=== PATIENT | male | born 1945 | race Caucasian/White ===

== ENCOUNTER → 2020-04-20 14:26 | Outpatient (BNVA) | payer MEDICARE, OTHER, SELFPAY | PROVIDERS: PCP Internal Medicine Medical Oncology; Visit Provider Surgery Vascular Surgery | DX: Z86.79 Personal history of other diseases of the circulatory system (principal); Z98.890 Other specified postprocedural states | CPT/HCPCS: 99213 ==

== ENCOUNTER 2020-05-29 12:34 | Outpatient (REF) | payer MEDICARE, OTHER, SELFPAY ==
--- NOTE | 2020-05-29 12:35 | XR_ITS ---
EXAMINATION: XR SHOULDER, LEFT CLINICAL INFORMATION: Bursitis of left shoulder. COMPARISON: None TECHNIQUE: AP external rotation, Grashey, scapular Y, and axillary views of the left shoulder. FINDINGS: There is loss of glenohumeral joint space with inferior arthritic spurring. There is mild acromial spurring along the undersurface and the lateral aspect. This could be impinging the rotator cuff. No acute fracture or lytic process. There is mild reduction of the left AC joint space. XR/XR shoulder LT min 2V IMPRESSION: Mild degenerative changes left glenohumeral and AC joint. Inferior and lateral acromial spurring likely impinging on the rotator cuff. Correlate with MRI, if clinically indicated.
== END 2020-05-29 12:35 | disposition home or self-care (01) ==
LOC: HO.HOSX 12:34
PROVIDERS: Visit Provider Orthopaedic Surgery
DX: M75.52 Bursitis of left shoulder (principal); M19.019 Primary osteoarthritis, unspecified shoulder
CPT/HCPCS: 20610; 73030; 99202; J1100

== ENCOUNTER → 2020-06-23 15:14 | Outpatient (BNVA) | payer MEDICARE, SELFPAY | PROVIDERS: PCP Internal Medicine Medical Oncology; Visit Provider Physician Assistant Medical | DX: Z76.89 Persons encountering health services in other specified circumstances (principal) | CPT/HCPCS: G0296 ==

== ENCOUNTER 2020-07-10 07:35 | Outpatient (REF) | payer MEDICARE, OTHER, SELFPAY ==
--- NOTE | 2020-07-10 07:37 | CT_ITS ---
EXAMINATION: CT CHEST SCREENING CLINICAL INFORMATION: Nicotine dependence. COMPARISON: CT chest 08/27/2016. TECHNIQUE: Multidetector volumetric CT imaging of the chest is performed without contrast using low dose technique. Additional 2D coronal and sagittal reformatted images and axial 3D maximum intensity projection (MIP) images are generated on the CT workstation. This CT examination was performed using dose optimization techniques as appropriate, variously including the following: *Automated exposure control *Adjustment of mA and/or kV according to patient size (this includes techniques or standardized protocols for targeted exams where dose is matched to indication/reason for exam; i.e. extremities or head) *Use of iterative reconstruction technique DLP: 63 mGy-cm. FINDINGS: LUNGS: The lungs are hyperinflated with small right apical, left lower lobe and a larger lingular cysts. Previously seen pulmonary nodule in the right lower lobe and right upper lobe nodules are not well visualized. There is 6 mm nodule right middle lobe anteriorly axial image 294/6, stable. MEDIASTINUM: The thyroid lobes are symmetrical and normal. The central trachea and the bronchi are widely patent. The heart size and the great vessels are normal caliber. There are small shotty lymph nodes in the mediastinum. There are coronary artery calcifications present. No pericardial effusion seen. PLEURA: There is no pleural effusion. No pleural mass or thickening. AXILLA: No lymphadenopathy. UPPER ABDOMEN: Visualized liver, spleen, pancreas and bilateral adrenal glands are unremarkable. OSSEOUS STRUCTURES: No lytic or sclerotic process seen. CT/CT lung screening IMPRESSION: There is 6 mm nodule right middle lobe adjacent to minor fissure. The other nodules seen previously are not visualized at this time. No change in multiple bilateral pulmonary cysts on previous study. No change in mild emphysema. ASSESSMENT: Lung-RADS category 3, probably benign RECOMMENDATION: Low dose [address] chest.
== END 2020-07-10 07:36 | disposition home or self-care (01) ==
LOC: HO.CT 07:35
PROVIDERS: Visit Provider Physician Assistant Medical
DX: F17.210 Nicotine dependence, cigarettes, uncomplicated (principal)
CPT/HCPCS: 71271

== ENCOUNTER → 2020-08-08 10:39 | Outpatient (BNVA) | payer MEDICARE, OTHER, SELFPAY | PROVIDERS: PCP Internal Medicine Medical Oncology; Visit Provider Surgery Vascular Surgery | DX: I73.9 Peripheral vascular disease, unspecified (principal); I71.4 Abdominal aortic aneurysm, without rupture | CPT/HCPCS: 99212 ==

== ENCOUNTER 2020-08-16 12:25 | Outpatient (REF) | payer MEDICARE, OTHER, SELFPAY ==
--- NOTE | ~2020-08-16 | US_ITS ---
EXAMINATION: COLOR-FLOW DUPLEX IMAGING OF THE BILATERAL LOWER EXTREMITY ARTERIAL SYSTEM. VELOCITY MEASUREMENTS THROUGHOUT THE FEMORAL ARTERIES WITH ANKLE-BRACHIAL PERIPHERAL ARTERIAL TESTING. CLINICAL INFORMATION: This is a 75-year-old male with atherosclerotic disease and claudication. Peripheral vascular disease. Smoking. Interventional Radiologist: Israel Vizcaino M.D., F.S.I.R., F.A.C.R. RIGHT FEMORAL RUNOFF VELOCITIES: The right common femoral artery measures 146 cm/s and triphasic. The right profunda femoral artery is 73 cm/s and is biphasic. Right proximal superficial femoral artery measures 126 cm/s and biphasic. Mid superficial femoral artery is 1 7 cm/s and biphasic. Distal right superficial femoral artery measures 92 cm/s and is biphasic. Right popliteal velocity measures 44 cm/s and is biphasic. The posterior tibial artery velocity measures 39 cm/s and was biphasic. The right ankle-brachial index is 0.76. LEFT FEMORAL RUNOFF VELOCITIES: The left common femoral artery measures 90 cm/s and triphasic. The left profunda femoral artery is 91 cm/s and is biphasic. Left proximal superficial femoral artery measures 58 cm/s and triphasic. Mid superficial femoral artery is 83 cm/s and biphasic. Distal left superficial femoral artery measures 16 cm/s and is monophasic. Left popliteal velocity measures 26 cm/s and is monophasic. The posterior tibial artery velocity measures 13 cm/s and was monophasic. The left ankle-brachial index is 0.62. US/US arterial duplex LE BI IMPRESSION: 1. There is moderate hemodynamically significant disease within the left lower extremity runoff. There appears to be hemodynamically significant stenosis involving the distal left superficial femoral artery. 2. There is mild hemodynamically significant atherosclerotic disease in the left lower extremity runoff. There appears to be hemodynamically significant disease in the left popliteal region.
--- NOTE | ~2020-08-16 | US_ITS ---
EXAMINATION: COLOR-FLOW DUPLEX IMAGING OF THE BILATERAL LOWER EXTREMITY ARTERIAL SYSTEM. VELOCITY MEASUREMENTS THROUGHOUT THE FEMORAL ARTERIES WITH ANKLE-BRACHIAL PERIPHERAL ARTERIAL TESTING. CLINICAL INFORMATION: This is a 75-year-old male with atherosclerotic disease and claudication. Peripheral vascular disease. Smoking. Interventional Radiologist: Israel Vizcaino M.D., F.S.I.R., F.A.C.R. RIGHT FEMORAL RUNOFF VELOCITIES: The right common femoral artery measures 146 cm/s and triphasic. The right profunda femoral artery is 73 cm/s and is biphasic. Right proximal superficial femoral artery measures 126 cm/s and biphasic. Mid superficial femoral artery is 1 7 cm/s and biphasic. Distal right superficial femoral artery measures 92 cm/s and is biphasic. Right popliteal velocity measures 44 cm/s and is biphasic. The posterior tibial artery velocity measures 39 cm/s and was biphasic. The right ankle-brachial index is 0.76. LEFT FEMORAL RUNOFF VELOCITIES: The left common femoral artery measures 90 cm/s and triphasic. The left profunda femoral artery is 91 cm/s and is biphasic. Left proximal superficial femoral artery measures 58 cm/s and triphasic. Mid superficial femoral artery is 83 cm/s and biphasic. Distal left superficial femoral artery measures 16 cm/s and is monophasic. Left popliteal velocity measures 26 cm/s and is monophasic. The posterior tibial artery velocity measures 13 cm/s and was monophasic. The left ankle-brachial index is 0.62. US/US VIJAY complete IMPRESSION: 1. There is moderate hemodynamically significant disease within the left lower extremity runoff. There appears to be hemodynamically significant stenosis involving the distal left superficial femoral artery. 2. There is mild hemodynamically significant atherosclerotic disease in the left lower extremity runoff. There appears to be hemodynamically significant disease in the left popliteal region.
== END 2020-08-16 12:26 | disposition home or self-care (01) ==
LOC: HO.US 12:25
PROVIDERS: Visit Provider Surgery Vascular Surgery
DX: I70.213 Atherosclerosis of native arteries of extremities with intermittent claudication, bilateral legs (principal)
CPT/HCPCS: 93923; 93925

== ENCOUNTER → 2020-08-24 12:54 | Outpatient (BNVA) | payer MEDICARE, OTHER, SELFPAY | PROVIDERS: PCP Internal Medicine Medical Oncology; Visit Provider Surgery Vascular Surgery | DX: I73.9 Peripheral vascular disease, unspecified (principal) | CPT/HCPCS: 99212 ==

== ENCOUNTER 2020-09-06 06:04 | Day surgery (SDC) | payer MEDICARE, OTHER, SELFPAY ==
[2020-09-06 06:26] VITALS: BMI 28.1
[2020-09-06 06:47] LABS: MANUAL DIFF FLAG NO
[2020-09-06 06:49] LABS: Basophils Percent Auto 0.5 % (0-2); Eosinophils Absolute Auto 0.2 X10*3/uL (0.0-0.4); Eosinophils Percent Auto 2.9 % (0-4); Hemoglobin 15.6 g/dl (14.0-18.0); Imm Gran Abs Auto 0.03 X10*3/uL (0.00-0.03); Imm Gran Pct Auto 0.4 % (0.0-0.4); Lymphocytes Absolute Auto 1.8 X10*3/uL (1.2-4.9); Lymphocytes Percent Auto 25.1 % (20-40); Mean Corpuscular HGB Conc 33.9 g/dl (31.0-36.0); Mean Corpuscular Hemoglobin 29.8 pg (27.0-33.0); Mean Corpuscular Volume 87.8 fL (80-98); Mean Platelet Volume 9.1 fL (9.4-12.4); Monocytes Absolute Auto 0.6 X10*3/uL (0.1-1.2); Monocytes Percent Auto 8.1 % (2-11); Neutrophils Absolute Auto 4.6 X10*3/uL (2.0-8.3); Platelet Count 263 X10*3/uL (160-400); Red Blood Count 5.24 X10*6/uL (4.60-5.80); Red Cell Distribution Width 12.3 % (11.0-16.0); White Blood Count 7.3 X10*3/uL (4.8-10.8)
[2020-09-06 06:56] LABS: Prothrombin Time 11.3 SEC (10.8-13.0)
[2020-09-06 06:58] LABS: Partial Thromboplastin Time 31.2 SEC (24.1-38.0)
[2020-09-06 07:23] LABS: Anion Gap 11 (12-20); Blood Urea Nitrogen 12 mg/dL (9-16); Calcium 8.9 mg/dL (8.4-10.2); Carbon Dioxide 24 mmol/L (22-29); Chloride 107 mmol/L (96-108); Creatinine Clr Calc Pharmacy 85.1; Estimated Glomerular Filt Rate > 60; Glucose Random 103 mg/dL (60-115); Potassium 4.3 mmol/L (3.3-5.1); Sodium 138 mmol/L (135-145)
[2020-09-06 09:30] VITALS: BP 159/94; PULSE 78; RESP 17; TEMP 36.2; O2SAT 94
--- NOTE | 2020-09-06 09:33 | P.OP_ITS ---
Operative Note Operative Note Date of Service: 09/06/20 Narrative: Angiogram report from [facility] Preoperative diagnosis: Peripheral arterial disease of left lower extremity Postoperative diagnosis: Same Procedure: 1. Ultrasound-guided left common femoral access 2. Aortogram with bilateral lower extremity runoff 3. Angioplasty and stent of left SFA Surgeon:Jonathan Schroeder M.D. Spoilage Worker:None Anesthesia: Local with moderate conscious sedation for a total of 64 minutes, performed by tn Specimens:none Drains:none Estimated blood loss:minimal Indications: Patient is a 75-year-old gentleman with a history of peripheral vascular disease. Of note he had a prior aortic endograft placed by tn. This was a Endologix a FX device. He subsequently has developed left lower extremity claudication. On noninvasive arterial study demonstrated left SFA occlusion. He now presents for endovascular intervention. Risks benefits complications were discussed in detail with the patient he understood and consented. Procedure in detail: Patient was brought to the angiography suite prior to which a time-out was called for patient identification and site verification. Bilateral groins were prepped and draped in the standard surgical fashion. Under ultrasound guidance right common femoral was punctured with micro puncture needle and wire. Subsequently a precision 4 [place] sheath was then placed. [employer] wire was advanced to the level of the aorta. 4 [place] Flush catheter was brought up and parked at the level of the renal arteries. Aortogram was then undertaken. Catheter was brought down to the level of the iliac bifurcation. Iliacs were subsequently imaged. Catheter was then brought in up and over to the left side SFA. Runoff study was then undertaken. At this 0.5 1000 units of systemic heparin was administered. Up and over 6 [place] catheter was then placed. We were able to use a 035 glidewire to bandage in traverse the SFA lesion. This was then plasty and with a 6 x 150 balloon. This required 2 subsequent insufflations. Once this was accomplished we then placed a 6 x 200 Medtronic stent in the distal SFA. Post deployment we plasty this into position with a 6 x 150 balloon. We then turned our attention to the more proximal area which did have some mild stenotic disease. This was plasty D into position with a 6 x 200 drug coated balloon. This was brought into position in under 3 minutes and deployed for a total of 3 minutes in duration. Once this was done completion angiogram down the left side demonstrated excellent result. Catheter wire sheath was brought to the ipsilateral side which was the right side. Through the right-sided sheath right lower extremity runoff was then undertaken. StarClose closure device was then deployed. Interpretation of films: 1. Ultrasound demonstrates appropriate femoral puncture. Image of which was saved. 2. Aortogram demonstrates appropriate caliber aorta. Minimal disease. Appropriate take-off of the renals. Aortic stent graft in position. 3. Iliac images demonstrate tortuous iliacs. Right-sided coil did occlude the right hypogastric. 4. Left lower extremity demonstrated good flow through the common femoral and profundus. SFA had some mild disease proximally mid to distal SFA was a total occlusion with reconstitution at the above knee popliteal. There was 2 vessel runoff which was the anterior tibial and peroneal. Postprocedure demonstrated excellent flow through the SFA with good 2 vessel runoff down to the foot. 5. Right lower extremity study demonstrated good flow through the common femoral profundus and SFA. Conclusion: 1. Successful angioplasty and stent of left SFA. Due to the use drug coated balloon a minimum of 6 months of aspirin and Plavix will be required. This note is constructed using voice recognition software. While every effort has been made to ensure accuracy, siebel administrator errors may have been included. Thank you for allowing me to participate in the care of your patient. Yours sincerely, Jonathan Schroeder MD, FACS, R.P.V.I.
[2020-09-06] MEDS: iohexoL 300 MG/ML 100 ML INFUS..BTL IV (09:42)
[2020-09-06] MEDS: iohexoL 300 MG/ML 50 ML INFUS..BTL IV (09:43)
[2020-09-06] MEDS: Lidocaine HCl 1 % MPF 5 ML VIAL 10 ML SUBCUT (09:44)
[2020-09-06 09:45] VITALS: BP 132/77; PULSE 76; RESP 17; O2SAT 94
[2020-09-06 10:00] VITALS: BP 141/75; PULSE 84; RESP 18; O2SAT 94
[2020-09-06 10:15] VITALS: BP 145/78; PULSE 75; RESP 17; O2SAT 94
[2020-09-06 10:30] VITALS: BP 125/73; PULSE 85; RESP 18; TEMP 36.4; O2SAT 94
[2020-09-06 11:00] VITALS: BP 121/86; PULSE 80; RESP 17; O2SAT 95
== END 2020-09-06 13:00 | disposition home or self-care (01) ==
PROVIDERS: PCP Internal Medicine Medical Oncology; Visit Provider Surgery Vascular Surgery
DX: I73.9 Peripheral vascular disease, unspecified (principal); I77.1 Stricture of artery; I77.89 Other specified disorders of arteries and arterioles; M17.12 Unilateral primary osteoarthritis, left knee; F17.210 Nicotine dependence, cigarettes, uncomplicated; Z95.828 Presence of other vascular implants and grafts
CPT/HCPCS: 36415; 37226; 75710; 76937; 76942; 80048; 85025; 85610; 85730; 99152; 99153; C1725; C1760; C1769; C1876; C1887; J2250; J3010; Q9967

== ENCOUNTER → 2020-09-19 09:12 | Outpatient (BNVA) | payer MEDICARE, OTHER, SELFPAY | PROVIDERS: PCP Internal Medicine Medical Oncology; Visit Provider Surgery Vascular Surgery | DX: I73.9 Peripheral vascular disease, unspecified (principal); I71.4 Abdominal aortic aneurysm, without rupture | CPT/HCPCS: 99212 ==

== ENCOUNTER → 2020-11-20 15:17 | Outpatient (BNVA) | payer SELFPAY | PROVIDERS: PCP Internal Medicine Medical Oncology; Visit Provider Internal Medicine | DX: Z02.79 Encounter for issue of other medical certificate (principal) ==

== ENCOUNTER 2020-12-18 08:00 | Outpatient (REF) | payer MEDICARE, OTHER, SELFPAY ==
--- NOTE | ~2020-12-18 | US_ITS ---
EXAMINATION: COLOR-FLOW DUPLEX IMAGING OF THE BILATERAL LOWER EXTREMITY ARTERIAL SYSTEM. VELOCITY MEASUREMENTS THROUGHOUT THE FEMORAL ARTERIES WITH ANKLE-BRACHIAL PERIPHERAL ARTERIAL TESTING. CLINICAL INFORMATION: This is a 75-year-old male with a history of smoking, hyperlipidemia, vascular surgery, angioplasty with stent. Comparison: Comparison is made to a previous study dated 08/16/2020. Interventional Radiologist: Israel Vizcaino M.D., F.S.I.R., F.A.C.R. RIGHT FEMORAL RUNOFF VELOCITIES: The right common femoral artery measures 115 cm/s and biphasic. The right profunda femoral artery is 50 cm/s and is biphasic. Right proximal superficial femoral artery measures 85 cm/s and biphasic. Mid superficial femoral artery is 89 cm/s and biphasic. Distal right superficial femoral artery measures 59 cm/s and is biphasic. Right popliteal velocity measures 44 cm/s and is biphasic. The posterior tibial artery velocity measures 49 cm/s and was biphasic. The right ankle-brachial index is 0.89. Previously, this measured 0.76. LEFT FEMORAL RUNOFF VELOCITIES: The left common femoral artery measures 119 cm/s and biphasic. The left profunda femoral artery is 74 cm/s and is biphasic. Left proximal superficial femoral artery measures 115 cm/s and biphasic. Mid superficial femoral artery is 78 cm/s and biphasic. Distal left superficial femoral artery measures 81 cm/s and is biphasic. Previously, the waveforms were monophasic in the velocities were low. Left popliteal velocity measures 63 cm/s and is biphasic. Previously, the waveforms were monophasic in the waveforms were low. The posterior tibial artery velocity measures 49 cm/s and was biphasic. Stent measurements: [place] artery proximal to the stent: 58 cm/s and biphasic. Proximal stent: 86 cm/s and biphasic. Mid stent: 78 cm/s and biphasic. Distal stent: 62 cm/s and biphasic. [place] artery distal to the stent 81 cm/s and biphasic. The left ankle-brachial index is 0.99. Previously, this measured 0.62. US/US arterial duplex LE BI IMPRESSION: 1. There is mild hemodynamically significant disease within the right lower extremity runoff. No focal area of hemodynamically significant stenosis is seen. 2. There has been significant improvement in the left lower extremity arterial Doppler study. It is now without hemodynamically significant stenosis in the left lower extremity. The stent appears patent.
--- NOTE | ~2020-12-18 | US_ITS ---
EXAMINATION: COLOR-FLOW DUPLEX IMAGING OF THE BILATERAL LOWER EXTREMITY ARTERIAL SYSTEM. VELOCITY MEASUREMENTS THROUGHOUT THE FEMORAL ARTERIES WITH ANKLE-BRACHIAL PERIPHERAL ARTERIAL TESTING. CLINICAL INFORMATION: This is a 75-year-old male with a history of smoking, hyperlipidemia, vascular surgery, angioplasty with stent. Comparison: Comparison is made to a previous study dated 08/16/2020. Interventional Radiologist: Israel Vizcaino M.D., F.S.I.R., F.A.C.R. RIGHT FEMORAL RUNOFF VELOCITIES: The right common femoral artery measures 115 cm/s and biphasic. The right profunda femoral artery is 50 cm/s and is biphasic. Right proximal superficial femoral artery measures 85 cm/s and biphasic. Mid superficial femoral artery is 89 cm/s and biphasic. Distal right superficial femoral artery measures 59 cm/s and is biphasic. Right popliteal velocity measures 44 cm/s and is biphasic. The posterior tibial artery velocity measures 49 cm/s and was biphasic. The right ankle-brachial index is 0.89. Previously, this measured 0.76. LEFT FEMORAL RUNOFF VELOCITIES: The left common femoral artery measures 119 cm/s and biphasic. The left profunda femoral artery is 74 cm/s and is biphasic. Left proximal superficial femoral artery measures 115 cm/s and biphasic. Mid superficial femoral artery is 78 cm/s and biphasic. Distal left superficial femoral artery measures 81 cm/s and is biphasic. Previously, the waveforms were monophasic in the velocities were low. Left popliteal velocity measures 63 cm/s and is biphasic. Previously, the waveforms were monophasic in the waveforms were low. The posterior tibial artery velocity measures 49 cm/s and was biphasic. Stent measurements: [place] artery proximal to the stent: 58 cm/s and biphasic. Proximal stent: 86 cm/s and biphasic. Mid stent: 78 cm/s and biphasic. Distal stent: 62 cm/s and biphasic. [place] artery distal to the stent 81 cm/s and biphasic. The left ankle-brachial index is 0.99. Previously, this measured 0.62. US/US VIJAY complete IMPRESSION: 1. There is mild hemodynamically significant disease within the right lower extremity runoff. No focal area of hemodynamically significant stenosis is seen. 2. There has been significant improvement in the left lower extremity arterial Doppler study. It is now without hemodynamically significant stenosis in the left lower extremity. The stent appears patent.
== END 2020-12-18 08:01 | disposition home or self-care (01) ==
LOC: HO.US 08:00
PROVIDERS: Visit Provider Surgery Vascular Surgery
DX: I70.213 Atherosclerosis of native arteries of extremities with intermittent claudication, bilateral legs (principal)
CPT/HCPCS: 93923; 93925

== ENCOUNTER → 2021-01-16 14:46 | Outpatient (BNVA) | payer MEDICARE, OTHER, SELFPAY | PROVIDERS: PCP Internal Medicine Medical Oncology; Visit Provider Surgery Vascular Surgery | DX: I73.9 Peripheral vascular disease, unspecified (principal); I71.4 Abdominal aortic aneurysm, without rupture | CPT/HCPCS: 99212 ==

== ENCOUNTER 2021-04-11 13:44 | Outpatient (REF) | payer MEDICARE, OTHER, SELFPAY ==
[2021-04-11 16:57] LABS: Blood Urea Nitrogen 11 mg/dL (9-16); Estimated Glomerular Filt Rate > 60
== END 2021-04-11 13:45 | disposition home or self-care (01) ==
LOC: HO.HMGCLDS 13:44
PROVIDERS: PCP Internal Medicine Medical Oncology; Visit Provider Surgery Vascular Surgery
DX: I71.4 Abdominal aortic aneurysm, without rupture (principal)
CPT/HCPCS: 36415; 82565; 84520

== ENCOUNTER 2021-04-18 07:32 | Outpatient (REF) | payer MEDICARE, OTHER, SELFPAY ==
--- NOTE | ~2021-04-18 | CT_ITS ---
EXAMINATION: CT ANGIOGRAM ABDOMEN AND PELVIS CLINICAL INFORMATION: Abdominal aortic aneurysm without rupture. COMPARISON: CTA abdomen and pelvis 03/14/2020. TECHNIQUE: Multiple axial images were obtained through the abdomen and pelvis following the administration of 70 mL of Omnipaque 350 intravenous contrast. Images were evaluated on independent dedicated 3-D workstation and 3-D images were reconstructed with concurrent radiologist supervision and subsequently interpreted. This CT examination was performed using dose optimization techniques as appropriate, variously including the following: *Automated exposure control *Adjustment of mA and/or kV according to patient size (this includes techniques or standardized protocols for targeted exams where dose is matched to indication/reason for exam; i.e. extremities or head) *Use of iterative reconstruction technique DLP: 374 mGy-cm FINDINGS: VASCULAR: Mildly dilated distal descending thoracic aorta similar to prior. No evidence of aortic dissection or other acute aortic syndrome. Redemonstration of infrarenal abdominal aortic aneurysm status post repair with an endograft with bilateral iliac components and embolization coils within a right internal iliac artery aneurysm. There is no evidence of endoleak. The excluded sac of the aneurysm measures up to 4.2 cm in diameter at the level of the L4 superior endplate, previously 4.2 x 4.3 cm. Excluded sac of right common iliac artery aneurysm is stable from prior and measures 3.3 cm in diameter. Stable appearance of right internal iliac artery aneurysm post embolization. There is a [id number] stenosis at the origin of the celiac trunk with normal opacification of the branches of the celiac beyond. There is moderate stenosis of the superior mesenteric artery 5 mm distal to its origin with normal distal opacification of the superior mesenteric artery. While diminutive, the inferior mesenteric artery is opacified via collaterals, though the origin of the inferior mesenteric artery is occluded. There are 2 left renal arteries which are normal in caliber and without hemodynamically significant stenosis. There is a single right renal artery which is patent from its origin and without hemodynamically significant stenosis. At the renal hilum, there is a 7 mm aneurysm of the upper pole branch of the vessel, similar to priors. There is mild ectasia of the left common iliac artery, a moderate focal stenosis at the origin of the internal iliac and mild aneurysmal dilation of the proximal left internal iliac to 9 mm. Stable appearance of embolization coils within the right internal iliac. The external iliac arteries are well opacified and without significant stenosis. The proximal femoral vessels are widely patent. There is an unremarkable appearance of the venous structures for an arterial phase of contrast. NONVASCULAR: Emphysematous changes of the lung bases are again noted with a cystic airspace at the left base. There is no pleural effusion. The imaged heart is unremarkable. The liver is normal in size and overall attenuation. No focal hepatic lesions. No intrahepatic or extrahepatic duct dilation. Gallbladder is unremarkable. Heterogeneous attenuation of the spleen secondary to arterial contrast phase. The spleen is otherwise unremarkable. Pancreas is unremarkable. No pancreatic duct dilation. The adrenal glands are unremarkable. There are bilateral simple renal cyst requiring no additional imaging follow up which are essentially unchanged from the prior study. The largest is on the right at the lower pole and measures 2.5 cm. There are no renal calculi, hydronephrosis, hydroureter or ureteral calculi. The bladder is partially distended and normal in contour. Prostate is mildly enlarged and measures up to 5.5 cm transverse. Seminal vesicles are unremarkable. The distal esophagus and stomach are unremarkable. The small and large bowel are normal in caliber. There is minimal colonic diverticulosis without inflammation to suggest diverticulitis. No significant hernia of the abdominal wall is seen. There is no free intraperitoneal fluid. There is no abdominopelvic or retroperitoneal lymphadenopathy. Mild endplate degenerative change of the imaged thoracolumbar spine is similar to the prior study. There is no acute or aggressive bony abnormality. 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 No evidence of endoleak. Stable appearance of the aneurysmal segments of the bilateral internal iliac arteries with embolization coils on the right.
[2021-04-18] MEDS: iohexoL 350 MG/ML 100 ML INFUS..BTL 80 ML IV (08:43)
== END 2021-04-18 07:33 | disposition home or self-care (01) ==
LOC: HO.CT 07:32
PROVIDERS: PCP Internal Medicine Medical Oncology; Visit Provider Surgery Vascular Surgery
DX: I71.4 Abdominal aortic aneurysm, without rupture (principal)
CPT/HCPCS: 74174; Q9967

== ENCOUNTER → 2021-04-24 15:41 | Outpatient (BNVA) | payer MEDICARE, OTHER, SELFPAY | PROVIDERS: PCP Internal Medicine Medical Oncology; Visit Provider Surgery Vascular Surgery | DX: I71.4 Abdominal aortic aneurysm, without rupture (principal); I73.9 Peripheral vascular disease, unspecified | CPT/HCPCS: 99212 ==

== ENCOUNTER 2021-05-17 08:33 | Outpatient (REF) | payer MEDICARE, OTHER, SELFPAY ==
[2021-05-17 11:15] LABS: Appearance Urine CLEAR; Color Urine YELLOW; Glucose Urine UA NEG (NEG); Leukocyte Esterase Urine NEG (NEG); Nitrite Urine NEG (NEG); Specific Gravity - Urine <= 1.005 (1.005-1.025); Urine Blood TRACE (NEG); Urine Ketones NEG (NEG); Urine Protein NEG (NEG-TRACE)
[2021-05-17 11:16] LABS: MANUAL DIFF FLAG NO
[2021-05-17 11:21] LABS: Basophils Percent Auto 0.4 % (0-2); Eosinophils Absolute Auto 0.1 X10*3/uL (0.0-0.4); Eosinophils Percent Auto 1.4 % (0-4); Hemoglobin 16.2 g/dl (14.0-18.0); Imm Gran Abs Auto 0.05 X10*3/uL (0.00-0.03); Imm Gran Pct Auto 0.5 % (0.0-0.4); Lymphocytes Absolute Auto 1.9 X10*3/uL (1.2-4.9); Lymphocytes Percent Auto 19.1 % (20-40); Mean Corpuscular HGB Conc 33.1 g/dl (31.0-36.0); Mean Corpuscular Hemoglobin 29.2 pg (27.0-33.0); Mean Corpuscular Volume 88.3 fL (80.0-98.0); Mean Platelet Volume 9.6 fL (9.4-12.4); Monocytes Absolute Auto 0.8 X10*3/uL (0.1-1.2); Neutrophils Absolute Auto 6.8 x10*3/uL (2.0-8.3); Neutrophils Percent Auto 70.6 % (45-73); Platelet Count 312 X10*3/uL (160-400); Red Blood Count 5.55 X10*6/uL (4.60-5.80); Red Cell Distribution Width 12.6 % (11.0-16.0); White Blood Count 9.7 X10*3/uL (4.8-10.8)
[2021-05-17 11:30] LABS: WBC Urine 0 /HPF (0-4)
[2021-05-17 11:36] LABS: Alanine Aminotransferase 16 U/L (0-40); Albumin Level 4.4 g/dL (3.5-5.0); Alkaline Phosphatase 95 U/L (39-117); Anion Gap 11 (12-20); Aspartate Amino Transferase 13 U/L (5-37); Bilirubin Total 0.6 mg/dL (0.0-1.0); Blood Urea Nitrogen 9 mg/dL (9-16); Calcium 9.6 mg/dL (8.4-10.2); Carbon Dioxide 27 mmol/L (22-29); Chloride 105 mmol/L (96-108); Cholesterol 190 mg/dL; Estimated Glomerular Filt Rate > 60; Glucose Fasting 105 mg/dL (60-99); HDL Cholesterol 40 mg/dL; LDL Cholesterol Calculated 117 mg/dl; Potassium 4.6 mmol/L (3.3-5.1); Sodium 138 mmol/L (135-145); Total Protein 6.9 g/dL (6.5-8.0); Triglycerides 168 mg/dL
[2021-05-17 12:00] LABS: Prostate Specific Antigen 1.33 ng/mL (<0.05-4.0)
[2021-05-17 12:38] LABS: Erythrocyte Sedimentation Rate 7 MM/HR (0-15)
== END 2021-05-17 08:34 | disposition home or self-care (01) ==
LOC: HO.HMGCLDS 08:33
PROVIDERS: PCP Internal Medicine Medical Oncology; Visit Provider Internal Medicine Medical Oncology
DX: Z12.5 Encounter for screening for malignant neoplasm of prostate (principal); E78.2 Mixed hyperlipidemia; E66.3 Overweight
CPT/HCPCS: 36415; 80053; 80061; 81001; 84153; 85025; 85652

== ENCOUNTER → 2021-06-26 13:46 | Outpatient (BNVA) | payer MEDICARE, OTHER, SELFPAY | PROVIDERS: PCP Internal Medicine Medical Oncology; Visit Provider Surgery Vascular Surgery | DX: I73.9 Peripheral vascular disease, unspecified (principal); F17.210 Nicotine dependence, cigarettes, uncomplicated | CPT/HCPCS: 99212 ==

== ENCOUNTER 2021-07-26 08:20 | Outpatient (REF) | payer MEDICARE, OTHER, SELFPAY ==
--- NOTE | ~2021-07-26 | US_ITS ---
EXAMINATION: COLOR-FLOW DUPLEX IMAGING OF THE BILATERAL LOWER EXTREMITY ARTERIAL SYSTEM. VELOCITY MEASUREMENTS THROUGHOUT THE FEMORAL ARTERIES WITH ANKLE-BRACHIAL PERIPHERAL ARTERIAL TESTING. Interventional Radiologist: Israel Vizcaino M.D., F.S.I.R., F.A.C.R. CLINICAL INFORMATION: This is a 76-year-old male who status post left superficial femoral artery stenting. Peripheral arterial disease. Comparison: Comparison is made to a previous study dated 12/18/2020. RIGHT FEMORAL RUNOFF VELOCITIES: The right common femoral artery measures 176 cm/s and triphasic. Previously, 115 cm/s and biphasic. The right profunda femoral artery is 86 cm/s and biphasic. Previously, 50 cm/s and is biphasic. Right proximal superficial femoral artery measures 88 cm/s and triphasic. Previously, 85 cm/s and biphasic. Mid superficial femoral artery is 114 cm/s and triphasic. Previously, 89 cm/s and biphasic. Distal right superficial femoral artery measures 87 cm/s and triphasic. Previously, 59 cm/s and is biphasic. Right popliteal velocity measures 66 cm/s and triphasic. Previously, 44 cm/s and is biphasic. The posterior tibial artery velocity measures 37 cm/s and biphasic. Previously, 49 cm/s and was biphasic. The right ankle-brachial index is 0.99. Previously, this measured 0.89. LEFT FEMORAL RUNOFF VELOCITIES: The left common femoral artery measures 139 cm/s and triphasic. Previously, 119 cm/s and biphasic. The left profunda femoral artery is 81 cm/s and biphasic. Previously, 74 cm/s and is biphasic. Left proximal superficial femoral artery is stented Mid superficial femoral artery is stented Distal left superficial femoral artery is stented Left popliteal velocity measures 72 cm/s and triphasic. Previously, 63 cm/s and is biphasic. The posterior tibial artery velocity measures 47 cm/s and biphasic. Previously, 49 cm/s and was biphasic. Stent measurements: [place] artery proximal to the stent: 180 cm/s and triphasic. Previously, 58 cm/s and biphasic. Proximal stent: 101 cm/s and triphasic. Previously, 86 cm/s and biphasic. Mid stent: 80 cm/s and triphasic. Previously, 78 cm/s and biphasic. Distal stent: 146 cm/s and triphasic. Previously, 62 cm/s and biphasic. [place] artery distal to the stent 151 cm/s and triphasic. Previously, 81 cm/s and biphasic. The left ankle-brachial index is 0.95. Previously, this measured 0.99. US/US VIJAY complete IMPRESSION: 1. There is mild hemodynamically significant disease within the right lower extremity runoff. No focal area of hemodynamically significant stenosis is seen. However, overall is appears to be improved. 2. There is no hemodynamically significant stenosis in the left lower extremity. The stent appears patent. No changes demonstrated.
--- NOTE | ~2021-07-26 | US_ITS ---
EXAMINATION: COLOR-FLOW DUPLEX IMAGING OF THE BILATERAL LOWER EXTREMITY ARTERIAL SYSTEM. VELOCITY MEASUREMENTS THROUGHOUT THE FEMORAL ARTERIES WITH ANKLE-BRACHIAL PERIPHERAL ARTERIAL TESTING. Interventional Radiologist: Israel Vizcaino M.D., F.S.I.R., F.A.C.R. CLINICAL INFORMATION: This is a 76-year-old male who status post left superficial femoral artery stenting. Peripheral arterial disease. Comparison: Comparison is made to a previous study dated 12/18/2020. RIGHT FEMORAL RUNOFF VELOCITIES: The right common femoral artery measures 176 cm/s and triphasic. Previously, 115 cm/s and biphasic. The right profunda femoral artery is 86 cm/s and biphasic. Previously, 50 cm/s and is biphasic. Right proximal superficial femoral artery measures 88 cm/s and triphasic. Previously, 85 cm/s and biphasic. Mid superficial femoral artery is 114 cm/s and triphasic. Previously, 89 cm/s and biphasic. Distal right superficial femoral artery measures 87 cm/s and triphasic. Previously, 59 cm/s and is biphasic. Right popliteal velocity measures 66 cm/s and triphasic. Previously, 44 cm/s and is biphasic. The posterior tibial artery velocity measures 37 cm/s and biphasic. Previously, 49 cm/s and was biphasic. The right ankle-brachial index is 0.99. Previously, this measured 0.89. LEFT FEMORAL RUNOFF VELOCITIES: The left common femoral artery measures 139 cm/s and triphasic. Previously, 119 cm/s and biphasic. The left profunda femoral artery is 81 cm/s and biphasic. Previously, 74 cm/s and is biphasic. Left proximal superficial femoral artery is stented Mid superficial femoral artery is stented Distal left superficial femoral artery is stented Left popliteal velocity measures 72 cm/s and triphasic. Previously, 63 cm/s and is biphasic. The posterior tibial artery velocity measures 47 cm/s and biphasic. Previously, 49 cm/s and was biphasic. Stent measurements: [place] artery proximal to the stent: 180 cm/s and triphasic. Previously, 58 cm/s and biphasic. Proximal stent: 101 cm/s and triphasic. Previously, 86 cm/s and biphasic. Mid stent: 80 cm/s and triphasic. Previously, 78 cm/s and biphasic. Distal stent: 146 cm/s and triphasic. Previously, 62 cm/s and biphasic. [place] artery distal to the stent 151 cm/s and triphasic. Previously, 81 cm/s and biphasic. The left ankle-brachial index is 0.95. Previously, this measured 0.99. US/US arterial duplex LE BI IMPRESSION: 1. There is mild hemodynamically significant disease within the right lower extremity runoff. No focal area of hemodynamically significant stenosis is seen. However, overall is appears to be improved. 2. There is no hemodynamically significant stenosis in the left lower extremity. The stent appears patent. No changes demonstrated.
== END 2021-07-26 08:21 | disposition home or self-care (01) ==
LOC: HO.US 08:20
PROVIDERS: Visit Provider Surgery Vascular Surgery
DX: I73.9 Peripheral vascular disease, unspecified (principal)
CPT/HCPCS: 93923; 93925

== ENCOUNTER → 2021-07-31 15:13 | Outpatient (BNVA) | payer MEDICARE, OTHER, SELFPAY | PROVIDERS: PCP Internal Medicine Medical Oncology; Visit Provider Surgery Vascular Surgery | DX: I73.9 Peripheral vascular disease, unspecified (principal); I71.4 Abdominal aortic aneurysm, without rupture | CPT/HCPCS: 99212 ==

== ENCOUNTER → 2021-08-14 08:49 | Outpatient (BNVA) | payer MEDICARE, OTHER, SELFPAY | PROVIDERS: PCP Internal Medicine Medical Oncology; Visit Provider Nurse Practitioner Family | DX: Z01.818 Encounter for other preprocedural examination (principal) | CPT/HCPCS: 99202 ==

== ENCOUNTER 2021-09-17 08:13 | Outpatient (REF) | payer MEDICARE, OTHER, SELFPAY ==
--- NOTE | ~2021-09-17 | XR_ITS ---
EXAMINATION: XR SHOULDER, LEFT CLINICAL INFORMATION: Pain COMPARISON: Previous x-ray May 2020 TECHNIQUE: 3 views of the left shoulder. FINDINGS: Bone alignment is normal. No fracture or dislocation is seen. There is arthritis at the glenohumeral and acromioclavicular joints. There may be undersurface acromial osteophyte. Soft tissues are otherwise unremarkable. XR/XR shoulder LT min 2V IMPRESSION: Left shoulder arthritis.
== END 2021-09-17 08:14 | disposition home or self-care (01) ==
LOC: HO.HOSX 08:13
PROVIDERS: Visit Provider Orthopaedic Surgery
DX: M75.42 Impingement syndrome of left shoulder (principal)
CPT/HCPCS: 20610; 73030; 99212; J1100

== ENCOUNTER 2021-09-26 09:45 | Day surgery (SDC) | payer MEDICARE, OTHER, SELFPAY ==
[2021-09-10 08:48] VITALS: BMI 25.0
--- NOTE | 2021-09-25 08:48 | P.CONAN_ITS ---
Documented by User: Teena Magallanes NP 09/25/21 08:51 HPI - Anesthesia Eval Consult details Narrative: 76yo M for Colonoscopy Plavix for PVD PMFSH Active Problems Active Problems: All Active Problems (Updated 09/17/21 @ 11:51 by Bossman Carballo MD) Impingement syndrome, shoulder, left (Acute) AAA (abdominal aortic aneurysm) without rupture (Acute) Osteoarthritis of glenohumeral joint (Acute) Bursitis of left shoulder (Acute) PAD (peripheral artery disease) (Acute) Nicotine dependence, cigarettes, uncomplicated (Acute) Past Medical History Medical History Bursitis of left shoulder CVA (cerebral vascular accident) Erectile dysfunction Hepatitis A Hyperplastic colon polyp Nicotine dependence, cigarettes, uncomplicated Primary osteoarthritis of left knee Family History Family History Father No problems noted. Mother Cancer Arthritis Brother No problems noted. Brother No problems noted. Brother No problems noted. Brother No problems noted. Brother No problems noted. Brother Pancreatic cancer Sister No problems noted. Sister No problems noted. Sister No problems noted. Sister Pancreatic cancer, Onset Age: 69 Sister FH: ovarian cancer Sister Breast cancer Son No problems noted. Son No problems noted. Surgical History Surgical History Encounter for full mouth dental rehabilitation H/O left inguinal hernia repair H/O right inguinal hernia repair History of aortic aneurysm repair History of left-sided carotid endarterectomy Hx of colonoscopy Hx of rotator cuff surgery Left knee injury S/P angioplasty with stent (09/06/20) Status post total shoulder arthroplasty Social History Social History Alcohol intake: current Alcohol intake frequency: does not drink Patient Tobacco Use Status: Current everyday Tobacco user Tobacco use type: Cigarette Cigarette Packs Per Day: 1 Cigarettes Per Day: 15 Years Smoked: 60 Use of substances other than those prescribed or required for medical reasons: No Are you DNR?: No Advance Directives: No Advance Directives Information Provided: Yes Current occupational status: employed Current occupation: [employer] - [employer] Meds Allergies Allergy/AdvReac Type Severity Reaction Status Date / Time No Known Allergies Allergy Verified 08/14/21 08:59 [No Known Allergies*] Home Medications Medication Instructions Recorded Confirmed Last Taken Type alprostadil 40 mcg intracavernosal 1.25 mcg INTRA-CAVERNOSAL 3XW 04/20/20 05/29/20 Unknown History kit (Edex) aspirin 81 mg tablet,delayed 81 mg PO DAILY 04/20/20 09/19/21 Unknown History release (Adult Low Dose Aspirin) atorvastatin 10 mg tablet 10 mg PO BEDTIME 04/20/20 09/19/21 Unknown History trazodone 150 mg tablet 150 mg PO BEDTIME 09/19/21 09/19/21 Unknown History Exam Exam Date and Time: September 25, 2021 0848 Height,Weight and Vital Signs: Height 5 ft 8 in Weight 74.843 kg Pertinent Lab Results Pertinent Lab Results: Laboratory Tests 05/17/21 05/17/21 08:39 08:39 WBC 9.7 Hgb 16.2 Hct 49.0 Plt Count 312 Sodium 138 Potassium 4.6 Chloride 105 Carbon Dioxide 27 BUN 9 Creatinine 0.81 Assessment and Plan Assessment Anesthesia Assessment: Chart Reviewed Documented by User: Leonela Owen MD 09/26/21 10:29 [facility] Past Medical History Medical History Bursitis of left shoulder CVA (cerebral vascular accident) Erectile dysfunction Hepatitis A Hyperplastic colon polyp Nicotine dependence, cigarettes, uncomplicated Primary osteoarthritis of left knee Family History Family History Father No problems noted. Mother Cancer Arthritis Brother No problems noted. Brother No problems noted. Brother No problems noted. Brother No problems noted. Brother No problems noted. Brother Pancreatic cancer Sister No problems noted. Sister No problems noted. Sister No problems noted. Sister Pancreatic cancer, Onset Age: 69 Sister FH: ovarian cancer Sister Breast cancer Son No problems noted. Son No problems noted. Family history of problems with anesthesia: No Surgical History Surgical History Encounter for full mouth dental rehabilitation H/O left inguinal hernia repair H/O right inguinal hernia repair History of aortic aneurysm repair History of left-sided carotid endarterectomy Hx of colonoscopy Hx of rotator cuff surgery Left knee injury S/P angioplasty with stent (09/06/20) Status post total shoulder arthroplasty History of Problems with Anesthesia: No Social History Social History Alcohol intake: current Alcohol intake frequency: does not drink Patient Tobacco Use Status: Current everyday Tobacco user Tobacco use type: Cigarette Cigarette Packs Per Day: 1 Cigarettes Per Day: 15 Years Smoked: 60 Use of substances other than those prescribed or required for medical reasons: No Are you DNR?: No Advance Directives: No Advance Directives Information Provided: Yes Current occupational status: employed Current occupation: [employer] - [employer] Meds Allergies Allergy/AdvReac Type Severity Reaction Status Date / Time No Known Allergies Allergy Verified 08/14/21 08:59 [No Known Allergies*] Home Medications Medication Instructions Recorded Confirmed Last Taken Type alprostadil 40 mcg intracavernosal 1.25 mcg INTRA-CAVERNOSAL 3XW 04/20/2005/08 Unknown History kit (Edex) aspirin 81 mg tablet,delayed 81 mg PO DAILY 04/20/20 09/19/21 Unknown History release (Adult Low Dose Aspirin) atorvastatin 10 mg tablet 10 mg PO BEDTIME 04/20/20 09/19/21 Unknown History trazodone 150 mg tablet 150 mg PO BEDTIME 09/19/21 09/19/21 Unknown History Exam Airway Mallampati Class: II TM Dist: >3cm Neck ROM: Full Denture: Upper and Lower Heart: rrr Lungs: cta Assessment and Plan Assessment Anesthesia Assessment: Anesthesia Plan Discussed and Chart Reviewed Final Anesthetic Review Family History of Problems with Anesthesia: No History of Problems with Anesthesia: No NPO: Yes ASA Class: III Final Preanesthetic Review: No Changes in Pt Med Stat, Meds/Allgs Chart Reviewed and Consent Obtained/Reviewed Patient Risk: Intermediate Procedure Risk: Intermediate Anesthetic Plan Anesthetic Plan: MAC: Disposition: Standard PACU
[2021-09-26 09:56] VITALS: BMI 24.3
[2021-09-26 10:01] VITALS: BP 143/87; PULSE 69; RESP 16; TEMP 36.2; O2SAT 97
[2021-09-26] MEDS: Lactated Ringers 1,000 ML 100 ML IVCONT (10:24)
--- NOTE | 2021-09-26 11:08 | MHC.SHP ---
Pre-Procedural Eval Section A Date of Service: 09/26/21 Section B Chief Complaint: Screening Relevant Family History (Specify if Yes): No Relevant Social History: Tobacco Use Present Medications: see Short Stay Collaborative assessment Medical History: Significant History (Bursitis of left shoulder CVA (cerebral vascular accident) Erectile dysfunction Hepatitis A Hyperplastic colon polyp Nicotine dependence, cigarettes, uncomplicated Primary osteoarthritis of left knee) History of Previous Operations: Relevant previous surgery/procedure and date(s) (H/O left inguinal hernia repair H/O right inguinal hernia repair History of aortic aneurysm repair History of left-sided carotid endarterectomy Hx of colonoscopy Hx of rotator cuff surgery Left knee injury S/P angioplasty with stent (09/06/20) Status post total shoulder arthroplasty) Allergies: Allergies Allergy/AdvReac Type Severity Reaction Status Date / Time No Known Allergies Allergy Verified 08/14/21 08:59 [No Known Allergies*] Review of Systems Sugical H&P ROS: Negative: Constitution, Cardiovascular, Respiratory, Neurological, Psychiatric, Hem-Onc, Allergic/Immunologic, Gastrointestinal, Genitourinary, Musculoskeletal, Integumentary, Endocrine and Eyes/Ears/Nose/Throat Exam Surgical H&P Exam: Normal: HEENT, Normal: Heart, Normal: Lungs, Normal: Extremities, Normal: Abdomen, Normal: Skin and Normal: Neurological Plan Diagnosis/Plan: Unchanged I have reviewed the history and physical and performed a pertinent physical examination on my patient. No changes have occurred unless specified.
--- NOTE | 2021-09-26 11:45 | P.BOP_ITS ---
Brief Operative Note Date of Service: 09/26/21 Pre-op diagnosis: colon screening Post-op diagnosis: same Procedure: see op note Surgeon: Binh Jacome MD Anesthesia: MAC Was an Butting Saw Operator used for this Procedure?: No Estimated blood loss (mL): 0 Condition: stable Disposition: PACU
--- NOTE | 2021-09-26 11:45 | W.PM.OPN ---
Operative Note Operative Note Date of Service: 09/26/21 Narrative: Operative Information Procedure Description: Colonoscopy COLONOSCOPY Instrument: Olympus variable stiffness pediatric scope 190L Colonoscopy Monitoring: Vital signs and clinical assessment, continuous EKG monitoring, Pulse oximetry, Carbon Dioxide monitoring and blood pressure monitoring were done throughout the procedure. Colon withdrawal time was 23 minutes. Procedure: The patient was placed in the left lateral decubitis position and pre-procedure medications were administered. After a digital rectal examination of the ano-rectum, the video colonoscope was inserted into the rectum and advanced through the colon to the cecum/TI. The colonoscope was slowly withdrawn in a retrograde panoramic fashion and the colon mucosa was carefully examined including a retroflexed view of the rectum. Findings and interventions are described below. Procedure Difficulty: easy Findings: Terminal Ileum-normal Cecum:normal Ascending Colon: normal Transverse Colon -normal Descending Colon:normal Sigmoid Colon: moderate diverticulosis noted, x2 sessile polyps removed with cold snare measured 9-10 mm. one site x 2 clips applied for hemostasis. Rectum: Retroflexion with small internal hemorrhoids, grade I with skin tag. x3 sessile polyps removed, two with cold snare and one with forceps, measured 8-10 mm in size Anorectum - normal Colon preparation: [place] Bowel Preparation Scale Right colon; 2 Transverse colon: 3 Left colon; 3 (0 = Unprepared colon segment with mucosa not seen due to solid stool that cannot be cleared. 1 = Portion of mucosa of the colon segment seen, but other areas of the colon segment not well seen due to staining, residual stool and/or opaque liquid. 2 = Minor amount of residual staining, small fragments of stool and/or opaque liquid, but mucosa of colon segment seen well. 3 = Entire mucosa of colon segment seen well with no residual staining, small fragments of stool or opaque liquid) Impression and Post Procedure Diagnosis: polyps internal hemorrhoids diverticular disease Plan: High fiber diet leaflet Avoid straining at stool, epsom salts and sitz bath, anusol supps or cream Repeat Colonoscopy in 5 years due to polyps or earlier if clinically indicated can restart plavix tomorrow Above findings were reviewed with the patient and relevant handouts were provided if indicated.
[2021-09-26 11:54] VITALS: BP 108/59; PULSE 61; RESP 15; TEMP 36.6; O2SAT 96
[2021-09-26 12:09] VITALS: BP 133/88; PULSE 57; RESP 18; TEMP 36.6; O2SAT 97
== END 2021-09-26 13:00 | disposition home or self-care (01) ==
PROVIDERS: PCP Internal Medicine Medical Oncology; Visit Provider Internal Medicine Gastroenterology
PROC: 0DJD8ZZ Inspection of Lower Intestinal Tract, Via Natural or Artificial Opening Endoscopic (ICD-10-PCS; CPT 45378; principal; 2021-09-26 13:50)
DX: Z12.11 Encounter for screening for malignant neoplasm of colon (principal); D12.5 Benign neoplasm of sigmoid colon; K62.1 Rectal polyp; K57.30 Diverticulosis of large intestine without perforation or abscess without bleeding; K64.0 First degree hemorrhoids; K64.4 Residual hemorrhoidal skin tags; B15.9 Hepatitis A without hepatic coma; Z86.73 Personal history of transient ischemic attack (TIA), and cerebral infarction without residual deficits; F17.210 Nicotine dependence, cigarettes, uncomplicated; Z98.890 Other specified postprocedural states
CPT/HCPCS: 45385; 45380; 88305

== ENCOUNTER → 2021-10-09 11:29 | Outpatient (BNVA) | payer MEDICARE, OTHER, SELFPAY | PROVIDERS: PCP Internal Medicine Medical Oncology; Referring Provider Internal Medicine Medical Oncology; Visit Provider Nurse Practitioner Family | DX: K57.30 Diverticulosis of large intestine without perforation or abscess without bleeding (principal); K64.0 First degree hemorrhoids; Z86.010 Personal history of colon polyps; Z98.890 Other specified postprocedural states | CPT/HCPCS: 99212 ==

== ENCOUNTER → 2022-01-03 15:57 | Outpatient (BNVA) | payer MEDICARE, OTHER, SELFPAY | PROVIDERS: PCP Internal Medicine Medical Oncology; Visit Provider Orthopaedic Surgery | DX: M75.42 Impingement syndrome of left shoulder (principal) | CPT/HCPCS: 20610; 99212; J1100 ==

== ENCOUNTER 2022-01-15 10:23 | Outpatient (REF) | payer MEDICARE, OTHER, SELFPAY ==
[2022-01-15 11:16] LABS: MANUAL DIFF FLAG NO
[2022-01-15 11:36] LABS: Basophils Percent Auto 0.4 % (0-2); Eosinophils Absolute Auto 0.1 X10*3/uL (0.0-0.4); Eosinophils Percent Auto 1.2 % (0-4); Hematocrit 45.5 % (42.0-52.0); Imm Gran Abs Auto 0.05 X10*3/uL (0.00-0.03); Imm Gran Pct Auto 0.6 % (0.0-0.4); Lymphocytes Absolute Auto 2.1 X10*3/uL (1.2-4.9); Lymphocytes Percent Auto 25.1 % (20-40); Mean Corpuscular Hemoglobin 29.2 pg (27.0-33.0); Mean Corpuscular Volume 88.7 fL (80.0-98.0); Mean Platelet Volume 9.4 fL (9.4-12.4); Monocytes Absolute Auto 0.7 X10*3/uL (0.1-1.2); Monocytes Percent Auto 8.5 % (2-11); Neutrophils Absolute Auto 5.4 x10*3/uL (2.0-8.3); Neutrophils Percent Auto 64.2 % (45-73); Platelet Count 282 X10*3/uL (160-400); Red Blood Count 5.13 X10*6/uL (4.60-5.80); Red Cell Distribution Width 12.7 % (11.0-16.0); White Blood Count 8.4 X10*3/uL (4.8-10.8)
[2022-01-15 11:54] LABS: Alanine Aminotransferase 15 U/L (0-40); Albumin Level 4.2 g/dL (3.5-5.0); Alkaline Phosphatase 69 U/L (39-117); Anion Gap 11 (12-20); Aspartate Amino Transferase 13 U/L (5-37); Bilirubin Total 0.6 mg/dL (0.0-1.0); Blood Urea Nitrogen 15 mg/dL (9-16); Calcium 9.2 mg/dL (8.4-10.2); Carbon Dioxide 23 mmol/L (22-29); Chloride 109 mmol/L (96-108); Cholesterol 176 mg/dL; Estimated Glomerular Filt Rate > 60; Glucose Fasting 92 mg/dL (60-99); HDL Cholesterol 48 mg/dL; LDL Cholesterol Calculated 106 mg/dl; Potassium 4.3 mmol/L (3.3-5.1); Sodium 139 mmol/L (135-145); Total Protein 6.4 g/dL (6.5-8.0); Triglycerides 112 mg/dL
== END 2022-01-15 10:24 | disposition home or self-care (01) ==
LOC: HO.HMGCLDS 10:23
PROVIDERS: Visit Provider Internal Medicine Medical Oncology
DX: E78.2 Mixed hyperlipidemia (principal); E66.3 Overweight
CPT/HCPCS: 36415; 80053; 80061; 85025

== ENCOUNTER 2022-02-07 14:21 | Outpatient (REF) | payer MEDICARE, OTHER, SELFPAY ==
--- NOTE | ~2022-02-07 | US_ITS ---
EXAMINATION: COLOR-FLOW DUPLEX IMAGING OF THE BILATERAL LOWER EXTREMITY ARTERIAL SYSTEM. VELOCITY MEASUREMENTS THROUGHOUT THE FEMORAL ARTERIES WITH ANKLE-BRACHIAL PERIPHERAL ARTERIAL TESTING. Interventional Radiologist: Israel Vizcaino M.D., F.S.I.R., F.A.C.R. CLINICAL INFORMATION: This is a 77-year-old male with bilateral peripheral vascular disease. History of left femoral stent. RIGHT FEMORAL RUNOFF VELOCITIES: The right common femoral artery measures 109 cm/s and triphasic. The right profunda femoral artery is 83 cm/s and is triphasic. Right proximal superficial femoral artery measures 110 cm/s and triphasic. Mid superficial femoral artery is 104 cm/s and triphasic. Distal right superficial femoral artery measures 139 cm/s and is biphasic. Right popliteal velocity measures 38 cm/s and is biphasic. The posterior tibial artery velocity measures 41 cm/s and was biphasic. The right ankle-brachial index is 1.05. LEFT FEMORAL RUNOFF VELOCITIES: The left common femoral artery measures 127 cm/s and triphasic. The left profunda femoral artery is 78 cm/s and is biphasic. Left proximal superficial femoral artery measures 108 cm/s and triphasic. Mid superficial femoral artery contains a stent Distal left superficial femoral artery measures contains a stent Left popliteal velocity measures 63 cm/s and is triphasic. The posterior tibial artery velocity measures 83 cm/s and was monophasic. LEFT FEMORAL STENT VELOCITIES: [place] artery proximal to the stent: 64 cm/s and triphasic. Proximal stent: 81 cm/s and triphasic. Mid stent: 87 cm/s and triphasic. Distal stent: 141 cm/s and triphasic. Negative artery distal to stent: 130 cm/s and triphasic. The left ankle-brachial index is 1.03. Atherosclerotic plaque is seen throughout the arteries bilaterally. US/US VIJAY complete IMPRESSION: 1. RIGHT SIDE: There is no hemodynamically significant stenosis. 2. LEFT SIDE: The patient is status post left femoral stent which appears patent. There is no hemodynamically significant stenosis.
--- NOTE | ~2022-02-07 | US_ITS ---
EXAMINATION: US EXTRACRANIAL CAROTID DUPLEX, BILATERAL CLINICAL INFORMATION: This is a 77-year-old male with history of CVA. History of left carotid endarterectomy. Carotid artery disease. COMPARISON: Comparison is made to a previous study dated 11/12/2019 which demonstrated 0-49% right internal carotid artery stenosis and 80-99% left internal carotid artery stenosis. TECHNIQUE: Real-time ultrasound and Doppler techniques (integrating B-mode 2-D vascular images, Doppler spectral analysis and color-flow Doppler imaging) were utilized to interrogate the extracranial carotid arteries, the vertebral arteries and proximal subclavian arteries bilaterally. The degree of stenosis is determined by criteria similar to NASCET. FINDINGS: Right Side: 1. There is minimal atherosclerotic plaque seen in the bifurcation/proximal ICA region. 2. The common carotid artery PSV proximally is 108 cm/s and distally 109 cm/s. 3. The proximal internal carotid artery velocities are 117 cm/s systolic and 26 cm/s diastolic. 4. The proximal external carotid artery PSV is 135 cm/s. 5. The vertebral artery shows antegrade flow. 6. The subclavian artery waveforms are normal. Left Side: 1. There is minimal atherosclerotic plaque seen in the bifurcation/proximal ICA region. 2. The common carotid artery PSV proximally is 116 cm/s and distally 107 cm/s. 3. The proximal internal carotid artery velocities are 120 cm/s systolic and 49 cm/s diastolic. 4. The proximal external carotid artery PSV is 128 cm/s. 5. The vertebral artery shows antegrade flow. 6. The subclavian artery waveforms are minimal. US/US carotid duplex BI IMPRESSION: 1. RIGHT: Minimal, non-hemodynamically significant stenosis of the proximal right internal carotid artery corresponding to a 0-49% stenosis by velocity criteria.There is no change in the category severity of disease when compared to the previous study dated 11/12/2019.. 2. LEFT: Minimal, non-hemodynamically significant stenosis of the proximal left internal carotid artery corresponding to a 0-49% stenosis by velocity criteria. There has been improvement in the category severity of disease when compared to the previous study dated 11/12/2019.
--- NOTE | ~2022-02-07 | US_ITS ---
EXAMINATION: COLOR-FLOW DUPLEX IMAGING OF THE BILATERAL LOWER EXTREMITY ARTERIAL SYSTEM. VELOCITY MEASUREMENTS THROUGHOUT THE FEMORAL ARTERIES WITH ANKLE-BRACHIAL PERIPHERAL ARTERIAL TESTING. Interventional Radiologist: Israel Vizcaino M.D., F.S.I.R., F.A.C.R. CLINICAL INFORMATION: This is a 77-year-old male with bilateral peripheral vascular disease. History of left femoral stent. RIGHT FEMORAL RUNOFF VELOCITIES: The right common femoral artery measures 109 cm/s and triphasic. The right profunda femoral artery is 83 cm/s and is triphasic. Right proximal superficial femoral artery measures 110 cm/s and triphasic. Mid superficial femoral artery is 104 cm/s and triphasic. Distal right superficial femoral artery measures 139 cm/s and is biphasic. Right popliteal velocity measures 38 cm/s and is biphasic. The posterior tibial artery velocity measures 41 cm/s and was biphasic. The right ankle-brachial index is 1.05. LEFT FEMORAL RUNOFF VELOCITIES: The left common femoral artery measures 127 cm/s and triphasic. The left profunda femoral artery is 78 cm/s and is biphasic. Left proximal superficial femoral artery measures 108 cm/s and triphasic. Mid superficial femoral artery contains a stent Distal left superficial femoral artery measures contains a stent Left popliteal velocity measures 63 cm/s and is triphasic. The posterior tibial artery velocity measures 83 cm/s and was monophasic. LEFT FEMORAL STENT VELOCITIES: [place] artery proximal to the stent: 64 cm/s and triphasic. Proximal stent: 81 cm/s and triphasic. Mid stent: 87 cm/s and triphasic. Distal stent: 141 cm/s and triphasic. Negative artery distal to stent: 130 cm/s and triphasic. The left ankle-brachial index is 1.03. Atherosclerotic plaque is seen throughout the arteries bilaterally. US/US arterial duplex LE BI IMPRESSION: 1. RIGHT SIDE: There is no hemodynamically significant stenosis. 2. LEFT SIDE: The patient is status post left femoral stent which appears patent. There is no hemodynamically significant stenosis.
== END 2022-02-07 14:22 | disposition home or self-care (01) ==
LOC: HO.US 14:21
PROVIDERS: Visit Provider Surgery Vascular Surgery
DX: I73.9 Peripheral vascular disease, unspecified (principal); I65.23 Occlusion and stenosis of bilateral carotid arteries
CPT/HCPCS: 93880; 93923; 93925

== ENCOUNTER → 2022-03-05 14:46 | Outpatient (BNVA) | payer MEDICARE, OTHER, SELFPAY | PROVIDERS: PCP Internal Medicine Medical Oncology; Visit Provider Surgery Vascular Surgery | DX: I73.9 Peripheral vascular disease, unspecified (principal); I71.4 Abdominal aortic aneurysm, without rupture | CPT/HCPCS: 99212 ==

== ENCOUNTER 2022-03-19 09:48 | Outpatient (REF) | payer MEDICARE, OTHER, SELFPAY ==
[2022-03-19 11:57] LABS: Blood Urea Nitrogen 17 mg/dL (9-16); Estimated Glomerular Filt Rate > 60
== END 2022-03-19 09:49 | disposition home or self-care (01) ==
LOC: HO.HMGCLDS 09:48
PROVIDERS: PCP Internal Medicine Medical Oncology; Visit Provider Surgery Vascular Surgery
DX: I71.4 Abdominal aortic aneurysm, without rupture (principal)
CPT/HCPCS: 36415; 82565; 84520

== ENCOUNTER 2022-03-29 08:06 | Outpatient (REF) | payer MEDICARE, OTHER, SELFPAY ==
--- NOTE | ~2022-03-29 | CT_ITS ---
STUDY PERFORMED: CTA ABDOMEN AND PELVIS WITHOUT AND WITH CONTRAST HISTORY: Abdominal aortic aneurysm without rupture DESCRIPTION: Routine abdomen and pelvis CTA protocol with contrast was performed. 80 mL of Omnipaque 350 was administered. 3D POSTPROCESSING: Multiple 3-D angiographic images were processed from the initial data set by the nuclear medicine chief technologist at the modality workstation under concurrent physician supervision. DOSE LOWERING TECHNIQUES: This CT examination was performed using dose optimization techniques as appropriate, variously including the following: - Automated exposure control - Adjustment of mA and/or kV according to patient size (this includes techniques or standardized protocols for targeted exams where dose is matched to indication/reason for exam; i.e. extremities or head) - Use of iterative reconstruction technique DLP: 117 mGycm. COMPARISON: CTA from 04/18/2021 FINDINGS: VASCULAR: ABDOMINAL AORTA: There is a fusiform infrarenal abdominal aortic aneurysm extending into the right common iliac artery. Abdominal aortic to bilateral common iliac artery bifurcated stent graft is again seen. Stent graft is in stable position and widely patent. Aneurysm sac measures 4.6 x 3.7 cm, previously measuring 4.5 x 4.2 cm at the same location based on my measurements. 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 This previously measured 3.5 cm in the same location based on measurements. Right common iliac limb of the stent graft is patent. There is cortical embolization of the proximal right internal iliac artery. The right external iliac artery is normal caliber and patent. LEFT LOWER EXTREMITY: Left common iliac artery stent graft limb and common femoral artery is patent. The left external iliac and internal iliac artery is normal caliber and patent.. CELIOMESENTERIC ARTERIES: Patent. RENAL ARTERIES: Patent. NONVASCULAR: Lung Bases: Emphysematous changes seen in the bilateral lung bases Liver, Gallbladder and Biliary Tree: The liver is normal in size, shape, and attenuation. No focal hepatic lesion or biliary ductal dilatation is present. The gallbladder is unremarkable with no evidence of radiopaque gallstones, gallbladder wall thickening, or obvious pericholecystic inflammatory changes. Pancreas: Unremarkable. Spleen: Unremarkable. Adrenal Glands: Unremarkable. Kidneys and Ureters: The kidneys are normal in size, shape, and attenuation. No hydronephrosis, hydroureter, or calculi seen. No perinephric stranding. Stable bilateral renal cysts Bladder: Unremarkable. Gastrointestinal Tract: The small and large bowel are unremarkable. The appendix is unremarkable. Abdominal Wall: No significant hernia is appreciated. Lymph Nodes: Normal. Pelvic Viscera: Unremarkable. Osseous Structures: Degenerative spine CT/CT angio abdomen pelvis IMPRESSION: Fusiform aneurysm of the infrarenal abdominal aorta extending into the right common iliac artery which is overall stable in size as described above. Abdominal aortic aneurysm sac measures maximum diameter of 4.6 cm, previously measuring 4.5 cm. The right common iliac artery measures a maximum diameter of 3.4 cm, previously measured 3.5 cm. No evidence of endoleak on arterial phase imaging
[2022-03-29] MEDS: iohexoL 350 MG/ML 100 ML INFUS..BTL IV (09:21)
== END 2022-03-29 08:07 | disposition home or self-care (01) ==
LOC: HO.CT 08:06
PROVIDERS: Visit Provider Surgery Vascular Surgery
DX: I71.4 Abdominal aortic aneurysm, without rupture (principal)
CPT/HCPCS: 74174; Q9967

== ENCOUNTER → 2022-04-02 13:41 | Outpatient (BNVA) | payer MEDICARE, OTHER, SELFPAY | PROVIDERS: PCP Internal Medicine Medical Oncology; Visit Provider Surgery Vascular Surgery | DX: I71.4 Abdominal aortic aneurysm, without rupture (principal); I73.9 Peripheral vascular disease, unspecified | CPT/HCPCS: 99212 ==

== ENCOUNTER 2022-04-12 09:37 | Outpatient (REF) | payer MEDICARE, OTHER, SELFPAY ==
[2022-04-12 11:15] LABS: MANUAL DIFF FLAG NO
[2022-04-12 11:36] LABS: Basophils Absolute Auto 0.1 X10*3/uL (0.0-0.2); Basophils Percent Auto 0.6 % (0-2); Eosinophils Absolute Auto 0.1 X10*3/uL (0.0-0.4); Eosinophils Percent Auto 1.4 % (0-4); Hematocrit 43.2 % (42.0-52.0); Hemoglobin 14.6 g/dl (14.0-18.0); Imm Gran Abs Auto 0.02 X10*3/uL (0.00-0.03); Imm Gran Pct Auto 0.2 % (0.0-0.4); Lymphocytes Absolute Auto 2.2 X10*3/uL (1.2-4.9); Lymphocytes Percent Auto 25.4 % (20-40); Mean Corpuscular HGB Conc 33.8 g/dl (31.0-36.0); Mean Corpuscular Hemoglobin 29.2 pg (27.0-33.0); Mean Corpuscular Volume 86.4 fL (80.0-98.0); Mean Platelet Volume 9.4 fL (9.4-12.4); Monocytes Absolute Auto 0.7 X10*3/uL (0.1-1.2); Monocytes Percent Auto 7.9 % (2-11); Neutrophils Absolute Auto 5.4 x10*3/uL (2.0-8.3); Neutrophils Percent Auto 64.5 % (45-73); Platelet Count 313 X10*3/uL (160-400); Red Cell Distribution Width 12.3 % (11.0-16.0); White Blood Count 8.5 X10*3/uL (4.8-10.8)
[2022-04-12 12:06] LABS: Erythrocyte Sedimentation Rate 12 MM/HR (0-15)
[2022-04-12 12:15] LABS: Alanine Aminotransferase 13 U/L (0-40); Albumin Level 4.2 g/dL (3.5-5.0); Alkaline Phosphatase 87 U/L (39-117); Anion Gap 14 (12-20); Aspartate Amino Transferase 13 U/L (5-37); Bilirubin Total 0.4 mg/dL (0.0-1.0); Blood Urea Nitrogen 14 mg/dL (9-16); Calcium 9.1 mg/dL (8.4-10.2); Carbon Dioxide 22 mmol/L (22-29); Chloride 107 mmol/L (96-108); Estimated Glomerular Filt Rate > 60; Glucose Random 94 mg/dL (60-115); Potassium 4.2 mmol/L (3.3-5.1); Sodium 139 mmol/L (135-145); Total Protein 6.5 g/dL (6.5-8.0)
== END 2022-04-12 09:38 | disposition home or self-care (01) ==
LOC: HO.HMGCLDS 09:37
PROVIDERS: PCP Internal Medicine Medical Oncology; Visit Provider Internal Medicine Medical Oncology
DX: R63.4 Abnormal weight loss (principal); E78.2 Mixed hyperlipidemia; E07.9 Disorder of thyroid, unspecified
CPT/HCPCS: 36415; 80053; 82378; 84134; 85025; 85652

== ENCOUNTER 2022-05-09 08:57 | Outpatient (REF) | payer MEDICARE, OTHER, SELFPAY ==
--- NOTE | ~2022-05-09 | XR_ITS ---
EXAMINATION: XR SHOULDER, RIGHT CLINICAL INFORMATION: Pain. COMPARISON: Portions of the MRI right shoulder dated 01/12/2009. TECHNIQUE: AP external rotation, Grashey, scapular Y, and axillary views of the right shoulder. FINDINGS: Bony alignment and mineralization are normal. The glenohumeral joint is intact. The acromioclavicular and coracoclavicular intervals are normal. There is a small distal acromial undersurface osteophyte. There is cortical irregularity of the greater tuberosity of the proximal right humerus. There is faint calcific tendinitis of the right rotator cuff insertion. No fracture or dislocation is seen. There is no foreign body. No right pneumothorax is seen. XR/XR shoulder RT min 2V IMPRESSION: Findings are consistent with rotator cuff impingement and very mild calcific tendinitis of the right rotator cuff insertion.
== END 2022-05-09 08:58 | disposition home or self-care (01) ==
LOC: HO.HOSX 08:57
PROVIDERS: Visit Provider Orthopaedic Surgery
DX: M75.41 Impingement syndrome of right shoulder (principal); M75.42 Impingement syndrome of left shoulder
CPT/HCPCS: 20610; 73030; 99212; J1100

== ENCOUNTER 2022-05-10 10:01 | Day surgery (SDC) | payer MEDICARE, OTHER, SELFPAY ==
--- NOTE | 2022-05-09 11:04 | P.CONAN_ITS ---
Documented by User: Teena Magallanes NP 05/09/22 11:07 HPI - Anesthesia Eval Consult details Narrative: 77yo M for Upper Endoscopy s/p [place] 09/2021 with TIVA Plavix for PVD PMFSH Active Problems Active Problems: All Active Problems (Updated 10/12/21 @ 13:19 by Diana Simmons, [facility]) Diverticulosis (Acute) Tubular adenoma (Acute) Impingement syndrome, shoulder, left (Acute) AAA (abdominal aortic aneurysm) without rupture (Acute) Osteoarthritis of glenohumeral joint (Acute) Bursitis of left shoulder (Acute) PAD (peripheral artery disease) (Acute) Nicotine dependence, cigarettes, uncomplicated (Acute) Past Medical History Medical History Bursitis of left shoulder CVA (cerebral vascular accident) Diverticulosis Erectile dysfunction Hepatitis A Hyperplastic colon polyp Nicotine dependence, cigarettes, uncomplicated Primary osteoarthritis of left knee Tubular adenoma Family History Family History Father No problems noted. Mother Cancer Arthritis Brother No problems noted. Brother No problems noted. Brother No problems noted. Brother No problems noted. Brother No problems noted. Brother Pancreatic cancer Sister No problems noted. Sister No problems noted. Sister No problems noted. Sister Pancreatic cancer, Onset Age: 69 Sister FH: ovarian cancer Sister Breast cancer Son No problems noted. Son No problems noted. Family history of problems with anesthesia: No Surgical History Surgical History Encounter for full mouth dental rehabilitation H/O left inguinal hernia repair H/O right inguinal hernia repair History of aortic aneurysm repair History of left-sided carotid endarterectomy Hx of colonoscopy Hx of rotator cuff surgery Left knee injury S/P angioplasty with stent (09/06/20) Status post total shoulder arthroplasty History of Problems with Anesthesia: No Social History Social History Alcohol intake: current Alcohol intake frequency: does not drink Patient Tobacco Use Status: Current everyday Tobacco user Tobacco use type: Cigarette Cigarette Packs Per Day: 1 Cigarettes Per Day: 10 Years Smoked: 60 Are you DNR?: No Advance Directives: No Advance Directives Information Provided: Yes Recently lost weight without trying: No Nutrition Risks: No Nutritional Risk Current occupational status: employed Current occupation: [employer] - [employer] Meds Allergies Allergy/AdvReac Type Severity Reaction Status Date / Time No Known Allergies Allergy Verified 04/02/22 13:52 [No Known Allergies*] Home Medications Medication Instructions Recorded Confirmed Last Taken Type alprostadil 40 mcg intracavernosal 1.25 mcg intra-cavernosal 3XW 04/20/20 05/10/22 05/03/22 History kit (Edex) aspirin 81 mg tablet,delayed 81 mg PO DAILY 04/20/20 05/10/22 05/03/22 History release (Adult Low Dose Aspirin) trazodone 150 mg tablet 150 mg PO BEDTIME 09/19/21 05/10/22 05/03/22 History atorvastatin 80 mg tablet 80 mg PO DAILY 10/09/21 05/10/22 05/03/22 History Exam Exam Date and Time: May 09, 2022 1104 Pertinent Lab Results Pertinent Lab Results: Laboratory Tests 04/12/22 04/12/22 09:47 09:47 WBC 8.5 Hgb 14.6 Hct 43.2 Plt Count 313 Sodium 139 Potassium 4.2 Chloride 107 Carbon Dioxide 22 BUN 14 Creatinine 0.79 Assessment and Plan Assessment Anesthesia Assessment: Chart Reviewed Final Anesthetic Review Family History of Problems with Anesthesia: No History of Problems with Anesthesia: No Documented by User: Terrance Yates MD 05/10/22 12:17 [facility] Past Medical History Medical History Bursitis of left shoulder CVA (cerebral vascular accident) Diverticulosis Erectile dysfunction Hepatitis A Hyperplastic colon polyp Nicotine dependence, cigarettes, uncomplicated Primary osteoarthritis of left knee Tubular adenoma Family History Family History Father No problems noted. Mother Cancer Arthritis Brother No problems noted. Brother No problems noted. Brother No problems noted. Brother No problems noted. Brother No problems noted. Brother Pancreatic cancer Sister No problems noted. Sister No problems noted. Sister No problems noted. Sister Pancreatic cancer, Onset Age: 69 Sister FH: ovarian cancer Sister Breast cancer Son No problems noted. Son No problems noted. Surgical History Surgical History Encounter for full mouth dental rehabilitation H/O left inguinal hernia repair H/O right inguinal hernia repair History of aortic aneurysm repair History of left-sided carotid endarterectomy Hx of colonoscopy Hx of rotator cuff surgery Left knee injury S/P angioplasty with stent (09/06/20) Status post total shoulder arthroplasty Social History Social History Alcohol intake: current Alcohol intake frequency: does not drink Patient Tobacco Use Status: Current everyday Tobacco user Tobacco use type: Cigarette Cigarette Packs Per Day: 1 Cigarettes Per Day: 10 Years Smoked: 60 Are you DNR?: No Advance Directives: No Advance Directives Information Provided: Yes Recently lost weight without trying: No Nutrition Risks: No Nutritional Risk Current occupational status: employed Current occupation: [employer] - [employer] Meds Allergies Allergy/AdvReac Type Severity Reaction Status Date / Time No Known Allergies Allergy Verified 04/02/22 13:52 [No Known Allergies*] Home Medications Medication Instructions Recorded Confirmed Last Taken Type alprostadil 40 mcg intracavernosal 1.25 mcg intra-cavernosal 3XW 04/20/20 05/10/22 05/03/22 History kit (Edex) aspirin 81 mg tablet,delayed 81 mg PO DAILY 04/20/20 05/10/22 05/03/22 History release (Adult Low Dose Aspirin) trazodone 150 mg tablet 150 mg PO BEDTIME 09/19/21 05/10/22 05/03/22 History atorvastatin 80 mg tablet 80 mg PO DAILY 10/09/21 05/10/22 05/03/22 History Exam Airway Mallampati Class: II TM Dist: >3cm Neck ROM: Full Loose/Missing/Broken Teeth: Yes (no teeth, metal implant bar on bottom not loose) Heart: [id number] Lungs: cta b/l Assessment and Plan Assessment Anesthesia Assessment: Anesthesia Plan Discussed Final Anesthetic Review NPO: Yes ASA Class: III Final Preanesthetic Review: No Changes in Pt Med Stat, Meds/Allgs Chart Reviewed, Consent Obtained/Reviewed and Anes Risks/Benef Reviewed Patient Risk: Intermediate Procedure Risk: Intermediate Assessment/Block/Sedation in SS: Assess/Block/Sedation-SS Anesthetic Plan Anesthetic Plan: MAC: and Agree w/ Assess. and Plan Disposition: Standard PACU
[2022-05-10 09:26] VITALS: BMI 25.2
[2022-05-10 10:33] VITALS: BP 129/66; PULSE 72; RESP 18; TEMP 36.6; O2SAT 97
[2022-05-10] MEDS: Lactated Ringers 1,000 ML 100 ML IVCONT (11:00)
--- NOTE | 2022-05-10 11:48 | MHC.SHP ---
Pre-Procedural Eval Section A Date of Service: 05/10/22 The patient is an INPATIENT: No Changes since office visit: No Cold of Flu in the past 2 weeks, No New Medical Problems, No Changes in Medication and No Patient answered all questions The History & Physical has been completed within 30 days and I have reviewed it.: Yes Section B Chief Complaint: Epigastric pain, Abnormal weight loss Allergies: Allergies Allergy/AdvReac Type Severity Reaction Status Date / Time No Known Allergies Allergy Verified 04/02/22 13:52 [No Known Allergies*] Plan I have reviewed the history and physical and performed a pertinent physical examination on my patient. No changes have occurred unless specified.
--- NOTE | 2022-05-10 12:11 | PM.OP ---
Brief Operative Note Date of Service: 05/10/22 Pre-op diagnosis: wt loss epigastric pain Post-op diagnosis: same Procedure: egd Surgeon: Yunior Kirkpatrick Anesthesia: MAC Was an Atm Servicer used for this Procedure?: No Estimated blood loss (mL): 2 Pathology: other Condition: stable Disposition: PACU
[2022-05-10 12:14] VITALS: BP 129/73; PULSE 73; RESP 16; TEMP 36.7; O2SAT 96
[2022-05-10 12:29] VITALS: BP 156/87; PULSE 66; RESP 16; TEMP 36.7; O2SAT 95
--- NOTE | 2022-05-10 12:35 | OP_ITS ---
SURGEON: Yunior Kirkpatrick MD INDICATIONS: Weight loss and epigastric pain. PREOPERATIVE DIAGNOSIS: POSTOPERATIVE DIAGNOSIS: PROCEDURE PERFORMED: Upper endoscopy with biopsy. ESTIMATED BLOOD LOSS: COMPLICATIONS: ANESTHESIA: Monitored anesthesia care. ASSISTANTS: SPECIMENS: DESCRIPTION OF PROCEDURE: The procedure was performed on 05/10/2022. A history and physical were performed. The risks and benefits of the procedure were explained to the patient. Informed consent was obtained. The patient was placed in the left lateral decubitus position. The Olympus video gastroscope was introduced into the esophagus, stomach, and duodenum. Examination was performed. The scope was removed. He tolerated the procedure well and was transferred to recovery area in stable condition. FINDINGS: Esophagus: The esophagus showed an irregular EG junction. This was biopsied. There was no mass lesion. Stomach: The stomach showed gastritis with patchy erythema scattered throughout the body. Antral biopsies were obtained to evaluate for H pylori. Duodenum: The bulb and second portion were normal. Random biopsies were obtained from the second portion to evaluate for malabsorption. IMPRESSION: Gastritis. RECOMMENDATION: Follow up the biopsy results. MD BRYCE Fairchild/YANIQUE / [id number]
== END 2022-05-10 13:10 | disposition home or self-care (01) ==
PROVIDERS: PCP Internal Medicine Medical Oncology; Visit Provider Internal Medicine Gastroenterology
PROC: 0DJ08ZZ Inspection of Upper Intestinal Tract, Via Natural or Artificial Opening Endoscopic (ICD-10-PCS; CPT 43235; principal; 2022-05-10 11:20)
DX: R10.13 Epigastric pain (principal); K29.50 Unspecified chronic gastritis without bleeding; R68.81 Early satiety; R63.4 Abnormal weight loss; Z68.25 Body mass index [BMI] 25.0-25.9, adult; M17.12 Unilateral primary osteoarthritis, left knee; Z79.899 Other long term (current) drug therapy; Z86.73 Personal history of transient ischemic attack (TIA), and cerebral infarction without residual deficits; F17.210 Nicotine dependence, cigarettes, uncomplicated
CPT/HCPCS: 43239; 88305; 88342

== ENCOUNTER → 2022-06-06 14:43 | Outpatient (BNVA) | payer MEDICARE, OTHER, SELFPAY | PROVIDERS: PCP Internal Medicine Medical Oncology; Visit Provider Orthopaedic Surgery | DX: M25.811 Other specified joint disorders, right shoulder (principal); M25.812 Other specified joint disorders, left shoulder | CPT/HCPCS: 99212 ==

== ENCOUNTER 2022-06-13 13:36 | Outpatient (REF) | payer MEDICARE, OTHER, SELFPAY ==
--- NOTE | ~2022-06-13 | MR_ITS ---
EXAMINATION: MRI SHOULDER WITHOUT CONTRAST, LEFT CLINICAL INFORMATION: Shoulder pain. COMPARISON: None. TECHNIQUE: MRI of the shoulder without contrast is performed in a 1.5 Jen high-field scanner. FINDINGS: CORACOACROMIAL ARCH: Moderate acromioclavicular arthritis. There is fluid in the subacromial subdeltoid space. Undersurface of the acromion is curved, with lateral acromial spurring. ROTATOR CUFF: Essentially full-thickness tear of the entire supraspinatus and infraspinatus tendons. There could be some thin residual strands in the infraspinatus tendon. There is tendon retraction to the medial aspect of the humeral head. Teres minor is intact. Moderate subscapularis tendinosis with probable intrasubstance tear distally. ROTATOR CUFF MUSCLES: Severe supraspinatus, infraspinatus and teres minor muscle atrophy. BICEPS TENDON: Biceps tendinosis, partial medial subluxation with fraying/partial tearing. LABRUM/CAPSULE: Posterior labrum irregular tearing. Superior labral degeneration with fraying/tear. GLENOHUMERAL JOINT/MARROW: Posterior subluxation of the humeral head with respect to glenoid. Severe glenohumeral joint arthritis, with broad area of nonuniform cartilage loss, subchondral acetabular cyst/edema, marginal osteophytes. Small effusion. Low signal foci and effusion from synovitis/debris/loose bodies. MR/MR shoulder LT wo con IMPRESSION: 1. Essentially full-thickness tear of the entire supraspinatus and infraspinatus tendons. There could be some thin residual strands in the infraspinatus tendon. 2. Moderate subscapularis tendinosis with probable intrasubstance tear distally. 3. Biceps tendinosis, fraying/partial tearing, partial medial subluxation. 4. Posterior labral tearing. Superior labral degeneration with fraying/tear. 5. Severe glenohumeral joint arthritis. Small effusion with synovitis/debris/loose bodies. 6. Moderate acromioclavicular arthritis.
== END 2022-06-13 13:37 | disposition home or self-care (01) ==
LOC: HO.MRI 13:36
PROVIDERS: Visit Provider Orthopaedic Surgery
DX: M75.42 Impingement syndrome of left shoulder (principal); M24.812 Other specific joint derangements of left shoulder, not elsewhere classified
CPT/HCPCS: 73221

== ENCOUNTER 2022-06-18 09:56 | Outpatient (REF) | payer MEDICARE, OTHER, SELFPAY ==
[2022-06-18 11:52] LABS: MANUAL DIFF FLAG NO
[2022-06-18 12:18] LABS: Basophils Absolute Auto 0.1 X10*3/uL (0.0-0.2); Basophils Percent Auto 0.6 % (0-2); Eosinophils Absolute Auto 0.1 X10*3/uL (0.0-0.4); Eosinophils Percent Auto 1.5 % (0-4); Hematocrit 51.2 % (42.0-52.0); Hemoglobin 16.8 g/dl (14.0-18.0); Imm Gran Abs Auto 0.02 X10*3/uL (0.00-0.03); Imm Gran Pct Auto 0.2 % (0.0-0.4); Lymphocytes Absolute Auto 2.1 X10*3/uL (1.2-4.9); Lymphocytes Percent Auto 25.4 % (20-40); Mean Corpuscular HGB Conc 32.8 g/dl (31.0-36.0); Mean Corpuscular Hemoglobin 29.3 pg (27.0-33.0); Mean Corpuscular Volume 89.2 fL (80.0-98.0); Mean Platelet Volume 9.7 fL (9.4-12.4); Monocytes Absolute Auto 0.6 X10*3/uL (0.1-1.2); Monocytes Percent Auto 6.8 % (2-11); Neutrophils Absolute Auto 5.5 x10*3/uL (2.0-8.3); Neutrophils Percent Auto 65.5 % (45-73); Platelet Count 333 X10*3/uL (160-400); Red Blood Count 5.74 X10*6/uL (4.60-5.80); Red Cell Distribution Width 12.3 % (11.0-16.0); White Blood Count 8.4 X10*3/uL (4.8-10.8)
[2022-06-18 13:04] LABS: Alanine Aminotransferase 15 U/L (0-40); Albumin Level 4.5 g/dL (3.5-5.0); Alkaline Phosphatase 88 U/L (39-117); Anion Gap 13 (12-20); Aspartate Amino Transferase 13 U/L (5-37); Bilirubin Total 0.6 mg/dL (0.0-1.0); Blood Urea Nitrogen 13 mg/dL (9-16); Calcium 9.9 mg/dL (8.4-10.2); Carbon Dioxide 28 mmol/L (22-29); Chloride 105 mmol/L (96-108); Cholesterol 210 mg/dL; Estimated Glomerular Filt Rate > 60; Glucose Fasting 91 mg/dL (60-99); Potassium 4.8 mmol/L (3.3-5.1); Prostate Specific Antigen Scr 2.17 ng/mL (<0.05-4.0); Sodium 141 mmol/L (135-145); Total Protein 7.1 g/dL (6.5-8.0); Triglycerides 170 mg/dL
[2022-06-18 13:26] LABS: HDL Cholesterol 46 mg/dL; LDL Cholesterol Calculated 130 mg/dl
[2022-06-20 09:14] LABS: Lyme Abs Screen <0.90 index
== END 2022-06-18 09:57 | disposition home or self-care (01) ==
LOC: HO.HMGCLDS 09:56
PROVIDERS: PCP Internal Medicine Medical Oncology; Visit Provider Internal Medicine Medical Oncology
DX: A69.20 Lyme disease, unspecified (principal); E78.2 Mixed hyperlipidemia; N28.1 Cyst of kidney, acquired; Z12.5 Encounter for screening for malignant neoplasm of prostate
CPT/HCPCS: 36415; 80053; 80061; 84153; 85025; 86617; 86618

== ENCOUNTER → 2022-06-20 08:21 | Outpatient (BNVA) | payer MEDICARE, OTHER, SELFPAY | PROVIDERS: PCP Internal Medicine Medical Oncology; Visit Provider Orthopaedic Surgery | DX: M75.101 Unspecified rotator cuff tear or rupture of right shoulder, not specified as traumatic (principal); M12.811 Other specific arthropathies, not elsewhere classified, right shoulder; M75.102 Unspecified rotator cuff tear or rupture of left shoulder, not specified as traumatic; M12.812 Other specific arthropathies, not elsewhere classified, left shoulder | CPT/HCPCS: 99212 ==

== ENCOUNTER 2022-07-19 09:57 | Emergency (ER) | payer MEDICARE, OTHER, SELFPAY ==
--- NOTE | ~2022-07-19 | CT_ITS ---
EXAMINATION: CT HEAD WITHOUT CONTRAST CLINICAL INFORMATION: Dizziness. COMPARISON: Head CT scan dated 02/19/2020. TECHNIQUE: Contiguous axial imaging was performed from the skull base to vertex without intravenous administration of contrast. Coronal and sagittal reformatted images were obtained. This CT examination was performed using dose optimization techniques as appropriate, variously including the following: *Automated exposure control *Adjustment of mA and/or kV according to patient size (this includes techniques or standardized protocols for targeted exams where dose is matched to indication/reason for exam; i.e. extremities or head) *Use of iterative reconstruction technique DLP: 615 mGy-cm FINDINGS: There is mild widening of the cortical sulci and associated ventriculomegaly. The lateral ventricles are symmetrical. The third and fourth ventricles are in their normal midline position. The basilar and prepontine cisterns are unremarkable. There is no acute intra or extracerebral abnormality. There is no mass effect or midline shift. Sections through the bony calvarium are unremarkable. The orbits are intact. The paranasal sinuses are clear. The mastoid air cells show a few opacified air cells inferiorly at the level the left mastoid process. The right mastoid air cells are clear. CT/CT head/brain wo IV con IMPRESSION: No acute intracranial pathology.
--- NOTE | ~2022-07-19 | XR_ITS ---
EXAMINATION: XR CHEST CLINICAL INFORMATION: Chest pain. COMPARISON: 02/19/2020 chest radiograph. TECHNIQUE: Frontal view of the chest was obtained. FINDINGS: No significant abnormality is noted involving the heart, lungs, mediastinum, bony thorax or soft tissues. XR/XR chest 1V IMPRESSION: No acute cardiopulmonary process.
--- NOTE | 2022-07-19 09:59 | ECG_ITS ---
Test Reason : CP Blood Pressure : / mmHG Vent. Rate : 072 BPM Atrial Rate : 072 BPM P-R Int : 164 ms QRS Dur : 092 ms QT Int : 368 ms P-R-T Axes : 039 042 028 degrees QTc Int : 402 ms Normal sinus rhythm with sinus arrhythmia Normal ECG When compared with ECG of 19-FEB-2020 11:17, No significant change was found Referred By: Generic ED Physician Electronically Signed By:Peter Fisher
[2022-07-19 10:03] VITALS: BP 172/90; PULSE 80; RESP 16; TEMP 36.6; O2SAT 97; BMI 25.0
--- NOTE | 2022-07-19 10:21 | ED_ITS ---
HPI - General Adult General Chief complaint: Dizziness Stated complaint: Chest Pain Dizzy Time Seen by Provider: 07/19/22 10:08 Source: patient and family (Spouse) Mode of arrival: ambulatory Limitations: no limitations History of Present Illness HPI narrative: 77-year-old male came in for evaluation of chest pain and feeling dizzy for the past week. Episodes of intermittent dizziness and lightheadedness with room spinning for the past week patient almost passed out 4 days ago but no LOC, intermittent headache, patient also get episode of left-sided chest pain that last for short time, no SOB. Describes the pain as a dull aching pain. Related Data Home Medications Medication Instructions Recorded Confirmed alprostadil 40 mcg intracavernosal 1.25 mcg intra-cavernosal 3XW 04/20/20 05/10/22 kit (Edex) aspirin 81 mg tablet,delayed 81 mg PO DAILY 04/20/20 05/10/22 release (Adult Low Dose Aspirin) trazodone 150 mg tablet 150 mg PO BEDTIME 09/19/21 05/10/22 atorvastatin 80 mg tablet 80 mg PO DAILY 10/09/21 05/10/22 Previous Rx's Medication Instructions Recorded clopidogrel 75 mg tablet (Plavix) 75 mg PO DAILY #30 tabs 09/06/20 Allergies Allergy/AdvReac Type Severity Reaction Status Date / Time No Known Allergies Allergy Verified 06/06/22 14:48 [No Known Allergies*] Review of Systems Review of Systems: All other systems are reviewed and are negative Constitutional: Reports as per HPI and Reports no additional constitutional complaints Eyes: Reports as per HPI and Reports no additional eye complaints Reports system reviewed and no additional complaints, except as documented Cardiovascular: Reports as per HPI and Reports no additional cardiovascular complaints Respiratory: Reports as per HPI and Reports no additional respiratory complaints Gastrointestinal: Reports as per HPI and Reports no additional gastrointestinal complaints Genitourinary: Reports no additional female genitourinary complaints Musculoskeletal: Reports no additional musculoskeletal complaints Skin/Breast: Reports system reviewed and no additional complaints, except as do cu Psychiatric: Reports no additional psychiatric complaints Endocrine: Reports no additional endocrine complaints Hematologic/Lymphatic: Reports no additional hematologic/lymphatic complaints Allergic/Immunologic: Reports no additional allergic/immunologic complaints Reports system reviewed and no additional complaints, except as documented and Reports Abnormal speech present PMFSH Past Medical History Medical History Bursitis of left shoulder CVA (cerebral vascular accident) Diverticulosis Erectile dysfunction Hepatitis A Hyperplastic colon polyp Nicotine dependence, cigarettes, uncomplicated Primary osteoarthritis of left knee Tubular adenoma Surgical History Encounter for full mouth dental rehabilitation H/O left inguinal hernia repair H/O right inguinal hernia repair History of aortic aneurysm repair History of left-sided carotid endarterectomy Hx of colonoscopy Hx of rotator cuff surgery Left knee injury S/P angioplasty with stent (09/06/20) Status post total shoulder arthroplasty Family History Family History Father No problems noted. Mother Cancer Arthritis Brother No problems noted. Brother No problems noted. Brother No problems noted. Brother No problems noted. Brother No problems noted. Brother Pancreatic cancer Sister No problems noted. Sister No problems noted. Sister No problems noted. Sister Pancreatic cancer, Onset Age: 69 Sister FH: ovarian cancer Sister Breast cancer Son No problems noted. Son No problems noted. Social History Social History Alcohol intake: current Alcohol intake frequency: does not drink Patient Tobacco Use Status: Current everyday Tobacco user Tobacco use type: Cigarette Cigarette Packs Per Day: 1 Cigarettes Per Day: 10 Years Smoked: 60 Advance Directives: Yes Advance Directives Information Provided: Yes Advance Directives on File: No Current occupational status: employed Current occupation: [employer] - Right Handed Physical Exam ED Vital Signs: Vital Signs - 24 hr 07/19/22 10:03 Temperature 98 F Pulse Rate 80 Respiratory Rate 16 Blood Pressure 172/90 H Pulse Oximetry 97 Oxygen Delivery Method Room Air BMI result Body Mass Index 25.0 Vital signs have been reviewed as appeared to be correct. Blood pressure normal. Heart rate normal. Respiration rate normal. Temperature normal. Oxygen saturation normal. Appearance: Alert. Oriented X3. No acute distress. Head: Normal external exam. Normocephalic. Atraumatic. No Ellison signs noted. No raccoon eyes noted Eyes: PERRLA. EOMI. Conjunctiva and sclera normal. Eyelids normal. ENT: TM's Normal. Pharynx normal. Uvula midline. Moist mucous membranes. No trismus noted. No drooling noted. No muffled voice noted. Neck: Normal inspection. Neck supple. FROM. No adenopathy. Thyroid Normal. No meningeal signs. No neck mass noted. CVS: Normal heart rate and rhythm. Heart sound normal. No murmurs noted. Pulses normal throughout. Respiratory: No respiratory distress. Painless inspiration. Breath sounds normal. No wheezes/rales/rhonchi noted. Chest nontender. No accessory muscle usage noted or decreased air movement noted. Abdomen: Soft and nontender. Bowel sounds normal in all 4 quadrants. No distention noted. No organomegaly noted. No visible injury noted. Back: No CVA tenderness. Full range of motion noted. Skin: Skin warm and dry. Normal skin color. Normal skin turgor. No rashes/lesions/lacerations noted. Extremities: No lower extremity edema. Extremities exhibit normal range of motion. Extremities nontender. Neuro: Oriented X 3. Cranial nerve exam: II-XII are grossly intact No motor deficit. No sensory deficit. Reflexes normal. Course Course Course Narrative: 77-year-old male came in for evaluation of episodes of chest pain and feeling dizziness question of peripheral vertigo the episode is intermittent more with changing position, patient has unremarkable EKG and blood workup, patient has also a normal neurological exam with a normal head CT. Medical Decision Making Differential Diagnosis Differential Diagnoses: The differential diagnosis associated with the presentation includes (Peripheral vertigo, central vertigo, ACS, pneumonia, pleural effusion, pneumothorax.) Lab Data MDM Lab Attestation statement: I reviewed the patient's lab results. 07/19/22 10:19 07/19/22 10:20 Labs: Lab Results 07/19/22 07/19/22 07/19/22 Range/Units 10:19 10:20 10:20 WBC 7.8 (4.8-10.8) X10*3/uL RBC 5.41 (4.60-5.80) X10*6/uL Hgb 16.1 (14.0-18.0) g/dl Hct 46.8 (42.0-52.0) % MCV 86.5 (80.0-98.0) fL MCH 29.8 (27.0-33.0) pg MCHC 34.4 (31.0-36.0) g/dl RDW 12.3 (11.0-16.0) % Plt Count 286 (160-400) X10*3/uL MPV 9.0 L (9.4-12.4) fL Immature Gran % (Auto) 0.4 (0.0-0.4) % Neut % (Auto) 59.5 (45-73) % Lymph % (Auto) 26.5 (20-40) % [place] % (Auto) 9.6 (2-11) % Eos % (Auto) 3.6 (0-4) % Baso % (Auto) 0.4 (0-2) % Lymph # (Auto) 2.1 (1.2-4.9) X10*3/uL [place] # (Auto) 0.8 (0.1-1.2) X10*3/uL Eos # (Auto) 0.3 (0.0-0.4) X10*3/uL Baso # (Auto) 0.0 (0.0-0.2) X10*3/uL Abs Immat Gran (auto) 0.03 (0.00-0.03) X10*3/uL Absolute Neuts (auto) 4.7 (2.0-8.3) x10*3/uL Absolute Nucleated RBC 0.000 (0.0-0.012) X10*3/uL Nucleated RBC % (auto) 0.0 (0.0-0.2) /100WBC Sodium 139 (135-145) mmol/L Potassium 4.1 (3.3-5.1) mmol/L Chloride 107 (96-108) mmol/L Carbon Dioxide 26 (22-29) mmol/L Anion Gap 10 L (12-20) BUN 17 H (9-16) mg/dL Creatinine 0.87 (0.5-1.4) mg/dL Estim Creat Clear Calc 70.9 Estimated GFR > 60 Random Glucose 117 H (60-115) mg/dL Calcium 9.4 (8.4-10.2) mg/dL Total Bilirubin 0.5 (0.0-1.0) mg/dL Direct Bilirubin 0.2 (0.0-0.5) mg/dL AST 14 (5-37) U/L ALT 22 (0-40) U/L Alkaline Phosphatase 88 (39-117) U/L Troponin I High Sens 5.7 (<3.5-35.0) ng/L Total Protein 6.8 (6.5-8.0) g/dL Albumin 4.2 (3.5-5.0) g/dL Lipase 13 (8-78) U/L Influenza Type A (PCR) (Negative) Influenza Type B (PCR) (Negative) RSV RNA Qual (PCR) (Negative) SARS-CoV-2 RNA (RT-PCR) (Negative) 07/19/22 Range/Units 10:20 WBC (4.8-10.8) X10*3/uL RBC (4.60-5.80) X10*6/uL Hgb (14.0-18.0) g/dl Hct (42.0-52.0) % MCV (80.0-98.0) fL MCH (27.0-33.0) pg MCHC (31.0-36.0) g/dl RDW (11.0-16.0) % Plt Count (160-400) X10*3/uL MPV (9.4-12.4) fL Immature Gran % (Auto) (0.0-0.4) % Neut % (Auto) (45-73) % Lymph % (Auto) (20-40) % [place] % (Auto) (2-11) % Eos % (Auto) (0-4) % Baso % (Auto) (0-2) % Lymph # (Auto) (1.2-4.9) X10*3/uL [place] # (Auto) (0.1-1.2) X10*3/uL Eos # (Auto) (0.0-0.4) X10*3/uL Baso # (Auto) (0.0-0.2) X10*3/uL Abs Immat Gran (auto) (0.00-0.03) X10*3/uL Absolute Neuts (auto) (2.0-8.3) x10*3/uL Absolute Nucleated RBC (0.0-0.012) X10*3/uL Nucleated RBC % (auto) (0.0-0.2) /100WBC Sodium (135-145) mmol/L Potassium (3.3-5.1) mmol/L Chloride (96-108) mmol/L Carbon Dioxide (22-29) mmol/L Anion Gap (12-20) BUN (9-16) mg/dL Creatinine (0.5-1.4) mg/dL Estim Creat Clear Calc Estimated GFR Random Glucose (60-115) mg/dL Calcium (8.4-10.2) mg/dL Total Bilirubin (0.0-1.0) mg/dL Direct Bilirubin (0.0-0.5) mg/dL AST (5-37) U/L ALT (0-40) U/L Alkaline Phosphatase (39-117) U/L Troponin I High Sens (<3.5-35.0) ng/L Total Protein (6.5-8.0) g/dL Albumin (3.5-5.0) g/dL Lipase (8-78) U/L Influenza Type A (PCR) NEGATIVE (Negative) Influenza Type B (PCR) NEGATIVE (Negative) RSV RNA Qual (PCR) NEGATIVE (Negative) SARS-CoV-2 RNA (RT-PCR) NEGATIVE (Negative) Independent Interpretation I performed an independent interpretation of an: EKG (Normal sinus rhythm with sinus arrhythmia at 72 beats per minute, normal intervals, no ST-T changes.), Plain X-Ray (Chest: No acute intrathoracic pathology.) and CT Scan (Head: No acute intracranial pathology.) Radiology Impression Discussion of test interpretation with radiology: I have reviewed the radiologist's reading. Discharge Plan Discharge Clinical Impression: Dizziness, nonspecific Patient Disposition: Home, Self-Care Instructions: Dizziness (ED) Prescriptions: No Action clopidogrel [Plavix] 75 mg tablet 75 mg PO DAILY Qty: 30 3RF trazodone 150 mg tablet 150 mg PO BEDTIME aspirin [Adult Low Dose Aspirin] 81 mg tablet,delayed release (DR/EC) 81 mg PO DAILY Edex 40 mcg kit 1.25 mcg intra-cavernosal 3XW atorvastatin 80 mg tablet 80 mg PO DAILY Referrals: Wilfrid Lin MD [Primary Care Provider] -
[2022-07-19 10:25] LABS: MANUAL DIFF FLAG NO
[2022-07-19 10:33] LABS: Basophils Percent Auto 0.4 % (0-2); Eosinophils Absolute Auto 0.3 X10*3/uL (0.0-0.4); Eosinophils Percent Auto 3.6 % (0-4); Hematocrit 46.8 % (42.0-52.0); Hemoglobin 16.1 g/dl (14.0-18.0); Imm Gran Abs Auto 0.03 X10*3/uL (0.00-0.03); Imm Gran Pct Auto 0.4 % (0.0-0.4); Lymphocytes Absolute Auto 2.1 X10*3/uL (1.2-4.9); Lymphocytes Percent Auto 26.5 % (20-40); Mean Corpuscular HGB Conc 34.4 g/dl (31.0-36.0); Mean Corpuscular Hemoglobin 29.8 pg (27.0-33.0); Mean Corpuscular Volume 86.5 fL (80.0-98.0); Monocytes Absolute Auto 0.8 X10*3/uL (0.1-1.2); Monocytes Percent Auto 9.6 % (2-11); Neutrophils Absolute Auto 4.7 x10*3/uL (2.0-8.3); Neutrophils Percent Auto 59.5 % (45-73); Platelet Count 286 X10*3/uL (160-400); Red Blood Count 5.41 X10*6/uL (4.60-5.80); Red Cell Distribution Width 12.3 % (11.0-16.0); White Blood Count 7.8 X10*3/uL (4.8-10.8)
[2022-07-19 10:47] LABS: Alanine Aminotransferase 22 U/L (0-40); Albumin Level 4.2 g/dL (3.5-5.0); Alkaline Phosphatase 88 U/L (39-117); Anion Gap 10 (12-20); Aspartate Amino Transferase 14 U/L (5-37); Bilirubin Direct 0.2 mg/dL (0.0-0.5); Bilirubin Total 0.5 mg/dL (0.0-1.0); Blood Urea Nitrogen 17 mg/dL (9-16); Calcium 9.4 mg/dL (8.4-10.2); Carbon Dioxide 26 mmol/L (22-29); Chloride 107 mmol/L (96-108); Creatinine Clr Calc Pharmacy 70.9; Estimated Glomerular Filt Rate > 60; Glucose Random 117 mg/dL (60-115); Lipase 13 U/L (8-78); Potassium 4.1 mmol/L (3.3-5.1); Sodium 139 mmol/L (135-145); Total Protein 6.8 g/dL (6.5-8.0)
[2022-07-19 11:03] LABS: Troponin-I High Sensitivity 5.7 ng/L (<3.5-35.0)
[2022-07-19 11:10] LABS: Influenza A PCR NEGATIVE (Negative); Influenza B PCR NEGATIVE (Negative); Resp Syncy Virus RNA Qual PCR NEGATIVE (Negative); SARS COV2 PCR INHOUSE NEGATIVE (Negative)
[2022-07-19 11:43] VITALS: BP 145/76; PULSE 66
[2022-07-19 11:46] VITALS: BP 136/80; PULSE 71
[2022-07-19 11:47] VITALS: BP 111/75; PULSE 82
[2022-07-19 12:06] LABS: Appearance Urine Clear; Color Urine Yellow; Glucose Urine UA Negative (Negative); Leukocyte Esterase Urine Negative (Negative); Nitrite Urine Negative (Negative); UMIC TRIGGER UACC YES; Urine Blood Trace (Negative); Urine Ketones Negative (Negative); Urine Protein Negative (Neg-Trace)
[2022-07-19 12:11] LABS: Bacteria Urine None Seen (None Seen); Hyaline Casts Urine 0-2 /LPF (0-2); Squamous Epithelial Cell Urine 0-2 /HPF (0-2); WBC Urine 0-5 /HPF (0-5)
[2022-07-19 13:21] LABS: B Type Natriuretic Peptide 21 pg/mL (<100)
== END 2022-07-19 12:03 | disposition home or self-care (01) ==
PROVIDERS: Emergency Provider Emergency Medicine; PCP Internal Medicine Medical Oncology
DX: R07.89 Other chest pain (principal); R42 Dizziness and giddiness; F17.210 Nicotine dependence, cigarettes, uncomplicated; Z20.822 Contact with and (suspected) exposure to COVID-19; Z20.828 Contact with and (suspected) exposure to other viral communicable diseases; Z79.899 Other long term (current) drug therapy; Z71.6 Tobacco abuse counseling
CPT/HCPCS: 0241U; 70450; 71045; 80048; 80076; 81001; 81003; 83690; 83880; 84484; 85025; 93005; 99284

== ENCOUNTER 2022-08-14 13:43 | Outpatient (REF) | payer MEDICARE, OTHER, SELFPAY ==
--- NOTE | ~2022-08-14 | US_ITS ---
EXAMINATION: US THYROID CLINICAL INFORMATION: Nontoxic single thyroid nodule. COMPARISON: CTA neck 11/19/2019. TECHNIQUE: Linear transducer grayscale and color Doppler examination with attention to the region of the thyroid. FINDINGS: SIZE: Measurements of the thyroid lobes and nodules are given in sagittal, anteroposterior and transverse dimensions respectively. Right Thyroid Lobe: 5.1 x 1.7 x 1.9 cm, volume 8.3 mL. Parenchyma: The gland echotexture is heterogeneous. Thyroid vascularity is normal. Left Thyroid Lobe: 5.7 x 1.5 x 1.6 cm, volume 7.2 mL. Parenchyma: The gland echotexture is homogeneous. Thyroid vascularity is normal. Isthmus: 0.5 cm in maximum AP dimension. Estimated total number of nodules greater than or equal to 1 cm: 2. Fur Cleaner nodules are described as follows: 1. Location: Right lower pole. Size: 1.3 x 1.5 x 1.1 cm, volume 1.1 mL. Nodule characteristics: Composition: Solid/almost completely solid (2). Echogenicity: Isoechoic (1). Shape: Not taller than wide (0). Margins: Ill-defined (0). Echogenic Foci: None (0). ACR TI-RADS total points: 3 ACR TI-RADS category: 3 2. Location: Right lower pole. Size: 1.5 x 0.7 x 1.2 cm, volume 0.7 mL. Nodule characteristics: Composition: Solid/almost completely solid (2). Echogenicity: Isoechoic (1). Shape: Not taller than wide (0). Margins: Ill-defined (0). Echogenic Foci: None (0). ACR TI-RADS total points: 3 ACR TI-RADS category: 3 NODES: No lymphadenopathy is seen in the tissue surrounding the thyroid gland. US/US thyroid IMPRESSION: Two right thyroid nodules by ACR TI-RADS recommendation it is nonsuspicious. Recommend continued follow-up. ACR TI-RADS RECOMMENDATION REFERENCE: Ultrasound-guided fine-needle aspiration, followup ultrasound, no further follow up. * TR1 (0 point) and TR2 (2 points): No FNA or follow up. * TR3 (3 points): FNA if more than or equal to 2.5 cm in maximum dimension, followup ultrasound in 1, 3 and 5 years if 1.5 to 2.4 cm in maximum dimension. * TR4 (4-6 points): FNA if more than or equal to 1.5 cm in maximum dimension, followup ultrasound in 1, 2, 3 and 5 years if 1 to 1.4 cm in maximum dimension. * TR5 (more than or equal to 7 points): FNA if more than or equal to 1 cm in maximum dimension, followup ultrasound every year for 5 years if 0.5 to 0.9 cm in maximum dimension. * TR3, TR4 or TR5 nodules that are below the size threshold for followup receive no follow up.
== END 2022-08-14 13:44 | disposition home or self-care (01) ==
LOC: HO.US 13:43
PROVIDERS: Visit Provider Internal Medicine Medical Oncology
DX: E04.1 Nontoxic single thyroid nodule (principal)
CPT/HCPCS: 76536

== ENCOUNTER → 2022-09-23 08:14 | Outpatient (BNVA) | payer MEDICARE, OTHER, SELFPAY | PROVIDERS: PCP Internal Medicine Medical Oncology; Visit Provider Orthopaedic Surgery | DX: M75.102 Unspecified rotator cuff tear or rupture of left shoulder, not specified as traumatic (principal); M12.812 Other specific arthropathies, not elsewhere classified, left shoulder; M75.101 Unspecified rotator cuff tear or rupture of right shoulder, not specified as traumatic; M12.811 Other specific arthropathies, not elsewhere classified, right shoulder | CPT/HCPCS: 20610; 99212; J1100 ==

== ENCOUNTER → 2022-10-01 14:20 | Outpatient (BNVA) | payer SELFPAY | PROVIDERS: PCP Internal Medicine Medical Oncology; Visit Provider Internal Medicine | DX: Z02.79 Encounter for issue of other medical certificate (principal) ==

== ENCOUNTER 2023-02-26 14:39 | Outpatient (REF) | payer MEDICARE, OTHER, SELFPAY ==
--- NOTE | ~2023-02-26 | US_ITS ---
EXAMINATION: ANKLE-BRACHIAL INDICES SINGLE LEVEL PULSE VOLUME RECORDING ARTERIAL DUPLEX BILATERAL LEGS CLINICAL INFORMATION: Peripheral vascular disease COMPARISON: 02/07/2022 TECHNIQUE: Ankle-brachial indices and PVR at the ankle were obtained. Duplex Doppler of the bilateral lower extremity arterial systems was performed. FINDINGS: RIGHT: Ankle-brachial index: 1.13 PVR: Normal Common femoral: PSV 85 cm/s. Biphasic waveform. Deep femoral: PSV 64 cm/s. Biphasic waveform. Proximal superficial femoral: PSV 100 cm/s. Biphasic waveform. Mid superficial femoral: PSV 101 cm/s. Biphasic waveform. Distal superficial femoral: PSV 119 cm/s. Biphasic waveform. Popliteal: PSV 60 cm/s. Biphasic waveform. 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 Posterior tibial: PSV 30 cm/s. Biphasic waveform. Peroneal: PSV 46 cm/s. Biphasic waveform. LEFT: Ankle-brachial index: 1.13 PVR: Normal Common femoral: PSV 92 cm/s. Biphasic waveform. Deep femoral: PSV 37 cm/s. Biphasic waveform. There is a stent in the SFA: Inflow: PSV 67 cm/s. Triphasic waveform. Proximal stent: PSV 82 cm/s. Biphasic waveform. Mid stent: PSV 88 cm/s. Biphasic waveform. Distal stent: PSV 144 cm/s. Biphasic waveform. Outflow: PSV 142 cm/s. Biphasic waveform. Popliteal: PSV 68 cm/s. Biphasic waveform. Posterior tibial: PSV 53 cm/s. Biphasic waveform. Peroneal: PSV 41 cm/s. Biphasic waveform. US/US arterial duplex LE BI IMPRESSION: Right: No evidence of hemodynamically significant peripheral arterial disease. 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 Left: Stented superficial femoral artery which appears patent. No evidence of hemodynamically significant peripheral arterial disease.
--- NOTE | ~2023-02-26 | US_ITS ---
EXAMINATION: ANKLE-BRACHIAL INDICES SINGLE LEVEL PULSE VOLUME RECORDING ARTERIAL DUPLEX BILATERAL LEGS CLINICAL INFORMATION: Peripheral vascular disease COMPARISON: 02/07/2022 TECHNIQUE: Ankle-brachial indices and PVR at the ankle were obtained. Duplex Doppler of the bilateral lower extremity arterial systems was performed. FINDINGS: RIGHT: Ankle-brachial index: 1.13 PVR: Normal Common femoral: PSV 85 cm/s. Biphasic waveform. Deep femoral: PSV 64 cm/s. Biphasic waveform. Proximal superficial femoral: PSV 100 cm/s. Biphasic waveform. Mid superficial femoral: PSV 101 cm/s. Biphasic waveform. Distal superficial femoral: PSV 119 cm/s. Biphasic waveform. Popliteal: PSV 60 cm/s. Biphasic waveform. 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 Posterior tibial: PSV 30 cm/s. Biphasic waveform. Peroneal: PSV 46 cm/s. Biphasic waveform. LEFT: Ankle-brachial index: 1.13 PVR: Normal Common femoral: PSV 92 cm/s. Biphasic waveform. Deep femoral: PSV 37 cm/s. Biphasic waveform. There is a stent in the SFA: Inflow: PSV 67 cm/s. Triphasic waveform. Proximal stent: PSV 82 cm/s. Biphasic waveform. Mid stent: PSV 88 cm/s. Biphasic waveform. Distal stent: PSV 144 cm/s. Biphasic waveform. Outflow: PSV 142 cm/s. Biphasic waveform. Popliteal: PSV 68 cm/s. Biphasic waveform. Posterior tibial: PSV 53 cm/s. Biphasic waveform. Peroneal: PSV 41 cm/s. Biphasic waveform. US/US VIJAY complete IMPRESSION: Right: No evidence of hemodynamically significant peripheral arterial disease. 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 Left: Stented superficial femoral artery which appears patent. No evidence of hemodynamically significant peripheral arterial disease.
== END 2023-02-26 14:40 | disposition home or self-care (01) ==
LOC: HO.US 14:39
PROVIDERS: PCP Internal Medicine Medical Oncology; Visit Provider Surgery Vascular Surgery
DX: I70.213 Atherosclerosis of native arteries of extremities with intermittent claudication, bilateral legs (principal)
CPT/HCPCS: 93923; 93925

== ENCOUNTER 2023-03-14 10:53 | Outpatient (REF) | payer MEDICARE, OTHER, SELFPAY ==
[2023-03-14 13:54] LABS: Blood Urea Nitrogen 15 mg/dL (9-16)
== END 2023-03-14 10:54 | disposition home or self-care (01) ==
LOC: HO.HMGCLDS 10:53
PROVIDERS: PCP Internal Medicine Medical Oncology; Visit Provider Surgery Vascular Surgery
DX: I71.40 Abdominal aortic aneurysm, without rupture, unspecified (principal)
CPT/HCPCS: 36415; 84520

== ENCOUNTER 2023-03-20 15:00 | Outpatient (REF) | payer MEDICARE, OTHER, SELFPAY ==
--- NOTE | ~2023-03-20 | CT_ITS ---
EXAMINATION: CT ANGIOGRAM ABDOMEN AND PELVIS CLINICAL INFORMATION: Abdominal aortic aneurysm, status post endograft. COMPARISON: 03/29/2022 TECHNIQUE: Multiple axial images were obtained through the abdomen and pelvis following the administration of 70 mL of Omnipaque 350 intravenous contrast. Images were reviewed on a dedicated 3-D workstation. This CT examination was performed using dose optimization techniques as appropriate, variously including the following: *Automated exposure control *Adjustment of mA and/or kV according to patient size (this includes techniques or standardized protocols for targeted exams where dose is matched to indication/reason for exam; i.e. extremities or head) *Use of iterative reconstruction technique DLP: 382 mGy-cm 3D POSTPROCESSING: Multiple 3-D angiographic images were processed from the initial data set by the [facility] under concurrent physician supervision. FINDINGS: VASCULAR: ABDOMINAL AORTA: There is a fusiform infrarenal abdominal aortic aneurysm extending into the right common iliac artery. Abdominal aortic to bilateral common iliac artery bifurcated stent graft is again seen. Stent graft is in stable position and widely patent. Aneurysm sac measures 4.5 x 4.0 cm, previously measuring 4.5 x 4.2 cm at the same location based on my measurements. No evidence of endoleak on arterial phase imaging RIGHT LOWER EXTREMITY: Fusiform a right common iliac artery aneurysm measures maximum diameter of 3.5 cm. This previously measured 3.5 cm in the same location based on measurements. Right common iliac limb of the stent graft is patent. There is embolization of the proximal right internal iliac artery. The right external iliac artery is normal caliber and patent. LEFT LOWER EXTREMITY: Left common iliac artery stent graft limb and common femoral artery is patent. The left external iliac and internal iliac artery is normal caliber and patent.. CELIOMESENTERIC ARTERIES: Patent. RENAL ARTERIES: Patent. NONVASCULAR: Lung Bases: Emphysematous changes seen in the bilateral lung bases Liver, Gallbladder and Biliary Tree: The liver is normal in size, shape, and attenuation. No focal hepatic lesion or biliary ductal dilatation is present. The gallbladder is unremarkable with no evidence of radiopaque gallstones, gallbladder wall thickening, or obvious pericholecystic inflammatory changes. Pancreas: Unremarkable. Spleen: Unremarkable. Adrenal Glands: Unremarkable. Kidneys and Ureters: The kidneys are normal in size, shape, and attenuation. No hydronephrosis, hydroureter, or calculi seen. No perinephric stranding. Stable bilateral renal cysts. No follow-up indicated. Bladder: Unremarkable. Gastrointestinal Tract: The small and large bowel are unremarkable. The appendix is unremarkable. Abdominal Wall: No significant hernia is appreciated. Lymph Nodes: Normal. Pelvic Viscera: Unremarkable. Osseous Structures: Degenerative spine CT/CT angio abdomen pelvis IMPRESSION: 1. Infrarenal abdominal aortic aneurysm status post endograft. Aneurysm sac is stable in size. No evidence of endoleak on arterial phase imaging. 2. Stable right common iliac artery aneurysm.
[2023-03-20] MEDS: iohexoL 350 MG/ML 100 ML INFUS..BTL IV (16:00)
[2023-03-24 14:50] LABS: Creatinine POC 0.7 mg/dL (0.5-1.4); GFR POC > 60
== END 2023-03-20 15:01 | disposition home or self-care (01) ==
LOC: HO.CT 15:00
PROVIDERS: PCP Internal Medicine Medical Oncology; Visit Provider Surgery Vascular Surgery
DX: I71.40 Abdominal aortic aneurysm, without rupture, unspecified (principal)
CPT/HCPCS: 74174; 82565; Q9967

== ENCOUNTER 2023-04-08 15:14 | Outpatient (AMB) | payer MEDICARE, OTHER, SELFPAY ==
[2023-04-08 15:17] VITALS: BMI 25.1
--- NOTE | 2023-04-08 15:17 | MHC.OFFVIS ---
Intake Vital Signs 04/08/23 15:17 Height 5 ft 8 in Weight 165 lb BMI 25.1 Intake Visit Reasons: 1 year follow up CTA 03/20/ & Art US Intake Note: 1 year follwo up s/p ARterial US 02/26/23 and CTA Abd/pelvis 03/20/23. Pt has Hx of Right Iliac Coiling 01/05/2020 and EVAR 01/10/2020. Pt has no complaints Accompanied by: Self / Same As Patient Allergies No Known Allergies [No Known Allergies*] Allergy (Verified 04/08/23 15:23) HPI 1 year follow up CTA & Art US HPI Details Very pleasant 78-year-old gentleman presents for follow-up regarding his aortic aneurysm which was repaired in an endovascular fashion nearly 3 years prior. He reports he is doing fairly well. In addition he has had prior lower extremity interventions as well. He has had no interval issues. He actually is still quite active. 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 He still is working quite hard. He now presents for routine follow-up. He has no difficulties ambulating [facility] Medical History Diverticulosis Tubular adenoma Nicotine dependence, cigarettes, uncomplicated CVA (cerebral vascular accident) Primary osteoarthritis of left knee Hepatitis A Erectile dysfunction Bursitis of left shoulder Hyperplastic colon polyp Surgical History S/P angioplasty with stent (09/06/20) History of left-sided carotid endarterectomy History of aortic aneurysm repair Left knee injury Status post total shoulder arthroplasty H/O left inguinal hernia repair Hx of rotator cuff surgery Encounter for full mouth dental rehabilitation Hx of colonoscopy H/O right inguinal hernia repair Family History Father No problems noted. Mother Cancer Arthritis Brother No problems noted. Brother No problems noted. Brother No problems noted. Brother No problems noted. Brother No problems noted. Brother Pancreatic cancer Sister No problems noted. Sister No problems noted. Sister No problems noted. Sister Pancreatic cancer, Onset Age: 69 Sister FH: ovarian cancer Sister Breast cancer Son No problems noted. Son No problems noted. Social History (Updated 04/08/23 @ 15:24 by ANYA Almonte) Alcohol intake: current Alcohol intake frequency: does not drink Patient Tobacco Use Status: Current everyday Tobacco user Tobacco use type: Cigarette Cigarettes Per Day: 10 Years Smoked: 60 Current occupational status: employed Current occupation: Black [employer] - Right Handed Review of Systems Const All systems reviewed & are unremarkable except as noted in HPI and below Reports no additional complaints ENT Reports Normal hearing present Card Denies chest pain, Denies chest pain at rest, Denies chest pain with activity and Denies pedal edema Resp Denies cough GI Denies abdominal pain Musc Denies abnormal gait, Denies muscle cramps and Denies radiating pain into limb Skin/Breast Denies skin ulcer and Denies wounds Neuro Reports Normal hearing present and Denies abnormal gait Psych Reports no additional complaints Physical Exam Vital Signs: BMI result Body Mass Index 25.1 Const General: cooperative, healthy appearing and comfortable Orientation/consciousness: oriented to person, oriented to place and oriented to time HEENT Head: Yes normal to inspection Neck Neck: Yes normal visual inspection Carotids: no bruits Chest Chest palpation & inspection: normal inspection of the chest Resp Effort & Inspection: normal respiratory effort and able to speak in complete sentences Auscultation: clear to auscultation bilaterally, no crackles, no rales, no rhonchi and no wheezes Cardio Rate: regular rate Rhythm: regular rhythm Heart sounds: S1 normal heart sound present and S2 normal heart sound present Bruits: no carotid bruits Peripheral pulses: Peripheral pulses 2+ throughout GI Inspection: Yes normal to inspection Skin Wounds: no wounds Hair: normal Neuro General: oriented to person, oriented to place and oriented to time Cranial nerves: Yes CN's II-XII intact bilaterally and Yes Normal hearing present Cognition (Neuro): normal cognition Motor exam (neuro): 5/5 motor strength present throughout Extrem Other: venous exam: No significant superficial varicosities or spider telangiectasias, minimal edema General: No clubbing, No cyanosis and No edema Psych Appearance: grossly normal Mental Status: mental status grossly normal Speech and movement: Normal speech and movement present Results Reviewed Results Reviewed: CT angiogram dated 03/20/2023 stable endograft with no endoleak. Arterial testing dated 02/26/2023 demonstrates VIJAY on the right of 1.13 and on the left of 1.13. Written report and images of both were reviewed. Assessment & Plan Assessment & Plan (1) AAA (abdominal aortic aneurysm) without rupture: Comment: 01/05/2020 - right internal iliac coiling 01/10/2020 - endovascular aortic aneurysm repair with Endologix AFX Code(s): I71.4 - Abdominal aortic aneurysm, without rupture Qualifiers: Abdominal aorta location: infrarenal aorta Qualified Code(s): I71.43 - Infrarenal abdominal aortic aneurysm, without rupture Plan: Endograft appear stable will plan for annual surveillance. Risk factor modification discussed as well. We are also following him for peripheral vascular disease. (2) PAD (peripheral artery disease): Comment: 09/06/2020- angioplasty and stent of left SFA Code(s): I73.9 - Peripheral vascular disease, unspecified Plan: In short patient has stable claudication. I did review the pathophysiology of peripheral vascular disease with the patient. In addition we did discuss routine conservative measures including a healthy diet and the importance of exercise and ambulation. We did discuss risk factor modification. The patient will continue to to follow-up with surveillance follow-up in approximately 1 year. Thank you for allowing us to participate in this patient's care. If there are any questions or concerns please do not hesitate to contact us. Orders: Orders Creatinine 364 Days I71.43 - Infrarenal abdominal aortic aneurysm, without rupture US arterial duplex LE BI 364 Days I73.9 - Peripheral vascular disease, unspecified Blood Urea Nitrogen 364 Days I71.43 - Infrarenal abdominal aortic aneurysm, without rupture CT angio abdomen pelvis 364 Days I71.43 - Infrarenal abdominal aortic aneurysm, without rupture Coding Level of Care Code Est Pt Level 4 (46962) Diagnoses Infrarenal abdominal aortic aneurysm (AAA) without rupture I71.43 Abdominal aorta location: infrarenal aorta PAD (peripheral artery disease) I73.9
== END 2023-04-08 15:39 | disposition home or self-care (01) ==
PROVIDERS: PCP Internal Medicine Medical Oncology; Visit Provider Surgery Vascular Surgery
DX: I71.43 Infrarenal abdominal aortic aneurysm, without rupture (principal); I73.9 Peripheral vascular disease, unspecified; Z95.820 Peripheral vascular angioplasty status with implants and grafts
CPT/HCPCS: 99214

== ENCOUNTER → 2023-04-08 15:14 | Outpatient (BNVA) | payer MEDICARE, OTHER, SELFPAY | PROVIDERS: PCP Internal Medicine Medical Oncology; Visit Provider Surgery Vascular Surgery | DX: I71.43 Infrarenal abdominal aortic aneurysm, without rupture (principal); I73.9 Peripheral vascular disease, unspecified; Z95.820 Peripheral vascular angioplasty status with implants and grafts | CPT/HCPCS: 99212 ==

== ENCOUNTER 2023-04-15 16:55 | Outpatient (REF) | payer MEDICARE, OTHER, SELFPAY | END 2023-04-15 16:56 | disposition home or self-care (01) | LOC: HO.LNP 16:55 | PROVIDERS: Visit Provider Internal Medicine Medical Oncology | DX: K61.0 Anal abscess (principal) | CPT/HCPCS: 87070; 87147; 87205 ==

== ENCOUNTER 2023-07-11 13:22 | Outpatient (REF) | payer MEDICARE, OTHER, SELFPAY ==
--- NOTE | ~2023-07-11 | CT_ITS ---
EXAMINATION: CT CHEST WITHOUT CONTRAST CLINICAL INFORMATION: Pulmonary nodule in anterior right middle lobe COMPARISON: CT scan of chest on 07/10/2020 TECHNIQUE: Multidetector volumetric CT imaging of the chest was done. Axial MIP volume rendering provided. Sagittal and coronal reformatted images were obtained. This CT examination was performed using dose optimization techniques as appropriate, variously including the following: *Automated exposure control *Adjustment of mA and/or kV according to patient size (this includes techniques or standardized protocols for targeted exams where dose is matched to indication/reason for exam; i.e. extremities or head) *Use of iterative reconstruction technique DLP: 152 mGy-cm FINDINGS: LUNGS: Paraseptal emphysematous bullae are seen along the medial pleural border of right upper lobe apical segment. The largest bulla is seen at posterior border of left lingular lobe inferior segment. -Nodule #1 (Series 5, image 359): 6.5 mm solid nodule, right middle lobe medial segment, previously 6.5 mm. PLEURA: No pleural effusion or pneumothorax is seen. PERICARDIUM: No pericardial effusion is seen. MEDIASTINUM AND RONDA: No abnormally enlarged mediastinal or hilar lymph nodes are seen. TRACHEOBRONCHIAL TREE: Trachea and bilateral mainstem bronchi are patent. THORACIC AORTA: The thoracic aorta is normal in size with scattered atherosclerotic calcifications. CORONARY ARTERY CALCIFICATIONS: Moderate PULMONARY ARTERIES: The main pulmonary arteries show normal enhancement. CHEST WALL AND LOWER NECK: The subcutaneous and muscular chest wall are intact with no focal lesion. No abnormal mass lesion could be seen in the visualized lower neck. BONES: Multilevel sharp anterior and lateral syndesmophytes are present. No fracture or dislocation. No focal bone lesion diagnostic of metastatic disease could be seen in the thorax. VISUALIZED UPPER ABDOMEN: Bilateral adrenal glands are not enlarged. CT/CT chest wo IV con IMPRESSION: 1. Unchanged 6.5 mm solid nodule, right middle lobe medial segment, stable since first visualized on CT scan of chest on 09/01/2015. 2. Unchanged Paraseptal emphysematous bullae in right upper lobe and left lingular lobe inferior segment. According to the UPDATED 2017 Fleischner Society recommendations, the advised follow-up imaging for a single 6-8 mm solid nodule is follow-up CT at 6 to 12 months. In high-risk patients, subsequent CT follow-up at 18 to 24 months is recommended. In low-risk patients, subsequent CT follow-up at 18 to 24 months is optional. Fleischner guidelines were followed.
== END 2023-07-11 13:23 | disposition home or self-care (01) ==
LOC: HO.CT 13:22
PROVIDERS: PCP Internal Medicine Medical Oncology; Visit Provider Internal Medicine Medical Oncology
DX: R91.1 Solitary pulmonary nodule (principal)
CPT/HCPCS: 71250

== ENCOUNTER 2023-08-26 16:16 | Emergency (ER) | payer MEDICARE, OTHER, SELFPAY ==
--- NOTE | ~2023-08-26 | XR_ITS ---
EXAMINATION: XR HAND/WRIST, LEFT CLINICAL INFORMATION: Trauma. COMPARISON: None TECHNIQUE: Four views of the left hand and wrist. FINDINGS: Soft tissue lacerations and swelling overlying the second and third digits. There is a 3 mm radiopaque foreign body overlying the dorsal soft tissues of the hand at the level of the second proximal metatarsal. Cortical step-off along the medial surface of the middle phalanx of the second digit. Additional very subtle cortical irregularity along the medial surface of the middle phalanx of the third digit. No subluxation. Severe joint space narrowing and subcortical sclerosis of the first CMC joint. Otherwise, mild to moderate multifocal degenerative osteoarthritis elsewhere. XR/XR hand wrist LT IMPRESSION: 1. Cortical step-off along the medial surface of the middle phalanx of the second digit and very subtle cortical irregularity along the medial surface of the middle phalanx of the third digit. Findings are suspicious for underlying fractures. 2. Radiopaque foreign body overlying the dorsal soft tissues of the hand at the level of the second proximal metatarsal. 3. Soft tissue lacerations and swelling surrounding the distal second and third digits.
--- NOTE | 2023-08-26 16:25 | ED.GENADULT ---
HPI - General Adult General Chief complaint: Wound/Laceration Stated complaint: L hand lac Time Seen by Provider: 08/26/23 19:13 Source: patient Mode of arrival: ambulatory Limitations: no limitations History of Present Illness HPI narrative: Patient comes to the emergency room complaining of lacerations to the middle and ring finger of the right hand on the dorsum. Patient states that he was working with wood, patient sustained a laceration to the left hand while working with a table saw. Patient states that the pain is fairly well controlled, patient takes blood thinners. Patient states that he can move all of his fingers. Related Data Home Medications Medication Instructions Recorded Confirmed alprostadil 40 mcg intracavernosal 1.25 mcg intra-cavernosal 3XW 04/20/20 05/10/22 kit (Edex) aspirin 81 mg tablet,delayed 81 mg PO DAILY 04/20/20 05/10/22 release (Adult Low Dose Aspirin) trazodone 150 mg tablet 150 mg PO BEDTIME 09/19/21 05/10/22 atorvastatin 80 mg tablet 80 mg PO DAILY 10/09/21 05/10/22 Previous Rx's Medication Instructions Recorded clopidogrel 75 mg tablet 75 mg PO DAILY #90 tabs 07/15/23 acetaminophen 500 mg tablet 500 mg PO QID PRN fever or pain 08/26/23 #20 tabs cephalexin 500 mg capsule 500 mg PO BID #20 caps 08/26/23 Allergies Allergy/AdvReac Type Severity Reaction Status Date / Time No Known Allergies Allergy Verified 04/08/23 15:23 [No Known Allergies*] Review of Systems Review of Systems: Constitutional : No Weight loss, No Fever, No Chills, No Night Sweats, No Fatigue, No Malaise ENT/Mouth : No Hearing loss, No Ear Pain, No Nasal Congestion, No Sinus Pain, No Hoarseness, No sore throat, No Rhinorrhea, No Swallowing Difficulty Eyes: No Eye Pain, No Swelling, No Redness, No Foreign Body, No Discharge, No Vision Changes Cardiovascular : No Chest Pain, No SOB, No Dyspnea on Exertion, No Orthopnea, No Edema, No Palpitations Respiratory : No Cough, No Sputum, No Wheezing, No Smoke Exposure, No Dyspnea Gastrointestinal : No Nausea, No Vomiting, No Diarrhea, No Constipation, No abdominal Pain, No Hematochezia, No Melena Genitourinary : no irregular bleeding, No Dysuria, No Urinary Frequency, No Hematuria, No Urinary Incontinence, No Urgency, No Flank Pain, No Urinary Flow Changes, No Hesitancy Musculoskeletal : No joint pain, No Myalgias, No Joint Swelling Skin : Complaining of lacerations to the middle and ring finger of the right hand Neuro : No Weakness, No Numbness, No Paresthesias, No Loss of Consciousness, No Dizziness, No Headache Psych : No Anxiety/Panic, No Depression, No SI/HI/AH/VH, No Social Issues, Heme/Lymph: No Bruising, No Bleeding,No Lymphadenopathy Endocrine : No Polyuria, No Polydipsia, No Temperature Intolerance [facility] Past Medical History Medical History Diverticulosis Tubular adenoma Nicotine dependence, cigarettes, uncomplicated CVA (cerebral vascular accident) Primary osteoarthritis of left knee Hepatitis A Erectile dysfunction Bursitis of left shoulder Hyperplastic colon polyp Surgical History S/P angioplasty with stent (09/06/20) History of left-sided carotid endarterectomy History of aortic aneurysm repair Left knee injury Status post total shoulder arthroplasty H/O left inguinal hernia repair Hx of rotator cuff surgery Encounter for full mouth dental rehabilitation Hx of colonoscopy H/O right inguinal hernia repair Family History Family History Father No problems noted. Mother Cancer Arthritis Brother No problems noted. Brother No problems noted. Brother No problems noted. Brother No problems noted. Brother No problems noted. Brother Pancreatic cancer Sister No problems noted. Sister No problems noted. Sister No problems noted. Sister Pancreatic cancer, Onset Age: 69 Sister FH: ovarian cancer Sister Breast cancer Son No problems noted. Son No problems noted. 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 Oriented X3. No acute distress. Eyes: Pupils equal, round and reactive to light. ENT: Pharynx normal. Neck: Normal inspection. Neck supple. No lymph nodes noted. No crepitus CVS: Normal heart rate and rhythm. Pulses normal. Normal S1 and S2 Respiratory: No respiratory distress. Breath sounds normal. No Wheezing. No rales Abdomen: Soft and nontender. No rigidity. No distention. Skin: Skin warm and dry. Normal skin color. Normal skin turgor. Extremities: No lower extremity edema. No Lacerations. No Rash. Patient has 2 large lacerations on the dorsum of the 3rd and 4th digits. Patient is able to flex and extend all fingers and oppose the thumb. Neuro: Oriented X 3. No motor deficit. No sensory deficit. Moving all extremities. No slurred speech. CN 2 through 12 grossly intact Psych: calm, cooperative, normal affect Course Course Course Narrative: RME: 78-year-old male presents to ED for lacerations on index 3rd finger and 5th finger due to cutting and sulfa accident by saw. Patient has complete range of motion of fingers. Patient has active bleeding due to being on blood thinners. Tdap x-ray ordered. Medications Administered Discontinued Medications Generic Name Dose Route Start Last Admin Trade Name Freq PRN Reason Stop Dose Admin Lidocaine HCl 30 ml 08/26/23 19:45 08/26/23 19:46 Lidocaine Hcl 1 % Mpf 30 Ml Vial SUBCUT 08/26/23 19:46 30 ml ONCE ONE Administration Procedures Laceration Laceration 1: Site: hand Side (If applicable): left Size (cm): 9 Description: linear, flap and irregular Depth: simple, single layer Local Anesthetic: lidocaine 1% Amount of anesthesia used (mL): 10 Pre-repair: wound explored (Under a bloodless field) Skin layer closed with: nylon Size (cm): 3-0 Number of sutures: 10 Technique: simple, interrupted Laceration 2: Site: hand (Fourth digit right hand) Side (If applicable): right Size (cm): 4 Description: flap, irregular and other (U shaped) Depth: simple, single layer Local Anesthetic: lidocaine 1% Amount of anesthesia used (mL): 7 Pre-repair: wound explored Skin layer closed with: nylon Size (cm): 3-0 Number of sutures: 6 Technique: simple, interrupted Medical Decision Making Medical Decision Making MDM Narrative: -patient was given a Tdap booster -patient declined pain medication at this time -patient will need stitches to both fingers, 3rd an 4th digits the right hand -patient is able to flex and extend fingers, tendon rupture is not suspected Discharge Plan Discharge Clinical Impression: Laceration of finger, Finger fracture Patient Disposition: Home, Self-Care Instructions: Laceration (ED), Finger Fracture (ED) Additional Instructions: Your stitches need to be removed in 7-10 days. Please follow-up with orthopedics and with your primary care physician tomorrow. If you have any worsening or new symptoms, please return to the emergency room or call 911 Prescriptions: New cephalexin 500 mg capsule 500 mg PO BID Qty: 20 0RF acetaminophen 500 mg tablet 500 mg PO QID PRN (Reason: fever or pain) Qty: 20 0RF No Action clopidogrel 75 mg tablet 75 mg PO DAILY Qty: 90 2RF trazodone 150 mg tablet 150 mg PO BEDTIME aspirin [Adult Low Dose Aspirin] 81 mg tablet,delayed release (DR/EC) 81 mg PO DAILY Edex 40 mcg kit 1.25 mcg intra-cavernosal 3XW atorvastatin 80 mg tablet 80 mg PO DAILY Referrals: Dorothea Tobin PA-C [Physician [facility]] - 08/28/23 Interventions: ED Discharge Assessment Last Done: 08/26/23 20:51 Discharge Date/Time: 08/26/23 20:55
[2023-08-26 16:28] VITALS: BP 144/69; PULSE 78; RESP 18; TEMP 37.3; O2SAT 94; BMI 27.4
[2023-08-26 19:44] VITALS: BP 147/68; PULSE 87; RESP 18; TEMP 36.4; O2SAT 98
[2023-08-26] MEDS: Lidocaine HCl 1 % MPF 30 ML VIAL SUBCUT (19:46)
--- NOTE | 2023-08-26 19:46 | MHC.EDTECH ---
This tech took over care of patient at 1900,hourly rounds and vitals completed,patient is currently being sutured at this time by Doctor Brush and call singh in reach
== END 2023-08-26 20:55 | disposition home or self-care (01) ==
PROVIDERS: Emergency Provider Emergency Medicine; PCP Internal Medicine Medical Oncology
DX: S61.213A Laceration without foreign body of left middle finger without damage to nail, initial encounter (principal); S61.214A Laceration without foreign body of right ring finger without damage to nail, initial encounter; M79.642 Pain in left hand; M79.641 Pain in right hand; W26.9XXA Contact with unspecified sharp object(s), initial encounter; Y93.9 Activity, unspecified; Y92.9 Unspecified place or not applicable; Y99.8 Other external cause status
CPT/HCPCS: 12045; 73110; 73130; 99283; 99284

== ENCOUNTER 2023-09-03 08:55 | Outpatient (REF) | payer MEDICARE, OTHER, SELFPAY ==
--- NOTE | ~2023-09-03 | XR_ITS ---
EXAMINATION: XR HAND, LEFT CLINICAL INFORMATION: Left hand pain COMPARISON: 08/26/2023 TECHNIQUE: PA, lateral, and oblique views of the left hand. FINDINGS: There is osteophyte formation at the degenerated distal radioulnar joint. Chronic degenerative loss of joint space and osteophyte formation of the first carpometacarpal joint. Osteoarthritis of multiple interphalangeal joints and metacarpophalangeal joints. At MCP joints, joint space narrowing is worst at the index finger. Again noted is a small 0.3 cm metallic foreign body within soft tissues of the dorsal hand (dorsal to proximal second metacarpal). Mild soft tissue swelling of the second and third digits. Again noted is a small posttraumatic cortical defect in the ulnar aspect of the distal metaphysis of the middle phalanx of the index finger. There appears to be an oblique lucency from soft tissue laceration of the third digit and questionable minimal posttraumatic cortical defect of the ulnar aspect of the head of the middle phalanx of this digit. There are no new observations compared to 08/26/2023. No erosions or periostitis to suggest superimposed infectious/inflammatory process. XR/XR hand LT min 3V IMPRESSION: No new abnormalities in the hand or wrist compared to 08/26/2023.
== END 2023-09-03 08:56 | disposition home or self-care (01) ==
LOC: HO.HOSX 08:55
PROVIDERS: PCP Internal Medicine Medical Oncology; Visit Provider Physician Assistant
DX: M79.642 Pain in left hand (principal)
CPT/HCPCS: 73130; 99212

== ENCOUNTER 2023-09-03 08:55 | Outpatient (AMB) | payer MEDICARE, OTHER, SELFPAY ==
--- NOTE | 2023-09-03 08:58 | A.OFFVIS_ITS ---
Intake Vital Signs 09/03/23 09:02 Height 5 ft 8 in Weight 180 lb BMI 27.4 Intake Visit Reasons: fc-laceration of LT 3rd and 4th digit, DOI 08/26/23 Intake Note: Mat borrego 78 year old right hand dominant male presents today for an evaluation of left hand laceration to 2nd and 3rd digit, DOI 08/26/23. Patient reports table saw. He presented to [facility] ED same day where xrays and sutures were applied. Currently he has soreness however states he is doing okay. Denies numbness or tingling. He continues taking antibiotic as directed. Allergies No Known Allergies [No Known Allergies*] Allergy (Verified 09/03/23 09:02) HPI fc-laceration of LT 3rd and 4th digit, DOI 08/26/23 HPI Details 78-year-old male who presents to the off ice today for evaluation of left 3rd and 4th metacarpal injury s/p table saw accident, 08/26/23. He was seen at ED the same day where x-rays were performed and sutures were applied. He currently states his pain is improved however he continues to have soreness in his hand. He denies any numbness or tingling. He is taking his antibiotics as instructed. [facility] Medical History Diverticulosis Tubular adenoma Nicotine dependence, cigarettes, uncomplicated CVA (cerebral vascular accident) Primary osteoarthritis of left knee Hepatitis A Erectile dysfunction Bursitis of left shoulder Hyperplastic colon polyp Surgical History S/P angioplasty with stent (09/06/20) History of left-sided carotid endarterectomy History of aortic aneurysm repair Left knee injury Status post total shoulder arthroplasty H/O left inguinal hernia repair Hx of rotator cuff surgery Encounter for full mouth dental rehabilitation Hx of colonoscopy H/O right inguinal hernia repair Family History Father No problems noted. Mother Cancer Arthritis Brother No problems noted. Brother No problems noted. Brother No problems noted. Brother No problems noted. Brother No problems noted. Brother Pancreatic cancer Sister No problems noted. Sister No problems noted. Sister No problems noted. Sister Pancreatic cancer, Onset Age: 69 Sister FH: ovarian cancer Sister Breast cancer Son No problems noted. Son No problems noted. 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 He has laceration over the dorsum of 3rd and 4th digit. No open wound. No erythema or drainage. Sutures intact. He has full ROM. NVI. Office Procedures Fracture Care Fracture Billing Code: Fracture Billing Code Results Reviewed Results Reviewed: Xrays were obtained in the office today and personally reviewed by me of the left hand show non displaced fracture through the 3rd and 4th middle phalanx Assessment & Plan Assessment & Plan (1) Finger fracture: Code(s): S62.609A - Fracture of unspecified phalanx of unspecified finger, initial encounter for closed fracture Qualifiers: Encounter type: initial encounter Finger: unspecified finger Fracture type: closed Phalanx: middle Fracture alignment: nondisplaced Qualified Code(s): S62.659A - Nondisplaced fracture of middle phalanx of unspecified finger, initial encounter for closed fracture (2) Laceration of finger: Code(s): S61.219A - Laceration without foreign body of unspecified finger without damage to nail, initial encounter Qualifiers: Encounter type: initial encounter Finger: unspecified finger Damage to nail status: without damage Foreign body presence: without foreign body Laterality: left Qualified Code(s): S61.219A - Laceration without foreign body of unspecified finger without damage to nail, initial encounter Plan Sutures removed today. The wound was cleaned and redressed with dry dressing. He can increase activity as tolerated using caution not get the area dirty. He can perform warm soapy water rinses and dry it in air. He will see us back in 10 days for a wound check, sooner if needed. Orders: Orders XR hand LT min 3V Today M79.642 - Pain in left hand Patient Instructions: Scribed for Ran Villalba PA-C, by Gregor Koenig manager medical device, on 09/03/2023 at 9:00 AM JESSICA. Maximus, Ran Villalba PA-C, have personally reviewed and agree with the information entered by the scribe. Coding Level of Care Code New Pt Level 3 (18233) Diagnoses Closed nondisplaced fracture of middle phalanx of finger, unspecified finger, initial encounter S62.659A Encounter type: initial encounter Finger: unspecified finger Fracture type: closed Phalanx: middle Fracture alignment: nondisplaced Laceration of finger of left hand without foreign body without damage to nail, unspecified finger, initial encounter S61.219A Encounter type: initial encounter Finger: unspecified finger Damage to nail status: without damage Foreign body presence: without foreign body Laterality: left CPT Codes Fracture Care - Fracture Billing Code: Fracture Billing Code ([id number])
[2023-09-03 09:02] VITALS: BMI 27.4
== END 2023-09-03 10:26 | disposition home or self-care (01) ==
PROVIDERS: PCP Internal Medicine Medical Oncology; Visit Provider Physician Assistant
DX: S62.653A Nondisplaced fracture of middle phalanx of left middle finger, initial encounter for closed fracture (principal); S62.655A Nondisplaced fracture of middle phalanx of left ring finger, initial encounter for closed fracture; S61.213A Laceration without foreign body of left middle finger without damage to nail, initial encounter; S61.215A Laceration without foreign body of left ring finger without damage to nail, initial encounter
CPT/HCPCS: 99213

== ENCOUNTER 2023-09-15 14:06 | Outpatient (AMB) | payer MEDICARE, OTHER, SELFPAY ==
--- NOTE | 2023-09-15 14:12 | A.OFFVIS_ITS ---
Intake Vital Signs 09/15/23 14:13 Height 5 ft 8 in Weight 180 lb BMI 27.4 Intake Visit Reasons: ov-laceration of LT 3rd and 4th digit, DOI 08/26/23 Intake Note: Mat borrego 78 year old male presents today for a wound check s/p laceration to left 3rd and 4th digit, DOI 08/26/23. Patient reports he is doing well, states no concerns. Allergies No Known Allergies [No Known Allergies*] Allergy (Verified 09/15/23 14:15) HPI ov-laceration of LT 3rd and 4th digit, DOI 08/26/23 HPI Details 78-year-old male who returns to the [facility] today for a follow-up wound check of left 3rd and 4th digit laceration. 08/26/23. He states he has improvement in his pain since the last visit and is doing well overall. He has no other concerns today. [facility] Medical History Diverticulosis Tubular adenoma Nicotine dependence, cigarettes, uncomplicated CVA (cerebral vascular accident) Primary osteoarthritis of left knee Hepatitis A Erectile dysfunction Bursitis of left shoulder Hyperplastic colon polyp Surgical History S/P angioplasty with stent (09/06/20) History of left-sided carotid endarterectomy History of aortic aneurysm repair Left knee injury Status post total shoulder arthroplasty H/O left inguinal hernia repair Hx of rotator cuff surgery Encounter for full mouth dental rehabilitation Hx of colonoscopy H/O right inguinal hernia repair Family History Father No problems noted. Mother Cancer Arthritis Brother No problems noted. Brother No problems noted. Brother No problems noted. Brother No problems noted. Brother No problems noted. Brother Pancreatic cancer Sister No problems noted. Sister No problems noted. Sister No problems noted. Sister Pancreatic cancer, Onset Age: 69 Sister FH: ovarian cancer Sister Breast cancer Son No problems noted. Son No problems noted. 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 He has laceration over the dorsum of 3rd and 4th digit. No open wound. No erythema or drainage. Sutures intact. He has full ROM. NVI. Assessment & Plan Assessment & Plan (1) Finger fracture: Code(s): S62.609A - Fracture of unspecified phalanx of unspecified finger, initial encounter for closed fracture Qualifiers: Encounter type: subsequent encounter Finger: unspecified finger Fracture alignment: nondisplaced Fracture type: closed Phalanx: middle Fr acture healing: with routine healing Qualified Code(s): S62.659D - Nondisplaced fracture of middle phalanx of unspecified finger, subsequent encounter for fracture with routine healing (2) Laceration of finger: Code(s): S61.219A - Laceration without foreign body of unspecified finger without damage to nail, initial encounter Qualifiers: Damage to nail status: without damage Encounter type: initial encounter Finger: unspecified finger Foreign body presence: without foreign body Laterality: left Qualified Code(s): S61.219A - Laceration without foreign body of unspecified finger without damage to nail, initial encounter Plan I encouraged him keep the area clean and dry. He can apply antibiotics ointment to the 4th digit as there appears to be an open small area. He will increase activity as tolerated however if there is any worsening symptoms like increased pain, redness, drainage or swelling, he will contact the office otherwise he will see me back in a week for wound check, sooner if needed. Patient Instructions: Scribed for Ran Villalba PA-C, by Gregor Koenig medical program specialist, on 09/15/2023 at 2:15 PM EST. IRan PA-C, have personally reviewed and agree with the information entered by the scribe. Coding Level of Care Code Global (48167) Diagnoses Closed nondisplaced fracture of middle phalanx of finger with routine healing, unspecified finger, subsequent encounter S62.659D Encounter type: subsequent encounter Finger: unspecified finger Fracture alignment: nondisplaced Fracture type: closed Phalanx: middle Fracture healing: with routine healing Laceration of finger of left hand without foreign body without damage to nail, unspecified finger, initial encounter S61.219A Damage to nail status: without damage Encounter type: initial encounter Finger: unspecified finger Foreign body presence: without foreign body Laterality: left
[2023-09-15 14:13] VITALS: BMI 27.4
== END 2023-09-15 15:10 | disposition home or self-care (01) ==
PROVIDERS: PCP Internal Medicine Medical Oncology; Visit Provider Physician Assistant
DX: S62.653D Nondisplaced fracture of middle phalanx of left middle finger, subsequent encounter for fracture with routine healing (principal); S61.214A Laceration without foreign body of right ring finger without damage to nail, initial encounter
CPT/HCPCS: 99213

== ENCOUNTER → 2023-09-15 14:06 | Outpatient (BNVA) | payer MEDICARE, OTHER, SELFPAY | PROVIDERS: PCP Internal Medicine Medical Oncology; Visit Provider Physician Assistant | DX: S62.65 Nondisplaced fracture of middle phalanx of finger (principal); S61.219D Laceration without foreign body of unspecified finger without damage to nail, subsequent encounter | CPT/HCPCS: 99212 ==

== ENCOUNTER 2023-12-31 14:09 | Outpatient (REF) | payer MEDICARE, OTHER, SELFPAY ==
[2023-12-31 16:01] LABS: MANUAL DIFF FLAG NO
[2023-12-31 16:05] LABS: Basophils Absolute Auto 0.1 X10*3/uL (0.0-0.2); Basophils Percent Auto 0.7 % (0-2); Eosinophils Absolute Auto 0.3 X10*3/uL (0.0-0.4); Eosinophils Percent Auto 3.4 % (0-4); Hematocrit 43.8 % (42.0-52.0); Imm Gran Abs Auto 0.03 X10*3/uL (0.00-0.03); Imm Gran Pct Auto 0.4 % (0.0-0.4); Lymphocytes Absolute Auto 2.3 X10*3/uL (1.2-4.9); Lymphocytes Percent Auto 31.4 % (20-40); Mean Corpuscular HGB Conc 34.2 g/dl (31.0-36.0); Mean Corpuscular Hemoglobin 29.6 pg (27.0-33.0); Mean Corpuscular Volume 86.6 fL (80.0-98.0); Mean Platelet Volume 9.6 fL (9.4-12.4); Monocytes Absolute Auto 0.7 X10*3/uL (0.1-1.2); Monocytes Percent Auto 9.9 % (2-11); Neutrophils Percent Auto 54.2 % (45-73); Platelet Count 290 X10*3/uL (160-400); Red Blood Count 5.06 X10*6/uL (4.60-5.80); White Blood Count 7.3 X10*3/uL (4.8-10.8)
[2023-12-31 16:32] LABS: Alanine Aminotransferase 18 U/L (0-40); Albumin Level 3.9 g/dL (3.5-5.0); Alkaline Phosphatase 86 U/L (39-117); Anion Gap 11 (12-20); Aspartate Amino Transferase 17 U/L (5-37); Bilirubin Total 0.4 mg/dL (0.0-1.0); Blood Urea Nitrogen 15 mg/dL (9-16); Calcium 9.1 mg/dL (8.4-10.2); Carbon Dioxide 28 mmol/L (22-29); Chloride 109 mmol/L (96-108); Cholesterol 161 mg/dL (<200); Estimated Glomerular Filt Rate > 60; Glucose Fasting 102 mg/dL (60-99); HDL Cholesterol 37 mg/dL (>40); LDL Cholesterol Calculated 95 mg/dL (<100); Sodium 144 mmol/L (135-145); Total Protein 6.5 g/dL (6.5-8.0); Triglycerides 146 mg/dL (<150)
== END 2023-12-31 14:10 | disposition home or self-care (01) ==
LOC: HO.HMGCLDS 14:09
PROVIDERS: PCP Internal Medicine Medical Oncology; Visit Provider Internal Medicine Medical Oncology
DX: E78.2 Mixed hyperlipidemia (principal); E66.3 Overweight
CPT/HCPCS: 36415; 80053; 80061; 85025

== ENCOUNTER 2024-03-25 15:01 | Outpatient (REF) | payer MEDICARE, OTHER, SELFPAY ==
--- NOTE | ~2024-03-25 | CT_ITS ---
STUDY PERFORMED: CTA ABDOMEN AND PELVIS WITHOUT AND WITH CONTRAST HISTORY: Abdominal aortic aneurysm DESCRIPTION: Routine abdomen and pelvis CTA protocol with contrast was performed. 80 mL of Omnipaque 350 was administered. 3D POSTPROCESSING: Multiple 3-D angiographic images were processed from the initial data set by the pharmacy technologist at the modality workstation under concurrent physician supervision. DOSE LOWERING TECHNIQUES: This CT examination was performed using dose optimization techniques as appropriate, variously including the following: - Automated exposure control - Adjustment of mA and/or kV according to patient size (this includes techniques or standardized protocols for targeted exams where dose is matched to indication/reason for exam; i.e. extremities or head) - Use of iterative reconstruction technique DLP: 369 mGycm. COMPARISON: CTA from 03/20/2023 FINDINGS: VASCULAR: ABDOMINAL AORTA: Fusiform infrarenal abdominal aortic aneurysm extending into the right common iliac artery is again seen. The patient is status post abdominal aortic into bilateral common iliac artery stent graft in stable position. Stent graft is patent. Infrarenal aorta measures 4.4 x 4.1 cm, previously measuring 4.5 x 4.0 cm. No evidence of endoleak on arterial phase imaging. 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 The stent graft limb is patent with moderate amount of mural thrombus within the graft. There is embolization of the proximal right internal iliac artery. The right external iliac artery is normal in caliber and patent. LEFT LOWER EXTREMITY: Left common iliac artery stent graft limb is patent. The external iliac and internal iliac artery are normal in caliber and patent. CELIOMESENTERIC ARTERIES: Patent. RENAL ARTERIES: Patent. NONVASCULAR: Lung Bases: Centrilobular and paraseptal emphysema. Liver, Gallbladder and Biliary Tree: The liver is normal in size, shape, and attenuation. No focal hepatic lesion or biliary ductal dilatation is present. The gallbladder is unremarkable with no evidence of radiopaque gallstones, gallbladder wall thickening, or obvious pericholecystic inflammatory changes. Pancreas: Unremarkable. Spleen: Unremarkable. Adrenal Glands: Unremarkable. Kidneys and Ureters: The kidneys are normal in size, shape, and attenuation. No hydronephrosis, hydroureter, or calculi seen. No perinephric stranding. Stable bilateral renal cysts Bladder: Unremarkable. Gastrointestinal Tract: The small bowel are unremarkable. The appendix is unremarkable. Diverticula seen within the sigmoid colon without evidence of acute diverticulitis Abdominal Wall: No significant hernia is appreciated. Lymph Nodes: Normal. Pelvic Viscera: Unremarkable. Osseous Structures: Unremarkable. CT/CT angio abdomen pelvis IMPRESSION: 1. Stable appearance of the abdominal aortic aneurysm status post aortobiiliac stent graft. Stent graft is patent. No evidence of endoleak. 2. 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 Electronically signed by: William Mack MD 04/02/2024 01:56 PM EDT
[2024-03-25] MEDS: iohexoL 350 MG/ML 100 ML INFUS..BTL 80 ML IV (15:38)
[2024-03-26 09:48] LABS: Creatinine POC 0.8 mg/dL (0.5-1.4); GFR POC > 60
== END 2024-03-25 15:02 | disposition home or self-care (01) ==
LOC: HO.CT 15:01
PROVIDERS: PCP Internal Medicine Medical Oncology; Visit Provider Surgery Vascular Surgery
DX: I71.43 Infrarenal abdominal aortic aneurysm, without rupture (principal)
CPT/HCPCS: 74174; 82565; Q9967

== ENCOUNTER 2024-04-07 06:11 | Outpatient (REF) | payer MEDICARE, OTHER, SELFPAY ==
[2024-04-07 10:05] LABS: MANUAL DIFF FLAG NO
[2024-04-07 10:10] LABS: Basophils Absolute Auto 0.1 X10*3/uL (0.0-0.2); Basophils Percent Auto 0.5 % (0-2); Eosinophils Percent Auto 10.6 % (0-4); Hematocrit 47.7 % (42.0-52.0); Hemoglobin 16.1 g/dl (14.0-18.0); Imm Gran Abs Auto 0.03 X10*3/uL (0.00-0.03); Imm Gran Pct Auto 0.3 % (0.0-0.4); Lymphocytes Absolute Auto 2.1 X10*3/uL (1.2-4.9); Lymphocytes Percent Auto 22.2 % (20-40); Mean Corpuscular HGB Conc 33.8 g/dl (31.0-36.0); Mean Corpuscular Hemoglobin 29.9 pg (27.0-33.0); Mean Corpuscular Volume 88.5 fL (80.0-98.0); Mean Platelet Volume 9.7 fL (9.4-12.4); Monocytes Absolute Auto 0.7 X10*3/uL (0.1-1.2); Monocytes Percent Auto 6.9 % (2-11); Neutrophils Absolute Auto 5.8 x10*3/uL (2.0-8.3); Neutrophils Percent Auto 59.5 % (45-73); Platelet Count 294 X10*3/uL (160-400); Red Blood Count 5.39 X10*6/uL (4.60-5.80); Red Cell Distribution Width 12.8 % (11.0-16.0); White Blood Count 9.7 X10*3/uL (4.8-10.8)
[2024-04-07 10:24] LABS: Alanine Aminotransferase 16 U/L (0-40); Albumin Level 4.1 g/dL (3.5-5.0); Alkaline Phosphatase 78 U/L (39-117); Anion Gap 11 (12-20); Aspartate Amino Transferase 17 U/L (5-37); Bilirubin Total 0.5 mg/dL (0.0-1.0); Blood Urea Nitrogen 14 mg/dL (9-16); Calcium 9.4 mg/dL (8.4-10.2); Carbon Dioxide 25 mmol/L (22-29); Chloride 108 mmol/L (96-108); Cholesterol 183 mg/dL (<200); Estimated Glomerular Filt Rate > 60; Glucose Fasting 108 mg/dL (60-99); HDL Cholesterol 43 mg/dL (>40); LDL Cholesterol Calculated 116 mg/dL (<100); Potassium 4.2 mmol/L (3.3-5.1); Sodium 140 mmol/L (135-145); Total Protein 6.8 g/dL (6.5-8.0); Triglycerides 122 mg/dL (<150)
== END 2024-04-07 06:12 | disposition home or self-care (01) ==
LOC: HO.HMGCLDS 06:11
PROVIDERS: PCP Internal Medicine Medical Oncology; Visit Provider Internal Medicine Medical Oncology
DX: E78.2 Mixed hyperlipidemia (principal); E66.3 Overweight; N52.9 Male erectile dysfunction, unspecified
CPT/HCPCS: 36415; 80053; 80061; 85025

== ENCOUNTER 2024-04-08 14:46 | Outpatient (REF) | payer MEDICARE, OTHER, SELFPAY ==
--- NOTE | ~2024-04-08 | US_ITS ---
EXAMINATION: NONINVASIVE ASSESSMENT OF THE ARTERIES OF BOTH LOWER EXTREMITIES INCLUDING BILATERAL LOWER EXTREMITY DUPLEX. CLINICAL INFORMATION: Peripheral vascular disease COMPARISON: Arterial exam on 02/26/2023 TECHNIQUE: duplex Doppler techniques with wave form analysis and measurement of velocities in the common femoral, profunda femoral, superficial femoral, popliteal, tibial and peroneal arteries. The study was performed only at rest. FINDINGS: RIGHT LEG Common femoral artery: 102 cm/s, Multiphasic Profunda femoris artery: 71 cm/s, Multiphasic Superficial femoral artery (proximal): 90 cm/s, Multiphasic Superficial femoral artery (mid): 93 cm/s, Multiphasic Superficial femoral artery (distal): 134 cm/s, Multiphasic Proximal Popliteal artery: 71 cm/s, Multiphasic Mid posterior tibial artery: 25 cm/s, Multiphasic Peroneal artery: 46cm/s, multiphasic LEFT LEG: Common femoral artery: 143 cm/s, Multiphasic Profunda femoris artery: 114 cm/s, Multiphasic Superficial femoral artery (proximal): 87 cm/s, Multiphasic- stent Superficial femoral artery (mid): 66 cm/s, Multiphasic- stent Superficial femoral artery (distal): 107 cm/s, Multiphasic- stent Proximal Popliteal artery: 80 cm/s, Multiphasic Mid posterior tibial artery: 27 cm/s, monophasic Peroneal artery: 61 cm/s, monophasic US/US arterial duplex BI w/ VIJAY IMPRESSION: 1. Patent left superficial femoral artery stent. 2. Monophasic waveforms in the left posterior tibial and peroneal arteries. 3. No hemodynamically significant stenosis in the right lower extremity. Electronically signed by: Ingrid Guevara MD 04/11/2024 11:15 AM EDT
== END 2024-04-08 14:47 | disposition home or self-care (01) ==
LOC: HO.US 14:46
PROVIDERS: PCP Internal Medicine Medical Oncology; Visit Provider Surgery Vascular Surgery
DX: I73.9 Peripheral vascular disease, unspecified (principal)
CPT/HCPCS: 93922; 93925

== ENCOUNTER 2024-04-22 15:27 | Outpatient (AMB) | payer MEDICARE, OTHER, SELFPAY ==
[2024-04-22 15:31] VITALS: BMI 25.1
--- NOTE | 2024-04-22 15:31 | MHC.OFFVIS ---
Vital Signs 04/22/24 15:31 Height 5 ft 8 in Weight 165 lb BMI 25.1 Intake Visit Reasons: follow up s/p CTA ABD/PELVIS Intake Note: 1 yr follow up CTA ABD/pelvis 03/25/24 & Arterial US 04/08/24 w/ Hx of Right iliac coiling 01/05/2020 & EVAR 01/10/2020. Pt states that the left carotid artery was very hard about 2 weeks ago, states s/p Left CEA Accompanied by: Self / Same As Patient Allergies No Known Allergies [No Known Allergies*] Allergy (Verified 04/22/24 15:39) HPI HPI follow up s/p CTA ABD/PELVIS: Details: Very pleasant 79-year-old gentleman follows up for his aortic endograft. We have actually seen him for multiple peripheral vascular issues including lower extremity PA D and carotid disease. He reports no interval issues. 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 He now presents for routine follow-up. Denies any difficulty ambulating. Of note he is being maintained on aspirin and high-dose statin. He continues to smoke about a pack a day. [facility] Medical History Diverticulosis Tubular adenoma Nicotine dependence, cigarettes, uncomplicated CVA (cerebral vascular accident) Primary osteoarthritis of left knee Hepatitis A Erectile dysfunction Bursitis of left shoulder Hyperplastic colon polyp Surgical History S/P angioplasty with stent (09/06/20) History of left-sided carotid endarterectomy History of aortic aneurysm repair Left knee injury Status post total shoulder arthroplasty H/O left inguinal hernia repair Hx of rotator cuff surgery Encounter for full mouth dental rehabilitation Hx of colonoscopy H/O right inguinal hernia repair Family History Father No problems noted. Mother Cancer Arthritis Brother No problems noted. Brother No problems noted. Brother No problems noted. Brother No problems noted. Brother No problems noted. Brother Pancreatic cancer Sister No problems noted. Sister No problems noted. Sister No problems noted. Sister Pancreatic cancer, Onset Age: 69 Sister FH: ovarian cancer Sister Breast cancer Son No problems noted. Son No problems noted. 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 Review of Systems Const All systems reviewed & are unremarkable except as noted in HPI and below Reports no additional complaints ENT Reports Normal hearing present Card Denies chest pain, Denies chest pain at rest, Denies chest pain with activity and Denies pedal edema Resp Denies cough GI Denies abdominal pain Musc Denies abnormal gait, Denies muscle cramps and Denies radiating pain into limb Skin/Breast Denies skin ulcer and Denies wounds Neuro Reports Normal hearing present and Denies abnormal gait Psych Reports no additional complaints Physical Exam Vital Signs: BMI result Body Mass Index 25.1 Const General: cooperative, healthy appearing and comfortable Orientation/consciousness: oriented to person, oriented to place and oriented to time HEENT Head: Yes normal to inspection Neck Neck: Yes normal visual inspection Carotids: no bruits Chest Chest palpation & inspection: normal inspection of the chest Resp Effort & Inspection: normal respiratory effort and able to speak in complete sentences Auscultation: clear to auscultation bilaterally, no crackles, no rales, no rhonchi and no wheezes Cardio Other: Bilateral DP signals Rate: regular rate Rhythm: regular rhythm Heart sounds: S1 normal heart sound present and S2 normal heart sound present Bruits: no carotid bruits Peripheral pulses: Peripheral pulses 2+ throughout GI Inspection: Yes normal to inspection Skin Wounds: no wounds Hair: normal Neuro General: oriented to person, oriented to place and oriented to time Cranial nerves: Yes CN's II-XII intact bilaterally and Yes Normal hearing present Cognition (Neuro): normal cognition Motor exam (neuro): 5/5 motor strength present throughout Extrem Other: venous exam: No significant superficial varicosities or spider telangiectasias, minimal edema General: No clubbing, No cyanosis and No edema Psych Appearance: grossly normal Mental Status: mental status grossly normal Speech and movement: Normal speech and movement present Assessment & Plan Assessment & Plan (1) AAA (abdominal aortic aneurysm) without rupture: Comment: 01/05/2020 - right internal iliac coiling 01/10/2020 - endovascular aortic aneurysm repair with Endologix AFX Code(s): I71.4 - Abdominal aortic aneurysm, without rupture Category: Medical Qualifiers: Abdominal aorta location: infrarenal aorta Qualified Code(s): I71.43 - Infrarenal abdominal aortic aneurysm, without rupture Plan: In short patient has stable aortic endograft as seen on CT dated 03/25/2024. We have discussed the pathophysiology of aortic aneurysms and the risk of ruptures. We have discussed rupture risk based on size. In addition we have discussed conservative measures and risk factor modification for prevention of increase in size of the aneurysm. the patient is scheduled for surveillance follow-up in approximately 1 year. Thank you for allowing us to participate in the care of this patient (2) PAD (peripheral artery disease): Comment: 09/06/2020- angioplasty and stent of left SFA Code(s): I73.9 - Peripheral vascular disease, unspecified Category: Medical Plan: Appears to be doing well in terms of his peripheral vascular disease. No difficulty ambulating. 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 We will order routine surveillance follow-up regarding his lower extremities. (3) Carotid stenosis, bilateral: Comment: 12/13/2019 - left carotid endarterectomy Code(s): I65.23 - Occlusion and stenosis of bilateral carotid arteries Category: Medical Plan: He remains asymptomatic in terms of his carotids. It has been nearly 2 years since his last carotid surveillance. We will repeat his carotid ultrasound. Orders: Orders US carotid duplex BI 1 Week I65.23 - Occlusion and stenosis of bilateral carotid arteries Blood Urea Nitrogen 1 Year I71.43 - Infrarenal abdominal aortic aneurysm, without rupture Creatinine 1 Year I71.43 - Infrarenal abdominal aortic aneurysm, without rupture CT angio abdomen pelvis 1 Year I71.43 - Infrarenal abdominal aortic aneurysm, without rupture US arterial duplex LE BI 1 Week I73.9 - Peripheral vascular disease, unspecified Coding Level of Care Code Est Pt Level 4 (87915) Complex EM visit Add On G2211 Diagnoses Infrarenal abdominal aortic aneurysm (AAA) without rupture I71.43 Abdominal aorta location: infrarenal aorta PAD (peripheral artery disease) I73.9 Carotid stenosis, bilateral I65.23
== END 2024-04-22 15:52 | disposition home or self-care (01) ==
PROVIDERS: PCP Internal Medicine Medical Oncology; Visit Provider Surgery Vascular Surgery
DX: I71.43 Infrarenal abdominal aortic aneurysm, without rupture (principal); I73.9 Peripheral vascular disease, unspecified; I65.23 Occlusion and stenosis of bilateral carotid arteries
CPT/HCPCS: 99214; G2211

== ENCOUNTER → 2024-04-22 15:27 | Outpatient (BNVA) | payer MEDICARE, OTHER, SELFPAY | PROVIDERS: PCP Internal Medicine Medical Oncology; Visit Provider Surgery Vascular Surgery | DX: I71.43 Infrarenal abdominal aortic aneurysm, without rupture (principal); I73.9 Peripheral vascular disease, unspecified; I65.23 Occlusion and stenosis of bilateral carotid arteries | CPT/HCPCS: 99212 ==

== ENCOUNTER 2024-08-03 06:05 | Outpatient (REF) | payer MEDICARE, OTHER, SELFPAY ==
--- OUTSIDE RECORDS SUMMARY | 2024-08-03 06:08 | XMS_ITS ---
Author Organization Wilfrid Lin III, MD Address [address] [place] [address] Care Team Providers Care Sole Buffer Name Role Phone Wilfrid Lin Primary Care Provider [phone] Allergies Allergen (clinical drug ingredient) Drug/Non Drug Allergy documented on EMR Reaction Allergy Type Onset Date Status No Known Drug Allergy Unknown Drug Allergy Active REASON FOR VISIT Painful lump upper posterior right neck for 24 hours, Emphysema, Hyperlipidemia, Hearing loss, Impression, Left inguinal hernia Medications Medication SIG (Take, Route, Frequency, Duration) Notes Start Date End Date Status Hydrocortisone 1 % 1 application [place] Clerk ally Twice a day 01/24/2023 Active Mupirocin 2 % 1 application [place] Clerk ally Twice a day 06/20/2023 Active Tamsulosin HCl 0.4 MG 1 capsule Orally O nce a day Active Clobetasol Propionate 0.05 % 1 applicati on Externally Twice a day 02/06/2024 Active Triamcinolone Acetonide 0.1 % 1 application Externally Twice a day 01/24/2023 Active APO-Varenicline 1 MG as directed Orally Once a day 08/01/2021 Active buPROPion HCl ER (Smoking Det) 150 MG 1 tablet in the morning Orally Once a day 06/14/2022 Active Varenicline Tartrate 1 MG as directed Or ally Twice a day 01/24/2023 Active Clopidogrel Bisulfate 75 MG TAKE 1 TABLE T BY MOUTH EVERY DAY Active traZODone HCl 150 MG 1 tablet at bedtime Orally Once a day 06/28/2021 Active Aspirin Low Dose 81 MG CHEW AND SWALLOW 1 TABLET BY MOUTH DAILY. Active Meclizine HCl 25 MG 1 tablet as needed Orally every 8 hrs 07/22/2022 Active Atorvastatin Calcium 80 MG TAKE 1 TABLET BY MOUTH EVERY NIGHT AT BEDTIME. Active Social History Tobacco Use: Social History Observation Description Date Details (start date - stop date) Former Smoker NA - NA Sex Assigned At : Social History Observation Description Sex Assigned At Male Tobacco Use/Smoking Question Answer Notes Patient is a former smoker How long has it been since you last smoked? < 1 month Additional Findings: Tobacco Non-User Ex-cigaret te smoker Problems Problem Type SNOMED Code ICD Code Onset Dates Problem Status W/U Status Risk Notes Problem [id number] Acute adenitis (L04.9) Active confirmed His examination shows one enlarged lymph node in the posterior triangle of the neck in the upper area which is about 1-1/2 cm painful and mobile. It does not appear to be malignant. It is likely reactive. He was educated about enlargement of lymph nodes. A follow-up visit to ensure stability was arranged. Vital Signs Temperature 98.1 degrees Fahrenheit 07/15/19 25 Blood pressure systolic 127 mm Hg 07/15/19 25 Blood pressure diastolic 72 mm Hg 025 Heart Rate 75 /min 07/15/2024 Height 67 in 07/15/2024 Weight 173 lbs 07/15/2024 BMI 27.09 kg/m2 07/15/2024 Encounters Encounter Location Date Provider Diagnosis Wilfrid Lin III, MD [address] [place] [address] [place] [address] 07/15/2024 Wilfrid Lin Mixed hyperlipidemia E78.2 ; Acute adenitis L04.9 ; Paraseptal emphysema J43.8 ; Overweight (BMI 25.0-29.9) E66.3 ; Sensorineural hearing loss (SNHL) of both ears H90.3 ; Aortic aneurysm I71.9 and Left carotid artery stenosis I65.22 Assessments Encounter Date Diagnosis (ICD Code) Assessment Notes Treat ment Notes Treatment Clinical Notes 07/15/2024 Mixed hyperlipidemia (ICD-10 - E78.2) The cholesterol values are currently stable. Current therapy was continued 07/15/2024 Acute adenitis (ICD-10 - L04.9) His examination shows one enlarged lymph node in the posterior triangle of the neck in the upper area which is about 1-1/2 cm painful and mobile. It does not appear to be malignant. It is likely reactive. He was educated about enlargement of lymph nodes. A follow-up visit to ensure stability was arranged. 07/15/2024 Paraseptal emphysema (ICD-10 - J43.8) He is no longer smoking. He is comfortable with mild activity. He does not require oxygen. 07/15/2024 Overweight (BMI 25.0-29.9) (ICD-10 - E66.3) His body mass index is 26.1. He has gained 2 pounds. We discussed diet and nutrition. We made a strategy to lose weight at a rate of one half of a pound per week through a diet restricted in fat calories and sodium. 07/15/2024 Sensorineural hearin g loss (SNHL) of both ears (ICD-10 - H90.3) He does not think he needs hearing aids at this point. Examination of his ears showed no impaction of cerumen. 07/15/2024 Aortic aneurysm (ICD-10 - I71.9) He is under the care of vascular surgery at [facility]. He is going to have an ultrasound of his carotid arteries. Abdomen and legs in the near future to follow his vascular disease. He has had no abdominal pain. 07/15/2024 Left carotid artery stenosis (ICD-10 - I65.22) He has an appointment for a bilateral carotid ultrasound with [facility] vascular in the near future. Plan Of Treatment Medication Medication Name Sig Start Date Stop Date Notes Hydrocortisone 1 % 1 application [place] Clerk ally Twice a day 01/24/2023 Mupirocin 2 % 1 application [place] Clerk ally Twice a day 06/20/2023 Tamsulosin HCl 0.4 MG 1 capsule Orally Once a day Clobetasol Propionate 0.05 % 1 applicati on Externally Twice a day 02/06/2024 Triamcinolone Acetonide 0.1 % 1 applicat ion Externally Twice a day 01/24/2023 APO-Varenicline 1 MG as directed Orally Once a day 08/01/2021 buPROPion HCl ER (Smoking De t) 150 MG 1 tablet in the morning Orally Once a day 06/14/2022 Varenicline Tartrate 1 MG as directed Or ally Twice a day 01/24/2023 Clopidogrel Bisulfate 75 MG TAKE 1 TABLE T BY MOUTH EVERY DAY traZODone HCl 150 MG 1 tablet at bedtime Orally Once a day 06/28/2021 Aspirin Low Dose 81 MG CHEW AND SWALLOW 1 TABLET BY MOUTH DAILY. Meclizine HCl 25 MG 1 tablet as needed O rally every 8 hrs 07/22/2022 Atorvastatin Calcium 80 MG TAKE 1 TABLET BY MOUTH EVERY NIGHT AT BEDTIME. Next Appt Details Follow Up: 3 Weeks, Reason: ov Provider Name:Wilfrid Lin, 08/11/2024 03:30:00 PM, [address] [place] [address] JESÚS DELATORRE, APRIL T[place], [address], Provider Name:Wilfrid Lin, 04/15/2025 03:45:00 PM, [address] [place] [address] JESÚS DELATORRE, [place]IL [place], [address], Progress Notes * Mat OSPINA SrDOB: (79 yo M)Acc No.[id number]:07/15/2024 Progress Notes Patient:?Mat OSPINA Sr Provider:?Wilfrid Lin MD :1945???Age:79 Y???Sex:Male Lloyd e:07/15/2024 [facility] [place] [id number] Subjective: * Chief Complaints: * ???Painful lump upper newborn hearing screener ior right neck for 24 hoursEmphysemaHyperlipidemiaHearing lossImpressionLeft inguinal hernia * HPI: ???COVID-19 Screening:? 15 cig a day. ?Questions?Have you had any new onset fever, chills, cough, congestion, sore throat, shortness of breath, muscle aches??No ???:? The patient, a 79-year-old male, presented with a few health concerns. He mentioned having implants that were put in about 20 years ago. He reported no issues with his breathing and was tolerating the cold weather well. The patient had gained about 6 lbs over the holidays, but his weight was not a health concern. He reported no issues with his left knee or any hernias. However, he admitted to smoking about 15 cigarettes a day. He also reported having a patch of inflammation on his skin that was itchy and painful when pressure was applied. The doctor identified this as an inflamed lymph node. * ROS:?General/Constitutional:?pain?Small lump upper posterior right neck for 24 hours.?Chills?denies.?Fatigue?admits.?Fever?denies.?ENT:?Decreased hearing?in both ears.?Respiratory:?Cough?denies.?Cardiovascular:?Chest pain with exertion?denies.?Dyspnea on exertion?denies.?Shortness of breath?with exertion.?Gastrointestinal:?Constipation?occasional.?Decreased appetite?denies.?Diarrhea?denies.?Heartburn?denies.?Nausea?denies.?Rectal bleeding?denies.?Vomiting?denies.?Hematology:?bruising?denies.?petechiae?denies.?Swollen glands?none have been noted.?Genitourinary:?Frequent urination?once a night.?Musculoskeletal:?Muscle aches?denies.?Painful joints?denies.?Sciatica?denies.?Weakness?denies.?Skin:?Itching?denies.?Rash?Midline lower back.?Skin lesion(s)?denies.?Neurologic:?Difficulty speaking?denies.?Dizziness?denies.?Headache?denies.?Low back pain?denies.?Psychiatric:?Depressed mood?which is mild.? * Medical History:? * Surgical History:?bilateral rotator cuff surgery, Dr. Juanito Madsen 2017arthroscopic surgey left knee 2003complete dental extractions repair left inguinal hernia 2013colonoscopy, [facility], Dr. Kirkpatrick, 2 hyperplastic polyps 06/2005Right inguinal herniorrhaphy 07/2019left carotid endarterectomy 12/2019Colonoscopy, [facility], Dr. Weems, 2 sigmoid tubular adenomatous 2Repair of abdominal aortic aneurysm 01/2020No history * Hospitalization/Major Diagno stic Procedure:?shoulder surgery 2017arthroscopic left knee surgery left carotid endarterectomy 12/2019No history * Family History:?Father: dece ased 61 yrs, suicide, mental illness.?Mother: 59 yrs, murder, cancer, arthritis.?6 brother(s) , 6 sister(s) - healthy. 2 son(s) - healthy. .? He is not aware of any inherited cancer susceptibility. Cancer. * Social History:?Tobacco Use:?Tobacco Use/Smoking?Patient is a?former smoker ?How long has it been since you last smoked??< 1 month ?Additional Findings: Tobacco Non-User?Ex-cigarette smoker ???He was born in [place]. 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 His of many years 6 years ago of lung cancer. He has 2 sons, Tao Rivero, who lives in [place]. He has 4 grandchildren and 3 great-grandchildren. He was 27 when his parents . He says he has never learned to read or write. * Medications:?TakingAtorvasta tin Calcium 80 MG Tablet TAKE 1 TABLET BY MOUTH EVERY NIGHT AT BEDTIME. Aspirin Low Dose 81 MG Tablet Chewable CHEW AND SWALLOW 1 TABLET BY MOUTH DAILY. Meclizine HCl 25 MG Tablet 1 tablet as needed Orally every 8 hrs Clopidogrel Bisulfate 75 MG Tablet TAKE 1 TABLET BY MOUTH EVERY DAY traZODone HCl 150 MG Tablet 1 tablet at bedtime Orally Once a day APO-Varenicline 1 MG Tablet as directed Orally Once a day buPROPion HCl ER (Smoking Det) 150 MG Tablet Extended Release 12 Hour 1 tablet in the morning Orally Once a day Varenicline Tartrate 1 MG Tablet as directed Orally Twice a day Hydrocortisone 1 % Cream 1 application Externally Twice a day Mupirocin 2 % Ointment 1 application Externally Twice a day Clobetasol Propionate 0.05 % Cream 1 application Externally Twice a day Triamcinolone Acetonide 0.1 % Cream 1 application Externally Twice a day Tamsulosin HCl 0.4 MG Capsule 1 capsule Orally Once a day Medication List reviewed and reconciled with the patientTaking Atorvastatin Calcium 80 MG Tablet TAKE 1 TABLET BY MOUTH EVERY NIGHT AT BEDTIME. Taking Aspirin Low Dose 81 MG Tablet Chewable CHEW AND SWALLOW 1 TABLET BY MOUTH DAILY. Taking Meclizine HCl 25 MG Tablet 1 tablet as needed Orally every 8 hrs Taking Clopidogrel Bisulfate 75 MG Tablet TAKE 1 TABLET BY MOUTH EVERY DAY Taking traZODone HCl 150 MG Tablet 1 tablet at bedtime Orally Once a day Taking APO-Varenicline 1 MG Tablet as directed Orally Once a day Taking buPROPion HCl ER (Smoking Det) 150 MG Tablet Extended Release 12 Hour 1 tablet in the morning Orally Once a day Taking Varenicline Tartrate 1 MG Tablet as directed Orally Twice a day Taking Hydrocortisone 1 % Cream 1 application Externally Twice a day Taking Mupirocin 2 % Ointment 1 application Externally Twice a day Taking Clobetasol Propionate 0.05 % Cream 1 application Externally Twice a day Taking Triamcinolone Acetonide 0.1 % Cream 1 application Externally Twice a day Taking Tamsulosin HCl 0.4 MG Capsule 1 capsule Orally Once a day Medication List reviewed and reconciled with the patient * Allergies:?No Known Drug All ergyno[Allergies Verified] Objective: * Vitals:?Ht: 67, Wt:173, BMI: 27.09, BP:127/72, HR:75, Temp:98.1, Wt-k.47. * Examination: ???General Examination: ?GENERAL APPEARANCE:?pleasant, well nourished, well developed, in no acute distress, calm and relaxed, overweight, man.?HEAD:?atraumatic, normocephalic.?EYES:?eomi, perrla, anicteric, conjugate.?EARS:?normal.?NOSE:?septum intact.?ORAL CAVITY:?normal, unremarkable, No lesions noted.?NECK/THYROID:?no jugular venous distention, no carotid bruit, thyroid normal, Solitary1.5 cm tender mobile lymph node posterior triangle upper neck.?LYMPH NODES:?no enlarged lymph nodes,spleen normal.?SKIN:?no suspicious lesions, anicteric.?HEART:?no clicks, gallops, murmurs, or rubs, regular rhythm, S1, S2 normal, no s3, or vascular bruits.?LUNGS:?, diminished breath sounds throughout.?BREASTS:??no masses palpable bilaterally.?ABDOMEN:?bowel sounds normal, no ascites, no organomegaly, no mass, overweight.?RECTAL EXAM:?not examined.?MUSCULOSKELETAL:?extremities unremarkable, no clubbing, cyanosis or edema.?PERIPHERAL PULSES:?normal.?NEUROLOGIC:?alert and oriented, cranial nerves 2-12 grossly intact, deep tendon reflexes 2+ symmetrical, motor strength normal upper and lower extremities, sensory exam intact.?PSYCH:?alert, oriented.? Assessment: * Assessment: 1.?Acute adenitis - L04.9 (P rimary)???Notes :His examination shows one enlarged lymph node in the posterior triangle of the neck in the upper area which is about 1- 1/2 cm painful and mobile.? It does not appear to be malignant.? It is likely reactive.? He was educated about enlargement of lymph nodes.? A follow-up visit to ensure stability was arranged.???2.?Mixed hyperlipidemia - E78.2???Notes :The cholesterol values are currently stable. Current therapy was continued???3.?Paraseptal emphysema - J43.8???Notes :He is no longer smoking. He is comfortable with mild activity. He does not require oxygen.???4.?Overweight (BMI 25.0-29.9) - E66.3???Notes :His body mass index is 26.1. He has gained 2 pounds. We discussed diet and nutrition. We made a strategy to lose weight at a rate of one half of a pound per week through a diet restricted in fat calories and sodium.???5.?Sensorineural hearing loss (SNHL) of both ears - H90.3???Notes :He does not think he needs hearing aids at this point. Examination of his ears showed no impaction of cerumen.???6.?Aortic aneurysm - I71.9???Notes :He is under the care of vascular surgery at [facility]. He is going to have an ultrasound of his carotid arteries. Abdomen and legs in the near future to follow his vascular disease. He has had no abdominal pain.???7.?Left carotid artery stenosis - I65.22???Notes :He has an appointment for a bilateral carotid ultrasound with [facility] vascular in the near future.??? Plan: * Treatment: 2.?Others? Continue Tamsulosin HCl Capsule, 0.4 MG, 1 capsule, Orally, Once a day;?Continue Atorvastatin Calcium Tablet, 80 MG, TAKE 1 TABLET BY MOUTH EVERY NIGHT AT BEDTIME.;?Continue Aspirin Low Dose Tablet Chewable, 81 MG, CHEW AND SWALLOW 1 TABLET BY MOUTH DAILY.;?Continue Meclizine HCl Tablet, 25 MG, 1 tablet as needed, Orally, every 8 hrs;?Continue Clopidogrel Bisulfate Tablet, 75 MG, TAKE 1 TABLET BY MOUTH EVERY DAY;?Continue traZODone HCl Tablet, 150 MG, 1 tablet at bedtime, Orally, Once a day;?Continue APO-Varenicline Tablet, 1 MG, as directed, Orally, Once a day; Continue buPROPion HCl ER (Smoking Det) Tablet Extended Release 12 Hour, 150 MG, 1 tablet in the morning, Orally, Once a day;?Continue Varenicline Tartrate Tablet, 1 MG, as directed, Orally, Twice a day;?Continue Hydrocortisone Cream, 1 %, 1 application, Externally, Twice a day;?Continue Mupirocin Ointment, 2 %, 1 application, Externally, Twice a day;?Continue Clobetasol Propionate Cream, 0.05 %, 1 application, Externally, Twice a day.?? * Procedure Codes:? * Preventive Medicine:? ??Counseling:?Care goal follow-up plan:?Counseling for abnormal BMI given?Yes ?Above Normal BMI Follow-up?Dietary management education, guidance, and counseling, Dietary needs education, Exercise promotion: strength training, Exercise promotion: stretching, Feeding regime, Giving encouragement to exercise, Lifestyle education regarding diet, Nutrition / feeding management, Nutrition therapy, Prescribed activity/exercise education, Prescribed diet education, Prescribed dietary intake, Special diet education, Weight monitoring , Intervention, Order not done: Medical or Other reason not done ?Smoking/Tobacco Use?Patient counseled on the dangers of tobacco use and urged to quit.?07/15/2024 ?Patient Lifestyle Goals?Patient wants to quit ?Treatment Goals?Set a quit date, Cut down by 1 cigarette a week ?Barriers?Social smoker, Stress ?Self-Management Plan?Make a plan to cut down number of cigarettes over time and set a date to work towards quitting ??COPD Care Plan:?Patient Lifestyle Goals?Relieve symptoms and improve quality of life, Reduce number of ED and hospitalizations, Be able to be more active with friends and family.?Treatment Goals?Quit Smoking.?Barriers?no barriers.?Self-Managment Goals?Make a plan for quitting smoking.? * Follow Up:?3 Weeks (Reason: ov) * Images: * Sign off status: Completed true * Provider:?Wilfrid Lin MD Date:?03/2025 Generated for Carol hurst/Yaa/Thomasitting on:?08/03/2024 06:08 AM EST History and Physical Notes * HPI (History of Present Illness) Category Sub-Category Detail Notes COVID-19 Screening Questions Have you had any new onset fever, chills, cough, congestion, sore throat, shortness of breath, muscle aches?: No Examination Category Sub-Category Detail Notes General Examination GENERAL APPEARANCE: pleasant , well nourished, well developed, in no acute distress, calm and relaxed, overweight, man HEAD: atraumatic, normocep halic EYES: eomi, perrla, anicte chris, conjugate EARS: normal NOSE: septum intact NECK/THYROID: no jugular venous di stention, no carotid bruit, thyroid normal, Solitary1.5 cm tender mobile lymph node posterior triangle upper neck HEART: no clicks, gallops, murmurs, or rubs, regular rhythm, S1, S2 normal, no s3, or vascular bruits LUNGS: , diminished breath sounds throughout ABDOMEN: bowel sounds normal, no ascites, no organomegaly, no mass, overweight NEUROLOGIC: alert and oriented, cranial nerves 2-12 grossly intact, deep tendon reflexes 2+ symmetrical, motor strength normal upper and lower extremities, sensory exam intact SKIN: no suspicious lesion s, anicteric PERIPHERAL PULSES: normal BREASTS: no masses palpable b ilaterally MUSCULOSKELETAL: extremities unremark able, no clubbing, cyanosis or edema LYMPH NODES: no enlarged lymph no david,spleen normal RECTAL EXAM: not examined PSYCH: alert, oriented ORAL CAVITY: normal, unremarkable , No lesions noted
--- OUTSIDE RECORDS SUMMARY | 2024-08-03 06:08 | XMS_ITS ---
Author Organization Wilfrid Lin III, MD Address [address] [place] [address] Care Team Providers Care Seafood Service Team Member Name Role Phone Wilfrid Lin Primary Care Provider REASON FOR VISIT ? ok to hold Rx Social History Sex Assigned At : Social History Observation Description Sex Assigned At Male Encounters Encounter Location Date Provider Diagnosis Wilfrid Lin III, MD [address] [place] [address] [place] [address] 04/30/2024 Wilfrid Lin Plan Of Treatment Next Appt Details Provider Name:Wilfrid Lin, 08/11/2024 03:30:00 PM, [address] [place] [address] [place], [address], Provider Name:Wilfrid Lin, 04/15/2025 03:45:00 PM, [address] [place] [address] [place], [address], Progress Notes * Mat OSPINA SrDOB: (79 yo M)Acc No.[id number]:04/30/2024 Patient:?Mat OSPINA Sr :1945???Age:79 Y???Sex:Male Address:[address] [place], [address] * true * Date:? Generated for Printi ng/Faxing/eTransmitting on:?08/03/2024 06:08 AM EST
--- OUTSIDE RECORDS SUMMARY | 2024-08-03 06:08 | XMS_ITS ---
Author Name [facility] Organization Unknown Results Test Name/Text Value Interpretation Date Range Source ICD-10 CODES Normal [id number] [facility] AP GROSS DESCRIPTION Received in formalin. Dimensions 5 x 4 x 4 mm, bisected, and submitted in 1 cassette. Also received is a vial of tissue transport medium ([employer]) containing a biopsy specimen measuring 4 x 3 x 4 mm.. Tissue was washed in phosphate buffered saline and then embedded in OCT for immunofluorescent studies. Tissue was frozen, cut at 5 microns, and stained with fluorescein-labeled antibody to human IgG, IgM, IgA, C3 and fibrinogen. Normal [id number] [facility] AP CLINICAL INFORMATION Small pink/erythematous ill-defined patch with some superficial white scale. No vesicles/bulla, erosions, or thick white scale. DDx: dermatitis unspecified vs spongiotic dermatitis vs hypersensitivity reaction vs BP Normal [facility]
--- OUTSIDE RECORDS SUMMARY | 2024-08-03 06:09 | XMS_ITS ---
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 Name Role Phone Wilfrid Lin Primary Care Provider [phone] Allergies Allergen (clinical drug ingredient) Drug/Non Drug Allergy documented on EMR Reaction Allergy Type Onset Date Status No Known Drug Allergy Unknown Drug Allergy Active Results Component Value Reference Range Notes URINE DIP STICK Reviewed date:04/13/2024 03:44:09 PM Interpretation: Performing Lab: Notes/Report: SG 1.020 1.005 - 1.025 pH 5.0 5.0 - 9.0 MURALI Negative Negative - NIT Negative Negative - PRO 15 Negative - Trace GLU Negative Negative - KET 5 Negative - UBG 0.2 0.1 - 1.8 CYNDI Negative 0.2 - 1.3 BLD ++ Negative - REASON FOR VISIT Annual Exam Medications Medication SIG (Take, Route, Frequency, Duration) Notes Start Date End Date Status buPROPion HCl ER (Smoking Det) 150 MG 1 tablet in the morning Orally Once a day 06/14/2022 Active APO-Varenicline 1 MG as directed Orally Once a day 08/01/2021 Active traZODone HCl 150 MG 1 tablet at bedtime Orally Once a day 06/28/2021 Active Clopidogrel Bisulfate 75 MG TAKE 1 TABLE T BY MOUTH EVERY DAY Active Meclizine HCl 25 MG 1 tablet as needed Orally every 8 hrs 07/22/2022 Active Atorvastatin Calcium 80 MG TAKE 1 TABLET BY MOUTH EVERY NIGHT AT BEDTIME. Active Aspirin Low Dose 81 MG CHEW AND SWALLOW 1 TABLET BY MOUTH DAILY. Active Clobetasol Propionate 0.05 % 1 applicati on Externally Twice a day 02/06/2024 Active Triamcinolone Acetonide 0.1 % 1 application Externally Twice a day 01/24/2023 Active Tamsulosin HCl 0.4 MG 1 capsule Orally O nce a day Active Tamsulosin HCl 0.4 MG 1 capsule Orally O nce a day 01/05/2024 Active Mupirocin 2 % 1 application Sales Support Technician ally Twice a day 06/20/2023 Active Hydrocortisone 1 % 1 application Sales Support Technician ally Twice a day 01/24/2023 Active Varenicline Tartrate 1 MG as directed Or ally Twice a day 01/24/2023 Active Social History Tobacco Use: Social History Observation Description Date Details (start date - stop date) Former Smoker NA - NA Sex Assigned At : Social History Observation Description Sex Assigned At Male Tobacco Use/Smoking Question Answer Notes Patient is a former smoker How long has it been since you last smoked? < 1 month Additional Findings: Tobacco Non-User Ex-cigaret te smoker Vital Signs Temperature 97.3 degrees Fahrenheit 04/13/20 24 Blood pressure systolic 122 mm Hg 04/13/20 24 Blood pressure diastolic 79 mm Hg 024 Heart Rate 79 /min 04/13/2024 Height 67 in 04/13/2024 Weight 167 lbs 04/13/2024 BMI 26.15 kg/m2 04/13/2024 Encounters Encounter Location Date Provider Diagnosis Wilfrid Lin III, MD [address] [place] [address] [place] [address] 04/13/2024 Wilfrid Lin Mixed hyperlipidemia E78.2 ; Paraseptal emphysema J43.8 ; Pulmonary nodule R91.1 ; Overweight (BMI 25.0-29.9) E66.3 ; Sensorineural hearing loss (SNHL) of both ears H90.3 ; Left inguinal hernia K40.90 ; Primary osteoarthritis of left knee M17.12 ; Reactive depression F32.9 ; Tobacco dependence F17.200 ; Aortic aneurysm I71.9 ; Mass of right kidney N28.89 ; Erectile dysfunction, unspecified erectile dysfunction type N52.9 ; Chronic GERD K21.9 ; Thyroid mass E07.9 and Former smoker Z87.891 Assessments Encounter Date Diagnosis (ICD Code) Assessment Notes Treat ment Notes Treatment Clinical Notes 04/13/2024 Mixed hyperlipidemia (ICD-10 - E78.2) The cholesterol values are currently stable. Current therapy was continued 04/13/2024 Paraseptal emphysema (ICD-10 - J43.8) He is no longer smoking. He is comfortable with mild activity. He does not require oxygen. 04/13/2024 Pulmonary nodule (ICD-10 - R91.1) The 6.5 cm pulmonary nodule in right middle lobe is stable. Is being observed carefully. 04/13/2024 Overweight (BMI 25.0-29.9) (ICD-10 - E66.3) His body mass index is 26.1. He has gained 2 pounds. We discussed diet and nutrition. We made a strategy to lose weight at a rate of one half of a pound per week through a diet restricted in fat calories and sodium. 04/13/2024 Sensorineural hearing loss (SNHL) of both ears (ICD-10 - H90.3) He does not think he needs hearing aids at this point. Examination of his ears showed no impaction of cerumen. 04/13/2024 Left inguinal hernia (ICD-10 - K40.90) Bilateral herniorrhaphies have been done with no recurrence. He is free of any symptoms at this time. 04/13/2024 Primary osteoarthritis of left knee (ICD-10 - M17.12) He has had arthroscopic surgery on his left knee which improved the function significantly. He still has mild pain. 04/13/2024 Reactive depression (ICD-10 - F32.9) He was continued on the Wellbutrin. His depression is mild. He is able to conduct all of the activities of daily life. He has no thoughts of self-harm. 04/13/2024 Tobacco dependence (ICD-10 - F17.200) He continues to smoke a package of cigarettes per day. He was counseled about the health risks in doing so. He has early emphysema. We discussed various strategies for smoking cessation. This nicotine patches were not beneficial. 04/13/2024 Aortic aneurysm (ICD-10 - I71.9) He is under the care of vascular surgery at [facility]. He is going to have an ultrasound of his carotid arteries. Abdomen and legs in the near future to follow his vascular disease. He has had no abdominal pain. 04/13/2024 Mass of right kidney (ICD-10 - N28.89) This is being followed with periodic imaging. He is asymptomatic. 04/13/2024 Erectile dysfunction, unspecified erectile dysfunction type (ICD-10 - N52.9) This problem has been treated with medications. 04/13/2024 Chronic GERD (ICD-10 - K21.9) He will continue on omeprazole liquid antacid. 04/13/2024 Thyroid mass (ICD-10 - E07.9) He has a thyroid nodule and is being followed at this time. It is not palpable. 04/13/2024 Former smoker (ICD-10 - Z87.891) He recently stopped smoking and has a prescription for Chantix. Plan Of Treatment Medication Medication Name Sig Start Date Stop Date Notes buPROPion HCl ER (Smoking De t) 150 MG 1 tablet in the morning Orally Once a day 06/14/2022 APO-Varenicline 1 MG as directed Orally Once a day 08/01/2021 traZODone HCl 150 MG 1 tablet at bedtime Orally Once a day 06/28/2021 Clopidogrel Bisulfate 75 MG TAKE 1 TABLE T BY MOUTH EVERY DAY Meclizine HCl 25 MG 1 tablet as needed O rally every 8 hrs 07/22/2022 Atorvastatin Calcium 80 MG TAKE 1 TABLET BY MOUTH EVERY NIGHT AT BEDTIME. Aspirin Low Dose 81 MG CHEW AND SWALLOW 1 TABLET BY MOUTH DAILY. Clobetasol Propionate 0.05 % 1 applicati on Externally Twice a day 02/06/2024 Triamcinolone Acetonide 0.1 % 1 applicat ion Externally Twice a day 01/24/2023 Tamsulosin HCl 0.4 MG 1 capsule Orally Once a day Tamsulosin HCl 0.4 MG 1 capsule Orally Once a day 01/05/20 24 Mupirocin 2 % 1 application Sales Support Technician ally Twice a day 06/20/2023 Hydrocortisone 1 % 1 application Sales Support Technician ally Twice a day 01/24/2023 Varenicline Tartrate 1 MG as directed Or ally Twice a day 01/24/2023 Pending Test Test Name Order Date PROFILE, FASTING (COMPREHENSIVE METABOLI C) 04/13/2024 CBC w DIFF 04/13/2024 Lipid Panel 04/13/2024 Next Appt Details Follow Up: 4 Months, Reason: ov Provider Name:Wilfrid Lin, 08/11/2024 03:30:00 PM, [address], [place], [address], Provider Name:Wilfrid Lni, 04/15/2025 03:45:00 PM, [address] [place], [place], [id number], Progress Notes * Mat OSPINA SrDOB: (79 yo M)Acc No.[id number]:04/13/2024 Progress Notes Patient:?Mat OSPINA Sr Provider:?Wilfrid Lin MD :1945???Age:79 Y???Sex:Male Lloyd e:04/13/2024 Address:[address] [place], [place] [id number] Subjective: * Chief Complaints: * ???Annual Exam * HPI: ???Depression Screening:?PHQ-9?Little interest or pleasure in doing things?Not at all ?Feeling down, depressed, or hopeless?Several days ?Trouble falling or staying asleep, or sleeping too much?Not at all ?Feeling tired or having little energy?Not at all ?Poor appetite or overeating?Not at all ?Feeling bad about yourself or that you are a failure, or have let yourself or your family down?Not at all ?Trouble concentrating on things, such as reading the newspaper or watching television?Not at all ?Moving or speaking so slowly that other people could have noticed; or the opposite, being so fidgety or restless that you have been moving around a lot more than usual?Not at all ?Thoughts that you would be better off or of hurting yourself in some way?Not at all ?Total Score?1 ?Interpretation?Minimal Depression ???COVID-19 Screening:?Questions?Have you experienced fever, chills, cough, sore throat, shortness of breath, difficulty breathing, muscle aches, loss of taste or smell??No ?Have you been exposed to the virus within the last 10 days??No ?Have you travelled internationally in the last 10 days??No ?Have you been exposed to COVID-19 in the past??Yes ???Fall Risk Screening:?Fall History?Have you had any falls with injury in the past year??No ?Have you had two or more falls in the past year??No ?Fall Risk Assessment:?No falls in the past year ???:?The patient, a 79-year-old male, presented with a history of smoking and mild emphysema. He reported a recent incident where a vein in his neck became hard and enlarged for a brief period, which he believed was triggered by turning his head. The patient also mentioned a decrease in his smoking habit and a cessation of coughing in the past two days. He reported a sudden loss of hearing in his right ear two weeks ago, which was resolved after a large ball of wax was removed from his ear. The patient also mentioned a history of high-tone hearing loss for the past 15-18 years. He reported no issues with his left knee or heartburn. He also mentioned a history of cancer in his family and expressed concern about his own risk. Blood Sugar Level is 108. As this was his annual physical examination, he was offered a digital rectal examination and prostate examination.? He refused and declined this portion of the examination.? He did not give a reason. On March 25, [address] angiogram of the abdomen and pelvis.? This showed no change in the infrarenal aortic aneurysm graft down to the right common iliac artery.? It measured 4.4 x 4.1 cm and was stable.? 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 The iliac arteries can't was pain with some mural thrombus on the right.? The arterial system on the left leg was unremarkable. On July 11, 2023 a low-dose screening CT scan of the chest which was compared with one done 2020 showed a 1.4 cm right renal cyst and a solid nodule in the right renal cortex that was suspicious. It also showed emphysema and a 6.5 mm nodule in the right middle lobe which measures 6.5 mm in 2020 and was stable. On September 03, 2022 he had imaging of the thyroid gland.? There are 2 right lobe thyroid nodules which were suspicious.? Both groins right lower lobe measuring 1.5 x 0.7 x 1.2 cm and 1.3 x 1.5 x 1.1 cm.? There was no lymphadenopathy in the neck. * ROS:?General/Constitutional:?pain?only normal aches and painsShoulders, hips and left knee.?Chills?denies.?Fatigue?admits.?Fever?denies.?ENT:?Decreased hearing?denies.?Respiratory:?Cough?denies.?Cardiovascular:?Chest pain with exertion?denies.?Dyspnea on exertion?with moderate activity.?Shortness of breath?that is moderate.?Gastrointestinal:?Constipation?occasional.?Decreased appetite?denies.?Diarrhea?denies.?Denies?Heartburn,?denies.?Nausea?denies.?Recta l bleeding?denies.?Vomiting?denies.?Hematology:?bruising?denies.?petechiae?denies.?Swollen glands?none have been noted.?Genitourinary:?Frequent urination?twice a night.?Musculoskeletal:?Muscle aches?denies.?Painful joints?Shoulders, hips and knees.?Sciatica?denies.?Weakness?denies.?Skin:?Itching?denies.?Rash?denies.?Skin lesion(s)?denies.?Neurologic:?Difficulty speaking?denies.?Dizziness?denies.?Headache?denies.?Low back pain?denies.?Psychiatric:?Depressed mood?which is mild.? * Medical History:? * Surgical History:?bilateral rotator cuff surgery, Dr. Juanito Madsen 2017arthroscopic surgey left knee 2003complete dental extractions repair left inguinal hernia 2013colonoscopy, [facility], Dr. Kirkpatrick, 2 hyperplastic polyps 06/2005Right inguinal herniorrhaphy 07/2019left carotid endarterectomy 12/2019Colonoscopy, [facility], Dr. Weems, 2 sigmoid tubular adenomatous 2Repair of abdominal aortic aneurysm 01/2020 * Hospitalization/Major Diagno stic Procedure:?shoulder surgery 2017arthroscopic [...] Tobacco Non-User?Ex-cigarette smoker ???He was born in [place]. 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 His of many years 6 years ago of lung cancer. He has 2 sons, Tao Rivero, who lives in [place]. He has 4 grandchildren and 3 great-grandchildren. [...] TAKE 1 TABLET BY MOUTH EVERY DAY Hydrocortisone 1 % Cream 1 application Externally Twice a day Tamsulosin HCl 0.4 MG Capsule 1 capsule Orally Once a day Clobetasol Propionate 0.05 % Cream 1 application Externally Twice a day Triamcinolone Acetonide 0.1 % Cream 1 application Externally Twice a day Taking Atorvastatin Calcium 80 MG Tablet TAKE 1 TABLET BY MOUTH EVERY NIGHT AT BEDTIME. Taking Aspirin Low Dose 81 MG Tablet Chewable CHEW AND SWALLOW 1 TABLET BY MOUTH DAILY. Taking Meclizine HCl 25 MG Tablet 1 tablet as needed Orally every 8 hrs Taking Clopidogrel Bisulfate 75 MG Tablet TAKE 1 TABLET BY MOUTH EVERY DAY Taking Hydrocortisone 1 % Cream 1 application Externally Twice a day Taking Tamsulosin HCl 0.4 MG Capsule 1 capsule Orally Once a day Taking Clobetasol Propionate 0.05 % Cream 1 application Externally Twice a day Taking Triamcinolone Acetonide 0.1 % Cream 1 application Externally Twice a day DiscontinuedtraZODone HCl 150 MG Tablet 1 tablet at bedtime Orally Once a day APO-Varenicline 1 MG Tablet as directed Orally Once a day buPROPion HCl ER (Smoking Det) 150 MG Tablet Extended Release 12 Hour 1 tablet in the morning Orally Once a day Varenicline Tartrate 1 MG Tablet as directed Orally Twice a day Mupirocin 2 % Ointment 1 application Externally Twice a day Medication List reviewed and reconciled with the patientDiscontinued traZODone HCl 150 MG Tablet 1 tablet at bedtime Orally Once a day Discontinued APO-Varenicline 1 MG Tablet as directed Orally Once a day Discontinued buPROPion HCl ER (Smoking Det) 150 MG Tablet Extended Release 12 Hour 1 tablet in the morning Orally Once a day Discontinued Varenicline Tartrate 1 MG Tablet as directed Orally Twice a day Discontinued Mupirocin 2 % Ointment 1 application Externally Twice a day Medication List reviewed and reconciled with the patient * Allergies:?No Known Drug All ergyno[Allergies Verified] Objective: * Vitals:?Ht: 67, Wt:167, BMI: 26.15, BP:122/79, HR:79, Temp:97.3, Wt-k.75. * ???Past Orders: Imaging:CT angio abdomen pel vis * Performed Date 03/25/2024 03/20/2023 03:22 PM 04:14 PM Order Date 03/25/2024 03/20/2023 ???Imaging:US arterial duplex BI w/ VIJAY (Order Date - 04/08/2024) (Performed Date - 04/08/2024) * Lab:Creatinine GFR POC * Collection Date 03/25/2024 03/20/2023 Collection Time 03:18 PM 03:33 PM Order Date 03/25/2024 03/20/2023 Creatinine POC 0.8 (Ref Range: 0.5-1.4 mg/dL) 0.7 (Ref Range: 0.5-1.4 mg/dL) GFR POC > 60 > 60 * Lab:Lipid Panel * Collection Date 04/07/2024 12/31/2023 06/18/2022 Collection Time 06:32 AM 02:13 PM 10:03 AM Order Date 04/07/2024 12/31/2023 06/18/2022 Triglycerides 122 (Ref Range: <150 mg/dL) 146 (Ref Range: <150 mg/dL) 170 (Ref Range: mg/dL) Cholesterol 183 (Ref Range: <200 mg/dL) 161 (Ref Range: <200 mg/dL) 210 (Ref Range: mg/dL) LDL Cholesterol Calculated 116?H (Ref Range: <100 mg/dL) 95 (Ref Range: <100 mg/dL) 130 (Ref Range: mg/dl) HDL Cholesterol 43 (Ref Range: >40 mg/dL) 37?L (Ref Range: >40 mg/dL) 46 (Ref Range: mg/dL) * Lab:Comprehensive [place]. Pane l Fast * Collection Date 04/07/2024 12/31/2023 06/18/2022 Collection Time 06:32 AM 02:13 PM 10:03 AM Order Date 04/07/2024 12/31/2023 06/18/2022 Sodium 140 (Ref Range: 135-145 mmol/L) 144 (Ref Range: 135-145 mmol/L) 141 (Ref Range: 135-145 mmol/L) Bilirubin Total 0.5 (Ref Range: 0.0-1.0 mg/dL) 0.4 (Ref Range: 0.0-1.0 mg/dL) 0.6 (Ref Range: 0.0-1.0 mg/dL) Aspartate Amino Transferase 17 (Ref Range: 5-37 U/L) 17 (Ref Range: 5-37 U/L) 13 (Ref Range: 5-37 U/L) Alanine Aminotransferase 16 (Ref Range: 0-40 U/L) 18 (Ref Range: 0-40 U/L) 15 (Ref Range: 0-40 U/L) Total Protein 6.8 (Ref Range: 6.5-8.0 g/dL) 6.5 (Ref Range: 6.5-8.0 g/dL) 7.1 (Ref Range: 6.5-8.0 g/dL) Albumin Level 4.1 (Ref Range: 3.5-5.0 g/dL) 3.9 (Ref Range: 3.5-5.0 g/dL) 4.5 (Ref Range: 3.5-5.0 g/dL) Alkaline Phosphatase 78 (Ref Range: 39-117 U/L) 86 (Ref Range: 39-117 U/L) 88 (Ref Range: 39-117 U/L) Potassium 4.2 (Ref Range: 3.3-5.1 mmol/L) 4.0 (Ref Range: 3.3-5.1 mmol/L) 4.8 (Ref Range: 3.3-5.1 mmol/L) Chloride 108 (Ref Range: 96-108 mmol/L) 109?H (Ref Range: 96-108 mmol/L) 105 (Ref Range: 96-108 mmol/L) Carbon Dioxide 25 (Ref Range: 22-29 mmol/L) 28 (Ref Range: 22-29 mmol/L) 28 (Ref Range: 22-29 mmol/L) Anion Gap 11?L (Ref Range: 12-20) 11?L (Ref Range: 12-20) 13 (Ref Range: 12-20) Blood Urea Nitrogen 14 (Ref Range: 9-16 mg/dL) 15 (Ref Range: 9-16 mg/dL) 13 (Ref Range: 9-16 mg/dL) Creatinine 0.86 (Ref Range: 0.5-1.4 mg/dL) 1.10 (Ref Range: 0.5-1.4 mg/dL) 0.79 (Ref Range: 0.5-1.4 mg/dL) Estimated Glomerular Filt Rate > 60 > 60 > 60 Glucose Fasting 108?H (Ref Range: 60-99 mg/dL) 102?H (Ref Range: 60-99 mg/dL) 91 (Ref Range: 60-99 mg/dL) Calcium 9.4 (Ref Range: 8.4-10.2 mg/dL) 9.1 (Ref Range: 8.4-10.2 mg/dL) 9.9 (Ref Range: 8.4-10.2 mg/dL) * Lab:Complete Blood Count Aut o Diff * Collection Date 04/07/2024 12/31/2023 07/19/2022 Collection Time 06:32 AM 02:13 PM 10:19 AM Order Date 04/07/2024 12/31/2023 07/19/2022 White Blood Count 9.7 (Ref Range: 4.8-10.8 X10*3/uL) 7.3 (Ref Range: 4.8-10.8 X10*3/uL) 7.8 (Ref Range: 4.8-10.8 X10*3/uL) Red Blood Count 5.39 (Ref Range: 4.60-5.80 X10*6/uL) 5.06 (Ref Range: 4.60-5.80 X10*6/uL) 5.41 (Ref Range: 4.60-5.80 X10*6/uL) Hemoglobin 16.1 (Ref Range: 14.0-18.0 g/dl) 15.0 (Ref Range: 14.0-18.0 g/dl) 16.1 (Ref Range: 14.0-18.0 g/dl) Hematocrit 47.7 (Ref Range: 42.0-52.0 %) 43.8 (Ref Range: 42.0-52.0 %) 46.8 (Ref Range: 42.0-52.0 %) Mean Corpuscular Volume 88.5 (Ref Range: 80.0-98.0 fL) 86.6 (Ref Range: 80.0-98.0 fL) 86.5 (Ref Range: 80.0-98.0 fL) Mean Corpuscular Hemoglobin 29.9 (Ref Range: 27.0-33.0 pg) 29.6 (Ref Range: 27.0-33.0 pg) 29.8 (Ref Range: 27.0-33.0 pg) Mean Corpuscular HGB Conc 33.8 (Ref Range: 31.0-36.0 g/dl) 34.2 (Ref Range: 31.0-36.0 g/dl) 34.4 (Ref Range: 31.0-36.0 g/dl) Red Cell Distribution Width 12.8 (Ref Range: 11.0-16.0 %) 13.0 (Ref Range: 11.0-16.0 %) 12.3 (Ref Range: 11.0-16.0 %) Platelet Count 294 (Ref Range: 160-400 X10*3/uL) 290 (Ref Range: 160-400 X10*3/uL) 286 (Ref Range: 160-400 X10*3/uL) Mean Platelet Volume 9.7 (Ref Range: 9.4-12.4 fL) 9.6 (Ref Range: 9.4-12.4 fL) 9.0?L (Ref Range: 9.4-12.4 fL) Neutrophils Percent Auto 59.5 (Ref Range: 45-73 %) 54.2 (Ref Range: 45-73 %) 59.5 (Ref Range: 45-73 %) Imm Gran Pct Auto 0.3 (Ref Range: 0.0-0.4 %) 0.4 (Ref Range: 0.0-0.4 %) 0.4 (Ref Range: 0.0-0.4 %) Lymphocytes Percent Auto 22.2 (Ref Range: 20-40 %) 31.4 (Ref Range: 20-40 %) 26.5 (Ref Range: 20-40 %) Monocytes Percent Auto 6.9 (Ref Range: 2-11 %) 9.9 (Ref Range: 2-11 %) 9.6 (Ref Range: 2-11 %) Eosinophils Percent Auto 10.6?H (Ref Range: 0-4 %) 3.4 (Ref Range: 0-4 %) 3.6 (Ref Range: 0-4 %) Basophils Percent Auto 0.5 (Ref Range: 0-2 %) 0.7 (Ref Range: 0-2 %) 0.4 (Ref Range: 0-2 %) NRBC Pct Auto 0.0 (Ref Range: 0.0-0.2 /100WBC) 0.0 (Ref Range: 0.0-0.2 /100WBC) 0.0 (Ref Range: 0.0-0.2 /100WBC) Neutrophils Absolute Auto 5.8 (Ref Range: 2.0-8.3 x10*3/uL) 4.0 (Ref Range: 2.0-8.3 x10*3/uL) 4.7 (Ref Range: 2.0-8.3 x10*3/uL) Imm Gran Abs Auto 0.03 (Ref Range: 0.00-0.03 X10*3/uL) 0.03 (Ref Range: 0.00-0.03 X10*3/uL) 0.03 (Ref Range: 0.00-0.03 X10*3/uL) Lymphocytes Absolute Auto 2.1 (Ref Range: 1.2-4.9 X10*3/uL) 2.3 (Ref Range: 1.2-4.9 X10*3/uL) 2.1 (Ref Range: 1.2-4.9 X10*3/uL) Monocytes Absolute Auto 0.7 (Ref Range: 0.1-1.2 X10*3/uL) 0.7 (Ref Range: 0.1-1.2 X10*3/uL) 0.8 (Ref Range: 0.1-1.2 X10*3/uL) Eosinophils Absolute Auto 1.0?H (Ref Range: 0.0-0.4 X10*3/uL) 0.3 (Ref Range: 0.0-0.4 X10*3/uL) 0.3 (Ref Range: 0.0-0.4 X10*3/uL) Basophils Absolute Auto 0.1 (Ref Range: 0.0-0.2 X10*3/uL) 0.1 (Ref Range: 0.0-0.2 X10*3/uL) 0.0 (Ref Range: 0.0-0.2 X10*3/uL) NRBC Abs Auto 0.000 (Ref Range: 0.0-0.012 X10*3/uL) 0.000 (Ref Range: 0.0-0.012 X10*3/uL) 0.000 (Ref Range: 0.0-0.012 X10*3/uL) * Lab:URINE DIP STICK * Collection Date 04/13/2024 01/24/2023 01/22/2022 Collection Time 03:03 PM Order Date 04/13/2024 01/24/2023 01/22/2022 SG 1.020 (Ref Range: 1.005 - 1.025) 1.020 (Ref Range: 1.005 - 1.025) 1.030 pH 5.0 (Ref Range: 5.0 - 9.0) 6.0 (Ref Range: 5.0 - 9.0) 5.0 MURALI Negative (Ref Range: Negative -) Negative (Ref Range: Negative -) Negative NIT Negative (Ref Range: Negative -) Negative (Ref Range: Negative -) Negative PRO 15 (Ref Range: Negative - Trace) 15 (Ref Range: Negative - Trace) 15 GLU Negative (Ref Range: Negative -) Negative (Ref Range: Negative -) Negative KET 5 (Ref Range: Negative -) Negative (Ref Range: Negative -) Negative UBG 0.2 (Ref Range: 0.1 - 1.8) 0.2 (Ref Range: 0.1 - 1.8) 0.2 CYNDI Negative (Ref Range: 0.2 - 1.3) Negative (Ref Range: 0.2 - 1.3) Negative BLD ++ (Ref Range: Negative -) 50 (Ref Range: Negative -) Possitive Menstrating NR N/A NR * Examination: ???General Examination: ?GENERAL APPEARANCE:?pleasant, well nourished, well developed, in no acute distress, calm and relaxed, overweight, man.?HEAD:?atraumatic, normocephalic.?EYES:?eomi, perrla, anicteric, conjugate.?EARS:?normal.?NOSE:?septum intact.?ORAL CAVITY:?normal, unremarkable.?NECK/THYROID:?no jugular venous distention, no carotid bruit, thyroid normal.?LYMPH NODES:?no enlarged lymph nodes,spleen normal.?SKIN:?no suspicious lesions, anicteric.?HEART:?no clicks, gallops, murmurs, or rubs, regular rhythm, S1, S2 normal, no s3, or vascular bruits.?LUNGS:?, diminished breath sounds throughout, no wheezes, rales, rhonchi.?BREASTS:??no masses palpable bilaterally.?ABDOMEN:?bowel sounds normal, no ascites, no organomegaly, no mass.?RECTAL EXAM:?Declined.?MUSCULOSKELETAL:?Mild arthritic changes, shoulders, hips and knees, numerous old scars.?PERIPHERAL PULSES:?normal.?NEUROLOGIC:?alert and oriented, cranial nerves 2-12 grossly intact, deep tendon reflexes 2+ symmetrical, motor strength normal upper and lower extremities, sensory exam intact.?PSYCH:?alert, oriented, thought process logical, goal directed, speech clear, good eye contact, cooperative with exam, cognitive function intact.? Assessment: * Assessment: 1.?Paraseptal emphysema - J4 3.8 (Primary)???Notes :He is no longer smoking.? He is comfortable with mild activity.? He does not require oxygen.???2.?Mixed hyperlipidemia - E78.2???Notes :The cholesterol values are currently stable. Current therapy was continued???3.?Pulmonary nodule - R91.1???Notes :The 6.5 cm pulmonary nodule in right middle lobe is stable.? Is being observed carefully.???4.?Overweight (BMI 25.0-29.9) - E66.3???Notes :His body mass index is 26.1.? He has gained 2 pounds.? We discussed diet and nutrition.? We made a strategy to lose weight at a rate of one half of a pound per week through a diet restricted in fat calories and sodium.???5.?Sensorineural hearing loss (SNHL) of both ears - H90.3???Notes :He does not think he needs hearing aids at this point. Examination of his ears showed no impaction of cerumen.???6.?Left inguinal hernia - K40.90???Notes :Bilateral herniorrhaphies have been done with no recurrence. He is free of any symptoms at this time.???7.?Primary osteoarthritis of left knee - M17.12???Notes :He has had arthroscopic surgery on his left knee which improved the function significantly. He still has mild pain.???8.?Reactive depression - F32.9???Notes :He was continued on the Wellbutrin. His depression is mild. He is able to conduct all of the activities of daily life. He has no thoughts of self-harm.???9.?Tobacco dependence - F17.200???Notes :He continues to smoke a package of cigarettes per day. He was counseled about the health risks in doing so. He has early emphysema. We discussed various strategies for smoking cessation. This nicotine patches were not beneficial.???10.?Aortic aneurysm - I71.9???Notes :He is under the care of vascular surgery at [facility]. He is going to have an ultrasound of his carotid arteries. Abdomen and legs in the near future to follow his vascular disease. He has had no abdominal pain.???11.?Mass of right kidney - N28.89???Notes :This is being followed with periodic imaging. He is asymptomatic.???12.?Erectile dysfunction, unspecified erectile dysfunction type - N52.9???Notes :This problem has been treated with medications.???13.?Chronic GERD - K21.9???Notes :He will continue on omeprazole liquid antacid.???14.?Thyroid mass - E07.9???Notes :He has a thyroid nodule and is being followed at this time. It is not palpable.???15.?Former smoker - Z87.891???Notes :He recently stopped smoking and has a prescription for Chantix.??? Plan: * Treatment: 2.?Mixed hyperlipidemia? Continue Triamcinolone Acetonide Cream, 0.1 %, 1 application, Externally, Twice a day;?Continue Tamsulosin HCl Capsule, 0.4 MG, 1 capsule, Orally, Once a day.?LAB: PROFILE, FASTING (COMPREHENSIVE METABOLIC) ?LAB: CBC w DIFF ?LAB: Lipid Panel 3.?Pulmonary nodule?LAB: PROFILE, FASTING (COMPREHENSIVE METABOLIC) ?LAB: CBC w DIFF ?LAB: Lipid Panel 4.?Overweight (BMI 25.0-29.9 )?LAB: PROFILE, FASTING (COMPREHENSIVE METABOLIC) ?LAB: CBC w DIFF ?LAB: Lipid Panel 5.?Others? Continue Atorvastatin Calcium Tablet, 80 MG, TAKE 1 [...] 1 MG, as directed, Orally, Once a day;?Continue buPROPion HCl ER (Smoking Det) Tablet Extended Release 12 Hour, 150 MG, 1 tablet in the morning, Orally, Once a day;?Continue Varenicline Tartrate Tablet, 1 MG, as directed, Orally, Twice a day;?Continue Hydrocortisone Cream, 1 %, 1 application, Externally, Twice a day;?Continue Mupirocin Ointment, 2 %, 1 application, Externally, Twice a day;?Continue Tamsulosin HCl Capsule, 0.4 MG, 1 capsule, Orally, Once a day;?Continue Clobetasol Propionate Cream, 0.05 %, 1 application, Externally, Twice a day.?? * Labs:? * ?Lab: URINE DIP STICK (C ollection Date & Time - 04/13/2024) ? Value Reference Range ?SG 1.020 1.005 - 1.025 * ?pH 5.0 5.0 - 9.0 * ?MURALI Negative Negative - * ?NIT Negative Negative - * ?PRO 15 Negative - Trac e * ?GLU Negative Negative - * ?KET 5 Negative - * ?UBG 0.2 0.1 - 1.8 * ?CYNDI Negative 0.2 - 1.3 * ?BLD ++ Negative - * Procedure Codes:?67030 URINE -NO MICRO * Preventive Medicine:? ??Counseling:?Care goal follow-up plan:?Counseling for abnormal BMI given?Yes ?Above Normal BMI Follow-up?Dietary management education, guidance, and counseling, Dietary needs education ?Smoking/Tobacco Use?Patient counseled on the dangers of tobacco use and urged to quit.?04/13/2024 * Follow Up:?4 Months (Reason: ov) * Images: * Sign off status: Completed true * Provider:?Wilfrid Lin MD Date:?02/2024 Generated for Lucretiai ng/Yaa/eTransmitting on:?08/03/2024 06:08 AM EST History and Physical Notes * HPI (History of Present Illness) Category Sub-Category Detail Notes Depression Screening PHQ-9 Little inte rest or pleasure in doing things: Not at all Feeling down, depressed, or hopeless: Se veral days Trouble falling or staying asleep, or sl eeping too much: Not at all Feeling tired or having little energy: N ot at all Poor appetite or overeating: Not at all Feeling bad about yourself o r that you are a failure, or have let yourself or your family down: Not at all Trouble concentrating on thi ngs, such as reading the newspaper or watching television: Not at all Moving or speaking so slowly that other people could have noticed; or the opposite, being so fidgety or restless that you have been moving around a lot more than usual: Not at all Thoughts that you would be b ilana off or of hurting yourself in some way: Not at all Total Score: 1 Interpretation: Minimal Depression Fall Risk Screening Fall History Have you had any falls with injury in the past year?: No Have you had two or more falls in the ?: No Fall Risk Assessment:: No falls in the year COVID-19 Screening Questions Have you had any new onset fever, chills, cough, congestion, sore throat, shortness of breath, muscle aches?: No Have you been exposed to the virus with n the last 10 days?: No Have you travelled internationally in last 10 days?: No Have you been exposed to COVID-19 in the past?: Yes Examination Category Sub-Category Detail Notes General Examination GENERAL APPEARANCE: pleasant , well nourished, well developed, in no acute distress, calm and relaxed, overweight, man HEAD: atraumatic, normocep halic EYES: eomi, perrla, anicte chris, conjugate EARS: normal NOSE: septum intact NECK/THYROID: no jugular venous di stention, no carotid bruit, thyroid normal HEART: no clicks, gallops, murmurs, or rubs, regular rhythm, S1, S2 normal, no s3, or vascular bruits LUNGS: , diminished breath sounds throughout, no wheezes, rales, rhonchi ABDOMEN: bowel sounds normal, no ascites, no organomegaly, no mass NEUROLOGIC: alert and oriented, cranial nerves 2-12 grossly intact, deep tendon reflexes 2+ symmetrical, motor strength normal upper and lower extremities, sensory exam intact SKIN: no suspicious lesion s, anicteric PERIPHERAL PULSES: normal BREASTS: no masses palpable b ilaterally MUSCULOSKELETAL: Mild arthritic rebollar es, shoulders, hips and knees, numerous old scars LYMPH NODES: no enlarged lymph no david,spleen normal RECTAL EXAM: Declined PSYCH: alert, oriented, tho ught process logical, goal directed, speech clear, good eye contact, cooperative with exam, cognitive function intact ORAL CAVITY: normal, unremarkable
[2024-08-03 10:15] LABS: MANUAL DIFF FLAG NO
[2024-08-03 10:19] LABS: Basophils Percent Auto 0.4 % (0-2); Eosinophils Absolute Auto 0.7 X10*3/uL (0.0-0.4); Eosinophils Percent Auto 6.7 % (0-4); Hematocrit 47.1 % (42.0-52.0); Hemoglobin 15.9 g/dl (14.0-18.0); Imm Gran Abs Auto 0.03 X10*3/uL (0.00-0.03); Imm Gran Pct Auto 0.3 % (0.0-0.4); Lymphocytes Absolute Auto 2.5 X10*3/uL (1.2-4.9); Mean Corpuscular HGB Conc 33.8 g/dl (31.0-36.0); Mean Corpuscular Hemoglobin 29.6 pg (27.0-33.0); Mean Corpuscular Volume 87.5 fL (80.0-98.0); Mean Platelet Volume 9.4 fL (9.4-12.4); Monocytes Absolute Auto 0.7 X10*3/uL (0.1-1.2); Monocytes Percent Auto 7.2 % (2-11); Neutrophils Absolute Auto 6.2 x10*3/uL (2.0-8.3); Neutrophils Percent Auto 60.4 % (45-73); Platelet Count 308 X10*3/uL (160-400); Red Blood Count 5.38 X10*6/uL (4.60-5.80); Red Cell Distribution Width 12.5 % (11.0-16.0); White Blood Count 10.2 X10*3/uL (4.8-10.8)
[2024-08-03 10:53] LABS: Alanine Aminotransferase 22 U/L (0-40); Albumin Level 3.9 g/dL (3.5-5.0); Alkaline Phosphatase 100 U/L (39-117); Anion Gap 9 (12-20); Aspartate Amino Transferase 24 U/L (5-37); Bilirubin Total 0.4 mg/dL (0.0-1.0); Blood Urea Nitrogen 17 mg/dL (9-16); Calcium 8.6 mg/dL (8.4-10.2); Carbon Dioxide 24 mmol/L (22-29); Chloride 109 mmol/L (96-108); Cholesterol 167 mg/dL (<200); Estimated Glomerular Filt Rate > 60; Glucose Fasting 106 mg/dL (60-99); HDL Cholesterol 39 mg/dL (>40); LDL Cholesterol Calculated 95 mg/dL (<100); Potassium 4.1 mmol/L (3.3-5.1); Sodium 138 mmol/L (135-145); Total Protein 6.8 g/dL (6.5-8.0); Triglycerides 165 mg/dL (<150)
== END 2024-08-03 06:06 | disposition home or self-care (01) ==
LOC: HO.HMGCLDS 06:05
PROVIDERS: PCP Internal Medicine Medical Oncology; Visit Provider Internal Medicine Medical Oncology
DX: E78.2 Mixed hyperlipidemia (principal); R91.1 Solitary pulmonary nodule; J43.8 Other emphysema; E66.3 Overweight
CPT/HCPCS: 36415; 80053; 80061; 85025

== ENCOUNTER 2024-08-04 06:05 | Outpatient (REF) | payer MEDICARE, OTHER, SELFPAY ==
--- NOTE | ~2024-08-04 | XR_ITS ---
EXAMINATION: XR CHEST 2 VIEWS HISTORY: Z79.899 COMPARISON: Comparison is made with the prior examination dated 07/19/2022. FINDINGS: PA and lateral views of the chest are submitted. There is faint patchy opacity in the right middle lobe suggestive of early pneumonia. The left lung is clear. There is no pleural effusion, pneumothorax, or pulmonary vascular congestion. The heart is normal in size. There is degenerative disc disease of the spine. XR/XR chest 2V IMPRESSION: Faint patchy opacity in the right middle lobe suggestive of early pneumonia. Follow-up is recommended to document resolution. Electronically signed by: Wilfrid Yañez MD 08/05/2024 07:08 AM JESSICA
--- OUTSIDE RECORDS SUMMARY | 2024-08-04 06:08 | XMS_ITS ---
Author Organization Wilfrid Lin III, MD Address [address] [place] [address] Care Team Providers Care Exerciser Name Role Phone Wilfrid Lin Primary Care Provider Allergies Allergen (clinical drug ingredient) Drug/Non Drug [...] 01/05/2024 Active Mupirocin 2 % 1 application Wheelchair Driver ally Twice a day 06/20/2023 Active Hydrocortisone 1 % 1 application Wheelchair Driver ally Twice a day 01/24/2023 Active Varenicline [...] Date Provider Diagnosis Wilfrid Lin III, MD [address] [place] [address] [place] [address] 04/13/2024 Wilfrid Lin Mixed hyperlipidemia E78.2 ; [...] 01/05/20 24 Mupirocin 2 % 1 application Wheelchair Driver ally Twice a day 06/20/2023 Hydrocortisone 1 % 1 application Wheelchair Driver ally Twice a day 01/24/2023 Varenicline Tartrate 1 MG as directed Or ally Twice a day 01/24/2023 Pending Test Test Name Order Date PROFILE, FASTING (COMPREHENSIVE METABOLI C) 04/13/2024 CBC w DIFF 04/13/2024 Lipid Panel 04/13/2024 Next Appt Details Follow Up: 4 Months, Reason: ov Provider Name:Wilfrid Lin, 08/11/2024 03:30:00 PM, [address], [place], [address], Provider Name:Wilfrid Lin, 04/15/2025 03:45:00 PM, [address], [place], [address], Progress Notes * Mat OSPINA SrDOB: (79 yo M)Acc No.[id number]:04/13/2024 Progress Notes Patient:?Mat OSPINA Sr Provider:?Wilfrid Lin MD :1945???Age:79 Y???Sex:Male Lloyd e:04/13/2024 Address:[address] [place], [place] [id number] Subjective: * Chief Complaints: * ???Annual Exam [...] dental extractions repair left inguinal hernia 2013colonoscopy, [facility], Dr. Kirkpatrick, 2 hyperplastic polyps 06/2005Right inguinal herniorrhaphy 07/2019left carotid endarterectomy 12/2019Colonoscopy, [facility], Dr. Weems, 2 sigmoid tubular adenomatous 2Repair [...] Tobacco Non-User?Ex-cigarette smoker ???He was born in [place]. 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 His of many years 6 years ago of lung cancer. He has 2 sons, Tao Rivero, who lives in [place]. He has 4 grandchildren and 3 great-grandchildren. [...] mg/dL) 46 (Ref Range: mg/dL) * Lab:[facility] * Collection Date 04/07/2024 [...] * ?BLD ++ Negative - * Procedure Codes:?35199 URINE -NO MICRO * Preventive Medicine:? ??Counseling:?Care goal follow-up plan:?Counseling for abnormal BMI given?Yes ?Above Normal BMI Follow-up?Dietary management education, guidance, and counseling, Dietary needs education ?Smoking/Tobacco Use?Patient counseled on the dangers of tobacco use and urged to quit.?04/13/2024 * Follow Up:?4 Months (Reason: ov) * Images: * Sign off status: Completed true * Provider:?Wilfrid Lin MD Date:?02/2024 Generated for Lucretiai ng/Yaa/eTransmitting on:?08/04/2024 06:08 AM EST History and Physical Notes [...]
--- OUTSIDE RECORDS SUMMARY | 2024-08-04 06:08 | XMS_ITS ---
Author Organization Wlifrid Lin III, MD Address [address] [place] [address] Care Team Providers Care Robotic Welding Operator Name Role Phone Wilfrid Lin Primary Care Provider REASON FOR VISIT ? ok to hold Rx Social History Sex Assigned At : Social History Observation Description Sex Assigned At Male Encounters Encounter Location Date Provider Diagnosis Wilfrid Lin III, MD [address] [place] [address] [place] [address] 04/30/2024 Wilfrid Lin Plan Of Treatment Next Appt Details Provider Name:Wilfrid Lin, 08/11/2024 03:30:00 PM, [address] [place] [address] [place], [address], Provider Name:Wilfrid Lin, 04/15/2025 03:45:00 PM, [address] [place] [address] [place], [address], Progress Notes * Mat OSPINA SrDOB: (79 yo M)Acc No.[id number]:04/30/2024 Patient:?Mat OSPINA Sr :1945???Age:79 Y???Sex:Male Address:[address] [place], [address] * true * Date:? Generated for Printi ng/Faxing/eTransmitting on:?08/04/2024 06:07 AM EST
--- OUTSIDE RECORDS SUMMARY | 2024-08-04 06:08 | XMS_ITS ---
Author Organization Wilfrid Lin III, MD Address [address] [place] [address] Care Team Providers Care Channel Rougher Name Role Phone Wilfrid Lin Primary Care [...] Date Status Hydrocortisone 1 % 1 application Conference Translator ally Twice a day 01/24/2023 Active Mupirocin 2 % 1 application Conference Translator ally Twice a day 06/20/2023 Active Tamsulosin [...] Problem Status W/U Status Risk Notes Problem [id number] Acute adenitis (L04.9) Active confirmed His examination [...] Date Provider Diagnosis Wilfrid Lin III, MD [address] [place] [address] [place] [address] 07/15/2024 Wilfrid Lin Mixed hyperlipidemia E78.2 ; [...] under the care of vascular surgery at [facility]. He is going to have an ultrasound of his carotid arteries. Abdomen and legs in the near future to follow his vascular disease. He has had no abdominal pain. 07/15/2024 Left carotid artery stenosis (ICD-10 - I65.22) He has an appointment for a bilateral carotid ultrasound with [facility] vascular in the near future. Plan Of Treatment Medication Medication Name Sig Start Date Stop Date Notes Hydrocortisone 1 % 1 application Conference Translator ally Twice a day 01/24/2023 Mupirocin 2 % 1 application Conference Translator ally Twice a day 06/20/2023 Tamsulosin HCl [...] ov Provider Name:Wilfrid Lin, 08/11/2024 03:30:00 PM, [address] [place] [address] [address], [place], [address], Provider Name:Wilfrid Lin, 04/15/2025 03:45:00 PM, [address] [place] [address] [address], [place], [address], Progress Notes * Mat OSPINA SrDOB: (79 yo M)Acc No.[id number]:07/15/2024 Progress Notes Patient:?Mat OSPINA Sr Provider:?Wilfrid Lin MD :1945???Age:79 Y???Sex:Male Lloyd e:07/15/2024 [facility] [phone] Subjective: * Chief Complaints: * ???Painful lump upper 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 Kirkpatrick, 2 hyperplastic polyps 06/2005Right inguinal herniorrhaphy 07/2019left carotid endarterectomy 12/2019Colonoscopy, [facility], Dr. Weems, 2 sigmoid tubular adenomatous 2Repair [...] Tobacco Non-User?Ex-cigarette smoker ???He was born in [place]. 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 He has 2 sons, Tao Rivero, who lives in [place]. He has 4 grandchildren and 3 great-grandchildren. [...] under the care of vascular surgery at [facility]. He is going to have an ultrasound of his carotid arteries. Abdomen and legs in the near future to follow his vascular disease. He has had no abdominal pain.???7.?Left carotid artery stenosis - I65.22???Notes :He has an appointment for a bilateral carotid ultrasound with [facility] vascular in the near future.??? Plan: * [...] Lin MD Date:?03/2025 Generated for Carol hurst/Yaa/Thomasitting on:?08/04/2024 06:07 AM EST History and Physical Notes * [...]
[2024-08-04 11:22] LABS: Free T4 (Free Thyroxine) 1.06 ng/dL (0.71-1.85); Thyroid Stimulating Hormone 0.61 uIU/mL (0.32-4.0)
[2024-08-04 11:25] LABS: HBS Num1 2.71 mIU/mL (0-7.99); HBc Num1 0.08 S/CO (0.00-0.79); HBsAGNum1 0.56 S/CO (0.00-0.99); HIV AB/AG Nonreactive (Nonreactive); HIV Num 1 0.05 S/CO (0.00-0.99); Hepatitis B Core Antibody Nonreactive (Nonreactive); Hepatitis B Surface Antigen Negative (Negative); ~HepC Num1 4.37 S/CO (0.00-0.79); ~Hepatitis B Surface Antibody NONREACTIVE (Nonreactive); ~Hepatitis C Antibody Reactive (Nonreactive)
[2024-08-05 19:38] LABS: Immunoglobulin E 587 kU/L (<OR=114)
== END 2024-08-04 06:06 | disposition home or self-care (01) ==
LOC: HO.HMGCLDS 06:05
PROVIDERS: PCP Internal Medicine Medical Oncology; Visit Provider Physician Assistant
DX: Z79.899 Other long term (current) drug therapy (principal); L29.89 Other pruritus
CPT/HCPCS: 36415; 71046; 82785; 84439; 84443; 86704; 86706; 86803; 87340; 87389

== ENCOUNTER → 2024-08-04 08:38 | Outpatient (BNV) | payer MEDICARE, OTHER, SELFPAY | PROVIDERS: PCP Internal Medicine Medical Oncology; Visit Provider Radiology Diagnostic Radiology | DX: R07.9 Chest pain, unspecified (principal) | CPT/HCPCS: 71046 ==

== ENCOUNTER → 2024-08-17 13:31 | Outpatient (BNVA) | payer SELFPAY | PROVIDERS: PCP Internal Medicine Medical Oncology; Visit Provider Physician Assistant Medical | DX: Z02.79 Encounter for issue of other medical certificate (principal) ==

== ENCOUNTER → 2024-08-17 15:10 | Outpatient (REF) | payer MEDICARE, SELFPAY ==
--- NOTE | 2024-08-17 15:18 | ECG_ITS ---
Test Reason : I48.91 Blood Pressure : */* mmHG Vent. Rate : 87 BPM Atrial Rate : 87 BPM P-R Int : 152 ms QRS Dur : 92 ms QT Int : 360 ms P-R-T Axes : 60 40 31 degrees QTcB Int : 433 ms Sinus rhythm with Premature atrial complexes Otherwise normal ECG When compared with ECG of 19-Jul-2022 10:02, Premature atrial complexes are now Present Referred By: Wilfrid Lin Electronically Signed By: GLENNY BAKER MD
== END ==
LOC: HO.CARD 15:10
PROVIDERS: PCP Internal Medicine Medical Oncology; Visit Provider Internal Medicine Medical Oncology
DX: I48.91 Unspecified atrial fibrillation (principal)
CPT/HCPCS: 93005

== ENCOUNTER → 2024-08-17 15:18 | Outpatient (BNV) | payer MEDICARE, SELFPAY | PROVIDERS: PCP Internal Medicine Medical Oncology; Visit Provider Internal Medicine Cardiovascular Disease | DX: I48.91 Unspecified atrial fibrillation (principal) | CPT/HCPCS: 93010 ==

== ENCOUNTER → 2024-09-03 10:18 | Outpatient (REF) | payer MEDICARE, SELFPAY ==
--- OUTSIDE RECORDS SUMMARY | 2024-09-03 11:32 | XMS_ITS ---
Author Organization Wilfrid Lin III, MD Address [address] [place] [address] Care Team Providers Care Finishing Room Operator Name Role Phone Wilfrid Lin Primary Care Provider REASON FOR VISIT Needs call back from Social History Sex Assigned At : Social History Observation Description Sex Assigned At Male Encounters Encounter Location Date Provider Diagnosis Wilfrid Lin III, MD [address] [place] [address] [place] [address] 08/18/2024 Wilfrid Lin Plan Of Treatment Next Appt Details Provider Name:Wilfrid Lin, 11/08/2024 04:00:00 PM, [address] [place] [address] [place], [address], Provider Name:Wilfrid Lin, 04/15/2025 03:45:00 PM, [address] [place] [address] [place], [address], Progress Notes * Mat OSPINA SrDOB: (79 yo M)Acc No.[id number]:08/18/2024 Patient:?Mat OSPINA Sr :1945???Age:79 Y???Sex:Male Address:[address] [place], [address] * true * Date:? Generated for Printi ng/Faxing/eTransmitting on:?09/03/2024 11:32 AM EST
--- OUTSIDE RECORDS SUMMARY | 2024-09-03 11:33 | XMS_ITS ---
Author Organization Wilfrid Lin III, MD Address [address] [place] [address] Care Team Providers Care Prize Coordinator Name Role Phone Wilfrid Lin Primary Care Provider Allergies Allergen (clinical drug ingredient) Drug/Non Drug Allergy documented on EMR Reaction Allergy Type Onset Date Status No Known Drug Allergy Unknown Drug Allergy Active REASON FOR VISIT Irregular heartbeat, Emphysema, Hearing loss, Overweight, Depression, Arthritis left knee Medications Medication SIG (Take, Route, Frequency, Duration) Notes Start Date End Date Status Clopidogrel Bisulfate 75 MG TAKE 1 TABLE T BY MOUTH EVERY DAY Active Meclizine HCl 25 MG 1 tablet as needed Orally every 8 hrs 07/22/2022 Active APO-Varenicline 1 MG as directed Orally Once a day 08/01/2021 Active traZODone HCl 150 MG 1 tablet at bedtime Orally Once a day 06/28/2021 Active buPROPion HCl ER (Smoking Det) 150 MG 1 tablet in the morning Orally Once a day 06/14/2022 Active Tamsulosin HCl 0.4 MG 1 capsule Orally O nce a day Active Clobetasol Propionate 0.05 % 1 applicati on Externally Twice a day 02/06/2024 Active Aspirin Low Dose 81 MG CHEW AND SWALLOW 1 TABLET BY MOUTH DAILY. Active Atorvastatin Calcium 80 MG TAKE 1 TABLET BY MOUTH EVERY NIGHT AT BEDTIME. 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 He will limit his coffee drinking to 3 cups daily. A follow-up visit was arranged. Blood work for thyroid function tests was ordered. Vital Signs Blood pressure systolic 136 mm Hg 08/17/19 25 Blood pressure diastolic 78 mm Hg 025 Heart Rate 84 /min 08/17/2024 Height 67 in 08/17/2024 Weight 174 lbs 08/17/2024 BMI 27.25 kg/m2 08/17/2024 Encounters Encounter Location Date Provider Diagnosis Wilfrid Lin III, MD [address] [place] [address] [place] [address] 08/17/2024 Wilfrid Lin Premature atrial contractions I49.1 ; Mixed hyperlipidemia E78.2 ; Paraseptal emphysema J43.8 ; Overweight (BMI 25.0-29.9) E66.3 ; Sensorineural hearing loss (SNHL) of both ears H90.3 ; Reactive depression F32.9 ; Primary osteoarthritis of left knee M17.12 and Former smoker Z87.891 Assessments Encounter Date Diagnosis (ICD Code) Assessment Notes Treat ment Notes Treatment Clinical Notes 08/17/2024 Premature atrial contractions (ICD-10 - I49.1) 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 He will limit his coffee drinking to 3 cups daily. A follow-up visit was arranged. Blood work for thyroid function tests was ordered. 08/17/2024 Mixed hyperlipidemia (ICD-10 - E78.2) The cholesterol values are currently stable. Current therapy was continued 08/17/2024 Paraseptal emphysema (ICD-10 - J43.8) He is no longer smoking. He is comfortable with mild activity. He does not require oxygen. 08/17/2024 Overweight (BMI 25.0-29.9) (ICD-10 - E66.3) His body mass index is 27 and his weight is stable. We discussed his diet and nutrition today. I recommended weight loss at a rate of one half of a pound per week. 08/17/2024 Sensorineural hearing loss (SNHL) of both ears (ICD-10 - H90.3) He does not think he needs hearing aids at this point. Examination of his ears showed no impaction of cerumen. 08/17/2024 Reactive depression (ICD-10 - F32.9) He was continued on the Wellbutrin. His depression is mild. He is able to conduct all of the activities of daily life. He has no thoughts of self-harm. 08/17/2024 Primary osteoarthritis of left knee (ICD-10 - M17.12) He has had arthroscopic surgery on his left knee which improved the function significantly. He still has mild pain. 08/17/2024 Former smoker (ICD-10 - Z87.891) He recently stopped smoking and has a prescription for Chantix. Plan Of Treatment Medication Medication Name Sig Start Date Stop Date Notes Clopidogrel Bisulfate 75 MG TAKE 1 TABLE T BY MOUTH EVERY DAY Meclizine HCl 25 MG 1 tablet as needed O rally every 8 hrs 07/22/2022 APO-Varenicline 1 MG as directed Orally Once a day 08/01/2021 traZODone HCl 150 MG 1 tablet at bedtime Orally Once a day 06/28/2021 buPROPion HCl ER (Smoking De t) 150 MG 1 tablet in the morning Orally Once a day 06/14/2022 Tamsulosin HCl 0.4 MG 1 capsule Orally Once a day Clobetasol Propionate 0.05 % 1 applicati on Externally Twice a day 02/06/2024 Aspirin Low Dose 81 MG CHEW AND SWALLOW 1 TABLET BY MOUTH DAILY. Atorvastatin Calcium 80 MG TAKE 1 TABLET BY MOUTH EVERY NIGHT AT BEDTIME. Triamcinolone Acetonide 0.1 % 1 applicat ion Externally Twice a day 01/24/2023 Hydrocortisone 1 % 1 application Wellness Program Administrator ally Twice a day 01/24/2023 Varenicline Tartrate 1 MG as directed Or ally Twice a day 01/24/2023 Mupirocin 2 % 1 application Wellness Program Administrator ally Twice a day 06/20/2023 Pending Test Test Name Order Date ECG 12 lead EKG 08/17/2024 ECG 7 day holter monitor 08/17/2024 Next Appt Details Follow Up: after Holter vinod rodriguez, Reason: ov review EKG and Holter monitor done at Provider Name:Wilfrid Lin, 11/08/2024 04:00:00 PM, [address] [place] [address] [address], [place], [id number], Provider Name:Wilfrid Lin, 04/15/2025 03:45:00 PM, [address] [place] [address] [address], [place], [id number], Progress Notes * Mat OSPINA SrDOB: (79 yo M)Acc No.[id number]:08/17/2024 Patient:?Mat OSPINA Sr Provider:?Wilfrid Lin MD :1945???Age:79 Y???Sex:Male Lloyd e:08/17/2024 [facility] [id number] Subjective: * Chief Complaints: * ???Irregular heartbeatEmphys emaHearing lossOverweightDepressionArthritis left knee * HPI: ???COVID-19 Screening:? He comes to the office today is a same day visit because of an irregular heartbeat.? 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 He was not granted as the provider who did the encounter Noticed an irregularity in the heartbeat. He was seen today immediately.? His underlying rhythm sounded regular with premaature heartbeats.? An EKG was obtained which showed normal sinus rhythm with premature atrial contractions.? He admits to drinking follow-up to 10 cups of coffee per day.? His examination was otherwise normal.? He was asymptomatic.? His coffee intake will be limited to 3 cups a day. A follow-up visit was arranged.? I communicated with the physician music assistant who did the encounter at the occupational health service that he could be cleared and she agreed to do so. ?Questions?Have you had any new onset fever, chills, cough, congestion, sore throat, shortness of breath, muscle aches??No * ROS:?General/Constitutional:?pain?only normal aches and pains.?Chills?denies.?Fatigue?admits.?Fever?denies.?ENT:?Decreased hearing?in both ears.?Respiratory:?Cough?denies.?Cardiovascular:?Chest pain with exertion?denies.?Dyspnea on exertion?denies.?Shortness of breath?denies.?Gastrointestinal:?Constipation?occasional.?Decreased appetite?denies.?Diarrhea?denies.?Heartburn?denies.?Nausea?denies.?Rectal bleeding?denies.?Vomiting?denies.?Hematology:?bruising?denies.?petechiae?denies.?Swollen glands?none have been noted.?Genitourinary:?Frequent urination?twice a night.?Musculoskeletal:?Muscle aches?denies.?Painful joints?denies.?Sciatica?denies.?Weakness?denies.?Skin:?Itching?denies.?Rash?denies.?Skin lesion(s)?denies.?Neurologic:?Difficulty speaking?denies.?Dizziness?denies.?Headache?denies.?Low back pain?denies.?Psychiatric:?Depressed mood?denies.? * Medical History:? * Surgical History:?bilateral rotator cuff surgery, Dr. Juanito Madsen 2017arthroscopic surgey left knee 2003complete dental extractions repair left inguinal hernia 2013colonoscopy, [facility], Dr. Kirkpatrick, 2 hyperplastic polyps 06/2005Right inguinal herniorrhaphy 07/2019left carotid endarterectomy 12/2019Colonoscopy, [facility], Dr. Weems, 2 sigmoid tubular adenomatous 2Repair [...] Tobacco Non-User?Ex-cigarette smoker ???He was born in [place]. 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 His of many years 6 years ago of lung cancer. He has 2 sons, Tao Rivero, who lives in [place]. He has 4 grandchildren and 3 great-grandchildren. He was 27 when his parents . He says he has never learned to read or write. * Medications:?TakingTamsulosi n HCl 0.4 MG Capsule 1 capsule Orally Once a day Atorvastatin Calcium 80 MG Tablet TAKE 1 [...] Cream 1 application Externally Twice a day Medication List reviewed and reconciled with the patientTaking Tamsulosin HCl 0.4 MG Capsule 1 capsule Orally Once a day Taking Atorvastatin Calcium 80 MG [...] Cream 1 application Externally Twice a day Medication List reviewed and reconciled with the patient * Allergies:?No Known Drug All ergyno[Allergies Verified] Objective: * Vitals:?Ht: 67, Wt:174, BMI: 27.25, BP:136/78, HR:84, Wt-k.93. * Examination: ???General Examination: ?GENERAL APPEARANCE:?pleasant, well nourished, well developed, in no acute distress, calm and relaxed, overweight, man.?HEAD:?atraumatic, normocephalic.?EYES:?eomi, perrla, anicteric, conjugate.?EARS:?Normal anatomy with bilateral hearing loss.?NOSE:?septum intact.?ORAL CAVITY:?normal, unremarkable.?NECK/THYROID:?no jugular venous distention, no carotid bruit, thyroid normal.?LYMPH NODES:?no enlarged lymph nodes,spleen normal.?SKIN:?no suspicious lesions, anicteric.?HEART:?no clicks, gallops, murmurs, or rubs, regular rhythm with premature beats, S1, S2 normal, no s3, or vascular bruits.?LUNGS:?clear to auscultation .?BREASTS:??no masses palpable bilaterally.?ABDOMEN:?bowel sounds normal, no ascites, no organomegaly, no mass.?RECTAL EXAM:?not examined.?MUSCULOSKELETAL:?extremities unremarkable, no clubbing, cyanosis or edema.?PERIPHERAL PULSES:?normal.?NEUROLOGIC:?alert and oriented, cranial nerves 2-12 grossly intact, deep tendon reflexes 2+ symmetrical, motor strength normal upper and lower extremities, sensory exam intact.?PSYCH:?alert, oriented.? 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 He will limit his coffee drinking to 3 cups daily.? A follow-up visit was arranged.? Blood work for thyroid function tests was ordered.???2.?Mixed hyperlipidemia - E78.2???Notes :The cholesterol values are currently stable. Current therapy was continued???3.?Paraseptal emphysema - J43.8???Notes :He is no longer smoking. He is comfortable with mild activity. He does not require oxygen.???4.?Overweight (BMI 25.0-29.9) - E66.3???Notes :His body mass index is 27 and his weight is stable. We discussed his diet and nutrition today. I recommended weight loss at a rate of one half of a pound per week.???5.?Sensorineural hearing loss (SNHL) of both ears - H90.3???Notes :He does not think he needs hearing aids at this point. Examination of his ears showed no impaction of cerumen.???6.?Reactive depression - F32.9???Notes :He was continued on the Wellbutrin. His depression is mild. He is able to conduct all of the activities of daily life. He has no thoughts of self-harm.???7.?Primary osteoarthritis of left knee - M17.12???Notes :He has had arthroscopic surgery on his left knee which improved the function significantly. He still has mild pain.???8.?Former smoker - Z87.891???Notes :He recently stopped smoking and has a prescription for Chantix.??? Plan: * Treatment: * Imaging:? * ?Imaging: ECG 12 lead EK G ?Imaging: ECG 7 day [place] er monitor * Procedure Codes:? * Preventive Medicine:? ??Counseling:?Care [...] dangers of tobacco use and urged to quit.?08/17/2024 * Follow Up:?after Britni rodriguez (Reason: ov review EKG and Holter monitor done at ) * Images: * Sign off status: Completed true * Provider:?Wilfrid Lin MD Date:?08/07 Generated for Carol hurst/Yaa/eTransmitting on:?09/03/2024 11:32 AM EST History and Physical Notes * [...] EYES: eomi, perrla, anicte chris, conjugate EARS: Normal anatomy with bilateral hearing loss NOSE: septum intact NECK/THYROID: no jugular venous di stention, no carotid bruit, thyroid normal HEART: no clicks, gallops, murmurs, or rubs, regular rhythm with premature beats, S1, S2 normal, no s3, or vascular bruits LUNGS: clear to auscultatio n ABDOMEN: bowel sounds normal, no ascites, no [...]
--- OUTSIDE RECORDS SUMMARY | 2024-09-03 11:33 | XMS_ITS ---
Author Organization Wilfrid Lin III, MD Address [address] [place] [address] Care Team Providers Care Tail Trimmer Name Role Phone Wilfrid Lin Primary Care Provider [phone] Allergies Allergen (clinical drug ingredient) Drug/Non Drug Allergy documented on EMR Reaction Allergy Type Onset Date Status No Known Drug Allergy Unknown Drug Allergy Active Results Component Value Reference Range Notes PROFILE, FASTING (COMPREHENS SERAFIN METABOLIC) Reviewed date:09/03/2024 10:40:27 AM Interpretation: Performing Lab: Notes/Report: REASON FOR VISIT Enlarged painful lymph node posterior triangle right neck, Emphysema, Hearing loss, Carotid stenosis, GERD Medications Medication SIG (Take, Route, Frequency, Duration) Notes Start Date End Date Status Tamsulosin HCl 0.4 MG 1 capsule Orally O nce a day Active Clobetasol Propionate 0.05 % 1 applicati on Externally Twice a day 02/06/2024 Active Atorvastatin Calcium 80 MG TAKE 1 TABLET BY MOUTH EVERY NIGHT AT BEDTIME. Active Triamcinolone Acetonide 0.1 % 1 application Externally Twice a day 01/24/2023 Active Aspirin Low Dose 81 MG CHEW AND SWALLOW 1 TABLET BY MOUTH DAILY. Active APO-Varenicline 1 MG as directed Orally Once a day 08/01/2021 Active buPROPion HCl ER (Smoking Det) 150 MG 1 tablet in the morning Orally Once a day 06/14/2022 Active Varenicline Tartrate 1 MG as directed Or ally Twice a day 01/24/2023 Active Hydrocortisone 1 % 1 application Pilot ally Twice a day 01/24/2023 Active Mupirocin 2 % 1 application Pilot ally Twice a day 06/20/2023 Active traZODone HCl 150 MG 1 tablet at bedtime Orally Once a day 06/28/2021 Active Meclizine HCl 25 MG 1 tablet as needed Orally every 8 hrs 07/22/2022 Active Clopidogrel Bisulfate 75 MG TAKE 1 TABLE T BY MOUTH EVERY DAY Active Social History Tobacco Use: Social History [...] Non-User Ex-cigaret te smoker Vital Signs Temperature 97.2 degrees Fahrenheit 08/11/19 25 Blood pressure systolic 140 mm Hg 08/11/19 25 Blood pressure diastolic 78 mm Hg 025 Heart Rate 75 /min 08/11/2024 Height 67 in 08/11/2024 Weight 174 lbs 08/11/2024 BMI 27.25 kg/m2 08/11/2024 Encounters Encounter Location Date Provider Diagnosis Wilfrid Lin III, MD [address] [place] [address] [place] [address] 08/11/2024 Wilfrid Lin Mixed hyperlipidemia E78.2 ; Acute adenitis L04.9 ; Overweight (BMI 25.0-29.9) E66.3 ; Hepatitis C antibody positive R76.8 ; Sensorineural hearing loss (SNHL) of both ears H90.3 ; Paraseptal emphysema J43.8 ; Tobacco dependence F17.200 ; Left carotid artery stenosis I65.22 and Primary osteoarthritis of left knee M17.12 Assessments Encounter Date Diagnosis (ICD Code) Assessment Notes Treat ment Notes Treatment Clinical Notes 08/11/2024 Mixed hyperlipidemia (ICD-10 - E78.2) The cholesterol values are currently stable. Current therapy was continued 08/11/2024 Acute adenitis (ICD-10 - L04.9) The pain and the palpable lymph node have both resolved. He will be observed at this time. 08/11/2024 Overweight (BMI 25.0-29.9) (ICD-10 - E66.3) His body mass index is 27 and his weight is stable. We discussed his diet and nutrition today. I recommended weight loss at a rate of one half of a pound per week. 08/11/2024 Hepatitis C antibody positive (ICD-10 - R76.8) His hepatitis C antibody test iss positive. His liver function tests are normal. This iis likely an old infection but will be pursued. 08/11/2024 Sensorineural hearin g loss (SNHL) of both ears (ICD-10 - H90.3) He does not think he needs hearing aids at this point. Examination of his ears showed no impaction of cerumen. 08/11/2024 Paraseptal emphysema (ICD-10 - J43.8) He is no longer smoking. He is comfortable with mild activity. He does not require oxygen. 08/11/2024 Tobacco dependence (ICD-10 - F17.200) He continues to smoke a package of cigarettes per day. He was counseled about the health risks in doing so. He has early emphysema. We discussed various strategies for smoking cessation. This nicotine patches were not beneficial. 08/11/2024 Left carotid artery stenosis (ICD-10 - I65.22) He has an appointment for a bilateral carotid ultrasound with [facility] vascular in the near future. 08/11/2024 Primary osteoarthritis of left knee (ICD-10 - M17.12) He has had arthroscopic surgery on his left knee which improved the function significantly. He still has mild pain. Plan Of Treatment Medication Medication Name Sig Start Date Stop Date Notes Tamsulosin HCl 0.4 MG 1 capsule Orally Once a day Clobetasol Propionate 0.05 % 1 applicati on Externally Twice a day 02/06/2024 Atorvastatin Calcium 80 MG TAKE 1 TABLET BY MOUTH EVERY NIGHT AT BEDTIME. Triamcinolone Acetonide 0.1 % 1 applicat ion Externally Twice a day 01/24/2023 Aspirin Low Dose 81 MG CHEW AND SWALLOW 1 TABLET BY MOUTH DAILY. APO-Varenicline 1 MG as directed Orally Once a day 08/01/2021 buPROPion HCl ER (Smoking De t) 150 MG 1 tablet in the morning Orally Once a day 06/14/2022 Varenicline Tartrate 1 MG as directed Or ally Twice a day 01/24/2023 Hydrocortisone 1 % 1 application Pilot ally Twice a day 01/24/2023 Mupirocin 2 % 1 application Pilot ally Twice a day 06/20/2023 traZODone HCl 150 MG 1 tablet at bedtime Orally Once a day 06/28/2021 Meclizine HCl 25 MG 1 tablet as needed O rally every 8 hrs 07/22/2022 Clopidogrel Bisulfate 75 MG TAKE 1 TABLE T BY MOUTH EVERY DAY Pending Test Test Name Order Date GGT 08/11/2024 CBC WITH AUTO DIFF 08/11/2024 Lipid Panel 08/11/2024 Next Appt Details Follow Up: 3 Months, Reason: OV Provider Name:Wilfrid Lin, 11/08/2024 04:00:00 PM, [address] [place] [address] JESÚS DELATORRE, APRIL TATE, [id number], Provider Name:Wilfrid Lin, 04/15/2025 03:45:00 PM, [address] [place] [address] JESÚS DELATORRE, APRIL TATE, [id number], Progress Notes * Mat OSPINA SrDOB: (79 yo M)Acc No.[id number]:08/11/2024 Progress Notes Patient:?Mat OSPINA Sr Provider:?Wilfrid Lin MD :1945???Age:79 Y???Sex:Male Lloyd e:08/11/2024 Address:[address] [place], [place] [phone] Subjective: * Chief Complaints: * ???Enlarged painful lymph no de posterior triangle right neckEmphysemaHearing lossCarotid stenosisGERD * HPI: ???COVID-19 Screening:? On his last visit he complained of a mass in the right neck.? In the upper posterior triangle on the right side of his neck 1 cm enlarged tender lymph node that was mobile.? There was no other adenopathy and no source of infection detected.? He returns today for reevaluation.? The pain has resolved.? The lymph node is no longer palpable.? His examination was unchanged otherwise.? This is likely a reactive lymph node.? Observation will continue on schedule. ?Questions?Have you had any new onset fever, chills, cough, congestion, sore throat, shortness of breath, muscle aches??No * ROS:?General/Constitutional:?pain?only normal aches and pains.?Chills?denies.?Fatigue?admits.?Fever?denies.?ENT:?Decreased hearing?in both ears.?Respiratory:?Cough?denies.?Cardiovascular:?Chest pain with exertion?denies.?Dyspnea on exertion?denies.?Shortness of breath?denies.?Gastrointestinal:?Constipation?occasional.?Decreased appetite?denies.?Diarrhea?denies.?Heartburn?denies.?Nausea?denies.?Rectal bleeding?denies.?Vomiting?denies.?Hematology:?bruising?denies.?petechiae?denies.?Swollen glands?none have been noted.?Genitourinary:?Frequent urination?twice a night.?Musculoskeletal:?Muscle aches?denies.?Painful joints?denies.?Sciatica?denies.?Weakness?denies.?Skin:?Itching?denies.?Rash?denies.?Skin lesion(s)?denies.?Neurologic:?Difficulty speaking?denies.?Dizziness?denies.?Headache?denies.?Low back pain?denies.?Psychiatric:?Depressed mood?which is mild.? * Medical History:? * Surgical History:?bilateral rotator cuff surgery, Dr. Juanito Madsen 2017arthroscopic surgey left knee 2003complete dental extractions repair left inguinal hernia 2014colonoscopy, [facility], Dr. Kirkpatrick, 2 hyperplastic polyps 06/2005Right inguinal herniorrhaphy 07/2019left carotid endarterectomy 12/2019Colonoscopy, [facility], Dr. Weems, 2 sigmoid tubular adenomatous [...] Tobacco Non-User?Ex-cigarette smoker ???He was born in [place]. 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 His of many years 6 years ago of lung cancer. He has 2 sons, Tao Rivero, who lives in [place]. He has 4 grandchildren and 3 great-grandchildren. [...] Objective: * Vitals:?Ht: 67, Wt:174, BMI: 27.25, BP:140/78, HR:75, Temp:97.2, Wt-k.93. * ???Past Orders: ???Lab:Hepatitis B Surface A ntigen (Order Date - 08/04/2024) (Collection Date & Time - 08/04/2024 06:23 AM) ? Value Reference Range ?Hepatitis B Surface Antigen Negative Negative - ???Lab:Immunoglobulin E (Ord er Date - 08/04/2024) (Collection Date & Time - 08/04/2024 06:23 AM) ? Value Reference Range ?Immunoglobulin E 587 A <OR =114 - kU/L ???Lab:Hepatitis B Surface A ntibody (Order Date - 08/04/2024) (Collection Date & Time - 08/04/2024 06:23 AM) ? Value Reference Range ?Hepatitis B Surface Antibody NONREACTIVE Nonreactive - ???Lab:Hepatitis B Core Anti body (Order Date - 08/04/2024) (Collection Date & Time - 08/04/2024 06:23 AM) ? Value Reference Range ?Hepatitis B Core Antibody Nonreactive Nonreactive - ???Lab:HIV Ab/Ag (Order Date - 08/04/2024) (Collection Date & Time - 08/04/2024 06:23 AM) ? Value Reference Range ?HIV AB/AG Nonreactive Nonreactiv e - ???Lab:Free T4 (Free Thyroxi ne) (Order Date - 08/04/2024) (Collection Date & Time - 08/04/2024 06:23 AM) ? Value Reference Range ?Free T4 (Free Thyroxine) 1.06 0.71-1.85 - ng/dL ???Lab:Hepatitis C Antibody (Order Date - 08/04/2024) (Collection Date & Time - 08/04/2024 06:23 AM) ? Value Reference Range ? Hepatitis C Antibody Reactive A Nonreactive - ???Lab:Thyroid Stimulating H jason (Order Date - 08/04/2024) (Collection Date & Time - 08/04/2024 06:23 AM) ? Value Reference Range ?Thyroid Stimulating Hormone 0.61 0.32-4.0 - uIU/mL Lab:Complete Blood Count Aut o Diff * Collection Date 08/03/2024 04/07/2024 12/31/2023 Collection Time 06:15 AM 06:32 AM 02:13 PM Order Date 08/03/2024 04/07/2024 12/31/2023 White Blood Count 10.2 (Ref Range: 4.8-10.8 X10*3/uL) 9.7 (Ref Range: 4.8-10.8 X10*3/uL) 7.3 (Ref Range: 4.8-10.8 X10*3/uL) Red Blood Count 5.38 (Ref Range: 4.60-5.80 X10*6/uL) 5.39 (Ref Range: 4.60-5.80 X10*6/uL) 5.06 (Ref Range: 4.60-5.80 X10*6/uL) Hemoglobin 15.9 (Ref Range: 14.0-18.0 g/dl) 16.1 (Ref Range: 14.0-18.0 g/dl) 15.0 (Ref Range: 14.0-18.0 g/dl) Hematocrit 47.1 (Ref Range: 42.0-52.0 %) 47.7 (Ref Range: 42.0-52.0 %) 43.8 (Ref Range: 42.0-52.0 %) Mean Corpuscular Volume 87.5 (Ref Range: 80.0-98.0 fL) 88.5 (Ref Range: 80.0-98.0 fL) 86.6 (Ref Range: 80.0-98.0 fL) Mean Corpuscular Hemoglobin 29.6 (Ref Range: 27.0-33.0 pg) 29.9 (Ref Range: 27.0-33.0 pg) 29.6 (Ref Range: 27.0-33.0 pg) Mean Corpuscular HGB Conc 33.8 (Ref Range: 31.0-36.0 g/dl) 33.8 (Ref Range: 31.0-36.0 g/dl) 34.2 (Ref Range: 31.0-36.0 g/dl) Red Cell Distribution Width 12.5 (Ref Range: 11.0-16.0 %) 12.8 (Ref Range: 11.0-16.0 %) 13.0 (Ref Range: 11.0-16.0 %) Platelet Count 308 (Ref Range: 160-400 X10*3/uL) 294 (Ref Range: 160-400 X10*3/uL) 290 (Ref Range: 160-400 X10*3/uL) Mean Platelet Volume 9.4 (Ref Range: 9.4-12.4 fL) 9.7 (Ref Range: 9.4-12.4 fL) 9.6 (Ref Range: 9.4-12.4 fL) Neutrophils Percent Auto 60.4 (Ref Range: 45-73 %) 59.5 (Ref Range: 45-73 %) 54.2 (Ref Range: 45-73 %) Imm Gran Pct Auto 0.3 (Ref Range: 0.0-0.4 %) 0.3 (Ref Range: 0.0-0.4 %) 0.4 (Ref Range: 0.0-0.4 %) Lymphocytes Percent Auto 25.0 (Ref Range: 20-40 %) 22.2 (Ref Range: 20-40 %) 31.4 (Ref Range: 20-40 %) Monocytes Percent Auto 7.2 (Ref Range: 2-11 %) 6.9 (Ref Range: 2-11 %) 9.9 (Ref Range: 2-11 %) Eosinophils Percent Auto 6.7?H (Ref Range: 0-4 %) 10.6?H (Ref Range: 0-4 %) 3.4 (Ref Range: 0-4 %) Basophils Percent Auto 0.4 (Ref Range: 0-2 %) 0.5 (Ref Range: 0-2 %) 0.7 (Ref Range: 0-2 %) NRBC Pct Auto 0.0 (Ref Range: 0.0-0.2 /100WBC) 0.0 (Ref Range: 0.0-0.2 /100WBC) 0.0 (Ref Range: 0.0-0.2 /100WBC) Neutrophils Absolute Auto 6.2 (Ref Range: 2.0-8.3 x10*3/uL) 5.8 (Ref Range: 2.0-8.3 x10*3/uL) 4.0 (Ref Range: 2.0-8.3 x10*3/uL) Imm Gran Abs Auto 0.03 (Ref Range: 0.00-0.03 X10*3/uL) 0.03 (Ref Range: 0.00-0.03 X10*3/uL) 0.03 (Ref Range: 0.00-0.03 X10*3/uL) Lymphocytes Absolute Auto 2.5 (Ref Range: 1.2-4.9 X10*3/uL) 2.1 (Ref Range: 1.2-4.9 X10*3/uL) 2.3 (Ref Range: 1.2-4.9 X10*3/uL) Monocytes Absolute Auto 0.7 (Ref Range: 0.1-1.2 X10*3/uL) 0.7 (Ref Range: 0.1-1.2 X10*3/uL) 0.7 (Ref Range: 0.1-1.2 X10*3/uL) Eosinophils Absolute Auto 0.7?H (Ref Range: 0.0-0.4 X10*3/uL) 1.0?H (Ref Range: 0.0-0.4 X10*3/uL) 0.3 (Ref Range: 0.0-0.4 X10*3/uL) Basophils Absolute Auto 0.0 (Ref Range: 0.0-0.2 X10*3/uL) 0.1 (Ref Range: 0.0-0.2 X10*3/uL) 0.1 (Ref Range: 0.0-0.2 X10*3/uL) NRBC Abs Auto 0.000 (Ref Range: 0.0-0.012 X10*3/uL) 0.000 (Ref Range: 0.0-0.012 X10*3/uL) 0.000 (Ref Range: 0.0-0.012 X10*3/uL) * Lab:[facility] * Collection Date 08/03/2024 04/07/2024 12/31/2023 Collection Time 06:15 AM 06:32 AM 02:13 PM Order Date 08/03/2024 04/07/2024 12/31/2023 Sodium 138 (Ref Range: 135-145 mmol/L) 140 (Ref Range: 135-145 mmol/L) 144 (Ref Range: 135-145 mmol/L) Bilirubin Total 0.4 (Ref Range: 0.0-1.0 mg/dL) 0.5 (Ref Range: 0.0-1.0 mg/dL) 0.4 (Ref Range: 0.0-1.0 mg/dL) Aspartate Amino Transferase 24 (Ref Range: 5-37 U/L) 17 (Ref Range: 5-37 U/L) 17 (Ref Range: 5-37 U/L) Alanine Aminotransferase 22 (Ref Range: 0-40 U/L) 16 (Ref Range: 0-40 U/L) 18 (Ref Range: 0-40 U/L) Total Protein 6.8 (Ref Range: 6.5-8.0 g/dL) 6.8 (Ref Range: 6.5-8.0 g/dL) 6.5 (Ref Range: 6.5-8.0 g/dL) Albumin Level 3.9 (Ref Range: 3.5-5.0 g/dL) 4.1 (Ref Range: 3.5-5.0 g/dL) 3.9 (Ref Range: 3.5-5.0 g/dL) Alkaline Phosphatase 100 (Ref Range: 39-117 U/L) 78 (Ref Range: 39-117 U/L) 86 (Ref Range: 39-117 U/L) Potassium 4.1 (Ref Range: 3.3-5.1 mmol/L) 4.2 (Ref Range: 3.3-5.1 mmol/L) 4.0 (Ref Range: 3.3-5.1 mmol/L) Chloride 109?H (Ref Range: 96-108 mmol/L) 108 (Ref Range: 96-108 mmol/L) 109?H (Ref Range: 96-108 mmol/L) Carbon Dioxide 24 (Ref Range: 22-29 mmol/L) 25 (Ref Range: 22-29 mmol/L) 28 (Ref Range: 22-29 mmol/L) Anion Gap 9?L (Ref Range: 12-20) 11?L (Ref Range: 12-20) 11?L (Ref Range: 12-20) Blood Urea Nitrogen 17?H (Ref Range: 9-16 mg/dL) 14 (Ref Range: 9-16 mg/dL) 15 (Ref Range: 9-16 mg/dL) Creatinine 0.88 (Ref Range: 0.5-1.4 mg/dL) 0.86 (Ref Range: 0.5-1.4 mg/dL) 1.10 (Ref Range: 0.5-1.4 mg/dL) Estimated Glomerular Filt Rate > 60 > 60 > 60 Glucose Fasting 106?H (Ref Range: 60-99 mg/dL) 108?H (Ref Range: 60-99 mg/dL) 102?H (Ref Range: 60-99 mg/dL) Calcium 8.6 (Ref Range: 8.4-10.2 mg/dL) 9.4 (Ref Range: 8.4-10.2 mg/dL) 9.1 (Ref Range: 8.4-10.2 mg/dL) * Lab:Lipid Panel * Collection Date 08/03/2024 04/07/2024 12/31/2023 Collection Time 06:15 AM 06:32 AM 02:13 PM Order Date 08/03/2024 04/07/2024 12/31/2023 Triglycerides 165?H (Ref Range: <150 mg/dL) 122 (Ref Range: <150 mg/dL) 146 (Ref Range: <150 mg/dL) Cholesterol 167 (Ref Range: <200 mg/dL) 183 (Ref Range: <200 mg/dL) 161 (Ref Range: <200 mg/dL) LDL Cholesterol Calculated 95 (Ref Range: <100 mg/dL) 116?H (Ref Range: <100 mg/dL) 95 (Ref Range: <100 mg/dL) HDL Cholesterol 39?L (Ref Range: >40 mg/dL) 43 (Ref Range: >40 mg/dL) 37?L (Ref Range: >40 mg/dL) ???Imaging:XR chest 2V (Order Date - 08/04/2024) (Performed Date - 08/04/2024) * Examination: ???General Examination: ?GENERAL APPEARANCE:?pleasant, well nourished, well developed, in no acute distress, calm and relaxed, overweight, elderly man.?HEAD:?atraumatic, normocephalic.?EYES:?eomi, perrla, anicteric, conjugate.?EARS:?normal.?NOSE:?septum intact.?ORAL CAVITY:?normal, [...] Assessment: 1.?Acute adenitis - L04.9 (P rimary)???Notes :The pain and the palpable lymph node have both resolved.? He will be observed at this time.???2.?Mixed hyperlipidemia - E78.2???Notes :The cholesterol values are currently stable. Current therapy was continued???3.?Overweight (BMI 25.0-29.9) - E66.3???Notes :His body mass index is 27 and his weight is stable.? We discussed his diet and nutrition today.? I recommended weight loss at a rate of one half of a pound per week.???4.?Hepatitis C antibody positive - R76.8???Notes :His hepatitis C antibody test iss positive.? His liver function tests are normal.? This iis likely an old infection but will be pursued.???5.?Sensorineural hearing loss (SNHL) of both ears - H90.3???Notes :He does not think he needs hearing aids at this point. Examination of his ears showed no impaction of cerumen.???6.?Paraseptal emphysema - J43.8???Notes :He is no longer smoking. He is comfortable with mild activity. He does not require oxygen.???7.?Tobacco dependence - F17.200???Notes :He continues to smoke a package of cigarettes per day. He was counseled about the health risks in doing so. He has early emphysema. We discussed various strategies for smoking cessation. This nicotine patches were not beneficial.???8.?Left carotid artery stenosis - I65.22???Notes :He has an appointment for a bilateral carotid ultrasound with [facility] vascular in the near future.???9.?Primary osteoarthritis of left knee - M17.12???Notes :He has had arthroscopic surgery on his left knee which improved the function significantly. He still has mild pain.??? Plan: * Treatment: 2.?Overweight (BMI 25.0-29.9 )?LAB: PROFILE, FASTING (COMPREHENSIVE METABOLIC) ?LAB: GGT ?LAB: CBC WITH AUTO DIFF ?LAB: Lipid Panel 3.?Others? Continue Tamsulosin HCl Capsule, 0.4 MG, 1 [...] dangers of tobacco use and urged to quit.?08/11/2024 ?Patient Lifestyle Goals?Patient wants to quit ?Treatment Goals?Set a quit date, Cut down by 1 cigarette a week ?Barriers?Stress, Social smoker ?Self-Management Plan?Make a plan to cut down number of cigarettes over time and set a date to work towards quitting * Follow Up:?3 Months (Reason: OV) * Images: * Sign off status: Completed true * Provider:?Wilfrid Lin MD Date:?11/2024 Generated for Carol hurst/Yaa/Thomasitting on:?09/03/2024 11:32 AM EST History and Physical Notes * HPI (History of Present Illness) Category Sub-Category Detail Notes COVID-19 Screening Questions Have you had any new onset fever, chills, cough, congestion, sore throat, shortness of breath, muscle aches?: No Examination Category Sub-Category Detail Notes General Examination GENERAL APPEARANCE: pleasant , well nourished, well developed, in no acute distress, calm and relaxed, overweight, elderly man HEAD: atraumatic, normocep halic EYES: eomi, [...]
== END ==
LOC: HO.CARD 10:18
PROVIDERS: PCP Internal Medicine Medical Oncology; Visit Provider Internal Medicine Medical Oncology
DX: I49.1 Atrial premature depolarization (principal); E78.2 Mixed hyperlipidemia
CPT/HCPCS: 93242

== ENCOUNTER → 2024-09-03 10:21 | Outpatient (BNV) | payer MEDICARE, SELFPAY | PROVIDERS: PCP Internal Medicine Medical Oncology; Visit Provider Internal Medicine | DX: I47.10 Supraventricular tachycardia, unspecified (principal) | CPT/HCPCS: 93244 ==

== ENCOUNTER 2024-09-08 10:53 | Outpatient (AMB) | payer MEDICARE, SELFPAY ==
[2024-09-08 10:57] VITALS: BP 110/64; PULSE 92; O2SAT 98; BMI 26.1
--- NOTE | 2024-09-08 10:57 | MHC.OFFVIS ---
Vital Signs 09/08/24 10:57 Height 5 ft 8 in Weight 171 lb 15.369 oz BMI 26.1 BP 110/64 Blood Pressure Location Rt brachial Position Sitting Pulse 92 Pulse Source Pulse Oximeter Pulse Oximetry (%) 98 Oxygen Delivery Method Room Air Intake Visit Reasons: HEP C Intake Note: NEW PATIENT for initial evaluation / consultation - Hep C. Test results as of 08/04/24. Prior hx of colo/egd? 2004 w/ Dr. Kirkpatrick Chief Complaint; No GI concerns at this time. Pt is slightly confused as to the reason for this visit. PCP did not inform him of any reason for this visit to his knowledge. 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 Patient will need to repeat his colorectal screening in 5 years. Discussed with tension about the importance of his blood relatives to have early colorectal screening. Status post colonoscopy Colonoscopy results discussed with patient. Tubular adenoma and moderate sigmoid diverticulosis found. Patient will need repeat colonoscopy in 5 years. Patient denies any ill effects from the prep, anesthesia or procedure itself. Patient denies any GI concerning symptoms. He can be seen on as-needed basis until his colonoscopy, sooner if patient have any symptoms of melena, fee a, unintentional weight loss or ribbon like stools. Diverticulosis Flatter it sigmoid diverticulosis. Discussed with patient increasing fiber in her diet. Patient can also take armp-[id number] supplements. Patient reports that he is eating any vegetables. I will see him on as needed basis. Patient is agreeable to this plan and verbalizes understanding of instructions. He was given the opportunity to ask questions all questions answered. UPPER ENDOSCOPY WITH DR. KIRKPATRICK 05/10/2022 FINDINGS: Esophagus: The esophagus showed an irregular EG junction. This was biopsied. There was no mass lesion. Stomach: The stomach showed gastritis with patchy erythema scattered throughout the body. Antral biopsies were obtained to evaluate for H pylori. Duodenum: The bulb and second portion were normal. Random biopsies were obtained from the second portion to evaluate for malabsorption. IMPRESSION: Gastritis. RECOMMENDATION: Follow up the biopsy results. PATHOLOGY RESULTS Diagnosis A. Duodenum, biopsy: Duodenal mucosa with preserved villi and no specific change. B. Gastric antrum, biopsy: Gastric antral mucosa with reactive changes and focal minimal chronic inactive inflammation; negative for H pylori, intestinal metaplasia and dysplasia. C. Esophagogastric junction, biopsy: Squamous mucosa with hyperplasia and rare intraepithelial eosinophils (up to 2 per high-power field) and columnar mucosa with mild chronic active inflammation consistent with reflux; negative for intestinal metaplasia and dysplasia TODAY'S VISIT Patient is here today for consultation. Patient was sent by his PCP for evaluation of his hepatitis C. Patient reports to me that he was diagnosed with hepatitis over 20 years ago. Patient was seen by me in the past, never mentioned this to us before. Patient reports that he never was treated for this. Liver enzymes checked July and normal. Positive hepatitis C antibody. Viral load not checked. Patient denies any abdominal pain or discomfort. Denies any GI concerning symptoms. Patient reports to be feeling fairly well. 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 ? [facility] Medical History (Updated 09/08/24 @ 11:45 by Diana Simmons, [facility]-) Hepatitis C Diverticulosis Tubular adenoma Nicotine dependence, cigarettes, uncomplicated CVA (cerebral vascular accident) Primary osteoarthritis of left knee Hepatitis A Erectile dysfunction Bursitis of left shoulder Hyperplastic colon polyp Surgical History S/P angioplasty with stent (09/06/20) History of left-sided carotid endarterectomy History of aortic aneurysm repair Left knee injury Status post total shoulder arthroplasty H/O left inguinal hernia repair Hx of rotator cuff surgery Encounter for full mouth dental rehabilitation Hx of colonoscopy H/O right inguinal hernia repair Family History Father No problems noted. Mother Cancer Arthritis Brother No problems noted. Brother No problems noted. Brother No problems noted. Brother No problems noted. Brother No problems noted. Brother Pancreatic cancer Sister No problems noted. Sister No problems noted. Sister No problems noted. Sister Pancreatic cancer, Onset Age: 69 Sister FH: ovarian cancer Sister Breast cancer Son No problems noted. Son No problems noted. 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 Review of Systems Const Denies weight gain and Denies weight loss ENT Reports no additional complaints, Denies dysphagia and Denies odynophagia Card Reports no additional complaints Resp Reports no additional complaints GI Denies abdominal pain, Denies belching, Denies melena, Denies bloating, Denies change in bowel habits, Denies dysphagia, Denies excessive flatus, Denies dyspepsia, Denies heartburn, Denies diarrhea, Denies loose stools, Denies nausea, Denies odynophagia and Denies vomiting Reports no additional complaints Musc Reports no additional complaints Neuro Reports no additional complaints Psych Reports no additional complaints Endo Reports no additional complaints Physical Exam Vital Signs: Last Vital Signs Pulse 92 09/08/24 10:57 BP 110/64 09/08/24 10:57 Pulse Ox 98 09/08/24 10:57 Oxygen Delivery Method Room Air 09/08/24 10:57 BMI result Body Mass Index 26.1 Const General: healthy appearing, no acute distress and well developed Nutritional Appearance: well nourished Orientation/consciousness: patient oriented x3 Resp Effort & Inspection: normal respiratory effort, able to speak in complete sentences, no tracheal deviation and symmetric chest movement Auscultation: clear to auscultation bilaterally Cardio Rate: regular rate GI Inspection: Yes normal to inspection and No distended Palpation (GI): Soft to palpation, not firm, nontender and No hepatosplenomegaly present Auscultation: normal bowel sounds General: Yes no CVA tenderness Back/Spine/Pelvis Back: no CVA tenderness Skin General skin exam: elasticity normal, turgor normal and dry skin Neuro General: patient oriented x3 Psych Appearance: grossly normal Mental Status: mental status grossly normal Assessment & Plan Assessment & Plan (1) Hepatitis C: Code(s): B19.20 - Unspecified viral hepatitis C without hepatic coma Category: Medical Qualifiers: Hepatic coma status: without hepatic coma Viral hepatitis chronicity: unspecified Qualified Code(s): B19.20 - Unspecified viral hepatitis C without hepatic coma Plan Will check viral load, check hepatitis a IgG, will order abdominal ultrasound. Patient denies any abdominal pain or discomfort. To his knowledge he does not believe that he was treated in the past. Patient was confused to why was he here today. Patient will follow-up in our office in 5 weeks, sooner on as needed basis. Patient is agreeable to this plan and verbalizes understanding of instructions. He was given the opportunity to ask questions and all questions answered. Thank you for allowing me to participate in his care Orders: Orders Hepatitis A IgG 09/08/24 B18.2 - Chronic viral hepatitis C US abdomen complete 09/08/24 B19.20 - Unspecified viral hepatitis C without hepatic coma Coding Level of Care Code Est Pt Level 4 (59390) Complex EM visit Add On G2211 Diagnoses Hepatitis C virus infection without hepatic coma, unspecified chronicity B19.20 Hepatic coma status: without hepatic coma Viral hepatitis chronicity: unspecified Time Spent (min) 40 Comment 25 minutes spent with patient and additional 15 minutes spent reviewing his records
--- OUTSIDE RECORDS SUMMARY | 2024-09-08 13:13 | XMS_ITS ---
Author Organization Wilfrid Lin III, MD Address [address] [place] [address] Care Team Providers Care Machine Setter Automatic Name Role Phone Wilfrid Lin Primary Care Provider [phone] Allergies Allergen (clinical drug ingredient) Drug/Non Drug [...] 01/24/2023 Active Hydrocortisone 1 % 1 application Upper Leather Sorter ally Twice a day 01/24/2023 Active Varenicline Tartrate 1 MG as directed Or ally Twice a day 01/24/2023 Active Mupirocin 2 % 1 application [place]ather Sorter ally Twice a day 06/20/2023 Active Social [...] Problem Status W/U Status Risk Notes Problem [id number] Premature atrial contractions (I49.1) Active confirmed 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 He will limit his coffee [...] day 01/24/2023 Hydrocortisone 1 % 1 application Upper Leather Sorter ally Twice a day 01/24/2023 Varenicline Tartrate 1 MG as directed Or ally Twice a day 01/24/2023 Mupirocin 2 % 1 application Upper Leather Sorter ally Twice a day 06/20/2023 Pending Test Test Name Order Date ECG 12 lead EKG 08/17/2024 ECG 7 day holter monitor 08/17/2024 Next Appt Details Follow Up: after Holter vinod rodriguez, Reason: ov review EKG and Holter monitor done at Provider Name:Wilfrid Lin, 11/08/2024 04:00:00 PM, [address] [place] [address] [address], [place], [id number], Provider Name:Wilfrid Lin, 04/15/2025 03:45:00 PM, [address] [place] [address] [address], [place], [address], Progress Notes * Mat OSPINA SrDOB: (79 yo M)Acc No.[id number]:08/17/2024 Patient:?Mat OSPINA Sr Provider:?Wilfrid Lin MD :1945???Age:79 Y???Sex:Male Lloyd e:08/17/2024 [address] [id number] Subjective: * Chief Complaints: * ???Irregular heartbeatEmphys emaHearing lossOverweightDepressionArthritis left knee * HPI: ???COVID-19 Screening:? He comes to the office today is a same day visit because of an irregular heartbeat.? 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 He was not granted as the [...] was arranged.? I communicated with the physician clinical medical assistant who did the encounter at the [...] dental extractions repair left inguinal hernia 2013colonoscopy, [facility], [place], Dr. Kirkpatrick, 2 hyperplastic polyps 06/2005Right inguinal herniorrhaphy 07/2019left carotid endarterectomy 12/2019Colonoscopy, [facility], [place], Dr. Weems, 2 sigmoid tubular adenomatous 2Repair [...] Tobacco Non-User?Ex-cigarette smoker ???He was born in [place]. 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 His of many years 6 years ago of lung cancer. He has 2 sons, Tao Rivero, who lives in [place]. He has 4 grandchildren and 3 great-grandchildren. [...] Lin MD Date:?08/07 Generated for Carol hurst/Yaa/eTransmitting on:?09/08/2024 01:12 PM EST History and Physical Notes * HPI [...]
--- OUTSIDE RECORDS SUMMARY | 2024-09-08 13:13 | XMS_ITS ---
Author Organization Wilfrid Lin III, MD Address [address] [place] [address] Care Team Providers Care Vending Service Technician Name Role Phone Wilfrid Lin Primary Care Provider REASON FOR VISIT Needs call back from Social History Sex Assigned At : Social History Observation Description Sex Assigned At Male Encounters Encounter Location Date Provider Diagnosis Wilfrid Lin III, MD [address] [place] [address] [place] [address] 08/18/2024 Wilfrid Lin Plan Of Treatment Next Appt Details Provider Name:Wilfrid Lin, 11/08/2024 04:00:00 PM, [address] [place] [address] [place], [id number], Provider Name:Wilfrid Lin, 04/15/2025 03:45:00 PM, [address] [place] [address] [place], [address], Progress Notes * Mat OSPINA SrDOB: (79 yo M)Acc No.[id number]:08/18/2024 Patient:?Mat OSPINA Sr :1945???Age:79 Y???Sex:Male Address:[address] [place], [address] * true * Date:? Generated for Printi ng/Faxing/eTransmitting on:?09/08/2024 01:12 PM EST
== END 2024-09-08 11:51 | disposition home or self-care (01) ==
PROVIDERS: PCP Internal Medicine Medical Oncology; Visit Provider Nurse Practitioner Family
DX: B19.20 Unspecified viral hepatitis C without hepatic coma (principal)
CPT/HCPCS: 99214; G2211

== ENCOUNTER 2024-09-08 10:53 | Outpatient (REF) | payer MEDICARE, SELFPAY ==
[2024-09-08 13:11] LABS: Hepatitis A Antibody IgG REACTIVE (Nonreactive); ~Hepatitis A Antibody IgG 3.86 S/CO (0.00-0.99)
--- OUTSIDE RECORDS SUMMARY | 2024-09-08 14:11 | XMS_ITS | Patient Health Record ---
Author Organization Wilfrid Lin III, MD Address [address] [place] [address] Care Team Providers Care Mender [employer] Name Role Phone Wilfrid Lin Primary Care [...] 0.2 - 1.3 BLD ++ Negative - PROFILE, FASTING (COMPREHENS SERAFIN METABOLIC) Reviewed date:09/03/2024 10:40:27 AM Interpretation: Performing Lab: Notes/Report: Complete Blood Count Auto Di ff Reviewed date:01/05/2024 03:26:21 PM Interpretation: Performing Lab:[facility], [address] [place] [phone] Notes/Report: White Blood Count 7.3 4.8-10.8 X10*3/uL Red Blood Count 5.06 4.60-5.80 X10*6/uL Hemoglobin 15.0 14.0-18.0 g/dl Hematocrit 43.8 42.0-52.0 % Mean Corpuscular Volume 86.6 80.0-98.0 fL Mean Corpuscular Hemoglobin 29.6 27.0-33.0 pg Mean Corpuscular HGB Conc 34.2 31.0-36.0 g/dl Red Cell Distribution Width 13.0 11.0-16.0 % Platelet Count 290 160-400 X10*3/uL Mean Platelet Volume 9.6 9.4-12.4 fL Neutrophils Percent Auto 54.2 45-73 % Imm Gran Pct Auto 0.4 0.0-0.4 % Lymphocytes Percent Auto 31.4 20-40 % Monocytes Percent Auto 9.9 2-11 % Eosinophils Percent Auto 3.4 0-4 % Basophils Percent Auto 0.7 0-2 % NRBC Pct Auto 0.0 0.0-0.2 /100WBC Neutrophils Absolute Auto 4.0 2.0-8.3 x10*3/uL Imm Gran Abs Auto 0.03 0.00-0.03 X10*3/uL Lymphocytes Absolute Auto 2.3 1.2-4.9 X10*3/uL Monocytes Absolute Auto 0.7 0.1-1.2 X10*3/uL Eosinophils Absolute Auto 0.3 0.0-0.4 X10*3/uL Basophils Absolute Auto 0.1 0.0-0.2 X10*3/uL NRBC Abs Auto 0.000 0.0-0.012 X10*3/uL Comprehensive [place]. Panel Fa st Reviewed date:01/05/2024 03:26:21 PM Interpretation: Performing Lab:[facility], [address] [place] [phone] Notes/Report: Sodium 144 135-145 mmol/L Potassium 4.0 3.3-5.1 mmol/L Chloride 109 96-108 mmol/L Carbon Dioxide 28 22-29 mmol/L Anion Gap 11 12-20 Blood Urea Nitrogen 15 9-16 mg/dL Creatinine 1.10 0.5-1.4 mg/dL Estimated Glomerular Filt Rate > 60 NOTE: For -Bangladeshi individuals, multiply the result by 1.210. Chronic Kidney Disease: Estimated GFR < 60 mL/min/1.73m2 Severe Kidney Disease: Estimated GFR < 15 mL/min/1.73m2 Glucose Fasting 102 60-99 mg/dL A fasting glucose from 100-125 mg/dl is considered impaired (pre-diabetes). Calcium 9.1 8.4-10.2 mg/dL Bilirubin Total 0.4 0.0-1.0 mg/dL Aspartate Amino Transferase 17 5-37 U/L Alanine Aminotransferase 18 0-40 U/L Total Protein 6.5 6.5-8.0 g/dL Albumin Level 3.9 3.5-5.0 g/dL Alkaline Phosphatase 86 39-117 U/L Lipid Panel Reviewed date:01/05/2024 03:26:21 PM Interpretation: Performing Lab:[facility], [address] [place] [phone] Notes/Report: Triglycerides 146 <150 mg/dL Desirable Triglyceride: less than 150 mg/dL Borderline High Triglyceride 150-199 mg/dL High Triglyceride: 200-499 mg/dL Very High Triglyceride: greater than or equal to 5OO mg/dL Cholesterol 161 <200 mg/dL Desirable Cholesterol: less than 200 mg/dL Borderline High Cholesterol: 200-239 mg/dL High Cholesterol: greater than 239 mg/dL LDL Cholesterol Calculated 95 <100 mg/dL Desirable LDL: less than 100 mg/dL Near Optimal/Above Optimal LDL: 110-129 mg/dL Borderline High LDL: 130-159 mg/dL High LDL: 160-189 mg/dL Very High LDL: greater than or equal to 190 mg/dL HDL Cholesterol 37 >40 mg/dL Desirable HDL: greater than 40 mg/dL Note: This HDL assay may give artificially low results in patients with liver disease. Creatinine GFR POC Reviewed date:03/31/2024 06:40:34 AM Interpretation: Performing Lab:[facility], [address] [place] [phone] Notes/Report: [id number] 0.76 >60 1520 HO.HAIRICKTA Creatinine POC 0.8 0.5-1.4 mg/dL GFR POC > 60 Chronic Kidney Disease: Estimated GFR < 60 mL/min/1.73m2 Severe Kidney Disease: Estimated GFR < 15 mL/min/1.73m2 CT angio abdomen pelvis Reviewed date:04/13/2024 03:44:43 PM Interpretation: Performing Lab: Notes/Report: [address] [place] [address] CT Scan Report Signed Patient: Mat Ospina MR#: [id number] : 1945 Acct:[id number] Age/Sex: 79 / M ADM Date: 03/25/24 Loc: HO.CT Attending Dr: Jonathan Schroeder MD Ordering Physician: Jonathan Schroeder MD Date of Service: 03/25/24 Procedure(s): CT angio abdomen pelvis Accession Number(s): [id number] cc: Wilfrid Lin MD; Jonathan Schroeder MD STUDY PERFORMED: CTA ABDOMEN AND PELVIS WITHOUT AND WITH CONTRAST HISTORY: Abdominal aortic aneurysm DESCRIPTION: Routine abdomen and pelvis CTA protocol with contrast was performed. 80 mL of Omnipaque 350 was administered. 3D POSTPROCESSING: Multiple 3-D angiographic images were processed from the initial data set by the microbiology technologist at the modality workstation under concurrent physician supervision. DOSE LOWERING TECHNIQUES: This CT examination was performed using dose optimization techniques as appropriate, variously including the following: - Automated exposure control - Adjustment of mA and/or kV according to patient size (this includes techniques or standardized protocols for targeted exams where dose is matched to indication/reason for exam; i.e. extremities or head) - Use of iterative reconstruction technique DLP: 369 mGycm. COMPARISON: CTA from 03/20/2023 FINDINGS: VASCULAR: ABDOMINAL AORTA: Fusiform infrarenal abdominal aortic aneurysm extending into the right common iliac artery is again seen. The patient is status post abdominal aortic into bilateral common iliac artery stent graft in stable position. Stent graft is patent. Infrarenal aorta measures 4.4 x 4.1 cm, previously measuring 4.5 x 4.0 cm. No evidence of endoleak on arterial phase imaging. 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 The stent graft limb is patent with moderate amount of mural thrombus within the graft. There is embolization of the proximal right internal iliac artery. The right external iliac artery is normal in caliber and patent. LEFT LOWER EXTREMITY: Left common iliac artery stent graft limb is patent. The external iliac and internal iliac artery are normal in caliber and patent. CELIOMESENTERIC ARTERIES: Patent. RENAL ARTERIES: Patent. NONVASCULAR: Lung Bases: Centrilobular and paraseptal emphysema. Liver, Gallbladder and Biliary Tree: The liver is normal in size, shape, and attenuation. No focal hepatic lesion or biliary ductal dilatation is present. The gallbladder is unremarkable with no evidence of radiopaque gallstones, gallbladder wall thickening, or obvious pericholecystic inflammatory changes. Pancreas: Unremarkable. Spleen: Unremarkable. Adrenal Glands: Unremarkable. Kidneys and Ureters: The kidneys are normal in size, shape, and attenuation. No hydronephrosis, hydroureter, or calculi seen. No perinephric stranding. Stable bilateral renal cysts Bladder: Unremarkable. Gastrointestinal Tract: The small bowel are unremarkable. The appendix is unremarkable. Diverticula seen within the sigmoid colon without evidence of acute diverticulitis Abdominal Wall: No significant hernia is appreciated. Lymph Nodes: Normal. Pelvic Viscera: Unremarkable. Osseous Structures: Unremarkable. CT/CT angio abdomen pelvis IMPRESSION: 1. Stable appearance of the abdominal aortic aneurysm status post aortobiiliac stent graft. Stent graft is patent. No evidence of endoleak. 2. 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 Electronically signed by: William Mack MD 04/02/2024 01:56 PM EDT Dictated By: William Mack MD Signed By: <Electronically signed by William Mack MD in [place]> 04/02/24 1356 DD/ 1522 TD/TT: 03/25/24 1540 Switchboard Operator: [place] [id number] CT Scan Report Signed Patient: Mat Ospina MR#: [id number] : 1945 Acct:[id number] Age/Sex: 79 / M ADM Date: 03/25/24 Loc: HO.CT Attending Dr: Jonathan Schroeder MD Ordering Physician: Jonathan Schroeder MD Date of Service: 03/25/24 Procedure(s): CT ang io abdomen pelvis Accession Number(s): [id number] cc: Wilfrid Lin MD; Jonathan Schroeder MD STUDY PERFORMED: CTA ABDOMEN AND PELV IS WITHOUT AND WITH CONTRAST HISTORY: Abdominal aortic aneurysm DESCRIPTION: Routine abdomen and pelvis CTA protocol with contrast was performed. 80 mL of Omnipaque 350 was administered. 3D POSTPROCESSING: Multiple 3-D angiographic images were processed from the initial data set by the microbiology technologist at the modality workstation under concurrent physician supervision. DOSE LOWERING TECHNIQUES: This CT examination was performed using dose optimization techniq ues as appropriate, variously including the following: - Automated exposure control - Adjustment of mA and/or kV according to patient size (this includes techniques or standardized protocols for targeted exams where dose is matched to indication/reason for exam; i.e. extremities or head) - Use of iterative reconstruction technique DLP: 369 mGycm. COMPARISON: CTA from 03/20/2023 FINDINGS: VASCULAR: ABDOMINAL AORTA: Fusiform infrarenal abdominal aortic aneurysm extending into the r ight common iliac artery is again seen. The patient is status post abdom inal aortic into bilateral common iliac artery stent graft in stabl e position. Stent graft is patent. Infrarenal aorta measures 4.4 x 4.1 c m, previously measuring 4.5 x 4.0 cm. No evidence of endoleak on arter ial phase imaging. 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 The stent graft limb is patent with moderate amount of m ural thrombus within the graft. There is embolization of the proximal right internal iliac artery. The right external iliac arter y is normal in caliber and patent. LEFT LOWER EXTREMITY : Left common iliac artery stent graft limb is patent. The external iliac and internal iliac artery are normal in caliber and patent. CELIOMESENTERIC ARTERIES: Patent. RENAL ARTERIES: Patent. NONVASCULAR: Lung Bases: Centrilobular and paraseptal emphysema. Liver, Gallbladder a nd Biliary Tree: The liver is normal in size, shape, and attenuati on. No focal hepatic lesion or biliary ductal dilatation is presen t. The gallbladder is unremarkable with no evidence of radiopaque gallstones, gallbladder wall thickening, or obvious pericholecystic inflammatory changes. Pancreas: Unremarkable. Spleen: Unremarkable. Adrenal Glands: Unremarkable. Kidneys and Ureters: The kidneys are normal in size, shape, and attenuation. No hydronephrosis, hydroureter, or calculi seen. No perinephric strandin g. Stable bilateral renal cysts Bladder: Unremarkable. Gastrointestinal Tra ct: The small bowel are unremarkable. The appendix is unremarkable. Diverticula seen within the sigmoid colon without evidence of acute diverticulitis Abdominal Wall: No significant hernia is appreciated. Lymph Nodes: Normal. Pelvic Viscera: Unremarkable. Osseous Structures: Unremarkable. C T/CT angio abdomen pelvis IMPRESSION: 1. Stable appearance of the abdominal aortic aneurysm status post aortobiiliac stent graft. Stent graft is patent. No evidence of endoleak. 2. 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 Electronically jak d by: William Mack MD 04/02/2024 01:56 PM EDT Dictated By: William Mack MD Signed By: <Electronically signed by William Mack MD in [place]> 04/02/24 1356 DD/ 1522 TD/TT: 03/25/24 1540 Switchboard Operator: Complete Blood Count Auto Allie ff Reviewed date:04/13/2024 03:44:43 PM Interpretation: Performing Lab:[facility], [address] [place] [phone] Notes/Report: White Blood Count 9.7 4.8-10.8 X10*3/uL Red Blood Count 5.39 4.60-5.80 X10*6/uL Hemoglobin 16.1 14.0-18.0 g/dl Hematocrit 47.7 42.0-52.0 % Mean Corpuscular Volume 88.5 80.0-98.0 fL Mean Corpuscular Hemoglobin 29.9 27.0-33.0 pg Mean Corpuscular HGB Conc 33.8 31.0-36.0 g/dl Red Cell Distribution Width 12.8 11.0-16.0 % Platelet Count 294 160-400 X10*3/uL Mean Platelet Volume 9.7 9.4-12.4 fL Neutrophils Percent Auto 59.5 45-73 % Imm Gran Pct Auto 0.3 0.0-0.4 % Lymphocytes Percent Auto 22.2 20-40 % Monocytes Percent Auto 6.9 2-11 % Eosinophils Percent Auto 10.6 0-4 % Basophils Percent Auto 0.5 0-2 % NRBC Pct Auto 0.0 0.0-0.2 /100WBC Neutrophils Absolute Auto 5.8 2.0-8.3 x10*3/uL Imm Gran Abs Auto 0.03 0.00-0.03 X10*3/uL Lymphocytes Absolute Auto 2.1 1.2-4.9 X10*3/uL Monocytes Absolute Auto 0.7 0.1-1.2 X10*3/uL Eosinophils Absolute Auto 1.0 0.0-0.4 X10*3/uL Basophils Absolute Auto 0.1 0.0-0.2 X10*3/uL NRBC Abs Auto 0.000 0.0-0.012 X10*3/uL Comprehensive [place]. Panel Fa st Reviewed date:04/13/2024 03:44:43 PM Interpretation: Performing Lab:[facility], [address] [place] [phone] Notes/Report: Sodium 140 135-145 mmol/L Potassium 4.2 3.3-5.1 mmol/L Chloride 108 96-108 mmol/L Carbon Dioxide 25 22-29 mmol/L Anion Gap 11 12-20 Blood Urea Nitrogen 14 9-16 mg/dL Creatinine 0.86 0.5-1.4 mg/dL Estimated Glomerular Filt Rate > 60 NOTE: For -Bangladeshi individuals, multiply the result by 1.210. Chronic Kidney Disease: Estimated GFR < 60 mL/min/1.73m2 Severe Kidney Disease: Estimated GFR < 15 mL/min/1.73m2 Glucose Fasting 108 60-99 mg/dL A fasting glucose from 100-125 mg/dl is considered impaired (pre-diabetes). Calcium 9.4 8.4-10.2 mg/dL Bilirubin Total 0.5 0.0-1.0 mg/dL Aspartate Amino Transferase 17 5-37 U/L Alanine Aminotransferase 16 0-40 U/L Total Protein 6.8 6.5-8.0 g/dL Albumin Level 4.1 3.5-5.0 g/dL Alkaline Phosphatase 78 39-117 U/L Lipid Panel Reviewed date:04/13/2024 03:44:43 PM Interpretation: Performing Lab:[facility], [address] [place] [phone] Notes/Report: Triglycerides 122 <150 mg/dL Desirable Triglyceride: less than 150 mg/dL Borderline High Triglyceride 150-199 mg/dL High Triglyceride: 200-499 mg/dL Very High Triglyceride: greater than or equal to 5OO mg/dL Cholesterol 183 <200 mg/dL Desirable Cholesterol: less than 200 mg/dL Borderline High Cholesterol: 200-239 mg/dL High Cholesterol: greater than 239 mg/dL LDL Cholesterol Calculated 116 <100 mg/dL Desirable LDL: less than 100 mg/dL Near Optimal/Above Optimal LDL: 110-129 mg/dL Borderline High LDL: 130-159 mg/dL High LDL: 160-189 mg/dL Very High LDL: greater than or equal to 190 mg/dL HDL Cholesterol 43 >40 mg/dL Desirable HDL: greater than 40 mg/dL Note: This HDL assay may give artificially low results in patients with liver disease. US arterial duplex BI w/ VIJAY Reviewed date:04/13/2024 03:44:43 PM Interpretation: Performing Lab: Notes/Report: [address] [address] Ultrasound Report Signed Patient: Mat Ospina MR#: [id number] : 1945 Acct:[id number] Age/Sex: 79 / M ADM Date: 04/08/24 Loc: .US Attending Dr: Jonathan Schroeder MD Ordering Physician: Jonathan Schroeder MD Date of Service: 04/08/24 Procedure(s): US arterial duplex BI w/ VIJAY Accession Number(s): [id number] cc: Wilfrid Lin MD; Jonathan Schroeder MD EXAMINATION: NONINVASIVE ASSESSMENT OF THE ARTERIES OF BOTH LOWER EXTREMITIES INCLUDING BILATERAL LOWER EXTREMITY DUPLEX. CLINICAL INFORMATION: Peripheral vascular disease COMPARISON: Arterial exam on 02/26/2023 TECHNIQUE: duplex Doppler techniques with wave form analysis and measurement of velocities in the common femoral, profunda femoral, superficial femoral, popliteal, tibial and peroneal arteries. The study was performed only at rest. FINDINGS: RIGHT LEG Common femoral artery: 102 cm/s, Multiphasic Profunda femoris artery: 71 cm/s, Multiphasic Superficial femoral artery (proximal): 90 cm/s, Multiphasic Superficial femoral artery (mid): 93 cm/s, Multiphasic Superficial femoral artery (distal): 134 cm/s, Multiphasic Proximal Popliteal artery: 71 cm/s, Multiphasic Mid posterior tibial artery: 25 cm/s, Multiphasic Peroneal artery: 46cm/s, multiphasic LEFT LEG: Common femoral artery: 143 cm/s, Multiphasic Profunda femoris artery: 114 cm/s, Multiphasic Superficial femoral artery (proximal): 87 cm/s, Multiphasic- stent Superficial femoral artery (mid): 66 cm/s, Multiphasic- stent Superficial femoral artery (distal): 107 cm/s, Multiphasic- stent Proximal Popliteal artery: 80 cm/s, Multiphasic Mid posterior tibial artery: 27 cm/s, monophasic Peroneal artery: 61 cm/s, monophasic US/US arterial duplex BI w/ VIJAY IMPRESSION: 1. Patent left superficial femoral artery stent. 2. Monophasic waveforms in the left posterior tibial and peroneal arteries. 3. No hemodynamically significant stenosis in the right lower extremity. Electronically signed by: Ingrid Guevara MD 04/11/2024 11:15 AM EDT RP Dictated By: Ingrid Guevara MD Signed By: <Electronically signed by Ingrid Guevara MD in [place]> 04/11/24 1115 DD/ 1524 TD/TT: 04/08/24 1612 Switchboard Operator: [place] [id number] Ultrasound Report Signed Patient: Mat Ospina MR#: [id number] : 1945 Acct:[id number] Age/Sex: 79 / M ADM Date: 04/08/24 Loc: . Attending Dr: Jonathan Schroeder MD Ordering Physician: Jonathan Schroeder MD Date of Service: 04/08/24 Procedure(s): US arterial duplex BI w/ VIJAY Accession Number(s): [id number] cc: Wilfrid Lin MD; Jonathan Schroeder MD EXAMINATION: NONINVASIVE ASSESSME NT OF THE ARTERIES OF BOTH LOWER EXTREMITIES INCLUDING BILATERAL LOWER EXTREMITY DUPLEX. CLINICAL INFORMATION: Peripheral vascular disease COMPARISON: Arterial exam on 02/26/2023 TECHNIQUE: duplex Doppler techniques with wave form analysis and measurement of velocities in the co mmon femoral, profunda femoral, superficial femoral, popliteal, tibial and peroneal arteries. The study was performed only at rest. FINDINGS: RIGHT LEG Common femoral arter y: 102 cm/s, Multiphasic Profunda femoris art rhonda: 71 cm/s, Multiphasic Superficial femoral artery (proximal): 90 cm/s, Multiphasic Superficial femoral artery (mid): 93 cm/s, Multiphasic Superficial femoral artery (distal): 134 cm/s, Multiphasic Proximal Popliteal artery: 71 cm/s, Multiphasic Mid posterior tibial artery: 25 cm/s, Multiphasic Peroneal artery: 46c m/s, multiphasic LEFT LEG: Common femoral arter y: 143 cm/s, Multiphasic Profunda femoris art rhonda: 114 cm/s, Multiphasic Superficial femoral artery (proximal): 87 cm/s, Multiphasic- stent Superficial femoral artery (mid): 66 cm/s, Multiphasic- stent Superficial femoral artery (distal): 107 cm/s, Multiphasic- stent Proximal Popliteal artery: 80 cm/s, Multiphasic Mid posterior tibial artery: 27 cm/s, monophasic Peroneal artery: 61 cm/s, monophasic U S/US arterial duplex BI w/ VIJAY IMPRESSION: 1. Patent left superficial femoral artery stent. 2. Monophasic wavefo norman in the left posterior tibial and peroneal arteries. 3. No hemodynamicall y significant stenosis in the right lower extremity. Electronically jak d by: Ingrid Guevara MD 04/11/2024 11:15 AM EDT Dictated By: Ingrid Guevara MD Signed By: <Electronically signed by Ingrid Guevara MD in [place]> 04/11/24 1115 DD/ 1524 TD/TT: 04/08/24 1612 Switchboard Operator: MARY Complete Blood Count Auto Di ff Reviewed date:08/08/2024 08:52:43 AM Interpretation: Performing Lab:[facility], [address] [place] [phone] Notes/Report: White Blood Count 10.2 4.8-10.8 X10*3/uL Red Blood Count 5.38 4.60-5.80 X10*6/uL Hemoglobin 15.9 14.0-18.0 g/dl Hematocrit 47.1 42.0-52.0 % Mean Corpuscular Volume 87.5 80.0-98.0 fL Mean Corpuscular Hemoglobin 29.6 27.0-33.0 pg Mean Corpuscular HGB Conc 33.8 31.0-36.0 g/dl Red Cell Distribution Width 12.5 11.0-16.0 % Platelet Count 308 160-400 X10*3/uL Mean Platelet Volume 9.4 9.4-12.4 fL Neutrophils Percent Auto 60.4 45-73 % Imm Gran Pct Auto 0.3 0.0-0.4 % Lymphocytes Percent Auto 25.0 20-40 % Monocytes Percent Auto 7.2 2-11 % Eosinophils Percent Auto 6.7 0-4 % Basophils Percent Auto 0.4 0-2 % NRBC Pct Auto 0.0 0.0-0.2 /100WBC Neutrophils Absolute Auto 6.2 2.0-8.3 x10*3/uL Imm Gran Abs Auto 0.03 0.00-0.03 X10*3/uL Lymphocytes Absolute Auto 2.5 1.2-4.9 X10*3/uL Monocytes Absolute Auto 0.7 0.1-1.2 X10*3/uL Eosinophils Absolute Auto 0.7 0.0-0.4 X10*3/uL Basophils Absolute Auto 0.0 0.0-0.2 X10*3/uL NRBC Abs Auto 0.000 0.0-0.012 X10*3/uL Comprehensive [place]. Panel Fa st Reviewed date:08/08/2024 08:52:43 AM Interpretation: Performing Lab:[facility], [address] [place] [phone] Notes/Report: Sodium 138 135-145 mmol/L Potassium 4.1 3.3-5.1 mmol/L Chloride 109 96-108 mmol/L Carbon Dioxide 24 22-29 mmol/L Anion Gap 9 12-20 Blood Urea Nitrogen 17 9-16 mg/dL Creatinine 0.88 0.5-1.4 mg/dL Estimated Glomerular Filt Rate > 60 Chronic Kidney Disease: Estimated GFR < 60 mL/min/1.73m2 Severe Kidney Disease: Estimated GFR < 15 mL/min/1.73m2 Glucose Fasting 106 60-99 mg/dL A fasting glucose from 100-125 mg/dl is considered impaired (pre-diabetes). Calcium 8.6 8.4-10.2 mg/dL Bilirubin Total 0.4 0.0-1.0 mg/dL Aspartate Amino Transferase 24 5-37 U/L Alanine Aminotransferase 22 0-40 U/L Total Protein 6.8 6.5-8.0 g/dL Albumin Level 3.9 3.5-5.0 g/dL Alkaline Phosphatase 100 39-117 U/L Lipid Panel Reviewed date:08/08/2024 08:52:43 AM Interpretation: Performing Lab:[address] [phone] Notes/Report: Triglycerides 165 <150 mg/dL Desirable Triglyceride: less than 150 mg/dL Borderline High Triglyceride 150-199 mg/dL High Triglyceride: 200-499 mg/dL Very High Triglyceride: greater than or equal to 5OO mg/dL Cholesterol 167 <200 mg/dL Desirable Cholesterol: less than 200 mg/dL Borderline High Cholesterol: 200-239 mg/dL High Cholesterol: greater than 239 mg/dL LDL Cholesterol Calculated 95 <100 mg/dL Desirable LDL: less than 100 mg/dL Near Optimal/Above Optimal LDL: 110-129 mg/dL Borderline High LDL: 130-159 mg/dL High LDL: 160-189 mg/dL Very High LDL: greater than or equal to 190 mg/dL HDL Cholesterol 39 >40 mg/dL Desirable HDL: greater than 40 mg/dL Note: This HDL assay may give artificially low results in patients with liver disease. Free T4 (Free Thyroxine) Reviewed date:08/08/2024 08:52:43 AM Interpretation: Performing Lab:[address] [phone] Notes/Report: Free T4 (Free Thyroxine) 1.06 0.71-1.85 ng/dL Thyroid Stimulating Hormone Reviewed date:08/08/2024 08:52:43 AM Interpretation: Performing Lab:[address] [phone] Notes/Report: Thyroid Stimulating Hormone 0.61 0.32-4.0 uIU/mL TSH 3rd Generation ([facility]) Immunoglobulin E Reviewed date:08/08/2024 08:52:43 AM Interpretation: Performing Lab:[place] [id number], [place] [address] Notes/Report: Immunoglobulin E 587 <FV=077 kU/L THIS TEST WAS PERFORMED AT: [facility] [address] [phone] EDUARDO FLYNN MD Hepatitis B Surface Antibody Reviewed date:08/08/2024 08:52:43 AM Interpretation: Performing Lab:[facility], [address] [place] [phone] Notes/Report: Hepatitis B Surface Antibody NONREACTIVE Nonreactive Nonreactive: < 8.00 mIU/mL Hepatitis B Core Antibody Reviewed date:08/08/2024 08:52:43 AM Interpretation: Performing Lab:[facility], [address] [place] [phone] Notes/Report: Hepatitis B Core Antibody Nonreactive Nonreactive HIV Ab/Ag Reviewed date:08/08/2024 08:52:43 AM Interpretation: Performing Lab:[address] [phone] Notes/Report: HIV AB/AG Nonreactive Nonreactive HIV-1 p24 Ag and/or HIV-1/HIV-2 Ab not detected. A test result that is nonreactive does not exclude the possibility of exposure to or infection with HIV-1 and/or HIV-2. Nonreactive results in this assay for individuals with prior exposure to HIV-1 and/or HIV-2 may be due to antigen and antibody levels that are below the limit of detection of this assay. The [employer] HIV Ag/Ab Combo assay result and supplemental assay results should be interpreted in conjunction with the patient's clinical presentation, history and other laboratory results. If the results are inconsistent with clinical evidence, additional testing is suggested to confirm the result. Hepatitis C Antibody Reviewed date:08/08/2024 08:52:43 AM Interpretation: Performing Lab:[facility], [address] [place] [phone] Notes/Report: Hepatitis C Antibody Reactive Nonreactive Presump tive evidence of antibodies to HCV. Hepatitis B Surface Antigen Reviewed date:08/08/2024 08:52:43 AM Interpretation: Performing Lab:[address] [address] Notes/Report: Hepatitis B Surface Antigen Negative Negative XR chest 2V Reviewed date:08/08/2024 08:52:43 AM Interpretation: Performing Lab: Notes/Report: [address] [address] XRay Report Signed Patient: Mat Ospina MR#: [id number] : 1945 Acct:[id number] Age/Sex: 79 / M ADM Date: 08/04/24 Loc: [facility] Attending Dr: Sixto Galvez PA-C Ordering Physician: Sixto Galvez PA-C Date of Service: 08/04/24 Procedure(s): XR chest 2V Accession Number(s): [id number] cc: Wilfrid Lin MD; Sixto Galvez PA-C EXAMINATION: XR CHEST 2 VIEWS HISTORY: Z79.899 COMPARISON: Comparison is made with the prior examination dated 07/19/2022. FINDINGS: PA and lateral views of the chest are submitted. There is faint patchy opacity in the right middle lobe suggestive of early pneumonia. The left lung is clear. There is no pleural effusion, pneumothorax, or pulmonary vascular congestion. The heart is normal in size. There is degenerative disc disease of the spine. XR/XR chest 2V IMPRESSION: Faint patchy opacity in the right middle lobe suggestive of early pneumonia. Follow-up is recommended to document resolution. Electronically signed by: Wilfrid Yañez MD 08/05/2024 07:08 AM [facility] Dictated By: Wilfrid Yañez MD Signed By: <Electronically signed by Wilfrid Yañez MD in OV> 08/05/24 0708 DD/ 0838 TD/TT: 08/04/24 0845 Switchboard Operator: [address] [address] XRay Report Signed Patient: Mat Ospina MR#: [id number] : 1945 Acct:[id number] Age/Sex: 79 / M ADM Date: 08/04/24 Loc: [facility] Attending Dr: Sixto Galvez PA-C Ordering Physician: Sixto Galvez PA-C Date of Service: 08/04/24 Procedure(s): XR melyssa st 2V Accession Number(s): [id number] cc: Wilfrid Lin MD; Sixto Galvez PA-C EXAMINATION: XR CHES T 2 VIEWS HISTORY: Z79.899 COMPARISON: Comparis on is made with the prior examination dated 07/19/2022. FINDINGS: PA and lat eral views of the chest are submitted. There is faint patchy opacity in the right middle lobe suggestive of early pneumonia. The left lung is clear. There is no pleural effusion, pneumothorax, or pulmonary vascular congestion. The heart is normal in size. There is degenerative disc disease of the spine. X R/XR chest 2V IMPRESSION: Faint patchy opacity in the right middle lobe suggestive of early pneumonia. Follow-up is recommended to document resolution. Electronically jak d by: Wilfrid Yañez MD 08/05/2024 07:08 AM [facility] Dictated By: Wilfrid Yañez MD Signed By: <Electronically signed by Wilfrid Yañez MD in OV> 08/05/24 0708 DD/ 0838 TD/TT: 08/04/24 0845 Switchboard Operator: Reason For Referral Reason severe hearing loss Diagnosis 1 Bilateral hearing lo ss, unspecified hearing loss type (H91.93) Referral Organization Wilfrid Lin III, MD Referring Provider First Name Wilfrid Referring Provider Last Name Riley Referring Provider Speciality Internal M edicine Referred Provider YUDITH SORENSEN Referred Provider Specialty Otolaryngolo gy General Notes Carola Red CM 02/09/2024 01:04:26 PM EDT > ref/demo/progress note faxed to [facility] requesting an appt pt did not want to wait for them so was given Dr Sorensen contact info , Carola Red CMA 03/16/2024 10:29:31 AM EDT > Pt litigation legal secretary called Dr Sorensen office got patient appt for 04/12/2024 at 2:30pm Referral Priority Routine Referral Appointment Date 04/12/2024 Reason rash on scalp Diagnosis 1 Dermatitis (L30.9) Referral Organization Wilfrid Lin III, MD Referring Provider First Name Wilfrid Referring Provider Last Name Lin Referring Provider Speciality Internal M edicine Referred Provider LINNEA HOFFMAN Referred Provider Specialty Dermatology General Notes Carola Red CM A 03/16/2024 10:30:38 AM EDT > ref/demo faxed to Dr Hoffman office I called pt litigation legal secretary she will be calling tomorrow Dr Hoffman office to set up this appt for the patient , Carola Red CMA 03/17/2024 10:02:51 AM EDT > Spoke to Lindy at Dr Hoffman office she gave pt appt at [address] [place] [address] on September 30/2025 at 1:30pm information called to pt litigation legal secretary and info mailed to patient also Referral Priority Routine Referral Appointment Date 09/30/2024 Reason dermatitis of scalp Diagnosis 1 Dermatitis (L30.9) Referral Organization Wilfrid Lin III, MD Referring Provider First Name Wilfrid Referring Provider Last Name Lin Referring Provider Speciality Internal M edicine Referred Provider Marva Waters Referred Provider Specialty Dermatology General Notes Carola Red CM A 03/17/2024 10:29:44 AM EDT > called spoke to Jarod at [facility] they made pt appt for 04/21/2024 at 2:15pm information for this appt mailed and called to pt glenn Choi appt is on 04/21/2024 at 2:15pm [address] [phone] ask of office to mail to patient new pt info sheet to be filled out by litigation legal secretary they stated they would do this Referral Priority Routine Referral Appointment Date 04/21/2024 Medications Medication SIG (Take, Route, Frequency, Duration) Notes Start Date End Date Status APO-Varenicline 1 MG as directed Orally Once a day 08/01/2021 Active traZODone HCl 150 MG 1 tablet at bedtime Orally Once a day 06/28/2021 Active buPROPion HCl ER (Smoking Det) 150 MG 1 tablet in the morning Orally Once a day 06/14/2022 Active Hydrocortisone 1 % 1 application Production Mechanic ally Twice a day 01/24/2023 Active Varenicline Tartrate 1 MG as directed Or ally Twice a day 01/24/2023 Active Tamsulosin HCl 0.4 MG 1 capsule Orally O nce a day Active Clobetasol Propionate 0.05 % 1 applicati on Externally Twice a day 02/06/2024 Active Mupirocin 2 % 1 application Production Mechanic ally Twice a day 06/20/2023 Active Aspirin Low Dose 81 MG CHEW AND SWALLOW 1 TABLET BY MOUTH DAILY. Active Atorvastatin Calcium 80 MG TAKE 1 TABLET BY MOUTH EVERY NIGHT AT BEDTIME. Active Triamcinolone Acetonide 0.1 % 1 application Externally Twice a day 01/24/2023 Active Clopidogrel Bisulfate 75 MG TAKE 1 TABLE T BY MOUTH EVERY DAY Active Meclizine HCl 25 MG 1 tablet as needed Orally every 8 hrs 07/22/2022 Active Immunizations Vaccine Route Administration Date Status Comme nts Influenza no Preserv 3 and > Unknown 02/21/2020 Adminis tered Influenza, quad Unknown 05/06/2022 Administered COVID 19 Moderna Unknown 05/10/2021 Administered Influenza High Dose Quadrivalent Unknown 05/01/2022 Adm inistered COVID PFIZER Unknown 10/14/2020 Administered Influenza High Dose Quadrivalent Unknown 03/16/2021 Adm inistered COVID PFIZER Unknown 09/23/2020 Administered PCV13 Unknown 06/11/2018 Administered Influenza, quad Unknown 09/22/2019 Administered Influenza High Dose Quadrivalent Unknown 04/15/2023 Adm inistered RSV Adjuvant Unknown 01/06/2024 Administered SHINGRIX Unknown 01/06/2024 Administered Social History Tobacco Use: Social History Observation Description Date Details (start date - stop date) Former Smoker NA - NA Sex Assigned At : Social History Observation Description Sex Assigned At Male Tobacco Use/Smoking Question Answer Notes Patient is a former smoker How long has it been since you last smoked? < 1 month Additional Findings: Tobacco Non-User Ex-cigaret te smoker Alcohol Screen Question Answer Notes Did you have a drink containing alcohol in the p ast year? No Points 0 Interpretation Negative Problems Problem Type SNOMED Code ICD Code Onset Dates Problem Status W/U Status Risk Notes Problem 0917127 Former smoker (Z87.891) Active confirmed He recently stopped smoking and has a prescription for Chantix. Problem 356586681 Overweight (BMI 25.0-29.9) (E66.3) Active confirmed His body mass index is 27 and his weight is stable. We discussed his diet and nutrition today. I recommended weight loss at a rate of one half of a pound per week. Problem 071299914 Mixed hyperlipidemia (E78.2) Active confirmed The cholesterol values are currently stable. Current therapy was continued Problem 281065222 Dermatitis (L30.9) Active confirmed On his last visit the right lutheran was pruritic. He says it is now over the entire scalp. A dermatology referral was made. He was urged to continue the clobetasol twice a day. Problem Erectile dysfunction (disorder) (614315038) Erectile dysfunction, unspecified erectile dysfunction type (N52.9) Active confirmed This problem shanks s been treated with medications. Problem 323304539 Pulmonary nodule (R91.1) Active confirmed The 6.5 cm pulmonary nodule in right middle lobe is stable. Is being observed carefully. Problem 352104937 Thyroid nodule (E04.1) Active confirmed In 2001. A 2 cm thyroid nodule is seen extending into the mediastinum on the study done to evaluate the arteries. It is not palpable today and has not caused symptoms. It will be reimaged periodically. Problem 979946219 Tubular adenoma of colon (D12.6) Active confirmed He underwent a colonoscopy September 26, 2021. This was done at [facility] by Dr. Enamorado. 2 tubular adenomas were found. A repeat study was planned in 5 years. Problem Aortic aneurysm (57964546) Aortic aneurysm (I71.9) Active confirmed He is under the care of vascular surgery at [facility]. He is going to have an ultrasound of his carotid arteries. Abdomen and legs in the near future to follow his vascular disease. He has had no abdominal pain. Problem 291465581 Left inguinal hernia (K40.90) Active confirmed Bilateral herniorrhaphies have been done with no recurrence. He is free of any symptoms at this time. Problem 156319472 Microscopic hematuria (R31.29) Active confirmed He has had microscopic hematuria endeavor urinalysis since 2002 at [facility] database. Problem 66332797 Bilateral hearing loss, unspecified hearing loss type (H91.93) Active confirmed Problem 07582071 Reactive depression (F32.9) Active confirmed He was continue d on the Wellbutrin. His depression is mild. He is able to conduct all of the activities of daily life. He has no thoughts of self-harm. Problem 536085543 Chronic GERD (K21.9) Active confirmed He will continu e on omeprazole liquid antacid. 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 Examination of his ears showed no impaction of cerumen. Problem Left carotid artery stenosis (978793589915137 ) Left carotid artery stenosis (I65.22) Active confirmed He has an appointment for a bilateral carotid ultrasound with [facility] vascular in the near future. Problem 085621680354879 Primary osteoarthritis of left knee (M17.12) Active confirmed He has had arthroscopic surgery on his left knee which improved the function significantly. He still has mild pain. Problem 22261298 Hepatitis C virus infection without hepatic coma, unspecified chronicity (B19.20) Active confirmed Problem 61065477 Paraseptal emphysema (J43.8) Active confirmed He is no longer smoking. He is comfortable with mild activity. He does not require oxygen. 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 He will limit his coffee drinking to 3 cups daily. A follow-up visit was arranged. Blood work for thyroid function tests was ordered. Vital Signs Heart Rate 84 /min 08/17/2024 Temperature 97.2 degrees Fahrenheit 08/11/2024 Blood pressure diastolic 78 mm Hg 08/17/2024 Height 67 in 08/17/2024 Blood pressure systolic 136 mm Hg 08/17/2024 Weight 174 lbs 08/17/2024 BMI 27.25 kg/m2 08/17/2024 Encounters Encounter Location Date Provider Diagnosis Wilfrid Lin III, MD [address] [place] [address] [place] [address] 01/05/2024 Wilfrid Lin Mixed hyperlipidemia E78.2 ; Overweight (BMI 25.0-29.9) E66.3 ; Erectile dysfunction, unspecified erectile dysfunction type N52.9 ; Paraseptal emphysema J43.8 ; Sensorineural hearing loss (SNHL) of both ears H90.3 ; Left inguinal hernia K40.90 ; Primary osteoarthritis of left knee M17.12 and Reactive depression F32.9 Wilfrid Lin III, MD [address] [place] [address] [place] [address] 02/06/2024 Wilfrid Lin Mixed hyperlipidemia E78.2 ; Paraseptal emphysema J43.8 ; Overweight (BMI 25.0-29.9) E66.3 ; Sensorineural hearing loss (SNHL) of both ears H90.3 ; Reactive depression F32.9 ; Left inguinal hernia K40.90 ; Pruritic dermatitis L30.8 and Former smoker Z87.891 Wilfrid Lin III, MD [address] [place] [address] [place] [address] 03/11/2024 Wilfrid Lin Mixed hyperlipidemia E78.2 ; Paraseptal emphysema J43.8 ; Overweight (BMI 25.0-29.9) E66.3 ; Sensorineural hearing loss (SNHL) of both ears H90.3 and Dermatitis L30.9 Wilfrid Lin III, MD [address] [place] [address] [place] [address] 04/13/2024 Wilfrid Lin Mixed hyperlipidemia E78.2 ; [...] Thyroid mass E07.9 and Former smoker Z87.891 Wilfrid Lin III, MD [address] [place] [address] [place] [address] 07/15/2024 Wilfrid Lin Mixed hyperlipidemia E78.2 ; Acute adenitis L04.9 ; Paraseptal emphysema J43.8 ; Overweight (BMI 25.0-29.9) E66.3 ; Sensorineural hearing loss (SNHL) of both ears H90.3 ; Aortic aneurysm I71.9 and Left carotid artery stenosis I65.22 Wilfrid Lin III, MD [address] [place] [address] [place] [address] 08/11/2024 Wilfrid Lin Mixed hyperlipidemia E78.2 ; Acute adenitis L04.9 ; Overweight (BMI 25.0-29.9) E66.3 ; Hepatitis C antibody positive R76.8 ; Sensorineural hearing loss (SNHL) of both ears H90.3 ; Paraseptal emphysema J43.8 ; Tobacco dependence F17.200 ; Left carotid artery stenosis I65.22 and Primary osteoarthritis of left knee M17.12 Wilfrid Lin III, MD [address] [place] [address] [place] [address] 08/17/2024 Wilfrid Lin Premature atrial contractions I49.1 ; Mixed hyperlipidemia E78.2 ; Paraseptal emphysema J43.8 ; Overweight (BMI 25.0-29.9) E66.3 ; Sensorineural hearing loss (SNHL) of both ears H90.3 ; Reactive depression F32.9 ; Primary osteoarthritis of left knee M17.12 and Former smoker Z87.891 Wilfrid Lin III, MD [address] [place] [address] [place] [address] 02/09/2024 Wilfrid Lin III, MD [address] [place] [address] [place] [address] 02/09/2024 Wilfrid Lin III, MD [address] [place] [address] [place] [address] 03/15/2024 Wilfrid Lin III, MD [address] [place] [address] [place] [address] 04/30/2024 Wilfrid Lin III, MD [address] [place] [address] [place] [address] 08/18/2024 Wilfrid Lin III, MD [address] [place] [address] [place] [address] 09/06/2024 Wilfrid Lin Mixed hyperlipidemia E78.2 ; Overweight (BMI 25.0-29.9) E66.3 and Hepatitis C virus infection without hepatic coma, unspecified chronicity B19.20 Assessments Encounter Date Diagnosis (ICD Code) Assessment Notes Treat ment Notes Treatment Clinical Notes 01/05/2024 Overweight (BMI 25.0-29.9) (ICD-10 - E66.3) He has lost 6 pounds and the body mass index is 26. 01/05/2024 Mixed hyperlipidemia (ICD-10 - E78.2) The cholesterol values are currently stable. 02/06/2024 Mixed hyperlipidemia (ICD-10 - E78.2) The cholesterol values are currently stable. 02/06/2024 Paraseptal emphysema (ICD-10 - J43.8) I strongly encouraged him to stop smoking and I have reviewed with him his cardiovascular risk factors. 03/11/2024 Mixed hyperlipidemia (ICD-10 - E78.2) The cholesterol values are currently stable. 03/11/2024 Paraseptal emphysema (ICD-10 - J43.8) I strongly encouraged him to stop smoking and I have reviewed with him his cardiovascular risk factors. 04/13/2024 Mixed hyperlipidemia (ICD-10 - E78.2) The cholesterol values are currently stable. Current therapy was continued 04/13/2024 Paraseptal emphysema (ICD-10 - J43.8) He is no longer smoking. He is comfortable with mild activity. He does not require oxygen. 07/15/2024 Mixed hyperlipidemia (ICD-10 - E78.2) The [...] follow-up visit to ensure stability was arranged. 08/11/2024 Mixed hyperlipidemia (ICD-10 - E78.2) The cholesterol values are currently stable. Current therapy was continued 08/11/2024 Acute adenitis (ICD-10 - L04.9) The pain and the palpable lymph node have both resolved. He will be observed at this time. 08/17/2024 Mixed hyperlipidemia (ICD-10 - E78.2) The cholesterol values are currently stable. 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 He will limit his coffee drinking to 3 cups daily. A follow-up visit was arranged. Blood work for thyroid function tests was ordered. 09/06/2024 Mixed hyperlipidemia (ICD-10 - E78.2) 01/05/2024 Erectile dysfunction, unspecified erectile dysfunction type (ICD-10 - N52.9) This problem has been treated with medications. 02/06/2024 Overweight (BMI 25.0-29.9) (ICD-10 - E66.3) He has lost 6 pounds and the body mass index is 26. 03/11/2024 Overweight (BMI 25.0-29.9) (ICD-10 - E66.3) He has lost 6 pounds and the body mass index is 26. 04/13/2024 Pulmonary nodule (ICD-10 - R91.1) The 6.5 cm pulmonary nodule in right middle lobe is stable. Is being observed carefully. 07/15/2024 Paraseptal emphysema (ICD-10 - J43.8) He is no longer smoking. He is comfortable with mild activity. He does not require oxygen. 08/11/2024 Overweight (BMI 25.0-29.9) (ICD-10 - E66.3) His body mass index is 27 and his weight is stable. We discussed his diet and nutrition today. I recommended weight loss at a rate of one half of a pound per week. 08/17/2024 Paraseptal emphysema (ICD-10 - J43.8) He is no longer smoking. He is comfortable with mild activity. He does not require oxygen. 09/06/2024 Overweight (BMI 25.0-29.9) (ICD-10 - E66.3) 01/05/2024 Paraseptal emphysema (ICD-10 - J43.8) I strongly encouraged him to stop smoking and I have reviewed with him his cardiovascular risk factors. 02/06/2024 Sensorineural hearing loss (SNHL) of both ears (ICD-10 - H90.3) He does not think he needs hearing aids at this point. Examination of his ears showed no impaction of cerumen. 03/11/2024 Sensorineural hearing loss (SNHL) of both ears (ICD-10 - H90.3) He does not think he needs hearing aids at this point. Examination of his ears showed no impaction of cerumen. 04/13/2024 Overweight (BMI 25.0-29.9) (ICD-10 - E66.3) His body mass index is 26.1. He has gained 2 pounds. We discussed diet and nutrition. We made a strategy to lose weight at a rate of one half of a pound per week through a diet restricted in fat calories and sodium. 07/15/2024 Overweight (BMI 25.0-29.9) (ICD-10 - E66.3) His body mass index is 26.1. He has gained 2 pounds. We discussed diet and nutrition. We made a strategy to lose weight at a rate of one half of a pound per week through a diet restricted in fat calories and sodium. 08/11/2024 Hepatitis C antibody positive (ICD-10 - R76.8) His hepatitis C antibody test iss positive. His liver function tests are normal. This iis likely an old infection but will be pursued. 08/17/2024 Overweight (BMI 25.0-29.9) (ICD-10 - E66.3) His body mass index is 27 and his weight is stable. We discussed his diet and nutrition today. I recommended weight loss at a rate of one half of a pound per week. 09/06/2024 Hepatitis C virus infection without hepatic coma, unspecified chronicity (ICD-10 - B19.20) 01/05/2024 Sensorineural hearing loss (SNHL) of both ears (ICD-10 - H90.3) He does not think he needs hearing aids at this point. Examination of his ears showed no impaction of cerumen. 02/06/2024 Reactive depression (ICD-10 - F32.9) He was continued on the Wellbutrin. His depression is mild. He is able to conduct all of the activities of daily life. He has no thoughts of self-harm. 03/11/2024 Dermatitis (ICD-10 - L30.9) On his last visit the right lutheran was pruritic. He says it is now over the entire scalp. A dermatology referral was made. He was urged to continue the clobetasol twice a day. 04/13/2024 Sensorineural hearing loss (SNHL) of both ears (ICD-10 - H90.3) He does not think he needs hearing aids at this point. Examination of his ears showed no impaction of cerumen. 07/15/2024 Sensorineural hearing loss (SNHL) of both ears (ICD-10 - H90.3) He does not think he needs hearing aids at this point. Examination of his ears showed no impaction of cerumen. 08/11/2024 Sensorineural hearing loss (SNHL) of both ears (ICD-10 - H90.3) He does not think he needs hearing aids at this point. Examination of his ears showed no impaction of cerumen. 08/17/2024 Sensorineural hearing loss (SNHL) of both ears (ICD-10 - H90.3) He does not think he needs hearing aids at this point. Examination of his ears showed no impaction of cerumen. 01/05/2024 Left inguinal hernia (ICD-10 - K40.90) Bilateral herniorrhaphies have been done with no recurrence. He is free of any symptoms at this time. 02/06/2024 Left inguinal hernia (ICD-10 - K40.90) Bilateral herniorrhaphies have been done with no recurrence. He is free of any symptoms at this time. 04/13/2024 Left inguinal hernia (ICD-10 - K40.90) Bilateral herniorrhaphies have been done with no recurrence. He is free of any symptoms at this time. 07/15/2024 Aortic aneurysm (ICD-10 - I71.9) He is under the care of vascular surgery at [facility]. He is going to have an ultrasound of his carotid arteries. Abdomen and legs in the near future to follow his vascular disease. He has had no abdominal pain. 08/11/2024 Paraseptal emphysema (ICD-10 - J43.8) He is no longer smoking. He is comfortable with mild activity. He does not require oxygen. 08/17/2024 Reactive depression (ICD-10 - F32.9) He was continued on the Wellbutrin. His depression is mild. He is able to conduct all of the activities of daily life. He has no thoughts of self-harm. 01/05/2024 Primary osteoarthritis of left knee (ICD-10 - M17.12) He has had arthroscopic surgery on his left knee which improved the function significantly. He still has mild pain. 02/06/2024 Pruritic dermatitis (ICD-10 - L30.8) The area did not look neoplastic. More like eczema. I gave him a trial of clobetasol. He was told not to put his face but keep it on his lutheran and scalp. 04/13/2024 Primary osteoarthritis of left knee (ICD-10 - M17.12) He has had arthroscopic surgery on his left knee which improved the function significantly. He still has mild pain. 07/15/2024 Left carotid artery stenosis (ICD-10 - I65.22) He has an appointment for a bilateral carotid ultrasound with [facility] vascular in the near future. 08/11/2024 Tobacco dependence (ICD-10 - F17.200) He continues to smoke a package of cigarettes per day. He was counseled about the health risks in doing so. He has early emphysema. We discussed various strategies for smoking cessation. This nicotine patches were not beneficial. 08/17/2024 Primary osteoarthritis of left knee (ICD-10 - M17.12) He has had arthroscopic surgery on his left knee which improved the function significantly. He still has mild pain. 01/05/2024 Reactive depression (ICD-10 - F32.9) He was continued on the Wellbutrin. 02/06/2024 Former smoker (ICD-10 - Z87.891) He recently stopped smoking and has a prescription for Chantix. 04/13/2024 Reactive depression (ICD-10 - F32.9) He was continued on the Wellbutrin. His depression is mild. He is able to conduct all of the activities of daily life. He has no thoughts of self-harm. 08/11/2024 Left carotid artery stenosis (ICD-10 - I65.22) He has an appointment for a bilateral carotid ultrasound with [facility] vascular in the near future. 08/17/2024 Former smoker (ICD-10 - Z87.891) He recently stopped smoking and has a prescription for Chantix. 04/13/2024 Tobacco dependence (ICD-10 - F17.200) He continues to smoke a package of cigarettes per day. He was counseled about the health risks in doing so. He has early emphysema. We discussed various strategies for smoking cessation. This nicotine patches were not beneficial. 08/11/2024 Primary osteoarthritis of left knee (ICD-10 - M17.12) He has had arthroscopic surgery on his left knee which improved the function significantly. He still has mild pain. 04/13/2024 Aortic aneurysm (ICD-10 - I71.9) He is under the care of vascular surgery at [facility]. He is going to have an [...] a prescription for Chantix. Plan Of Treatment Pending Test Test Name Order Date PREALBUMIN 04/03/2022 PROFILE, FASTING (COMPREHENSIVE METABOLI C) 01/05/2024 PROFILE, FASTING (COMPREHENSIVE METABOLI C) 03/22/2019 PROFILE, FASTING (COMPREHENSIVE METABOLI C) 05/21/2019 PROFILE, FASTING (COMPREHENSIVE METABOLI C) 09/06/2024 PROFILE, FASTING (COMPREHENSIVE METABOLI C) 09/16/2019 PROFILE, FASTING (COMPREHENSIVE METABOLI C) 01/22/2022 PROFILE, FASTING (COMPREHENSIVE METABOLI C) 09/05/2023 PROFILE, FASTING (COMPREHENSIVE METABOLI C) 04/13/2024 PROFILE, FASTING (COMPREHENSIVE METABOLI C) 05/09/2021 PROFILE, FASTING (COMPREHENSIVE METABOLI C) 06/16/2019 PROFILE, FASTING (COMPREHENSIVE METABOLI C) 11/13/2021 PROFILE, FASTING (COMPREHENSIVE METABOLI C) 08/23/2022 PROFILE, FASTING (COMPREHENSIVE METABOLI C) 06/14/2022 PROFILE, FASTING (COMPREHENSIVE METABOLI C) 03/06/2020 PROFILE, RANDOM (COMPREHENSIVE METABOLIC ) 04/03/2022 PROFILE, RANDOM (COMPREHENSIVE METABOLIC ) 06/20/2023 LIPID PANEL 06/16/2019 LIPID PANEL 08/23/2022 LIPID PANEL 06/14/2022 LIPID PANEL 03/06/2020 LIPID PANEL 03/22/2019 LIPID PANEL 05/21/2019 LIPID PANEL 09/16/2019 LIPID PANEL 04/07/2019 LIPID PANEL 05/09/2021 GGT 08/11/2024 GGT 09/06/2024 TSH (THYROID STIMULATING HORMONE) 2022 PSA, TOTAL 05/09/2021 PSA, TOTAL 03/06/2020 PSA, TOTAL 08/23/2022 PSA, TOTAL 04/07/2019 PSA, TOTAL 06/20/2023 PSA, TOTAL SCREEN 06/14/2022 CEA 04/03/2022 CBC w DIFF 11/13/2021 CBC w DIFF 06/20/2023 CBC w DIFF 06/16/2019 CBC w DIFF 05/09/2021 CBC w DIFF 06/14/2022 CBC w DIFF 03/22/2019 CBC w DIFF 03/06/2020 CBC w DIFF 04/03/2022 CBC w DIFF 08/23/2022 CBC w DIFF 01/22/2022 CBC w DIFF 05/21/2019 CBC w DIFF 09/06/2024 CBC w DIFF 09/16/2019 CBC w DIFF 04/13/2024 SED RATE (ESR) 05/09/2021 SED RATE (ESR) 04/03/2022 URINALYSIS (UA) 05/09/2021 CT ABD WITH CONTRAST 01/05/2019 CT ABD & PELVIS WITH CONTRAST 09/20/2019 XR CHEST 2 VIEW PA & LAT 04/07/2019 US THYROID 01/05/2019 LYME IGM & IGG RFLX WB 06/14/2022 CBC WITH AUTO DIFF 01/05/2024 CBC WITH AUTO DIFF 08/11/2024 CBC WITH AUTO DIFF 09/05/2023 Lipid Panel 04/13/2024 Lipid Panel 11/13/2021 Lipid Panel 06/20/2023 Lipid Panel 01/05/2024 Lipid Panel 08/11/2024 Lipid Panel 01/22/2022 Lipid Panel 09/05/2023 Lipid Panel 09/06/2024 ECG 12 lead EKG 08/17/2024 ECG 7 day holter monitor 08/17/2024 Next Appt Details Provider Name:Wilfrid Lin, 11/08/2024 04:00:00 PM, [address] [place] [address] , [place]imeon, [place], [address], Provider Name:Wilfrid Lin, 04/15/2025 03:45:00 PM, [address] [place] [address] JESÚS DELATORRE, [place], [address], Insurance Providers Payer Name Payer Address Payer Phone Subscriber Number Group Number Insured Name Patient Relationship to Insured Coverage Start Date Coverage End Date MEDICARE NGS [address] [place] [phone] [id number] Mat Cates Self - patient is the insured [facility] [address] [place] [phone] [id number] Mat Cates Self - patient is the insured Medical (General) History Medical History History ICD Code Sensorineural hearing loss (SNHL) of bot h ears H90.3 mixed hyperlipidemia erectile dysfunction history of hepatitis A history of depression exophytic mass right kidney 1.3 cm detec jesus June 08, 2018 Coronary artery disease, stent September edentulous Primary osteoarthritis of left knee right thyroid lobe 3 nodules , thyroid slightly enlarged, January 2019 ultrasound Microscopic hematuria. Since 2012 Left inguinal hernia 6 mm pulmonary nodule July 2020 Sensorineural hearing loss (SNHL) of bot h ears Chronic urticaria Overweight (BMI 25.0-29.9) Paraseptal emphysema Tobacco dependence Mixed hyperlipidemia COPD Peripheral vascular disease, left lower extremity 2020 2019. Right inguinal herniorrhaphy Abscess left gluteal fold April 2023 Abdominal aortic aneurysm with graft Right iliac artery aneurysm with stent Surgical History Surgery Date(Month/Year) No history Repair of abdominal aortic aneurysm 01/24 20 Colonoscopy, [facility], Dr. Weems, 2 sigmoid tubular adenomatous 09/2021 left carotid endarterectomy 12/2019 Right inguinal herniorrhaphy 07/2019 colonoscopy, [facility], Dr. Kirkpatrick, 2 hyperplastic polyps 06/2005 repair left inguinal hernia 2013 complete dental extractions arthroscopic surgey left knee 2002 bilateral rotator cuff surgery, Dr. Rima Madsen 2016 Hospitalization History Reason Date(Month/Year) No history left carotid endarterectomy 12/2019 arthroscopic left knee surgery shoulder surgery 2016
--- OUTSIDE RECORDS SUMMARY | 2024-09-08 14:12 | XMS_ITS ---
Author Organization Wilfrid Lin III, MD Address [address] [address] Care Team Providers Care Lead Quality Technician Name Role Phone Wilfrid Lin Primary Care Provider REASON FOR VISIT Lab Order Faxed Social History Sex Assigned At : Social History Observation Description Sex Assigned At Male Encounters Encounter Location Date Provider Diagnosis Wilfrid Lin III, MD [address] [place] [address] [place] [address] 09/06/2024 Wilfrid Lin Mixed hyperlipidemia E78.2 ; Overweight (BMI 25.0-29.9) E66.3 and Hepatitis C virus infection without hepatic coma, unspecified chronicity B19.20 Assessments Encounter Date Diagnosis (ICD Code) Assessment Notes Treat ment Notes Treatment Clinical Notes 09/06/2024 Mixed hyperlipidemia (ICD-10 - E78.2) 09/06/2024 Overweight (BMI 25.0-29.9) (ICD-10 - E66.3) 09/06/2024 Hepatitis C virus infection without hepatic coma, unspecified chronicity (ICD-10 - B19.20) Plan Of Treatment Pending Test Test Name Order Date PROFILE, FASTING (COMPREHENSIVE METABOLI C) 09/06/2024 GGT 09/06/2024 CBC w DIFF 09/06/2024 Lipid Panel 09/06/2024 Next Appt Details Provider Name:Wilfrid Lin, 11/08/2024 04:00:00 PM, [address] [place] [address] [place], [address], Provider Name:Wilfrid Lin, 04/15/2025 03:45:00 PM, [address] [place] [address] JES[place] DEL[place], [place], [address], Progress Notes * Mat OSPINA SrDOB: (79 yo M)Acc No.[id number]:09/06/2024 Patient:?Mat OSPINA Sr :1945???Age:79 Y???Sex:Male [facility] [place], [address] Subjective: * Chief Complaints: * ???Lab Order Faxed * Medical History:? * Surgical History:? * Hospitalization/Major Diagno stic Procedure:? * Medications:? Objective: * Vitals:? * Physical Examination:? Assessment: * Assessment: 1.?Mixed hyperlipidemia - E7 8.2???2.?Overweight (BMI 25.0-29.9) - E66.3???3.?Hepatitis C virus infection without hepatic coma, unspecified chronicity - B19.20??? Plan: * Treatment: 2.?Overweight (BMI 25.0-29.9 )?LAB: PROFILE, FASTING (COMPREHENSIVE METABOLIC) ?LAB: GGT ?LAB: CBC w DIFF ?LAB: Lipid Panel 3.?Hepatitis C virus infecti on without hepatic coma, unspecified chronicity?LAB: PROFILE, FASTING (COMPREHENSIVE METABOLIC) ?LAB: GGT ?LAB: CBC w DIFF ?LAB: Lipid Panel * Procedure Codes:? * true * Date:? Generated for Printi ng/Faxing/eTransmitting on:?09/08/2024 02:11 PM EST
[2024-09-09 15:03] LABS: HCV RNA PCR Qn <1.18 NOT DETECTED Log IU/mL (NOT DETECTED); HCV RNA PCR Qn <15 NOT DETECTED IU/mL (NOT DETECTED)
== END 2024-09-08 10:54 | disposition home or self-care (01) ==
LOC: HO.LAB 10:53
PROVIDERS: PCP Internal Medicine Medical Oncology; Visit Provider Nurse Practitioner Family
DX: B19.20 Unspecified viral hepatitis C without hepatic coma (principal); Z86.19 Personal history of other infectious and parasitic diseases
CPT/HCPCS: 36415; 86708; 87522; 99212

== ENCOUNTER 2024-09-23 09:27 | Outpatient (REF) | payer MEDICARE, OTHER, SELFPAY ==
--- NOTE | ~2024-09-23 | XR_ITS ---
EXAMINATION: XR CHEST 2 VIEWS HISTORY: PNEUMONIA COMPARISON: Comparison is made with the prior examination dated 08/04/2024. FINDINGS: PA and lateral views of the chest are submitted. The lungs are expanded and clear. The previously seen right middle lobe pneumonia has resolved. There is no pleural effusion, pneumothorax, or pulmonary vascular congestion. The heart is normal in size. There is degenerative disc disease of the spine. XR/XR chest 2V IMPRESSION: No acute cardiopulmonary abnormality. The previously seen right middle lobe pneumonia has resolved. Electronically signed by: Wilfrid Yañez MD 09/23/2024 10:06 AM EDT
== END 2024-09-23 09:28 | disposition home or self-care (01) ==
LOC: HO.XRAY 09:27
PROVIDERS: PCP Internal Medicine Medical Oncology; Visit Provider Internal Medicine Medical Oncology
DX: J18.9 Pneumonia, unspecified organism (principal)
CPT/HCPCS: 71046

== ENCOUNTER → 2024-09-23 09:33 | Outpatient (BNV) | payer MEDICARE, OTHER, SELFPAY | PROVIDERS: PCP Internal Medicine Medical Oncology; Visit Provider Radiology Diagnostic Radiology | DX: J18.9 Pneumonia, unspecified organism (principal) | CPT/HCPCS: 71046 ==

== ENCOUNTER 2024-10-05 09:45 | Outpatient (REF) | payer MEDICARE, OTHER, SELFPAY ==
--- NOTE | ~2024-10-05 | US_ITS ---
CLINICAL HISTORY: B19.20 - Unspecified viral hepatitis C without hepatic coma US abdomen complete Comparison: CT/SR - CT ANGIO ABDOMEN PELVIS - 03/25/24 15:22 EDT Findings: The visualized pancreas is normal. Unremarkable visualized IVC. 4.1 x 4.6 cm aneurysm of the distal abdominal aorta, similar to the prior study. 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 Mild dilatation of the left common iliac artery, similar to the prior study. Severe atherosclerotic changes noted. Liver length 14.2 cm. Increased echogenicity of the liver. No focal liver lesion. There is no intrahepatic bile duct dilatation. The common duct is 3.7 mm in diameter. The gallbladder is normal. There is no sonographic Limon sign. The main portal vein is antegrade. The right kidney is 12.1 cm in length. 3.5 x 2.7 x 3.1 cm complex cyst containing septations within the lower pole of the right kidney, similar to the prior study. 1.8 cm cyst within the lower pole of the right kidney. 1.2 cm cyst within the midportion of the right kidney. The left kidney is 11.4 cm in length. 1.2 cm cyst within the midportion of the left kidney. The spleen is normal. No ascites. IMPRESSION: 1. Fatty infiltration of the liver. 2. 4.6 cm aneurysm of the distal abdominal aorta. 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 This document has been electronically signed by: Sandy Kelley MD on 10/05/2024 16:29:16
--- OUTSIDE RECORDS SUMMARY | 2024-10-05 11:22 | XMS_ITS ---
Author Organization Wilfrid Lin III, MD Address [address] [facility] [place] [address] Care Team Providers Care Travel Pta Name Role Phone Wilfrid Lin Primary Care Provider REASON FOR VISIT Lab Order Faxed Social History Sex Assigned At : Social History Observation Description Sex Assigned At Male Encounters Encounter Location Date Provider Diagnosis Wilfrid Lin III, MD [address] [place] [address] [place] [address] 09/06/2024 Wilfrid Lin Mixed hyperlipidemia E78.2 ; [...] Details Provider Name:Wilfrid Lin, 11/08/2024 04:00:00 PM, [address] [place] [address] [place], [address], Provider Name:Wilfrid Lin, 04/15/2025 03:45:00 PM, [address] [facility] [address], [place], [address], Progress Notes * Mat OSPINA SrDOB: (79 yo M)Acc No.[id number]:09/06/2024 Patient:?Mat OSPINA Sr :1945???Age:79 Y???Sex:Male [facility] [place], [address] Subjective: * Chief Complaints: * ???Lab Order [...] true * Date:? Generated for Printi ng/Faxing/eTransmitting on:?10/05/2024 11:22 AM EDT
--- OUTSIDE RECORDS SUMMARY | 2024-10-05 11:23 | XMS_ITS ---
Author Organization Wilfrid Lin III, MD Address [address] [place] [address] Care Team Providers Care Road Machine Operator Name Role Phone Wilfrid Lin Primary Care Provider REASON FOR VISIT Test results Social History Sex Assigned At : Social History Observation Description Sex Assigned At Male Encounters Encounter Location Date Provider Diagnosis Wilfrid Lin III, MD [address] [place] [address] [place] [address] 09/15/2024 Wilfrid Lin Plan Of Treatment Next Appt Details Provider Name:Wilfrid Lin, 11/08/2024 04:00:00 PM, [address] [place] [address] [place], [address], Provider Name:Wilfrid Lin, 04/15/2025 03:45:00 PM, [address] [place] [address] [place], [address], Progress Notes * Mat OSPINA SrDOB: (79 yo M)Acc No.[id number]:09/15/2024 Patient:?Mat OSPINA Sr :1945???Age:79 Y???Sex:Male Address:[address] [place], [address] * true * Date:? Generated for Printi natali/Mariellag/eTransmitting on:?10/05/2024 11:22 AM EDT
--- OUTSIDE RECORDS SUMMARY | 2024-10-05 11:23 | XMS_ITS ---
Author Organization Wilfrid Lin III, MD Address [address] [place] [address] Care Team Providers Care Apparel Machinery Instructor Name Role Phone Wilfrid Lin Primary Care [...] 02/06/2024 Active Mupirocin 2 % 1 application Economist Research Assistant ally Twice a day 06/20/2023 Active Hydrocortisone 1 % 1 application Economist Research Assistant ally Twice a day 01/24/2023 Active [...] Provider Diagnosis Wilfrid Lin III, MD [address] [place] [address] [place] [address] 09/23/2024 Wilfrid Lin Mixed hyperlipidemia E78.2 ; [...] day 02/06/2024 Mupirocin 2 % 1 application Economist Research Assistant ally Twice a day 06/20/2023 Hydrocortisone 1 % 1 application Economist Research Assistant ally Twice a day 01/24/2023 Varenicline [...] As Scheduled, Denice son: OV Provider Name:Wilfrid Lin, 11/08/2024 04:00:00 PM, [address] [facility], [place], [id number], Provider Name:Wilfrid Lin, 04/15/2025 03:45:00 PM, [address] [facility] [address] [place], [id number], Progress Notes * Mat OSPINA SrDOB: (79 yo M)Acc No.[id number]:09/23/2024 Progress Notes Patient:?ILYAMat MEEHAN Sr Provider:?Wilfrid Lin MD :1945???Age:79 Y???Sex:Male Lloyd e:09/23/2024 Address:[address] [place], [place] [address] [place] [id number] Subjective: * Chief Complaints: * ???Hepatitis CEmphysemaHeari ng lossArthritis left kneeDepressionPeripheral arterial disease * HPI: ???COVID-19 Screening:?He returns to the office for ongoing evaluation of several medical issues.? He has an appointment with gastroenterology at [facility] because of the finding of antibodies in his blood agaainst hepatitis C.? His depression is stable and his hearing loss is unchanged.? His chronic GERD is unchanged.? He continues to be short of breath with prolonged exertion.? He has no longer smoking.? He denies any new problems. ?Questions?Have you had any new onset fever, chills, cough, congestion, sore throat, shortness of breath, muscle aches??No * ROS:?General/Constitutional:?pain?Left shoulder, otherwise only normal aches and pains.?Chills?denies.?Fatigue?admits.?Fever?denies.?ENT:?Decreased hearing?denies.?Respiratory:?Cough?denies.?Cardiovascular:?Chest pain with exertion?denies.?Dyspnea on exertion?denies.?Shortness of breath?denies.?Gastrointestinal:?Constipation?occasional.?Decreased appetite?denies.?Diarrhea?denies.?Heartburn?denies.?Nausea?denies.?Rectal bleeding?denies.?Vomiting?denies.?Hematology:?bruising?denies.?petechiae?denies.?Swollen glands?none have been noted.?Genitourinary:?Frequent urination?twice a night.?Musculoskeletal:?Muscle aches?denies.?Painful joints?Left shoulder.?Sciatica?denies.?Weakness?denies.?Skin:?Itching?denies.?Rash?denies.?Skin lesion(s)?denies.?Neurologic:?Difficulty speaking?denies.?Dizziness?denies.?Headache?denies.?Low back pain?denies.?Psychiatric:?Depressed mood?which is mild.? * Medical History:? * Surgical History:?bilateral rotator cuff surgery, Dr. Juanito Madsen 2017arthroscopic surgey left knee 2003complete dental extractions repair left inguinal hernia 2013colonoscopy, [facility], Dr. Kirkpatrick, 2 hyperplastic polyps 06/2005Right inguinal herniorrhaphy 07/2019left carotid endarterectomy 12/2019Colonoscopy, [facility], Dr. Weems, 2 sigmoid tubular adenomatous [...] was born in [place]. 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 His of many years 6 years ago of lung cancer. He has 2 sons, Tao Rivero, who lives in [place]. He has 4 grandchildren and 3 great-grandchildren. [...] All ergyno[Allergies Verified] Objective: * Vitals:?Ht: 67, Wt:175, BMI: 27.41, BP:133/76, HR:76, Temp:97.3, Wt-k.38. * ???Past Orders: ???Lab:Hepatitis A IgG (Orde r Date - 09/08/2024) (Collection Date & Time - 09/08/2024 12:03 PM) ? Value Reference Range ?Hepatitis A Antibody IgG REACTIVE Nonreactive - ???Lab:HCV RNA QN PROG TO GE NOTYPE (Order Date - 09/08/2024) (Collection Date & Time - 09/08/2024 12:03 PM) ? Value Reference Range ?HCV RNA PCR Qn <15 NOT DETECTED N OT DETECTED - IU/mL ? HCV RNA PCR Qn <1.18 NOT DETECTED NOT DETECTED - Log IU/mL ?HCV Genotype LiPA TNP - ?HCV RNA Comment SEE NOTE - Lab:PROFILE, FASTING [...] your next appointment,PLEASE FAX COMPLETED RESULTS TO [phone] ???Lab:Hepatitis B Surface Antigen (Order Date - 08/04/2024) (Collection Date & Time - 08/04/2024 06:23 AM)?ValueReference Range?Hepatitis B Surface AntigenNegativeNegative - ???Lab:Immunoglobulin E (Order Date - 08/04/2024) (Collection Date & Time - 08/04/2024 06:23 AM)?ValueReference Range?Immunoglobulin E587A <[place]=463 - kU/L ???Lab:Hepatitis B Surface Antibody (Order [...] 0.000 (Ref Range: 0.0-0.012 X10*3/uL) * Lab:[facility] * Collection Date 08/03/2024 04/07/2024 12/31/2023 Collection [...] Without a pulsatile mass, Old left inguinal herniorraphy.?RECTAL EXAM:?not examined.?MUSCULOSKELETAL:?extremities unremarkable, no clubbing, cyanosis or edema, Mild crepitus right knee.?PERIPHERAL PULSES:?Diminished in the lower extremities, carotids palpable, Old left carotid endarterectomy scar.?NEUROLOGIC:?alert and oriented, cranial nerves 2-12 grossly intact, deep tendon reflexes 2+ symmetrical, motor strength normal upper and lower extremities, sensory exam intact.?PSYCH:?alert, oriented.? Assessment: * Assessment: 1.?Mixed hyperlipidemia - E7 8.2 (Primary)???Notes :The cholesterol values are currently stable. Current therapy was continued???2.?Paraseptal emphysema - J43.8???Notes :He is no longer smoking. He is comfortable with mild activity. He does not require oxygen.???3.?Overweight (BMI 25.0-29.9) - E66.3???Notes :His body mass index is 27 and his weight is stable. We discussed his diet and nutrition today. I recommended weight loss at a rate of one half of a pound per week.???4.?Sensorineural hearing loss (SNHL) of both ears - H90.3???Notes :He does not think he needs hearing aids at this point. Examination of his ears showed no impaction of cerumen.???5.?Left inguinal hernia - K40.90???Notes :Bilateral herniorrhaphies have been done with no recurrence. He is free of any symptoms at this time.???6.?Primary osteoarthritis of left knee - M17.12???Notes :He has had arthroscopic surgery on his left knee which improved the function significantly. He still has mild pain.???7.?Reactive depression - F32.9???Notes :He was continued on the Wellbutrin. His depression is mild. He is able to conduct all of the activities of daily life. He has no thoughts of self-harm.???8.?Left carotid artery stenosis - I65.22???Notes :He is followed by vascular surgery.? The left carotid is palpable.? He has had no TIA symptoms.???9.?Aortic aneurysm - I71.9???Notes :He is under the care of vascular surgery. He has had no abdominal pain.? There is no pulsatile mass on examination.??? Plan: * Treatment: * Imaging:? * ?Imaging: XR CHEST 2 VIE W PA & LAT * Procedure Codes:? * Preventive Medicine:? ??Counseling:?Care goal follow-up plan:?Counseling for abnormal BMI given?Yes ?Above Normal BMI Follow-up?Dietary management education, guidance, and counseling ?Smoking/Tobacco Use?Patient counseled on the dangers of tobacco use and urged to quit.?09/23/2024 * Follow Up:?As Scheduled (Murphy son: OV) * Images: * Sign off status: Completed true * Provider:?Wilfrid Lin MD Date:?09/05 Generated for Carol hurst/Yaa/Brenda on:?10/05/2024 11:22 AM EDT History and Physical Notes * HPI [...]
== END 2024-10-05 09:46 | disposition home or self-care (01) ==
LOC: HO.HMGCX 09:45
PROVIDERS: PCP Internal Medicine Medical Oncology; Visit Provider Nurse Practitioner Family
DX: B19.20 Unspecified viral hepatitis C without hepatic coma (principal)
CPT/HCPCS: 76700

== ENCOUNTER → 2024-10-05 09:54 | Outpatient (BNV) | payer MEDICARE, OTHER, SELFPAY | PROVIDERS: PCP Internal Medicine Medical Oncology; Visit Provider Radiology Diagnostic Radiology | DX: B19.20 Unspecified viral hepatitis C without hepatic coma (principal) | CPT/HCPCS: 76700 ==

== ENCOUNTER 2024-10-11 12:04 | Outpatient (AMB) | payer MEDICARE, SELFPAY ==
--- NOTE | 2024-10-11 12:17 | MHC.OFFVIS ---
Vital Signs 10/11/24 12:24 Height 5 ft 8 in BMI Reason not done Patient refused/unable BP 122/94 H Blood Pressure Location Rt brachial Position Sitting Pulse 72 Pulse Source Pulse Oximeter Pulse Oximetry (%) 98 Oxygen Delivery Method Room Air Intake Visit Reasons: 5 week FUV. Hep C Intake Note: ESTABLISHED PATIENT for mgmt of Hep C; imaging and labs done. Chief Complaint; Pt denies any GI sx or concerns at this time. However, pt does report recent tick bite and would like to have DISTRIBUTION DISPATCHER evaluate if possible. Pt has not discussed this with his PCP or urgent care yet. Tie Loader Required: No Accompanied by: Self / Same As Patient Allergies No Known Allergies [No Known Allergies*] Allergy (Verified 10/11/24 12:17) HPI HPI 5 week FUV. Hep C: Details: LAST VISIT: Hepatitis C Plan Will check viral load, check hepatitis a IgG, will order abdominal ultrasound. Patient denies any abdominal pain or discomfort. To his knowledge he does not believe that he was treated in the past. Patient was confused to why was he here today. Patient will follow-up in our office in 5 weeks, sooner on as needed basis. Patient is agreeable to this plan and verbalizes understanding of instructions. He was given the opportunity to ask questions and all questions answered. ? Thank you for allowing me to participate in his care Orders Orders Hepatitis A IgG 09/08/24 B18.2 US abdomen complete 09/08/24 B19.20 TODAY'S VISIT Patient is here today for follow-up and to discuss ultrasound results. Results of the ultrasound discussed with patient. Patient denies any GI concerning symptoms and here today for management of his hep C. Liver ultrasound showing normal size liver with fatty infiltration, no signs of cirrhosis. Viral load for hep C negative. Looks like patient had Hep A vaccine in the past, unsure if he received hep B vaccine or no more has protective antibody. Patient could also be a nonresponder and we will have to check that. [facility] Medical History Hepatitis C Diverticulosis Tubular adenoma Nicotine dependence, cigarettes, uncomplicated CVA (cerebral vascular accident) Primary osteoarthritis of left knee Hepatitis A Erectile dysfunction Bursitis of left shoulder Hyperplastic colon polyp Surgical History S/P angioplasty with stent (09/06/20) History of left-sided carotid endarterectomy History of aortic aneurysm repair Left knee injury Status post total shoulder arthroplasty H/O left inguinal hernia repair Hx of rotator cuff surgery Encounter for full mouth dental rehabilitation Hx of colonoscopy H/O right inguinal hernia repair Family History Father No problems noted. Mother Cancer Arthritis Brother No problems noted. Brother No problems noted. Brother No problems noted. Brother No problems noted. Brother No problems noted. Brother Pancreatic cancer Sister No problems noted. Sister No problems noted. Sister No problems noted. Sister Pancreatic cancer, Onset Age: 69 Sister FH: ovarian cancer Sister Breast cancer Son No problems noted. Son No problems noted. 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 Review of Systems Const Denies weight gain and Denies weight loss ENT Reports no additional complaints, Denies dysphagia and Denies odynophagia Card Reports no additional complaints Resp Reports no additional complaints GI Denies abdominal pain, Denies belching, Denies melena, Denies bloating, Denies change in bowel habits, Denies dysphagia, Denies excessive flatus, Denies dyspepsia, Denies heartburn, Denies diarrhea, Denies loose stools, Denies nausea, Denies odynophagia and Denies vomiting Reports no additional complaints Musc Reports no additional complaints Skin/Breast Details: Tick bite on his abdomen Neuro Reports no additional complaints Psych Reports no additional complaints Endo Reports no additional complaints Physical Exam Vital Signs: Last Vital Signs Pulse 72 10/11/24 12:24 BP 122/94 H 10/11/24 12:24 Pulse Ox 98 10/11/24 12:24 Oxygen Delivery Method Room Air 10/11/24 12:24 Const General: healthy appearing, no acute distress and well developed Nutritional Appearance: well nourished Orientation/consciousness: patient oriented x3 Resp Effort & Inspection: normal respiratory effort, able to speak in complete sentences, no tracheal deviation and symmetric chest movement Auscultation: clear to auscultation bilaterally Cardio Rate: regular rate GI Other: Tick bite on his abdomen. Area of red, patient was encouraged to see his PCP today as he will be need doxycycline Inspection: No distended Palpation (GI): Soft to palpation, not firm, nontender and No hepatosplenomegaly present Auscultation: normal bowel sounds General: Yes no CVA tenderness Back/Spine/Pelvis Back: no CVA tenderness Skin General skin exam: elasticity normal, turgor normal and dry skin Neuro General: patient oriented x3 Psych Appearance: grossly normal Mental Status: mental status grossly normal Results Reviewed Results Reviewed: ABD US: Findings: The visualized pancreas is normal. Unremarkable visualized IVC. 4.1 x 4.6 cm aneurysm of the distal abdominal aorta, similar to the prior study. 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 Mild dilatation of the left common iliac artery, similar to the prior study. Severe atherosclerotic changes noted. Liver length 14.2 cm. Increased echogenicity of the liver. No focal liver lesion. There is no intrahepatic bile duct dilatation. The common duct is 3.7 mm in diameter. The gallbladder is normal. There is no sonographic Limon sign. The main portal vein is antegrade. The right kidney is 12.1 cm in length. 3.5 x 2.7 x 3.1 cm complex cyst containing septations within the lower pole of the right kidney, similar to the prior study. 1.8 cm cyst within the lower pole of the right kidney. 1.2 cm cyst within the midportion of the right kidney. The left kidney is 11.4 cm in length. 1.2 cm cyst within the midportion of the left kidney. The spleen is normal. No ascites. IMPRESSION: 1. Fatty infiltration of the liver. 2. 4.6 cm aneurysm of the distal abdominal aorta. 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 Assessment & Plan Assessment & Plan (1) Hepatitis C: Code(s): B19.20 - Unspecified viral hepatitis C without hepatic coma Category: Medical Qualifiers: Viral hepatitis chronicity: unspecified Hepatic coma status: without hepatic coma Qualified Code(s): B19.20 - Unspecified viral hepatitis C without hepatic coma (2) Non-alcoholic fatty liver disease: Code(s): K76.0 - Fatty (change of) liver, not elsewhere classified Plan Patient will return to the office to see a nurse for hep B vaccine. Patient should have hep B surface antibody redrawn after completing series of hep B vaccine. He will call our office if you have any GI concerning symptoms. He is agreeable to plan and verbalized and him instructions. He was given the opportunity to ask questions and all questions answered. Thank you for allowing me to participate in his care Orders: Orders Hepatitis B Adult Immunization Today Z23 - Encounter for immunization Medications: New Recombivax HB (PF) (hepatitis B virus vacc.rec(PF)) 1.0 mL IM ONCE 1 mL 0RF NS Z23 - Encounter for immunization Coding Level of Care Code Est Pt Level 3 (48535) Diagnoses Hepatitis C virus infection without hepatic coma, unspecified chronicity B19.20 Viral hepatitis chronicity: unspecified Hepatic coma status: without hepatic coma Non-alcoholic fatty liver disease K76.0 Time Spent (min) 25 Comment 15 minutes spent with patient and additional 10 minutes spent reviewing his records
[2024-10-11 12:24] VITALS: BP 122/94; PULSE 72; O2SAT 98
--- OUTSIDE RECORDS SUMMARY | 2024-10-11 14:30 | XMS_ITS ---
Author Organization Wilfrid Lin III, MD Address [address] [place] [address] Care Team Providers Care Tool Pusher Name Role Phone Wilfrid Lin Primary Care Provider [phone] REASON FOR VISIT Test results Social History Sex Assigned At : Social History Observation Description Sex Assigned At Male Encounters Encounter Location Date Provider Diagnosis Wilfrid Lin III, MD [address] [place] [address] [place] [address] 09/15/2024 Wilfrid Lin Plan Of Treatment Next Appt Details Provider Name:Wilfrid Lin, 10/25/2024 03:00:00 PM, [address] [place] [address] [place], [address], Provider Name:Wilfrid Lin, 11/08/2024 04:00:00 PM, [address] [place] [address] [place], [address], Provider Name:Wilfrid Lin, 04/15/2025 03:45:00 PM, [address] [place] [address] [place], [address], Progress Notes * Mat OSPINA SrDOB: (79 yo M)Acc No.[id number]:09/15/2024 Patient:?Mat OSPINA Sr :1945???Age:79 Y???Sex:Male Address: [place], [address] * true * Date:? Generated for Carol hurst/Yaa/Brenda on:?10/11/2024 02:30 PM EDT
--- OUTSIDE RECORDS SUMMARY | 2024-10-11 14:30 | XMS_ITS ---
Author Organization Wilfrid Lin III, MD Address [address] [place] [address] Care Team Providers Care Offset Printer Name Role Phone Wilfrid Lin Primary Care Provider REASON FOR VISIT New Concern Medications Medication SIG (Take, Route, Frequency, Duration) [...] EVERY NIGHT AT BEDTIME. Active Social History Sex Assigned At : Social History Observation Description Sex Assigned At Male Vital Signs Height 67 in 10/11/2024 Weight 175 lbs 10/11/2024 BMI 27.41 kg/m2 10/11/2024 Encounters Encounter Location Date Provider Diagnosis Wilfrid Lin III, MD [address] [place] [address] [place] [address] 10/11/2024 Wilfrid Lin Plan Of Treatment Medication Medication Name Sig Start Date Stop Date Notes Doxycycline Hyclate 100 MG 1 capsule Ora lly twice a day for 14 days 10/11/2024 10/25/2024 Next Appt Details Follow Up: 2 Weeks, Reason: oc recheck tick bite Provider Name:Wilfrid Lin, 10/25/2024 03:00:00 PM, [address] [place] [address] [place], [address], Provider Name:Wilfrid Lin, 11/08/2024 04:00:00 PM, [address] [place] [address] [address] [address], [place], [address], Provider Name:Wilfrid Lin, 04/15/2025 03:45:00 PM, [address] [place] [address] [place], [address], Progress Notes * Mat OSPINA SrDOB: (79 yo M)Acc No.[id number]:10/11/2024 Patient:?Mat SOPINA Sr Provider:?Wilfrid Lin MD :1945???Age:79 Y???Sex:Male Lloyd e:10/11/2024 Address: [address] [place] Subjective: * Chief Complaints: * ???1. New Concern. * HPI: ???v:? tick bite. ???COVID-19 Screening:?Questions?Have you had any new onset fever, chills, cough, congestion, sore throat, shortness of breath, muscle aches??No * ROS:?General/Constitutional:?pain?only normal aches and pains.?Chills?denies.?Fatigue?admits.?Fever?denies.?ENT:?Decreased hearing?denies.?Respiratory:?Cough?denies.?Cardiovascular:?Chest pain with exertion?denies.?Dyspnea on exertion?denies.?Shortness of breath?denies.?Gastrointestinal:?Constipation?denies.?Decreased appetite?denies.?Diarrhea?denies.?Heartburn?denies.?Nausea?denies.?Rectal bleeding?denies.?Vomiting?denies.?Hematology:?bruising?denies.?petechiae?denies.?Swollen glands?none have been noted.?Genitourinary:?Frequent urination?denies.?Musculoskeletal:?Muscle aches?denies.?Painful joints?denies.?Sciatica?denies.?Weakness?denies.?Skin:?Itching?denies.?Rash?denies.?Skin lesion(s)?denies.?Neurologic:?Difficulty speaking?denies.?Dizziness?denies.?Headache?denies.?Low back pain?denies.?Psychiatric:?Depressed mood?denies.? * Medical History:? * Medications:?Taking Aspirin Low Dose 81 MG Tablet Chewable CHEW AND SWALLOW 1 TABLET BY MOUTH DAILY , Taking Tamsulosin HCl 0.4 MG Capsule 1 capsule Orally Once a day , Taking Atorvastatin Calcium 80 MG Tablet TAKE 1 TABLET BY MOUTH EVERY NIGHT AT BEDTIME. , Taking Meclizine HCl 25 MG Tablet 1 tablet as needed Orally every 8 hrs , Taking Clopidogrel Bisulfate 75 MG Tablet TAKE 1 TABLET BY MOUTH EVERY DAY , Taking traZODone HCl 150 MG Tablet 1 tablet at bedtime Orally Once a day , Taking APO-Varenicline 1 MG Tablet as directed Orally Once a day , Taking buPROPion HCl ER (Smoking Det) 150 MG Tablet Extended Release 12 Hour 1 tablet in the morning Orally Once a day , Taking Varenicline Tartrate 1 MG Tablet as directed Orally Twice a day , Taking Hydrocortisone 1 % Cream 1 application Externally Twice a day , Taking Mupirocin 2 % Ointment 1 application Externally Twice a day , Taking Clobetasol Propionate 0.05 % Cream 1 application Externally Twice a day , Taking Triamcinolone Acetonide 0.1 % Cream 1 application Externally Twice a day Objective: * Vitals:?Ht: 67, Wt:175, BMI: 27.41, Wt-k.38. * Examination: ???General Examination: ?GENERAL APPEARANCE:?pleasant, well nourished, well developed, in no acute distress, calm and relaxed.?HEAD:?atraumatic, normocephalic.?EYES:?eomi, perrla, anicteric, conjugate.?EARS:?normal.?NOSE:?septum intact.?ORAL CAVITY:?normal, unremarkable.?NECK/THYROID:?no [...] lower extremities, sensory exam intact.?PSYCH:?alert, oriented.? Assessment: Plan: * Treatment: * Follow Up:?2 Weeks (Reason: oc recheck tick bite) * Images: * The named appointment provid er may or may not be the originator of this progress note, and it is not deemed complete until electronically signed by the appointment provider. Sign off status: Pending * Provider:?Wilfrid Lin MD Date:?01/2025 Generated for Carol hurst/Yaa/Thomasitting on:?10/11/2024 02:30 PM EDT History and Physical Notes * HPI (History of Present Illness) Category Sub-Category Detail Notes COVID-19 Screening Questions Have you had any new onset fever, chills, cough, congestion, sore throat, shortness of breath, muscle aches?: No Examination Category Sub-Category Detail Notes General Examination GENERAL APPEARANCE: pleasant , well nourished, well developed, in no acute distress, calm and relaxed HEAD: atraumatic, normocep halic EYES: eomi, perrla, [...]
== END 2024-10-11 12:42 | disposition home or self-care (01) ==
LOC: HO.HGI 12:04
PROVIDERS: PCP Internal Medicine Medical Oncology; Visit Provider Nurse Practitioner Family
DX: B19.20 Unspecified viral hepatitis C without hepatic coma (principal); K76.0 Fatty (change of) liver, not elsewhere classified
CPT/HCPCS: 99213

== ENCOUNTER → 2024-10-11 12:04 | Outpatient (BNVA) | payer MEDICARE, SELFPAY | PROVIDERS: PCP Internal Medicine Medical Oncology; Visit Provider Nurse Practitioner Family | DX: B19.20 Unspecified viral hepatitis C without hepatic coma (principal); K76.0 Fatty (change of) liver, not elsewhere classified | CPT/HCPCS: 99212 ==

== ENCOUNTER 2024-10-18 13:53 | Outpatient (AMB) | payer MEDICARE, SELFPAY ==
--- NOTE | 2024-10-18 14:04 | AM.OFFVISNUR ---
Intake Visit Reasons: HEP Vaccine Allergies No Known Allergies [No Known Allergies*] Allergy (Verified 10/11/24 12:17) Immunizations Engerix-B (PF) 20 mcg/mL intramuscular suspension Performing Provider: DOC Butt Performing Location: [facility] [facility] Administered by: Lizz Lafleur RN on 10/18/24 14:04 Dose Route Admin Location Dispensed Lot Number Expiration Date [facility] Masking Machine Operator 1 mL IM Right Deltoid 1 mL [id number] 02/01/27 77251-102-86 MyCheck VIS Given Date VIS Provided VIS Publication Date 10/18/24 Single Vaccine 22 Eligibility Eligibility Date Funding Source Not [facility] Eligible 10/18/24 Private Assessment & Plan Assessment & Plan Orders: Orders Hepatitis B Adult Immunization Today Z23 - Encounter for immunization Medications: New Engerix-B (PF) (hepatitis B virus vacc.rec(PF)) 1 mL IM ONCE 1 mL 0RF NS Z23 - Encounter for immunization Coding Level of Care Code Established Pt Est Pt Level 1 (00133) Patient Type Established Medical Decision Making Straight Forward
--- OUTSIDE RECORDS SUMMARY | 2024-10-18 16:08 | XMS_ITS ---
Author Organization Wilfrid Lin III, MD Address [address] [place] [address] Care Team Providers Care Financial Aid Coordinator Name Role Phone Wilfrid Lin Primary [...] 02/06/2024 Active Mupirocin 2 % 1 application Electric Cell Tender ally Twice a day 06/20/2023 Active Hydrocortisone 1 % 1 application Electric Cell Tender ally Twice a day 01/24/2023 Active Varenicline [...] Provider Diagnosis Wilfrid Lin III, MD [address] [place] [address] [place] [address] 09/23/2024 Wilfrid Lin Mixed hyperlipidemia E78.2 ; [...] day 02/06/2024 Mupirocin 2 % 1 application Electric Cell Tender ally Twice a day 06/20/2023 Hydrocortisone 1 % 1 application Electric Cell Tender ally Twice a day 01/24/2023 Varenicline Tartrate [...] Scheduled, Denice son: OV Provider Name:Wilfrid Lin, 10/25/2024 03:00:00 PM, [address] [place] [address] [address], [place], [address], Provider Name:Wilfrid Lin, 11/08/2024 04:00:00 PM, [address] [place] [address] [place], [place], [address], Provider Name:Wilfrid Lin, 04/15/2025 03:45:00 PM, [address] [facility] [place], [place], [address], Progress Notes * Mat OSPINA SrDOB: (79 yo M)Acc No.[id number]:09/23/2024 Progress Notes Patient:?Mat OSPINA Sr Provider:?Wilfrid Lin MD :1945???Age:79 Y???Sex:Male Lloyd e:09/23/2024 [address] [place] Subjective: * Chief Complaints: * ???Hepatitis CEmphysemaHeari ng lossArthritis left kneeDepressionPeripheral arterial disease * HPI: ???COVID-19 Screening:?He returns to the office for ongoing evaluation of several medical issues.? He has an appointment with gastroenterology at [facility] because of the finding of antibodies in [...] dental extractions repair left inguinal hernia 2013colonoscopy, [facility], Dr. Kirkpatrick, 2 hyperplastic polyps 06/2005Right inguinal herniorrhaphy 07/2019left carotid endarterectomy 12/2019Colonoscopy, [facility], Dr. Weems, 2 sigmoid tubular adenomatous 2Repair [...] Tobacco Non-User?Ex-cigarette smoker ???He was born in [place] 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 His of many years 6 years ago of lung cancer. He has 2 sons, Tao Rivero, who lives in [place]. He has 4 grandchildren and 3 great-grandchildren. [...] your next appointment,PLEASE FAX COMPLETED RESULTS TO [phone] ???Lab:Hepatitis B Surface Antigen (Order Date - 08/04/2024) (Collection Date & Time - 08/04/2024 06:23 AM)?ValueReference Range?Hepatitis B Surface AntigenNegativeNegative - ???Lab:Immunoglobulin E (Order Date - 08/04/2024) (Collection Date & Time - 08/04/2024 06:23 AM)?ValueReference Range?Immunoglobulin E587A <QT=517 - kU/L ???Lab:Hepatitis B Surface Antibody (Order [...] 06:32 AM 02:13 PM Order Date 08/03/2024 04/07/202412/3012/31/2023 White Blood Count 10.2 (Ref Range: 4.8-10.8 [...] urged to quit.?09/23/2024 * Follow Up:?As Scheduled (Denice son: OV) * Images: * Sign off status: Completed true * Provider:?Wilfrid Lin MD Date:?09/05 Generated for Carol hurst/Yaa/eTnoraitting on:?10/18/2024 04:07 PM EDT History and Physical Notes * [...]
--- OUTSIDE RECORDS SUMMARY | 2024-10-18 16:08 | XMS_ITS ---
Author Organization Wilfrid Lin III, MD Address [address] [place] [address] Care Team Providers Care Media Services Coordinator Name Role Phone Wilfrid Lin Primary [...] Provider Diagnosis Wilfrid Lin III, MD [address] [place] [address] [place] [address] 10/11/2024 Wilfrid Lin Insect bite (nonvenomous) of [...] bite Provider Name:Wilfrid Lin, 10/25/2024 03:00:00 PM, [address] [place] [address] JESÚ[address] DEL[address]RE, APRIL T[place], [id number], Provider Name:Wilfrid Lin, 11/08/2024 04:00:00 PM, [address] [place] [address] [address], [place], [id number], Provider Name:Wilfrid Lin, 04/15/2025 03:45:00 PM, [address] [place] [address] JESÚS DEL[address]RE, APR[place], [id number], Progress Notes * Mat OSPINA SrDOB: (79 yo M)Acc No.[id number]:10/11/2024 Patient:?Mat OSPINA Sr Provider:?Wilfrid Lin MD :1945???Age:79 Y???Sex:Male Lloyd e:10/11/2024 Address:[address] [place] [id number] Subjective: * Chief Complaints: * ???Tick bitewithin 48 hoursB ull's-eye skin lesion * HPI: ???v:?He comes to the office for a same day visit because 2 days ago he found to take on his upper abdomen skin and removed it.? He now has a large red area of skin with a pale Center.? No retained tic parts were noted.? He was given a prescription for doxycycline 100 mg twice a day for 14 days with a followup visit. ???COVID-19 Screening:?Questions?Have you had any new onset fever, chills, cough, congestion, sore throat, shortness of breath, muscle aches??No * ROS:?General/Constitutional:?pain?only normal aches and pains.?Chills?denies.?Fatigue?admits.?Fever?denies.?ENT:?Decreased hearing?in both ears.?Respiratory:?Cough?denies.?Cardiovascular:?Chest pain with exertion?denies.?Dyspnea on exertion?denies.?Shortness of breath?denies.?Gastrointestinal:?Constipation?occasional.?Decreased appetite?denies.?Diarrhea?denies.?Heartburn?denies.?Nausea?denies.?Rectal bleeding?denies.?Vomiting?denies.?Hematology:?bruising?denies.?petechiae?denies.?Swollen glands?none have been noted.?Genitourinary:?Frequent urination?twice a night.?Musculoskeletal:?Muscle aches?denies.?Painful joints?denies.?Sciatica?denies.?Weakness?denies.?Skin:?Itching?denies.?Rash?denies.?Skin lesion(s)?Round reactive area with pale since her anterior chest wall approximately 4 Inches.?Neurologic:?Difficulty speaking?denies.?Dizziness?denies.?Headache?denies.?Low back pain?denies.?Psychiatric:?Depressed mood?denies.?computers and. * Medical History:? * Surgical History:?bilateral rotator cuff surgery, Dr. Juanito Madsen 2017arthroscopic surgey left knee 2003complete dental extractions repair left inguinal hernia 2014colonoscopy, [facility], Dr. Kirkpatrick, 2 hyperplastic polyps 06/2005Right inguinal herniorrhaphy 07/2019left carotid endarterectomy 12/2019Colonoscopy, [facility], Dr. Weems, 2 sigmoid tubular adenomatous [...] was born in [place]. 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 His of many years 6 years ago of lung cancer. He has 2 sons, Tao Rivero, who lives in [place]. He has 4 grandchildren and 3 great-grandchildren. He was 27 when his parents . He says he has never learned to read or write and capable of working at both. * Medications:?TakingAspirin L ow Dose 81 MG Tablet Chewable CHEW AND [...] 1 application Externally Twice a day * Allergies:?No Known Drug All ergy Objective: * Vitals:?Ht: 67, Wt:175, BMI: 27.41, Wt-k.38. * Examination: ???General Examination: ?GENERAL APPEARANCE:?pleasant, well nourished, well developed, in no acute distress, calm and relaxed, overweight.?HEAD:?atraumatic, normocephalic.?EYES:?eomi, perrla, anicteric, conjugate.?EARS:?normal.?NOSE:?septum intact.?ORAL CAVITY:?normal, unremarkable.?NECK/THYROID:?no jugular venous distention, no carotid bruit, thyroid normal.?LYMPH NODES:?no enlarged lymph nodes,spleen normal.?SKIN:?Small scaabbed area anterior chest over sternum,? 4 inches, red area around the right breast with pale center.?HEART:?no clicks, gallops, murmurs, or rubs, regular rhythm, S1, S2 normal, no s3, or vascular bruits.?LUNGS:?clear to auscultation .?BREASTS:??no masses palpable bilaterally.?ABDOMEN:?bowel sounds normal, no ascites, no organomegaly, no mass, overweight.?RECTAL EXAM:?not examined.?MUSCULOSKELETAL:?extremities unremarkable, no clubbing, cyanosis or edema, Pain left knee to range of motion.?PERIPHERAL PULSES:?normal.?NEUROLOGIC:?alert and oriented, cranial nerves 2-12 grossly intact, deep tendon reflexes 2+ symmetrical, motor strength normal upper and lower extremities, sensory exam intact.?PSYCH:?alert, oriented.? Assessment: * Assessment: 1.?Insect bite (nonvenomous) of left front wall of thorax, initial encounter - S20.362A (Primary)???Notes :He was given a prescription for doxycycline 100 mg twice a day for 14 days.? A followup visit was arranged.???2.?Overweight (BMI 25.0- 29.9) - E66.3???Notes :His body mass index is 27 and his weight is stable. We discussed his diet and nutrition today. I recommended weight loss at a rate of one half of a pound per week.???3.?Primary osteoarthritis of left knee - M17.12???Notes :He has had arthroscopic surgery on his left knee which improved the function significantly. He still has mild pain.???4.?Left inguinal hernia - K40.90???Notes :Bilateral herniorrhaphies have been done with no recurrence. He is free of any symptoms at this time.???5.?Former smoker - Z87.891???Notes :He recently stopped smoking and has a prescription for Chantix.??? Plan: * Treatment: * Procedure Codes:? * Preventive Medicine:? ??Counseling:?Care goal follow-up plan:?Counseling for abnormal BMI given?Yes ?Above Normal BMI Follow-up?Dietary management education, guidance, and counseling, Dietary needs education ?Smoking/Tobacco Use?Patient counseled on the dangers of tobacco use and urged to quit.?10/11/2024 * Follow Up:?2 Weeks (Reason: oc recheck tick bite) * Images: * Sign off status: Completed true * Provider:?Wilfrid Lin MD Date:?01/2025 Generated for Carol hurst/Yaa/eTyulietsmitting on:?10/18/2024 04:08 PM EDT History and Physical Notes * [...]
--- OUTSIDE RECORDS SUMMARY | 2024-10-18 16:08 | XMS_ITS | Patient Health Record ---
Author Organization Wilfrid Lin III, MD Address [address] [place] [address] Care Team Providers Care Director Of Software Development Name Role Phone Wilfrid Lin Primary Care Provider [phone] Allergies Allergen (clinical drug ingredient) Drug/Non Drug [...] ff Reviewed date:01/05/2024 03:26:21 PM Interpretation: Performing Lab:[facility], [address] [place] [phone] Notes/Report: White Blood Count 7.3 4.8-10.8 X10*3/uL [...] NRBC Abs Auto 0.000 0.0-0.012 X10*3/uL Comprehensive [place]. Panel Fa st Reviewed date:01/05/2024 03:26:21 PM Interpretation: Performing Lab:[facility], [address] [place] [phone] Notes/Report: Sodium 144 135-145 mmol/L Potassium 4.0 3.3-5.1 mmol/L Chloride 109 96-108 mmol/L Carbon Dioxide 28 22-29 mmol/L Anion Gap 11 12-20 Blood Urea Nitrogen 15 9-16 mg/dL Creatinine 1.10 0.5-1.4 mg/dL Estimated Glomerular Filt Rate > 60 NOTE: For -Montserratian individuals, multiply the result by 1.210. Chronic [...] Panel Reviewed date:01/05/2024 03:26:21 PM Interpretation: Performing Lab:[facility], [address] [place] [phone] Notes/Report: Triglycerides 146 <150 mg/dL Desirable Triglyceride: [...] POC Reviewed date:03/31/2024 06:40:34 AM Interpretation: Performing Lab:[facility], [address] [place] [phone] Notes/Report: [id number] 0.76 >60 1520 HO.HAIRICKTA Creatinine POC 0.8 0.5-1.4 mg/dL GFR POC > 60 Chronic Kidney Disease: Estimated GFR < 60 mL/min/1.73m2 Severe Kidney Disease: Estimated GFR < 15 mL/min/1.73m2 CT angio abdomen pelvis Reviewed date:04/13/2024 03:44:43 PM Interpretation: Performing Lab: Notes/Report: [address] [place] [address] CT Scan Report Signed Patient: Mat Ospina MR#: [id number] : 1945 Acct:[id number] Age/Sex: 79 / M ADM Date: 03/25/24 Loc: HO.CT Attending Dr: Jonathan Schroeder MD Ordering Physician: Jonathan Schroeder MD Date of Service: 03/25/24 Procedure(s): CT angio abdomen pelvis Accession Number(s): [id number] cc: Wilfrid Lin MD; Jonahtan Schroeder MD STUDY PERFORMED: CTA ABDOMEN AND PELVIS WITHOUT AND WITH CONTRAST HISTORY: Abdominal aortic aneurysm DESCRIPTION: Routine abdomen and pelvis CTA protocol with contrast was performed. 80 mL of Omnipaque 350 was administered. 3D POSTPROCESSING: Multiple 3-D angiographic images were processed from the initial data set by the sonography technologist at the modality workstation under concurrent [...] 04/02/24 1356 DD/ 1522 TD/TT: 03/25/24 1540 [employer] Operator: [place] [address] [place] Scan Report Signed Patient: Mat Ospina MR#: [id number] : 1945 Acct:[id number] Age/Sex: 79 / M ADM Date: 03/25/24 Loc: HO.CT Attending Dr: Jonathan Schroeder MD Ordering Physician: Jonathan Schroeder MD Date of Service: 03/25/24 Procedure(s): CT ang io abdomen pelvis Accession Number(s): [id number] cc: Wilfrid Lin MD; Jonathan Schroeder MD STUDY PERFORMED: CTA ABDOMEN AND PELV IS WITHOUT AND WITH CONTRAST HISTORY: Abdominal aortic aneurysm DESCRIPTION: Routine abdomen and pelvis CTA protocol with contrast was performed. 80 mL of Omnipaque 350 was administered. 3D POSTPROCESSING: Multiple 3-D angiographic images were processed from the initial data set by the sonography technologist at the modality workstation under concurrent [...] 04/02/24 1356 DD/ 1522 TD/TT: 03/25/24 1540 [employer] Operator: Complete Blood Count Auto Allie ff Reviewed date:04/13/2024 03:44:43 PM Interpretation: Performing Lab:[facility], [address] [place] [phone] Notes/Report: White Blood Count 9.7 4.8-10.8 X10*3/uL [...] NRBC Abs Auto 0.000 0.0-0.012 X10*3/uL Comprehensive [place]. Panel Fa st Reviewed date:04/13/2024 03:44:43 PM Interpretation: Performing Lab:[facility], [address] [place] [phone] Notes/Report: Sodium 140 135-145 mmol/L Potassium 4.2 3.3-5.1 mmol/L Chloride 108 96-108 mmol/L Carbon Dioxide 25 22-29 mmol/L Anion Gap 11 12-20 Blood Urea Nitrogen 14 9-16 mg/dL Creatinine 0.86 0.5-1.4 mg/dL Estimated Glomerular Filt Rate > 60 NOTE: For -Montserratian individuals, multiply the result by 1.210. Chronic [...] Panel Reviewed date:04/13/2024 03:44:43 PM Interpretation: Performing Lab:[facility], [address] [place] [phone] Notes/Report: Triglycerides 122 <150 mg/dL Desirable Triglyceride: [...] date:04/13/2024 03:44:43 PM Interpretation: Performing Lab: Notes/Report: [address] [address] Ultrasound Report Signed Patient: Mat Ospina MR#: [id number] : 1945 Acct:[id number] Age/Sex: 79 / M ADM Date: 04/08/24 Loc: .US Attending Dr: Jonathan Schroeder MD Ordering Physician: Jonathan Schroeder MD Date of Service: 04/08/24 Procedure(s): US arterial duplex BI w/ VIJAY Accession Number(s): [id number] cc: Wilfrid Lin MD; Jonathan Schroeder MD [...] 04/11/24 1115 DD/ 1524 TD/TT: 04/08/24 1612 [employer] Operator: [place] [address] Ultrasound Report Signed Patient: Mat Ospina MR#: [id number] : 1945 Acct:[id number] Age/Sex: 79 / M ADM Date: 04/08/24 Loc: . Attending Dr: Jonathan Schroeder MD Ordering Physician: Jonathan Schroeder MD Date of Service: 04/08/24 Procedure(s): US arterial duplex BI w/ VIJAY Accession Number(s): [id number] cc: Wilfrid Lin MD; Jonathan Schroeder MD [...] 04/11/24 1115 DD/ 1524 TD/TT: 04/08/24 1612 [employer] Operator: MARY Complete Blood Count Auto Di ff Reviewed date:08/08/2024 08:52:43 AM Interpretation: Performing Lab:[facility], [address] [place] [phone] Notes/Report: White Blood Count 10.2 4.8-10.8 X10*3/uL [...] NRBC Abs Auto 0.000 0.0-0.012 X10*3/uL Comprehensive [place]. Panel Fa st Reviewed date:08/08/2024 08:52:43 AM Interpretation: Performing Lab:[facility], [address] [place] [phone] Notes/Report: Sodium 138 135-145 mmol/L Potassium 4.1 [...] Panel Reviewed date:08/08/2024 08:52:43 AM Interpretation: Performing Lab:[address] [address] Notes/Report: Triglycerides 165 <150 mg/dL Desirable Triglyceride: [...] Thyroxine) Reviewed date:08/08/2024 08:52:43 AM Interpretation: Performing Lab:[address] [address] Notes/Report: Free T4 (Free Thyroxine) 1.06 0.71-1.85 ng/dL Thyroid Stimulating Hormone Reviewed date:08/08/2024 08:52:43 AM Interpretation: Performing Lab:[address] [address] Notes/Report: Thyroid Stimulating Hormone 0.61 0.32-4.0 uIU/mL TSH 3rd Generation ([facility]) Immunoglobulin E Reviewed date:08/08/2024 08:52:43 AM Interpretation: Performing Lab:[place] [address], [place] [address] Notes/Report: Immunoglobulin E 587 <YL=583 kU/L THIS TEST WAS PERFORMED AT: [facility] [address] [address] EDUARDO FLYNN MD Hepatitis B Surface Antibody Reviewed date:08/08/2024 08:52:43 AM Interpretation: Performing Lab:[facility], [address] [place] [phone] Notes/Report: Hepatitis B Surface Antibody NONREACTIVE Nonreactive Nonreactive: < 8.00 mIU/mL Hepatitis B Core Antibody Reviewed date:08/08/2024 08:52:43 AM Interpretation: Performing Lab:[facility], [address] [place] [phone] Notes/Report: Hepatitis B Core Antibody Nonreactive Nonreactive HIV Ab/Ag Reviewed date:08/08/2024 08:52:43 AM Interpretation: Performing Lab:[address] [address] Notes/Report: HIV AB/AG Nonreactive Nonreactive HIV-1 p24 [...] limit of detection of this assay. The [employer] HIV Ag/Ab Combo assay result and supplemental assay results should be interpreted in conjunction with the patient's clinical presentation, history and other laboratory results. If the results are inconsistent with clinical evidence, additional testing is suggested to confirm the result. Hepatitis C Antibody Reviewed date:08/08/2024 08:52:43 AM Interpretation: Performing Lab:[facility], [address] [place] [phone] Notes/Report: Hepatitis C Antibody Reactive Nonreactive Presump tive evidence of antibodies to HCV. Hepatitis B Surface Antigen Reviewed date:08/08/2024 08:52:43 AM Interpretation: Performing Lab:[address] [address] Notes/Report: Hepatitis B Surface Antigen Negative Negative XR chest 2V Reviewed date:08/08/2024 08:52:43 AM Interpretation: Performing Lab: Notes/Report: [address] [address] XRay Report Signed Patient: Mat Ospina MR#: [id number] : 1945 Acct:[id number] Age/Sex: 79 / M ADM Date: 08/04/24 Loc: ROBB Attending Dr: Sixto Galvez PA-C Ordering Physician: Sixto Galvez PA-C Date of Service: 08/04/24 Procedure(s): XR chest 2V Accession Number(s): [id number] cc: Wilfrid Lin MD; Sixto Galvez PA-C [...] by: Wilfrid Yañez MD 08/05/2024 07:08 AM [facility] [place]ict[place] By: Wilfrid Yañez MD Signed By: <Electronically signed by Wilfrid Yañez MD in [place]> 08/05/24 0708 DD/ 0838 TD/TT: 08/04/24 0845 [employer] Operator: [address] [address] XRay Report Signed Patient: Mat Ospina MR#: [id number] : 1945 Acct:[id number] Age/Sex: 79 / M ADM Date: 08/04/24 Loc: ROBB Attending Dr: Sixto Galvez PA-C Ordering Physician: Sixto Galvez PA-C Date of Service: 08/04/24 Procedure(s): XR melyssa st 2V Accession Number(s): [id number] cc: Wilfrid Lin MD; Sixto Galvez PA-C [...] by: Wilfrid Yañez MD 08/05/2024 07:08 AM EST Dictated By: Wilfrid Yañez MD Signed By: <Electronically signed by Wilfrid Yañez MD in [place]> 08/05/24 0708 DD/ 0838 TD/TT: 08/04/24 0845 [employer] Operator: HCV RNA QN PROG TO GENOTYPE Reviewed date:09/19/2024 10:13:53 AM Interpretation: Performing Lab:[facility], [address] [place] [phone] Notes/Report: HCV RNA PCR Qn <15 NOT DETECTED NOT DETECTED IU/mL HCV RNA PCR Qn <1.18 NOT DETECTED NOT DETECTED Log IU/mL HCV RNA Comment SEE NOTE For additional information, please refer to http://education.[employer].RUN/ faq/GXO38e6 (This link is being provided for informational/ Educational purposes only.) THIS TEST WAS PERFORMED AT: [facility] [address] [place] [phone] EDUARDO FLYNN MD HCV Genotype LiPA TNP Test not i ndicated. Hepatitis A IgG Reviewed date:09/19/2024 10:13:53 AM Interpretation: Performing Lab:[facility], [address] [place] [phone] Notes/Report: Hepatitis A Antibody IgG REACTIVE Nonreactive The presence of IgG anti-HAV implies past HAV infection (recent or distant) or vaccination against HAV. XR chest 2V (Not yet reviewe d by provider) Interpretation: Performing Lab: Notes/Report: [address] [address] XRay Report Signed Patient: Mat Ospina MR#: [id number] : 1945 Acct:[id number] Age/Sex: 79 / M ADM Date: 09/23/24 Loc: VALENTE Attending Dr: Wilfrid Lin MD Ordering Physician: Wilfrid Lin MD Date of Service: 09/23/24 Procedure(s): XR chest 2V Accession Number(s): [id number] cc: Wilfrid Lin MD EXAMINATION: XR CHEST 2 VIEWS HISTORY: PNEUMONIA COMPARISON: Comparison is made with the prior examination dated 08/04/2024. FINDINGS: PA and lateral views of the chest are submitted. The lungs are expanded and clear. The previously seen right middle lobe pneumonia has resolved. There is no pleural effusion, pneumothorax, or pulmonary vascular congestion. The heart is normal in size. There is degenerative disc disease of the spine. XR/XR chest 2V IMPRESSION: No acute cardiopulmonary abnormality. The previously seen right middle lobe pneumonia has resolved. Electronically signed by: Wilfrid Yañez MD 09/23/2024 10:06 AM EDT Dictated By: Wilfrid Yañez MD Signed By: <Electronically signed by Wilfrid Yañez MD in [place]> 09/23/24 1006 DD/ 0933 TD/TT: 09/23/24 0940 [employer] Operator: [address] [address] XRay Report Signed Patient: Mat Ospina MR#: [id number] : 1945 Acct:[id number] Age/Sex: 79 / M ADM Date: 09/23/24 Loc: VALENTE Attending Dr: Wilfrid Lin MD Ordering Physician: Wilfrid Lin MD Date of Service: 09/23/24 Procedure(s): XR melyssa st 2V Accession Number(s): [id number] cc: Wilfrid Lin MD EXAMINATION: XR CHES T 2 VIEWS HISTORY: PNEUMONIA COMPARISON: Comparis on is made with the prior examination dated 08/04/2024. FINDINGS: PA and lat eral views of the chest are submitted. The lungs are expanded and elizabeth ar. The previously seen right middle lobe pneumonia has resolved. There is no pleural effusion, pneumothorax, or pulmonary vascular congestion. The heart is normal in size. There is degenerative disc disease of the spine. X R/XR chest 2V IMPRESSION: No acute cardiopulmo nary abnormality. The previously seen right middle lobe pneumonia has resolved. Electronically jak d by: Wilfrid Yañez MD 09/23/2024 10:06 AM EDT RP Dictated By: Wilfrid Yañez MD Signed By: <Electronically signed by Wilfrid Yañez MD in [place]> 09/23/24 1006 DD/ 0933 TD/TT: 09/23/24 0940 [employer] Operator: US abdomen complete (Not yet reviewed by provider) Interpretation: Performing Lab: Notes/Report: [facility] [address] [place] [address] [place] [address] Ultrasound Report Signed Patient: Mat Ospina MR#: [id number] : 1945 Acct:[id number] Age/Sex: 79 / M ADM Date: 10/05/24 Loc: .HMGCX Attending Dr: Diana ROACH Ordering Physician: Diana Simmons Date of Service: 10/05/24 Procedure(s): US abdomen complete Accession Number(s): [id number] cc: Wilfrid Lin MD; Diana Simmons CLINICAL HISTORY: B19.20 - Unspecified viral hepatitis C without hepatic coma US abdomen complete Comparison: CT/SR - CT ANGIO ABDOMEN PELVIS - 03/25/24 15:22 EDT Findings: The visualized pancreas is normal. Unremarkable visualized IVC. 4.1 x 4.6 cm aneurysm of the distal abdominal aorta, similar to the prior study. 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 Mild dilatation of the left common iliac artery, similar to the prior study. Severe atherosclerotic changes noted. Liver length 14.2 cm. Increased echogenicity of the liver. No focal liver lesion. There is no intrahepatic bile duct dilatation. The common duct is 3.7 mm in diameter. The gallbladder is normal. There is no sonographic Limon sign. The main portal vein is antegrade. The right kidney is 12.1 cm in length. 3.5 x 2.7 x 3.1 cm complex cyst containing septations within the lower pole of the right kidney, similar to the prior study. 1.8 cm cyst within the lower pole of the right kidney. 1.2 cm cyst within the midportion of the right kidney. The left kidney is 11.4 cm in length. 1.2 cm cyst within the midportion of the left kidney. The spleen is normal. No ascites. IMPRESSION: 1. Fatty infiltration of the liver. 2. 4.6 cm aneurysm of the distal abdominal aorta. 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 This document has been electronically signed by: Sandy Kelley MD on 10/05/2024 16:29:16 Dictated By: Sandy Kelley MD Signed By: <Electronically signed by Sandy Kelley MD in OV> 10/05/24 1630 DD/ 1629 TD/TT: 10/05/24 1629 [employer] Operator: [facility] [address] [place] [address] [place] [address] Ultrasound Report Signed Patient: Mat Ospina MR#: [id number] : 1945 Acct:[id number] Age/Sex: 79 / M ADM Date: 10/05/24 Loc: HO.HMGCX Attending Dr: Diana ROACH Ordering Physician: Diana Simmons Date of Service: 10/05/24 Procedure(s): US abd omen complete Accession Number(s): [id number] cc: Wilfrid Lin MD; Diana Simmons CLINICAL HISTORY: B1 9.20 - Unspecified viral hepatitis C without hepatic coma US abdomen complete Comparison: CT/SR - CT ANGIO ABDOMEN PELVIS - 03/25/24 15:22 EDT Findings: The visualized pancr eas is normal. Unremarkable visuali zed IVC. 4.1 x 4.6 cm aneurysm of the distal abdominal aorta, similar to th e prior study. 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 Mild dilatation of the left common iliac artery, similar to the prior study. Severe atherosclerotic uribe ges noted. Liver length 14.2 cm . Increased echogenicity of the liver. No focal liver lesion. There is no intrahep atic bile duct dilatation. The common duct is 3 .7 mm in diameter. The gallbladder is normal. There is no sonographic Limon sign. The main portal vein is antegrade. The right kidney is 12.1 cm in length. 3.5 x 2.7 x 3.1 cm complex cyst containing septation s within the lower pole of the right kidney, similar to the prior study. 1.8 cm cyst within the lower pole of the right kidney. 1.2 cm cyst within t he midportion of the right kidney. The left kidney is 1 1.4 cm in length. 1.2 cm cyst within the midportion of the left kidney. The spleen is normal. No ascites. IMPRESSION: 1. Fatty infiltratio n of the liver. 2. 4.6 cm aneurysm o f the distal abdominal aorta. 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 This document has be en electronically signed by: Sandy Kelley MD on 10/05/2024 16:29:16 Dictated By: Sandy Kelley MD Signed By: <Electronically signed by Sandy Kelley MD in [place]> 10/05/24 1630 DD/ 1629 TD/TT: 10/05/24 1629 [employer] Operator: Reason For Referral Reason severe hearing [...] EDT > ref/demo/progress note faxed to [facility]NT [facility] requesting an appt pt did not want to wait for them so was given Dr Sorensen contact info , Argenis Rede SEWAGE PLANT OPERATOR 03/16/2024 10:29:31 AM EDT > Pt executive secretary called Dr Sorensen office got patient [...] to Dr Hoffman office I called pt executive secretary she will be calling tomorrow Dr Hoffman office to set up this appt for the patient , Carola Red SEW[employer] PLANT OPERATOR 03/17/2024 10:02:51 AM EDT > Spoke to Lindy at Dr Hoffman office she gave pt appt at [address] on September 30/2025 at 1:30pm information called to pt executive secretary and info mailed to patient also Referral Priority Routine Referral Appointment Date 09/30/2024 Reason dermatitis of scalp Diagnosis 1 Dermatitis (L30.9) Referral Organization Wilfrid Lin III, MD Referring Provider First Name Wilfrid Referring Provider Last Name Lin Referring Provider Speciality Internal edicine Referred Provider Evelin Dermatholden y Referred Provider Specialty Dermatology General Notes Carola Red CM A 03/17/2024 10:29:44 AM EDT > called spoke to Jarod mcintosh [facility] they made pt appt for 04/21/2024 at 2:15pm information for this appt mailed and called to pt glenn Choi appt is on 04/21/2024 at 2:15pm [address] [phone] ask of office to mail to patient new pt info sheet to be filled out by executive secretary they stated they would do this Referral Priority Routine Referral Appointment Date 04/21/2024 Medications Medication SIG (Take, Route, Frequency, Duration) Notes Start Date End Date Status Meclizine HCl 25 MG 1 tablet as needed Orally every 8 hrs 07/22/2022 Active Clopidogrel Bisulfate 75 MG TAKE 1 TABLE T BY MOUTH EVERY DAY Active Triamcinolone Acetonide 0.1 % 1 application Externally Twice a day 01/24/2023 Active Atorvastatin Calcium 80 MG TAKE 1 TABLET BY MOUTH EVERY NIGHT AT BEDTIME. Active buPROPion HCl ER (Smoking Det) 150 MG 1 tablet in the morning Orally Once a day 06/14/2022 Active Doxycycline Hyclate 100 MG 1 capsule Ora lly twice a day for 14 days 10/11/2024 10/25/2024 Active Varenicline Tartrate 1 MG as directed Or ally Twice a day 01/24/2023 Active traZODone HCl 150 MG 1 tablet at bedtime Orally Once a day 06/28/2021 Active APO-Varenicline 1 MG as directed Orally Once a day 08/01/2021 Active Aspirin Low Dose 81 MG CHEW AND SWALLOW 1 TABLET BY MOUTH DAILY Active Clobetasol Propionate 0.05 % 1 application Externally Twice a day 02/06/2024 Active Tamsulosin HCl 0.4 MG 1 capsule Orally O nce a day Active Hydrocortisone 1 % 1 application Externally Twice a day 01/24/2023 Active Mupirocin 2 % 1 application Externally Twice a day 06/20/2023 Active Immunizations Vaccine Route Administration Date Status [...] Problem Status W/U Status Risk Notes Problem 9591494 Former smoker (Z87.891) Active confirmed He recently stopped smoking and has a prescription for Chantix. Problem 249539313 Overweight (BMI 25.0-29.9) (E66.3) Active confirmed His body mass index is 27 and his weight is stable. We discussed his diet and nutrition today. I recommended weight loss at a rate of one half of a pound per week. Problem 179416277 Mixed hyperlipidemia (E78.2) Active confirmed The cholesterol values are currently stable. Current therapy was continued Problem 988929702 Dermatitis (L30.9) Active confirmed On his last visit the right episcopalian was pruritic. He says it is now over the entire scalp. A dermatology referral was made. He was urged to continue the clobetasol twice a day. Problem Erectile dysfunction (disorder) (689135215) Erectile dysfunction, unspecified erectile dysfunction type (N52.9) Active confirmed This problem shanks s been treated with medications. Problem 076335393 Pulmonary nodule (R91.1) Active confirmed The 6.5 cm pulmonary nodule in right middle lobe is stable. Is being observed carefully. Problem 772230829 Thyroid nodule (E04.1) Active confirmed In 2001. A 2 cm thyroid nodule is seen extending into the mediastinum on the study done to evaluate the arteries. It is not palpable today and has not caused symptoms. It will be reimaged periodically. Problem 811547020 Tubular adenoma of colon (D12.6) Active confirmed He underwent a colonoscopy September 26, 2021. This was done at [facility] by Dr. Enamorado. 2 tubular adenomas were found. A repeat study was planned in 5 years. Problem Aortic aneurysm (35020801) Aortic aneurysm (I71.9) Active confirmed He is under the care of vascular surgery. He has had no abdominal pain. There is no pulsatile mass on examination. Problem 576860529 Left inguinal hernia (K40.90) Active confirmed Bilateral herniorrhaphies have been done with no recurrence. He is free of any symptoms at this time. Problem 870975725 Microscopic hematuria (R31.29) Active confirmed He has had microscopic hematuria endeavor urinalysis since 2002 at [facility] database. Problem 37921804 Bilateral hearing loss, unspecified hearing loss type (H91.93) Active confirmed Problem 86847286 Reactive depression (F32.9) Active confirmed He was continue d on the Wellbutrin. His depression is mild. He is able to conduct all of the activities of daily life. He has no thoughts of self-harm. Problem 403527533 Chronic GERD (K21.9) Active confirmed He will continu e on omeprazole liquid antacid. Problem 098771946 Sensorineural hearing loss (SNHL) of both ears (H90.3) Active confirmed He does not think he needs hearing aids at this point. Examination of his ears showed no impaction of cerumen. Problem Left carotid artery stenosis (475449007825039 ) Left carotid artery stenosis (I65.22) Active confirmed He is followed by vascular surgery. The left carotid is palpable. He has had no TIA symptoms. Problem 780590650393700 Primary osteoarthritis of left knee (M17.12) Active confirmed He has had arthroscopic surgery on his left knee which improved the function significantly. He still has mild pain. Problem 26817106 Hepatitis C virus infection without hepatic coma, unspecified chronicity (B19.20) Active confirmed Problem 33716905 Paraseptal emphysema (J43.8) Active confirmed He is no longer smoking. He is comfortable with mild activity. He does not require oxygen. 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 He will limit his coffee drinking to 3 cups daily. A follow-up visit was arranged. Blood work for thyroid function tests was ordered. Vital Signs Heart Rate 76 /min 09/23/2024 Temperature 97.3 degrees Fahrenheit 09/23/2024 Blood pressure diastolic 76 mm Hg 09/23/2024 Height 67 in 10/11/2024 Blood pressure systolic 133 mm Hg 09/23/2024 Weight 175 lbs 10/11/2024 BMI 27.41 kg/m2 10/11/2024 Encounters Encounter Location Date Provider Diagnosis Wilfrid Lin III, MD [address] [place] [address] [place] [address] 01/05/2024 Wilfrid Lin Mixed hyperlipidemia E78.2 ; Overweight (BMI 25.0-29.9) E66.3 ; Erectile dysfunction, unspecified erectile dysfunction type N52.9 ; Paraseptal emphysema J43.8 ; Sensorineural hearing loss (SNHL) of both ears H90.3 ; Left inguinal hernia K40.90 ; Primary osteoarthritis of left knee M17.12 and Reactive depression F32.9 Wilfrid Lin III, MD [address] [place] [address] [place] [address] 02/06/2024 Wilfrid Lin Mixed hyperlipidemia E78.2 ; Paraseptal emphysema J43.8 ; Overweight (BMI 25.0-29.9) E66.3 ; Sensorineural hearing loss (SNHL) of both ears H90.3 ; Reactive depression F32.9 ; Left inguinal hernia K40.90 ; Pruritic dermatitis L30.8 and Former smoker Z87.891 Wilfrid Lin III, MD [address] [place] [address] [place] [phone] 03/11/2024 Wilfrid Lin Mixed hyperlipidemia E78.2 ; Paraseptal emphysema J43.8 ; Overweight (BMI 25.0-29.9) E66.3 ; Sensorineural hearing loss (SNHL) of both ears H90.3 and Dermatitis L30.9 Wilfrid Lin III, MD [address] [place] [address] [place] [address] 04/13/2024 Wilfrid Lin Mixed hyperlipidemia E78.2 ; [...] Former smoker Z87.891 Wilfrid Lin III, MD [address] [place] [address] [place] [address] 07/15/2024 Wilfrid Lin Mixed hyperlipidemia E78.2 ; Acute adenitis L04.9 ; Paraseptal emphysema J43.8 ; Overweight (BMI 25.0-29.9) E66.3 ; Sensorineural hearing loss (SNHL) of both ears H90.3 ; Aortic aneurysm I71.9 and Left carotid artery stenosis I65.22 Wilfrid Lin III, MD [address] [place] [address] [place] [address] 08/11/2024 Wilfrid Lin Mixed hyperlipidemia E78.2 ; Acute adenitis L04.9 ; Overweight (BMI 25.0-29.9) E66.3 ; Hepatitis C antibody positive R76.8 ; Sensorineural hearing loss (SNHL) of both ears H90.3 ; Paraseptal emphysema J43.8 ; Tobacco dependence F17.200 ; Left carotid artery stenosis I65.22 and Primary osteoarthritis of left knee M17.12 Wilfrid Lin III, MD [address] [place] [address] [place] [address] 08/17/2024 Wilfrid Lin Premature atrial contractions I49.1 ; Mixed hyperlipidemia E78.2 ; Paraseptal emphysema J43.8 ; Overweight (BMI 25.0-29.9) E66.3 ; Sensorineural hearing loss (SNHL) of both ears H90.3 ; Reactive depression F32.9 ; Primary osteoarthritis of left knee M17.12 and Former smoker Z87.891 Wilfrid Lin III, MD [address] [place] [address] [place] [address] 09/23/2024 Wilfrid Lin Mixed hyperlipidemia E78.2 ; Paraseptal emphysema J43.8 ; Overweight (BMI 25.0-29.9) E66.3 ; Sensorineural hearing loss (SNHL) of both ears H90.3 ; Left inguinal hernia K40.90 ; Primary osteoarthritis of left knee M17.12 ; Reactive depression F32.9 ; Left carotid artery stenosis I65.22 and Aortic aneurysm I71.9 Wilfrid Lin III, MD [address] [place] [address] [place] [address] 10/11/2024 Wilfrid Lin Insect bite (nonvenomous) of left front wall of thorax, initial encounter S20.362A ; Overweight (BMI 25.0-29.9) E66.3 ; Primary osteoarthritis of left knee M17.12 ; Left inguinal hernia K40.90 and Former smoker Z87.891 Wilfrid Lin III, MD [address] [place] [address] [place] [address] 02/09/2024 Wilfrid Lin III, MD [address] [place] [address] [place] [address] 02/09/2024 Wilfrid Lin III, MD [address] [place] [address] [place] [address] 03/15/2024 Wilfrid Lin III, MD [address] [place] [address] [place] [address] 04/30/2024 Wilfrid Lin III, MD [address] [place] [address] [place] [address] 08/18/2024 Wilfrid Lin III, MD [address] [place] [address] [place] [address] 09/06/2024 Wilfrid Lin Mixed hyperlipidemia E78.2 ; Overweight (BMI 25.0-29.9) E66.3 and Hepatitis C virus infection without hepatic coma, unspecified chronicity B19.20 Wilfrid Lin III, MD [address] [place] [address] [place] [address] 09/15/2024 Wilfrid Lin Assessments Encounter Date Diagnosis (ICD Code) Assessment [...] work for thyroid function tests was ordered. 09/23/2024 Mixed hyperlipidemia (ICD-10 - E78.2) The cholesterol values are currently stable. Current therapy was continued 09/23/2024 Paraseptal emphysema (ICD-10 - J43.8) He is no longer smoking. He is comfortable with mild activity. He does not require oxygen. 10/11/2024 Overweight (BMI 25.0-29.9) (ICD-10 - E66.3) His body mass index is 27 and his weight is stable. We discussed his diet and nutrition today. I recommended weight loss at a rate of one half of a pound per week. 10/11/2024 Insect bite (nonvenomous) of left front wall of thorax, initial encounter (ICD-10 - S20.362A) He was given a prescription for doxycycline 100 mg twice a day for 14 days. A followup visit was arranged. 09/06/2024 Mixed hyperlipidemia (ICD-10 - E78.2) 01/05/2024 [...] function significantly. He still has mild pain. 09/06/2024 Overweight (BMI 25.0-29.9) (ICD-10 - E66.3) [...] his ears showed no impaction of cerumen. 10/11/2024 Left inguinal hernia (ICD-10 - K40.90) Bilateral herniorrhaphies have been done with no recurrence. He is free of any symptoms at this time. 09/06/2024 Hepatitis C virus infection without hepatic [...] L30.9) On his last visit the right episcopalian was pruritic. He says it is now [...] smoking and has a prescription for Chantix. 01/05/2024 Left inguinal hernia (ICD-10 - K40.90) [...] under the care of vascular surgery at [facility]. He is going to have [...] He has no thoughts of self-harm. 09/23/2024 Primary osteoarthritis of left knee (ICD-10 - M17.12) He has had arthroscopic surgery on his left knee which improved the function significantly. He still has mild pain. 01/05/2024 Primary osteoarthritis of left knee (ICD-10 - M17.12) He has had arthroscopic surgery on his left knee which improved the function significantly. He still has mild pain. 02/06/2024 Pruritic dermatitis (ICD-10 - L30.8) The area did not look neoplastic. More like eczema. I gave him a trial of clobetasol. He was told not to put his face but keep it on his episcopalian and scalp. 04/13/2024 Primary osteoarthritis of left knee (ICD-10 - M17.12) He has had arthroscopic surgery on his left knee which improved the function significantly. He still has mild pain. 07/15/2024 Left carotid artery stenosis (ICD-10 - I65.22) He has an appointment for a bilateral carotid ultrasound with [facility] vascular in the near future. 08/11/2024 Tobacco [...] He has no thoughts of self-harm. 01/05/2024 Reactive depression (ICD-10 - F32.9) He [...] appointment for a bilateral carotid ultrasound with [facility] in the near future. 08/17/2024 Former smoker (ICD-10 - Z87.891) He recently stopped smoking and has a prescription for Chantix. 09/23/2024 Left carotid artery stenosis (ICD-10 - I65.22) He is followed by vascular surgery. The left carotid is palpable. He has had no TIA symptoms. 04/13/2024 Tobacco dependence (ICD-10 - F17.200) He [...] significantly. He still has mild pain. 09/23/2024 Aortic aneurysm (ICD-10 - I71.9) He is under the care of vascular surgery. He has had no abdominal pain. There is no pulsatile mass on examination. 04/13/2024 Aortic aneurysm (ICD-10 - I71.9) He is under the care of vascular surgery at [facility]. He is going to have [...] PREALBUMIN 04/03/2022 PROFILE, FASTING (COMPREHENSIVE METABOLI C) 04/13/2024 PROFILE, FASTING (COMPREHENSIVE METABOLI C) 05/09/2021 PROFILE, FASTING (COMPREHENSIVE METABOLI C) 06/16/2019 PROFILE, FASTING (COMPREHENSIVE METABOLI C) 11/13/2021 PROFILE, FASTING (COMPREHENSIVE METABOLI C) 08/23/2022 PROFILE, FASTING (COMPREHENSIVE METABOLI C) 06/14/2022 PROFILE, FASTING (COMPREHENSIVE METABOLI C) 03/06/2020 PROFILE, FASTING (COMPREHENSIVE METABOLI C) 01/05/2024 PROFILE, FASTING (COMPREHENSIVE METABOLI C) 03/22/2019 PROFILE, FASTING (COMPREHENSIVE METABOLI C) 05/21/2019 PROFILE, FASTING (COMPREHENSIVE METABOLI C) 09/16/2019 PROFILE, FASTING (COMPREHENSIVE METABOLI C) 01/22/2022 PROFILE, FASTING (COMPREHENSIVE METABOLI C) 09/05/2023 PROFILE, FASTING (COMPREHENSIVE METABOLI C) 09/06/2024 PROFILE, RANDOM (COMPREHENSIVE METABOLIC ) 06/20/2023 PROFILE, RANDOM (COMPREHENSIVE METABOLIC ) 04/03/2022 LIPID PANEL 09/16/2019 LIPID PANEL 04/07/2019 LIPID PANEL 05/09/2021 LIPID PANEL 06/16/2019 LIPID PANEL 08/23/2022 LIPID PANEL 06/14/2022 LIPID PANEL 03/06/2020 LIPID PANEL 03/22/2019 LIPID PANEL 05/21/2019 GGT 09/06/2024 GGT 08/11/2024 TSH (THYROID STIMULATING HORMONE) 2022 PSA, TOTAL 04/07/2019 PSA, TOTAL 06/20/2023 PSA, TOTAL 05/09/2021 PSA, TOTAL 03/06/2020 PSA, TOTAL 08/23/2022 PSA, TOTAL SCREEN 06/14/2022 CEA 04/03/2022 CBC w DIFF 08/23/2022 CBC w DIFF 01/22/2022 CBC w DIFF 05/21/2019 CBC w DIFF 09/16/2019 CBC w DIFF 04/13/2024 CBC w DIFF 09/06/2024 CBC w DIFF 11/13/2021 CBC w DIFF 06/20/2023 CBC w DIFF 06/16/2019 CBC w DIFF 05/09/2021 CBC w DIFF 06/14/2022 CBC w DIFF 03/22/2019 CBC w DIFF 03/06/2020 CBC w DIFF 04/03/2022 SED RATE (ESR) 04/03/2022 SED RATE (ESR) 05/09/2021 URINALYSIS (UA) 05/09/2021 CT ABD WITH CONTRAST 01/05/2019 CT ABD & PELVIS WITH CONTRAST 09/20/2019 XR CHEST 2 VIEW PA & LAT 04/07/2019 XR CHEST 2 VIEW PA & LAT 09/23/2024 US THYROID 01/05/2019 LYME IGM & IGG RFLX WB 06/14/2022 CBC WITH AUTO DIFF 09/05/2023 CBC WITH AUTO DIFF 01/05/2024 CBC WITH AUTO DIFF 08/11/2024 Lipid Panel 08/11/2024 Lipid Panel 01/22/2022 Lipid Panel 09/05/2023 Lipid Panel 04/13/2024 Lipid Panel 09/06/2024 Lipid Panel 11/13/2021 Lipid Panel 06/20/2023 Lipid Panel 01/05/2024 ECG 12 lead EKG 08/17/2024 US abdomen complete 10/05/2024 XR chest 2V 09/23/2024 ECG 7 day holter monitor 08/17/2024 Next Appt Details Provider Name:Wilfrid Lin, 10/25/2024 03:00:00 PM, [address] [facility] [address], [place], [address], Provider Name:Wilfrid Lin, 11/08/2024 04:00:00 PM, [address] [facility] [address], [place], [address], Provider Name:Wilfrid Lin, 04/15/2025 03:45:00 PM, [address] [facility] [address], [place], [address], Insurance Providers Payer Name Payer Address Payer Phone Subscriber Number Group Number Insured Name Patient Relationship to Insured Coverage Start Date Coverage End Date MEDICARE NGS [address] [place] [phone] [id number] Monikajohnnie madyson Mat Self - patient is the insured [facility] [address] [place] [phone] [id number] Truong coughlin Mat Self - patient is the insured Medical [...] graft Right iliac artery aneurysm with stent Tick bite with bull's-eye October 2024 Surgical History Surgery Date(Month/Year) No history Repair of abdominal aortic aneurysm 01/24 20 Colonoscopy, [facility], Dr. Weems, 2 sigmoid tubular adenomatous 09/2021 left carotid endarterectomy 12/2019 Right inguinal herniorrhaphy 07/2019 colonoscopy, [facility], Dr. Kirkpatrick, 2 hyperplastic polyps 06/2005 repair left inguinal hernia 2013 complete dental extractions arthroscopic surgey left knee 2002 bilateral rotator cuff surgery, Dr. Rima Madsen 2016 Hospitalization History Reason Date(Month/Year) No history left carotid endarterectomy 12/2019 arthroscopic left knee surgery shoulder surgery 2017
--- OUTSIDE RECORDS SUMMARY | 2024-10-18 16:08 | XMS_ITS ---
Author Organization Wilfrid Lin III, MD Address [address] [facility] [address] Care Team Providers Care Crane Oiler Name Role Phone Wilfrid Lin Primary Care Provider [phone] REASON FOR VISIT Test results Social History Sex Assigned At : Social History Observation Description Sex Assigned At Male Encounters Encounter Location Date Provider Diagnosis Wilfrid Lin III, MD [address] [place] [address] [place] [address] 09/15/2024 Wilfrid Lin Plan Of Treatment Next Appt Details Provider Name:Wilfrid Lin, 10/25/2024 03:00:00 PM, [address] [place] [address] [place], [address], Provider Name:Wilfrid Lin, 11/08/2024 04:00:00 PM, [address] [place] [address] [place], [address], Provider Name:Wilfrid Lin, 04/15/2025 03:45:00 PM, [address] [place] [address] [place], [address], Progress Notes * Mat OSPINA SrDOB: (79 yo M)Acc No.[id number]:09/15/2024 Patient:?Mat OSPINA Sr :1945???Age:79 Y???Sex:Male Address: [place], [address] * true * Date:? Generated for Carol hurst/Yaa/Brenda on:?10/18/2024 04:07 PM EDT
== END 2024-10-18 14:06 | disposition home or self-care (01) ==
LOC: HO.HGI 13:53
PROVIDERS: PCP Internal Medicine Medical Oncology; Visit Provider Nurse Practitioner Family
DX: Z23 Encounter for immunization (principal)

== ENCOUNTER → 2024-10-18 13:53 | Outpatient (BNVA) | payer MEDICARE, SELFPAY | PROVIDERS: PCP Internal Medicine Medical Oncology; Visit Provider Nurse Practitioner Family | DX: Z23 Encounter for immunization (principal) | CPT/HCPCS: 90471; 90746; 99211 ==

== ENCOUNTER 2025-02-04 12:56 | Outpatient (AMB) | payer MEDICARE, SELFPAY ==
--- OUTSIDE RECORDS SUMMARY | 2025-01-24 11:00 | XMS_ITS ---
Author Organization Wilfrid Lin III, MD Address [address] [place] [address] Care Team Providers Care Material Handler 1St Shift Name Role Phone Wilfrid Lin Primary Care Provider Allergies Allergen (clinical drug ingredient) Drug/Non Drug Allergy documented on EMR Reaction Allergy Type Onset Date Status No Known Drug Allergy Unknown Drug Allergy Active REASON FOR VISIT Vertigo, Hyperlipidemia, Emphysema, Hearing loss, Lifting hernia, Arthritis left knee, Depression Medications Medication SIG (Take, Route, Frequency, Duration) Notes Start Date End Date Status Aspirin Low Dose 81 MG CHEW AND SWALLOW 1 TABLET BY MOUTH DAILY Active Atorvastatin Calcium 80 MG TAKE 1 TABLET BY MOUTH AT BEDTIME Active Omeprazole 20 MG 1 capsule 1/2 to [...] Non-User Ex-cigaret te smoker Vital Signs Temperature 97.5 degrees Fahrenheit 01/25/20 25 Blood pressure systolic 129 mm Hg 01/25/20 25 Blood pressure diastolic 77 mm Hg 025 Heart Rate 85 /min 01/24/2025 Height 67 in 01/24/2025 Weight 169 lbs 01/24/2025 BMI 26.47 kg/m2 01/24/2025 Encounters Encounter Location Date Provider Diagnosis Wilfrid Lin III, MD [address] [place] [address] [address] [place], [place] [address] 01/24/2025 Wilfrid Lin Mixed hyperlipidemia E78.2 ; Paraseptal emphysema J43.8 ; Overweight (BMI 25.0-29.9) E66.3 ; Sensorineural hearing loss (SNHL) of both ears H90.3 and Reactive depression F32.9 Assessments Encounter Date Diagnosis (ICD Code) Assessment Notes Treat ment Notes Treatment Clinical Notes 01/24/2025 Mixed hyperlipidemia (ICD-10 - E78.2) Comprehensive blood work with a fasting lipid profile will be done prior to his next visit. No change in his regimen was made today. 01/24/2025 Paraseptal emphysema (ICD-10 - J43.8) He is no longer smoking. He is comfortable with mild activity. He does not require oxygen. 01/24/2025 Overweight (BMI 25.0-29.9) (ICD-10 - E66.3) He has lost weight and his body mass index is now 26. We reviewed [facility] diet and nutrition. We made a plan to continue weight loss. 01/24/2025 Sensorineural hearin g loss (SNHL) of both ears (ICD-10 - H90.3) He does not think he needs hearing aids at this point. Examination of his ears showed no impaction of cerumen. 01/24/2025 Reactive depression (ICD-10 - F32.9) He was continued on the Wellbutrin. His depression is mild. He is able to conduct all of the activities of daily life. He has no thoughts of self-harm. Plan Of Treatment Medication Medication Name Sig Start Date Stop Date Notes Aspirin Low Dose 81 MG CHEW AND SWALLOW 1 TABLET BY MOUTH DAILY Atorvastatin Calcium 80 MG TAKE 1 TABLET BY MOUTH AT BEDTIME Omeprazole 20 MG 1 capsule 1/2 to 1 h our before morning meal Orally Once a day Clopidogrel Bisulfate 75 MG TAKE 1 TABLE T BY MOUTH EVERY DAY Pending Test Test Name Order Date PROFILE, FASTING (COMPREHENSIVE METABOLI C) 01/24/2025 PSA, TOTAL 01/24/2025 CBC w DIFF 01/24/2025 Lipid Panel 01/24/2025 Next Appt Details Follow Up: as scheduled, [place] son: Annual Exam Provider Name:Wilfrid Lin, 04/15/2025 03:00:00 PM, [address] [place] [address] [address], [place], [address], Progress Notes * Mat OSPINA SrDOB: (80 yo M)Acc No.[id number]:01/24/2025 Progress Notes Patient: Mat RAMIREZ Sr Provider: Jemma Lin MD :1945 A ge:80 Y S ex:Male Date:01/24/2025 Address: [address] [id number] Subjective: * Chief Complaints: * V ertigoHyperlipidemiaEmphysemaHearing lossLifting herniaArthritis left kneeDepression * HPI: C OVID-19 Screenin.5 weeks ago dizzy now gone, bpv, hearing ok. He returns for a scheduled visit for medical management. 2 weeks ago he had 2 episodes of vertigo which sounds like benign positional vertigo. They have not returned. He is feeling healthy and well today. His blood pressure was in the normal range. Examination showed no new problems. He is breathing comfortably and not smoking. Comprehensive blood work was not available. It will be done prior to his next visit. Questions H ave you had any new [...] with exertion d enies. D yspnea on exertion?with prolonged activity. S hortness of breath w ith exertion. [...] d enies. P ainful joints L eft knee.?Sciatica d enies. W eakness d enies. S kin: Itching d enies. R nacho d enies. S kin lesion(s)?denies. N eurologic: Difficulty speaking d enies. D izziness d enies.?Headache d enies. L ow back pain d enies. P sychiatric: Depressed mood w hich is mild. * Medical History: * Surgical History: b ilateral rotator cuff surgery, Dr. Juanito Madsen 2017arthroscopic surgey left knee 2002complete dental extractions repair left inguinal hernia 2013colonoscopy, [facility], Dr. Kirkpatrick, 2 hyperplastic polyps 06/2005Right inguinal herniorrhaphy 07/2019left carotid endarterectomy 12/2019Colonoscopy, [facility], Dr. Weems, 2 sigmoid tubular adenomatous 2Repair of abdominal aortic aneurysm 01/2020No history * Hospitalization/Major Diagno stic Procedure: [facility] 2016arthroscopic left knee surgery left carotid [...] x-cigarette smoker Cristiana gracia was born in [place]. 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 His of many years 6 years ago of lung cancer. He has 2 sons, Tao Rivero, who lives in [place]. He has 4 grandchildren and 3 great-grandchildren. He was 27 when his parents . He says he has never learned to read or write and capable of working at both. * Medications: T akingAspirin Low Dose 81 MG Tablet Chewable CHEW AND SWALLOW 1 TABLET BY MOUTH DAILY Clopidogrel Bisulfate 75 MG Tablet TAKE 1 TABLET BY MOUTH EVERY DAY Omeprazole 20 MG Capsule Delayed Release 1 capsule 1/2 to 1 hour before morning meal Orally Once a day Atorvastatin Calcium 80 MG Tablet TAKE 1 TABLET BY MOUTH AT BEDTIME Medication List reviewed and reconciled with the patientTaking Aspirin Low Dose 81 MG Tablet Chewable CHEW AND SWALLOW 1 TABLET BY MOUTH DAILY Taking Clopidogrel Bisulfate 75 MG Tablet TAKE 1 TABLET BY MOUTH EVERY DAY Taking Omeprazole 20 MG Capsule Delayed Release 1 capsule 1/2 to 1 hour before morning meal Orally Once a day Taking Atorvastatin Calcium 80 MG Tablet TAKE 1 TABLET BY MOUTH AT BEDTIME Medication List reviewed and reconciled with the patient * Allergies: N o Known Drug Allergyno[Allergies Verified] Objective: * Vitals: H t: 67, Wt:169, BMI:26.47, BP:129/77, HR:85, Temp:97.5, Wt-k.66. * Examination: G eneral Examination: GENERAL APPEARANCE: p leasant, well nourished, well developed, in no acute distress, calm and relaxed, overweight, man. HEAD: a traumatic, normocephalic. EYES: e mauricio, perrla, anicteric, conjugate. EARS: n ormal. NOSE: s eptum intact. ORAL CAVITY: n ormal, unremarkable, edentulous. NECK/THYROID: n o jugular venous distention, no carotid bruit, thyroid normal. LYMPH NODES: n o enlarged lymph nodes,spleen normal. SKIN: n o suspicious lesions, anicteric. HEART: n o clicks, gallops, murmurs, or rubs, regular rhythm, S1, S2 normal, no s3, or vascular bruits. LUNGS: , diminished breath sounds throughout, good air movement, no wheezes, rales, rhonchi. BREASTS: no masses palpable bilaterally. ABDOMEN: b owel sounds normal, no ascites, no organomegaly, no mass. RECTAL EXAM: n ot examined. MUSCULOSKELETAL: e xtremities unremarkable, no clubbing, cyanosis or edema. PERIPHERAL PULSES: n ormal. NEUROLOGIC: a lert and oriented, cranial nerves 2-12 grossly intact, deep tendon reflexes 2+ symmetrical, motor strength normal upper and lower extremities, sensory exam intact. PSYCH: a lert, oriented. Assessment: * Assessment: 1. P araseptal emphysema - J43.8 (Primary) N otes :He is no longer smoking. He is comfortable with mild activity. He does not require oxygen. 2 . M ixed hyperlipidemia - E78.2 N otes :Comprehensive blood work with a fasting lipid profile will be done prior to his next visit. No change in his regimen was made today. 3 . O verweight (BMI 25.0-29.9) - E66.3 N otes :He has lost weight and his body mass index is now 26. We reviewed [facility] diet and nutrition.? We made a plan to continue weight loss. 4 . S ensorineural hearing loss (SNHL) of both ears - H90.3 N otes :He does not think he needs hearing aids at this point. Examination of his ears showed no impaction of cerumen. 5 . R eactive depression - F32.9 N otes :He was continued on the Wellbutrin. His depression is mild. He is able to conduct all of the activities of daily life. He has no thoughts of self-harm. Plan: * Treatment: 2. O verweight (BMI 25.0-29.9) L AB: PROFILE, FASTING (COMPREHENSIVE METABOLIC) L AB: PSA, TOTAL L AB: CBC w DIFF L AB: Lipid Panel 3. O thers Continue Atorvastatin Calcium Tablet, 80 MG, TAKE 1 TABLET BY MOUTH AT BEDTIME; C ontinue Aspirin Low Dose Tablet Chewable, 81 MG, CHEW AND SWALLOW 1 TABLET BY MOUTH DAILY; C ontinue Clopidogrel Bisulfate Tablet, 75 MG, TAKE 1 TABLET BY MOUTH EVERY DAY; C ontinue Omeprazole Capsule Delayed Release, 20 MG, 1 capsule 1/2 to 1 hour before morning meal, Orally, Once a day. * Procedure Codes: * Preventive Medicine: Counseling: C are goal follow-up plan: Counseling for abnormal BMI given Y es Above Normal BMI Follow-up D ietary management education, guidance, and counseling S moking/Tobacco Use Patient counseled on the dangers of tobacco use and urged to quit. 0 01/24/2025 * Follow Up: a s scheduled (Reason: Annual Exam) * Images: * Sign off status: Completed true * Provider: Jemma Lin MD Date: 0 01/24/2025 Generated for Carol hurst/Yaa/Thomasitting on: 02/04/2025 12:58 PM EDT History and Physical Notes * [...] , diminished breath sounds throughout, good air movement, no wheezes, rales, rhonchi ABDOMEN: bowel sounds [...] alert, oriented ORAL CAVITY: normal, unremarkable , edentulous
--- OUTSIDE RECORDS SUMMARY | 2025-02-04 12:59 | XMS_ITS ---
Author Name [facility] Organization Unknown Results Test Name/Text Value Interpretation Date Range Source ICD-10 CODES Normal 04/28/2024 [facility] GROSS DESCRIPTION Received in formalin. Dimensions 5 x 4 x 4 mm, bisected, and submitted in 1 cassette. Also received is a vial of tissue transport medium (Dk) containing a biopsy specimen measuring 4 x 3 x 4 mm.. Tissue was washed in phosphate buffered saline and then embedded in OCT for immunofluorescent studies. Tissue was frozen, cut at 5 microns, and stained with fluorescein-labeled antibody to human IgG, IgM, IgA, C3 and fibrinogen. Normal 04/28/2024 [facility] CLINICAL INFORMATION Small pink/erythematous ill-defined patch with some superficial white scale. No vesicles/bulla, erosions, or thick white scale. DDx: dermatitis unspecified vs spongiotic dermatitis vs hypersensitivity reaction vs BP Normal 04/28/2024 [facility]
--- NOTE | 2025-02-04 13:13 | AM.OFFVISNUR ---
Intake Visit Reasons: Hep B #2 Allergies No Known Allergies (No Known Allergies*) Allergy (Verified 10/11/24 12:17) Immunizations Engerix-B (PF) 20 mcg/mL intramuscular suspension Performing Provider: DOC Butt Performing Location: [facility] Administered by: Lizz Lafleur RN on 02/04/25 13:13 Dose Route Admin Location Dispensed Lot Number Expiration Date [facility] Public Accountant 1 mL IM Right Deltoid 1 mL [id number] 03/11/27 43056-790-66 [employer] Total Dispensed Waste 1 mL 0 % VIS Given Date VIS Provided VIS Publication Date 02/04/25 Single Vaccine 22 Eligibility Eligibility Date Funding Source Not [facility] Eligible 02/04/25 Private Assessment & Plan Assessment & Plan Orders: Orders Hepatitis B Adult Immunization Today Z23 - Encounter for immunization Coding Level of Care Code Established Pt Est Pt Level 1 (80571) Patient Type Established Medical Decision Making Straight Forward
== END 2025-02-04 13:14 | disposition home or self-care (01) ==
LOC: HO.HGI 12:56
PROVIDERS: PCP Internal Medicine Medical Oncology; Visit Provider Nurse Practitioner Family
DX: Z23 Encounter for immunization (principal)

== ENCOUNTER → 2025-02-04 12:56 | Outpatient (BNVA) | payer MEDICARE, SELFPAY | PROVIDERS: PCP Internal Medicine Medical Oncology; Visit Provider Nurse Practitioner Family | DX: Z23 Encounter for immunization (principal) | CPT/HCPCS: 90471; 90746; 99211 ==

== ENCOUNTER 2025-03-31 14:00 | Outpatient (REF) | payer MEDICARE, OTHER, SELFPAY ==
--- OUTSIDE RECORDS SUMMARY | 2025-01-24 11:00 | XMS_ITS ---
Author Organization Wilfrid Lin III, MD Address [address] [place] [address] Care Team Providers Care Cell Liner Name Role Phone Dr. Wilfrid Lin III Primary Care Provider [phone] Allergies Allergen (clinical drug ingredient) Drug/Non Drug [...] Date Provider Diagnosis Wilfrid Lin III, MD [address] [place] [address] [address] [place], [place] [address] 01/24/2025 Wilfrid Lin Mixed hyperlipidemia E78.2 ; [...] mass index is now 26. We reviewed [facility] diet and nutrition. We made a plan [...] Next Appt Details Follow Up: as scheduled, [place] son: Annual Exam Provider Name:Wilfrid Lin , 04/15/2025 03:00:00 PM, [address] [place] [address] [address], [place], [address], Progress Notes * Mat OSPINA SrDOB: (80 yo M)Acc No.[id number]:01/24/2025 Progress Notes Patient: Mat RAMIREZ Sr Provider: Jemma Lin MD :1945 A ge:80 Y S ex:Male Date:01/24/2025 [address] [address] [facility] Subjective: * Chief Complaints: * V ertigoHyperlipidemiaEmphysemaHearing [...] dental extractions repair left inguinal hernia 2013colonoscopy, [facility], Dr. Kirkpatrick, 2 hyperplastic polyps 06/2005Right inguinal herniorrhaphy 07/2019left carotid endarterectomy 12/2019Colonoscopy, [facility], Dr. Weems, 2 sigmoid tubular adenomatous [...] born in [place]. 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 His of many years 6 years ago of lung cancer. He has 2 sons, Tao Rivero, who lives in [place]. He has 4 grandchildren and 3 great-grandchildren. [...] mass index is now 26. We reviewed [facility] diet and nutrition.? We made a plan [...] true * Provider: Jemma Lin MD Date: 01/24/2025 Generated for Carol hurst/Yaa/Thomasitting on: 03/31/2025 06:29 PM EDT History and Physical Notes * [...]
--- OUTSIDE RECORDS SUMMARY | 2025-01-26 09:36 | XMS_ITS ---
Author Organization Wilfrid Lin III, MD Address [address] [place] [address] [place] [address] Care Team Providers Care On Air Director Name Role Phone Dr. Wilfrid Lin III Primary Care Provider REASON FOR VISIT told patient to call Social History Sex Assigned At : Social History Observation Description Sex Assigned At Male Encounters Encounter Location Date Provider Diagnosis Wilfrid Lin III, MD [address] [place] [address] [address] [facility] [facility] [place] [address] 01/26/2025 Wilfrid Lin Plan Of Treatment Next Appt Details Provider Name:Wilfrid Lin , 04/15/2025 03:00:00 PM, [address] [place] [address] [address] [place], [address], Progress Notes * Mat OSPINA SrDOB: (80 yo M)Acc No.[id number]:01/26/2025 Patient: Mora BARRAGANMat MEEHAN Sr :1945 A ge:80 Y S ex:Male Address:[address] [place], [address] * true * Date: Generated for Printi ng/Faxing/eTransmitting on: 0 03/31/2025 06:30 PM EDT
--- OUTSIDE RECORDS SUMMARY | 2025-01-27 10:56 | XMS_ITS ---
Author Organization Wilfrid Lin III, MD Address [address] [place] [address] [place] [address] Care Team Providers Care Silverware Supervisor Name Role Phone Dr. Wilfrid Lin III [...] Date Provider Diagnosis Wilfrid Lin III, MD [address] [place] [address] [place] [address] 01/27/2025 Wilfrid Lin Plan Of Treatment Medication Medication Name Sig Start Date Stop Date Notes Meclizine HCl 25 MG 1 tablet as needed O rally every 12 hrs for 14 days 01/27/2025 Next Appt Details Provider Name:Wilfrid Lin , 04/15/2025 03:00:00 PM, [address] [place] [address] [place], [address], Progress Notes * Mat OSPINA SrDOB: (80 yo M)Acc No.[id number]:01/27/2025 Patient: Mora Mat HERNANDEZ Sr :1945 A ge:80 Y S ex:Male Address:[address] [place], [address] * Refills Start Meclizine HCl Tablet, 25 MG, Orally, 28 Tablet, 1 tablet as needed, every 12 hrs, 14 days, Refills=1 * true * Date: Generated for Carol hurst/Yaa/Brenda on: 0 03/31/2025 06:30 PM EDT
--- OUTSIDE RECORDS SUMMARY | 2025-02-07 06:28 | XMS_ITS ---
Author Organization Wilfrid Lin III, MD Address [address] [place] [address] [place] [address] Care Team Providers Care Wire Stitcher Operator Name Role Phone Dr. Wilfrid Lin III Primary Care Provider [phone] REASON FOR VISIT Concerns about patient Hep B Social History Sex Assigned At : Social History Observation Description Sex Assigned At Male Encounters Encounter Location Date Provider Diagnosis Wilfrid Lin III, MD [address] [place] [address] [place] [address] 02/07/2025 Wilfrid Lin Plan Of Treatment Next Appt Details Provider Name:Wilfrid Lin , 04/15/2025 03:00:00 PM, [address] [place] [address] [place], [address], Progress Notes * Mat OSPINA SrDOB: (80 yo M)Acc No.[id number]:02/07/2025 Patient: Mora BARRAGANMat MEEHAN Sr :1945 A ge:80 Y S ex:Male Address[address] [place], [address] * true * Date: Generated for Printi ng/Faxing/eTransmitting on: 0 03/31/2025 06:30 PM EDT
--- OUTSIDE RECORDS SUMMARY | 2025-02-07 06:40 | XMS_ITS ---
Author Organization Wilfrid Lin III, MD Address [address] [place] [address] [place] [address] Care Team Providers Care Turfgrass Management Professor Name Role Phone Dr. Wilfrid Lin III Primary Care Provider REASON FOR VISIT Needs call back from Social History Sex Assigned At : Social History Observation Description Sex Assigned At Male Encounters Encounter Location Date Provider Diagnosis Wilfrid Lin III, MD [address] [place] [address] [place] [address] 02/07/2025 Wilfrid Lin Plan Of Treatment Next Appt Details Provider Name:Wilfrid Lin , 04/15/2025 03:00:00 PM, [address] [place] [address] [place], [address], Progress Notes * Mat OSPINA SrDOB: (80 yo M)Acc No.[id number]:02/07/2025 Patient: Mora BARRAGANMat MEEHAN Sr :1945 A ge:80 Y S ex:Male Address:[address] [place], [address] * true * Date: Generated for Printi ng/Faxing/eTransmitting on: 0 03/31/2025 06:30 PM EDT
[2025-03-31 16:10] LABS: Blood Urea Nitrogen 13 mg/dL (9-16); Estimated Glomerular Filt Rate > 60
--- OUTSIDE RECORDS SUMMARY | 2025-03-31 18:30 | XMS_ITS | Patient Health Record ---
Author Organization Wilfrid Lin III, MD Address [address] [place] [address] Care Team Providers Care Foreign Exchange Position Clerk Name Role Phone Dr. Wilfrid Lin III Primary Care Provider Allergies Allergen (clinical drug [...] Complete Blood Count Auto Di ff Reviewed date:04/13/2024 03:44:43 PM Interpretation: Performing Lab:[facility], [address] [place] [phone] Notes/Report: White Blood Count 9.7 4.8-10.8 X10*3/uL [...] NRBC Abs Auto 0.000 0.0-0.012 X10*3/uL Comprehensive [place]. Panel Fa st Reviewed date:04/13/2024 03:44:43 PM Interpretation: Performing Lab:[facility], [address] [place] [phone] Notes/Report: Sodium 140 135-145 mmol/L Potassium 4.2 3.3-5.1 mmol/L Chloride 108 96-108 mmol/L Carbon Dioxide 25 22-29 mmol/L Anion Gap 11 12-20 Blood Urea Nitrogen 14 9-16 mg/dL Creatinine 0.86 0.5-1.4 mg/dL Estimated Glomerular Filt Rate > 60 NOTE: For -Wallisian individuals, multiply the result by 1.210. Chronic [...] Panel Reviewed date:04/13/2024 03:44:43 PM Interpretation: Performing Lab:[facility], [address] [place] [phone] Notes/Report: Triglycerides 122 <150 mg/dL Desirable Triglyceride: [...] date:04/13/2024 03:44:43 PM Interpretation: Performing Lab: Notes/Report: [address] [address] Ultrasound Report Signed Patient: Mat Ospina MR#: [id number] : 1945 Acct:[id number] Age/Sex: 79 / M ADM Date: 04/08/24 Loc: .US Attending Dr: Jonathan Schroeder MD Ordering Physician: Jonathan Schroeder MD Date of Service: 04/08/24 Procedure(s): US arterial duplex BI w/ VIJAY Accession Number(s): [id number] cc: Wilfrid Lin MD; Jonathan Schroeder MD [...] 04/11/24 1115 DD/ 1524 TD/TT: 04/08/24 1612 Waste Elimination: [address] [address] Ultrasound Report Signed Patient: Mat Ospina MR#: [id number] : 1945 Acct:[id number] Age/Sex: 79 / M ADM Date: 04/08/24 Loc: . Attending Dr: Jonathan Schroeder MD Ordering Physician: Jonathan Schroeder MD Date of Service: 04/08/24 Procedure(s): US arterial duplex BI w/ VIJAY Accession Number(s): [id number] cc: Wilfrid Lin MD; Jonathan Schroeder MD [...] arter y: 102 cm/s, Multiphasic Profunda femoris artery: 71 cm/s, Multiphasic Superficial femoral artery (proximal): 90 cm/s, Multiphasic Superficial femoral artery (mid): 93 cm/s, Multiphasic Superficial femoral artery (distal): 134 cm/s, Multiphasic Proximal Popliteal artery: 71 cm/s, Multiphasic Mid posterior tibial artery: 25 cm/s, Multiphasic Peroneal artery: 46cm/s, multiphasic LEFT LEG: Common femoral arter y: 143 cm/s, Multiphasic Profunda femoris artery: 114 [...] 04/11/24 1115 DD/ 1524 TD/TT: 04/08/24 1612 Waste Elimination: PN Complete Blood Count Auto Di ff Reviewed date:08/08/2024 08:52:43 AM Interpretation: Performing Lab:[facility], [address] [place] [phone] Notes/Report: White Blood Count 10.2 4.8-10.8 X10*3/uL [...] NRBC Abs Auto 0.000 0.0-0.012 X10*3/uL Comprehensive [place]. Panel Fa st Reviewed date:08/08/2024 08:52:43 AM Interpretation: Performing Lab:[facility], [address] [place] [phone] Notes/Report: Sodium 138 135-145 mmol/L Potassium 4.1 [...] Panel Reviewed date:08/08/2024 08:52:43 AM Interpretation: Performing Lab:[facility], [address] [place] [phone] Notes/Report: Triglycerides 165 <150 mg/dL Desirable Triglyceride: [...] Thyroxine) Reviewed date:08/08/2024 08:52:43 AM Interpretation: Performing Lab:[facility], [address] [place] [phone] Notes/Report: Free T4 (Free Thyroxine) 1.06 0.71-1.85 ng/dL Thyroid Stimulating Hormone Reviewed date:08/08/2024 08:52:43 AM Interpretation: Performing Lab:[facility], [address] [place] [phone] Notes/Report: Thyroid Stimulating Hormone 0.61 0.32-4.0 uIU/mL TSH 3rd Generation ([facility]) Immunoglobulin E Reviewed date:08/08/2024 08:52:43 AM Interpretation: Performing Lab:[facility], [address] [place] [phone] Notes/Report: Immunoglobulin E 587 <WN=744 kU/L THIS TEST WAS PERFORMED AT: [facility] [address] [address] EDUARDO FLYNN MD Hepatitis B Surface Antibody Reviewed date:08/08/2024 08:52:43 AM Interpretation: Performing Lab:[address] [address] Notes/Report: Hepatitis B Surface Antibody NONREACTIVE Nonreactive Nonreactive: < 8.00 mIU/mL Hepatitis B Core Antibody Reviewed date:08/08/2024 08:52:43 AM Interpretation: Performing Lab:[address] [address] Notes/Report: Hepatitis B Core Antibody Nonreactive Nonreactive HIV Ab/Ag Reviewed date:08/08/2024 08:52:43 AM Interpretation: Performing Lab:[address] [address] Notes/Report: HIV AB/AG Nonreactive Nonreactive HIV-1 p24 [...] limit of detection of this assay. The [employer] HIV Ag/Ab Combo assay result and supplemental assay results should be interpreted in conjunction with the patient's clinical presentation, history and other laboratory results. If the results are inconsistent with clinical evidence, additional testing is suggested to confirm the result. Hepatitis C Antibody Reviewed date:08/08/2024 08:52:43 AM Interpretation: Performing Lab:[facility], [address] [place] [phone] Notes/Report: Hepatitis C Antibody Reactive Nonreactive Presump tive evidence of antibodies to HCV. Hepatitis B Surface Antigen Reviewed date:08/08/2024 08:52:43 AM Interpretation: Performing Lab:[facility], [address] [place] [phone] Notes/Report: Hepatitis B Surface Antigen Negative Negative XR chest 2V Reviewed date:08/08/2024 08:52:43 AM Interpretation: Performing Lab: Notes/Report: [address] [address] XRay Report Signed Patient: Mat Ospina MR#: [id number] : 1945 Acct:[id number] Age/Sex: 79 / M ADM Date: 08/04/24 Loc: HO.HMGCLDS Attending Dr: Sixto Galvez PA-C Ordering Physician: Sixto Galvez PA-C Date of Service: 08/04/24 Procedure(s): XR chest 2V Accession Number(s): [id number] cc: Wilfrid Lin MD; Sixto Galvez PA-C [...] Wilfrid Yañez MD 08/05/2024 07:08 AM EST RP Dictated By: Wilfrid Yañez MD Signed By: <Electronically signed by Wilfird Yañez MD in OV> 08/05/24 0708 DD/ 0838 TD/TT: 08/04/2445 Waste Elimination: [address] [address] XRay Report Signed Patient: Mat Ospina MR#: [id number] : 1945 Acct:[id number] Age/Sex: 79 / M ADM Date: 08/04/24 Loc: HO.HMGCLDS Attending Dr: Sixto Galvez PA-C Ordering Physician: Sixto Galvez PA-C Date of Service: 08/04/24 Procedure(s): XR melyssa st 2V Accession Number(s): [id number] cc: Wilfrid Lin MD; Sixto Galvez PA-C [...] Wilfrid Yañez MD 08/05/2024 07:08 AM EST RP Dictated By: Wilfrid Yañez MD Signed By: <Electronically signed by Wilfrid Yañez MD in OV> 08/05/24 0708 DD/ 0838 TD/TT: 08/04/2445 Waste Elimination: HCV RNA QN PROG TO GENOTYPE Reviewed date:09/19/2024 10:13:53 AM Interpretation: Performing Lab:[facility], [address] [place] [phone] Notes/Report: HCV RNA PCR Qn <15 NOT DETECTED NOT DETECTED IU/mL HCV RNA PCR Qn <1.18 NOT DETECTED NOT DETECTED Log IU/mL HCV RNA Comment SEE NOTE For additional information, please refer to [email or web address] (This link is being provided for informational/ Educational purposes only.) THIS TEST WAS PERFORMED AT: [facility] [address] [place] [phone] EDUARDO FLYNN MD HCV Genotype LiPA TNP Test not i ndicated. Hepatitis A IgG Reviewed date:09/19/2024 10:13:53 AM Interpretation: Performing Lab:[facility], [address] [place] [phone] Notes/Report: Hepatitis A Antibody IgG REACTIVE Nonreactive The presence of IgG anti-HAV implies past HAV infection (recent or distant) or vaccination against HAV. XR chest 2V (Not yet reviewe d by provider) Interpretation: Performing Lab: Notes/Report: [address] [address] XRay Report Signed Patient: Mat Ospina MR#: [id number] : 1945 Acct:[id number] Age/Sex: 79 / M ADM Date: 09/23/24 Loc: VALENTE Attending Dr: Wilfrid Lin MD Ordering Physician: Wilfrid Lin MD Date of Service: 09/23/24 Procedure(s): XR chest 2V Accession Number(s): [id number] cc: Wilfrid Lin MD EXAMINATION: XR CHEST [...] Yañez MD in OV> 09/23/24 1006 DD/ 2 TD/TT: 09/23/24939 Waste Elimination: [address] [address] XRay Report Signed Patient: Mat Ospina MR#: [id number] : 1945 Acct:[id number] Age/Sex: 79 / M ADM Date: 09/23/24 Loc: HO.JACEY Attending Dr: Wilfrid Lin MD Ordering Physician: Wilfrid Lin MD Date of Service: 09/23/24 Procedure(s): XR melyssa st 2V Accession Number(s): [id number] cc: Wilfrid Lin MD EXAMINATION: XR CHES [...] Yañez MD in OV> 09/23/24 1006 DD/ 2 TD/TT: 09/23/24939 Waste Elimination: US abdomen complete (Not yet reviewed by provider) Interpretation: Performing Lab: Notes/Report: [facility] Adult Primary [facility] [place] [place] [address] Ultrasound Report Signed Patient: Mat Ospina MR#: [id number] : 1945 Acct:[id number] Age/Sex: 79 / M ADM Date: 10/05/24 Loc: HO.HMGCX Attending Dr: Diana Simmons [facility] Ordering Physician: Diana Simmons [facility] Date of Service: 10/05/24 Procedure(s): US abdomen complete Accession Number(s): [id number] cc: Wilfrid Lin MD; Diana Simmons [facility] CLINICAL HISTORY: B19.20 - Unspecified viral hepatitis [...] in OV> 10/05/24 1630 DD/ 1629 TD/TT: 10/05/241628 Waste Elimination: [facility] [address] [place] [address] [place] [address] Ultrasound Report Signed Patient: Mat Ospina MR#: [id number] : 1945 Acct:[id number] Age/Sex: 79 / M ADM Date: 10/05/24 Loc: HO.HMGCX Attending Dr: Diana Simmons [employer]- Ordering Physician: Diana Simmons [employer] Date of Service: 10/05/24 Procedure(s): US abdomen complete Accession Number(s): [id number] cc: Wilfrid Lin MD; Diana Simmons CLINICAL [...] 10/05/24 1630 DD/ 1629 TD/TT: 10/05/24 1629 Waste Elimination: Blood Urea Nitrogen (Not yet reviewed by provider) Interpretation: Performing Lab:[address] [address] Notes/Report: Blood Urea Nitrogen 13 9-16 mg/dL Creatinine (Not yet reviewed by provider) Interpretation: Performing Lab:[facility], [address] [place] [address] Notes/Report: Creatinine 1.12 0.5-1.4 mg/dL Estimated Glomerular Filt Rate > 60 Chronic Kidney Disease: Estimated GFR < 60 mL/min/1.73m2 Severe Kidney Disease: Estimated GFR < 15 mL/min/1.73m2 Reason For Referral No Information Medications Medication SIG (Take, Route, Frequency, Duration) Notes Start Date End Date Status Meclizine HCl 25 MG 1 tablet as needed O rally every 12 hrs for 14 days 01/27/2025 Active Aspirin Low Dose 81 MG CHEW AND SWALLOW 1 TABLET BY MOUTH DAILY Active Atorvastatin Calcium 80 MG TAKE 1 TABLET BY MOUTH AT BEDTIME Active Omeprazole 20 MG 1 capsule 1/2 to 1 h our before morning meal Orally Once a day Active Clopidogrel Bisulfate 75 MG TAKE 1 TABLE T BY MOUTH EVERY DAY Active Immunizations Vaccine Route Administration Date Status [...] Problem Status W/U Status Risk Notes Problem 9074595 Former smoker (Z87.891) Active confirmed He recently stopped smoking and has a prescription for Chantix. Problem 664209534 Overweight (BMI 25.0-29.9) (E66.3) Active confirmed He has lost weight and his body mass index is now 26. We reviewed [facility] diet and nutrition. We made a plan to continue weight loss. Problem 663217897 Mixed hyperlipidemia (E78.2) Active confirmed Comprehensive blood work with a fasting lipid profile will be done prior to his next visit. No change in his regimen was made today. Problem 355493076 Dermatitis (L30.9) Active confirmed On his last visit the right jehovah's witness was pruritic. He says it is now over the entire scalp. A dermatology referral was made. He was urged to continue the clobetasol twice a day. Problem Erectile dysfunction (disorder) (552344084) Erectile dysfunction, unspecified erectile dysfunction type (N52.9) Active confirmed This problem shanks s been treated with medications. Problem 101808716 Pulmonary nodule (R91.1) Active confirmed The 6.5 cm pulmonary nodule in right middle lobe is stable. Is being observed carefully. Problem 870961392 Thyroid nodule (E04.1) Active confirmed In 2001. A 2 cm thyroid nodule is seen extending into the mediastinum on the study done to evaluate the arteries. It is not palpable today and has not caused symptoms. It will be reimaged periodically. Problem 426194669 Tubular adenoma of colon (D12.6) Active confirmed He underwent a colonoscopy September 26, 2021. This was done at [facility] by Dr. Enamorado. 2 tubular adenomas were found. A repeat study was planned in 5 years. Problem Aortic aneurysm (91491462) Aortic aneurysm (I71.9) Active confirmed He is under the care of vascular surgery. He has had no abdominal pain. There is no pulsatile mass on examination. Problem 464942398 Left inguinal hernia (K40.90) Active confirmed Bilateral herniorrhaphies have been done with no recurrence. He is free of any symptoms at this time. Problem 631139503 Microscopic hematuria (R31.29) Active confirmed He has had microscopic hematuria endeavor urinalysis since 2002 at [facility] database. Problem 27816304 Bilateral hearing loss, unspecified hearing loss type (H91.93) Active confirmed Problem 27609412 Reactive depression (F32.9) Active confirmed He was continue d on the Wellbutrin. His depression is mild. He is able to conduct all of the activities of daily life. He has no thoughts of self-harm. Problem 994836747 Chronic GERD (K21.9) Active confirmed He will continu e on omeprazole liquid antacid. Problem 745254816 Sensorineural hearing loss (SNHL) of both ears (H90.3) Active confirmed He does not think he needs hearing aids at this point. Examination of his ears showed no impaction of cerumen. Problem Left carotid artery stenosis (613109758710404 ) Left carotid artery stenosis (I65.22) Active confirmed He is followed by vascular surgery. The left carotid is palpable. He has had no TIA symptoms. Problem 521427462666348 Primary osteoarthritis of left knee (M17.12) Active confirmed He has had arthroscopic surgery on his left knee which improved the function significantly. He still has mild pain. Problem 34738689 Hepatitis C virus infection without hepatic coma, unspecified chronicity (B19.20) Active confirmed Problem 18001172 Paraseptal emphysema (J43.8) Active confirmed He is no longer smoking. He is comfortable with mild activity. He does not require oxygen. 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 He will limit his coffee drinking to 3 cups daily. A follow-up visit was arranged. Blood work for thyroid function tests was ordered. Vital Signs Heart Rate 85 /min 01/24/2025 Temperature 97.5 degrees Fahrenheit 01/24/2025 Blood pressure diastolic 77 mm Hg 01/24/2025 Height 67 in 01/24/2025 Blood pressure systolic 129 mm Hg 01/24/2025 Weight 169 lbs 01/24/2025 BMI 26.47 kg/m2 01/24/2025 Encounters Encounter Location Date Provider Diagnosis Wilfrid Lin III, MD [address] [place] [address] [place] [address] 04/13/2024 Wilfrid Lin Mixed hyperlipidemia E78.2 ; [...] Former smoker Z87.891 Wilfrid Lin III, MD [address] [place] [address] [place] [address] 07/15/2024 Wilfrid Lin Mixed hyperlipidemia E78.2 ; Acute adenitis L04.9 ; Paraseptal emphysema J43.8 ; Overweight (BMI 25.0-29.9) E66.3 ; Sensorineural hearing loss (SNHL) of both ears H90.3 ; Aortic aneurysm I71.9 and Left carotid artery stenosis I65.22 Wilfrid Lin III, MD [address] [place] [address] [place] [address] 08/11/2024 Wilfrid Lin Mixed hyperlipidemia E78.2 ; Acute adenitis L04.9 ; Overweight (BMI 25.0-29.9) E66.3 ; Hepatitis C antibody positive R76.8 ; Sensorineural hearing loss (SNHL) of both ears H90.3 ; Paraseptal emphysema J43.8 ; Tobacco dependence F17.200 ; Left carotid artery stenosis I65.22 and Primary osteoarthritis of left knee M17.12 Wilfrid Lin III, MD [address] [place] [address] [place] [address] 08/17/2024 Wilfrid Lin Premature atrial contractions I49.1 ; Mixed hyperlipidemia E78.2 ; Paraseptal emphysema J43.8 ; Overweight (BMI 25.0-29.9) E66.3 ; Sensorineural hearing loss (SNHL) of both ears H90.3 ; Reactive depression F32.9 ; Primary osteoarthritis of left knee M17.12 and Former smoker Z87.891 Wilfrid Lin III, MD [address] [place] [address] [place] [address] 09/23/2024 Wilfrid Lin Mixed hyperlipidemia E78.2 ; Paraseptal emphysema J43.8 ; Overweight (BMI 25.0-29.9) E66.3 ; Sensorineural hearing loss (SNHL) of both ears H90.3 ; Left inguinal hernia K40.90 ; Primary osteoarthritis of left knee M17.12 ; Reactive depression F32.9 ; Left carotid artery stenosis I65.22 and Aortic aneurysm I71.9 Wilfrid Lin III, MD [address] [place] [address] [place] [address] 10/11/2024 Wilfrid Lin Insect bite (nonvenomous) of left front wall of thorax, initial encounter S20.362A ; Overweight (BMI 25.0-29.9) E66.3 ; Primary osteoarthritis of left knee M17.12 ; Left inguinal hernia K40.90 and Former smoker Z87.891 Wilfrid Lin III, MD [address] [place] [address] [place] [address] 10/25/2024 Wilfrid Lin Insect bite (nonvenomous) of abdominal wall, subsequent encounter S30.861D ; Paraseptal emphysema J43.8 ; Mixed hyperlipidemia E78.2 ; Overweight (BMI 25.0-29.9) E66.3 ; Sensorineural hearing loss (SNHL) of both ears H90.3 and Former smoker Z87.891 Wilfrid Lin III, MD [address] [place] [address] [place] [address] 01/24/2025 Wilfrid Lin Mixed hyperlipidemia E78.2 ; Paraseptal emphysema J43.8 ; Overweight (BMI 25.0-29.9) E66.3 ; Sensorineural hearing loss (SNHL) of both ears H90.3 and Reactive depression F32.9 Wilfrid Lin III, MD [address] [place] [address] [place] [address] 04/30/2024 Wilfrid Lin III, MD [address] [place] [address] [place] [address] 08/18/2024 Wilfrid Lin III, MD [address] [place] [address] [place] [address] 09/06/2024 Wilfrid Lin Mixed hyperlipidemia E78.2 ; Overweight (BMI 25.0-29.9) E66.3 and Hepatitis C virus infection without hepatic coma, unspecified chronicity B19.20 Wilfrid Lin III, MD [address] [place] [address] [place] [address] 09/15/2024 Wilfrid Lin III, MD [address] [place] [address] [place] [address] 01/26/2025 Wilfrid Lin III, MD [address] [place] [address] [place] [address] 01/27/2025 Wilfrid Lin III, MD [address] [place] [address] [place] [address] 02/07/2025 Wilfrid Lin III, MD [address] [place] [address] [place] [address] 02/07/2025 Wilfrid Lin Assessments Encounter Date Diagnosis (ICD [...] 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 He will limit his coffee [...] 14 days. A followup visit was arranged. 10/25/2024 Insect bite (nonvenomous) of abdominal wall, subsequent encounter (ICD-10 - S30.861D) He has finished the doxycycline. The area is healing and there is no sign of Lyme disease. 10/25/2024 Paraseptal emphysema (ICD-10 - J43.8) He is no longer smoking. He is comfortable with mild activity. He does not require oxygen. 01/24/2025 Mixed hyperlipidemia (ICD-10 - E78.2) Comprehensive blood work with a fasting lipid profile will be done prior to his next visit. No change in his regimen was made today. 01/24/2025 Paraseptal emphysema (ICD-10 - J43.8) He is no longer smoking. He is comfortable with mild activity. He does not require oxygen. 09/06/2024 Mixed hyperlipidemia (ICD-10 - E78.2) 04/13/2024 Pulmonary nodule (ICD-10 - R91.1) The [...] function significantly. He still has mild pain. 10/25/2024 Mixed hyperlipidemia (ICD-10 - E78.2) The cholesterol values are currently stable. Current therapy was continued 01/24/2025 Overweight (BMI 25.0-29.9) (ICD-10 - E66.3) He has lost weight and his body mass index is now 26. We reviewed [facility] diet and nutrition. We made a plan to continue weight loss. 09/06/2024 Overweight (BMI 25.0-29.9) (ICD-10 - E66.3) 04/13/2024 Overweight (BMI 25.0-29.9) (ICD-10 - E66.3) [...] free of any symptoms at this time. 10/25/2024 Overweight (BMI 25.0-29.9) (ICD-10 - E66.3) His body mass index is 27 and his weight is stable. We discussed his diet and nutrition today. I recommended weight loss at a rate of one half of a pound per week. 01/24/2025 Sensorineural hearing loss (SNHL) of both ears (ICD-10 - H90.3) He does not think he needs hearing aids at this point. Examination of his ears showed no impaction of cerumen. 09/06/2024 Hepatitis C virus infection without hepatic coma, unspecified chronicity (ICD-10 - B19.20) 04/13/2024 Sensorineural hearing loss (SNHL) of both [...] smoking and has a prescription for Chantix. 10/25/2024 Sensorineural hearing loss (SNHL) of both ears [...] He has no thoughts of self-harm. 04/13/2024 Left inguinal hernia (ICD-10 - K40.90) Bilateral herniorrhaphies have been done with no recurrence. He is free of any symptoms at this time. 07/15/2024 Aortic aneurysm (ICD-10 - I71.9) He is under the care of vascular surgery at [facility]. He is going to have an [...] function significantly. He still has mild pain. 10/25/2024 Former smoker (ICD-10 - Z87.891) He recently stopped smoking and has a prescription for Chantix. 04/13/2024 Primary osteoarthritis of left knee (ICD-10 - M17.12) He has had arthroscopic surgery on his left knee which improved the function significantly. He still has mild pain. 07/15/2024 Left carotid artery stenosis (ICD-10 - I65.22) He has an appointment for a bilateral carotid ultrasound with [facility] vascular in the near future. 08/11/2024 [...] He has no thoughts of self-harm. 04/13/2024 Reactive depression (ICD-10 - F32.9) He was continued on the Wellbutrin. His depression is mild. He is able to conduct all of the activities of daily life. He has no thoughts of self-harm. 08/11/2024 Left carotid artery stenosis (ICD-10 - I65.22) He has an appointment for a bilateral carotid ultrasound with [facility] vascular in the near future. 08/17/2024 [...] under the care of vascular surgery at [facility]. He is going to have an [...] C) 05/09/2021 PROFILE, FASTING (COMPREHENSIVE METABOLI C) 08/23/2022 PROFILE, FASTING (COMPREHENSIVE METABOLI C) 06/16/2019 PROFILE, FASTING (COMPREHENSIVE METABOLI C) 11/13/2021 PROFILE, FASTING (COMPREHENSIVE METABOLI C) 06/14/2022 PROFILE, FASTING (COMPREHENSIVE METABOLI C) 03/06/2020 PROFILE, FASTING (COMPREHENSIVE METABOLI C) 01/05/2024 PROFILE, FASTING (COMPREHENSIVE METABOLI C) 03/22/2019 PROFILE, FASTING (COMPREHENSIVE METABOLI C) 05/21/2019 PROFILE, FASTING (COMPREHENSIVE METABOLI C) 09/06/2024 PROFILE, FASTING (COMPREHENSIVE METABOLI C) 01/24/2025 PROFILE, FASTING (COMPREHENSIVE METABOLI C) 09/16/2019 PROFILE, FASTING (COMPREHENSIVE METABOLI C) 01/22/2022 PROFILE, FASTING (COMPREHENSIVE METABOLI C) 09/05/2023 PROFILE, RANDOM (COMPREHENSIVE METABOLIC ) 06/20/2023 PROFILE, RANDOM (COMPREHENSIVE METABOLIC ) 04/03/2022 LIPID PANEL 09/16/2019 LIPID PANEL 04/07/2019 LIPID PANEL 05/09/2021 LIPID PANEL 08/23/2022 LIPID PANEL 06/16/2019 LIPID PANEL 06/14/2022 LIPID PANEL 03/06/2020 LIPID PANEL 03/22/2019 LIPID PANEL 05/21/2019 GGT 08/11/2024 GGT 09/06/2024 TSH (THYROID STIMULATING HORMONE) 2022 PSA, TOTAL 04/07/2019 PSA, TOTAL 06/20/2023 PSA, TOTAL 05/09/2021 PSA, TOTAL 03/06/2020 PSA, TOTAL 08/23/2022 PSA, TOTAL 01/24/2025 PSA, TOTAL SCREEN 06/14/2022 CEA 04/03/2022 CBC w DIFF 01/22/2022 CBC w DIFF 08/23/2022 CBC w DIFF 05/21/2019 CBC w DIFF 09/06/2024 CBC w DIFF 01/24/2025 CBC w DIFF 09/16/2019 CBC w DIFF 04/13/2024 CBC w DIFF 11/13/2021 CBC w DIFF 06/20/2023 CBC w DIFF 06/16/2019 CBC w DIFF 05/09/2021 CBC w DIFF 06/14/2022 CBC w DIFF 04/03/2022 CBC w DIFF 03/22/2019 CBC w DIFF 03/06/2020 SED RATE (ESR) 04/03/2022 SED RATE (ESR) [...] DIFF 01/05/2024 CBC WITH AUTO DIFF 08/11/2024 Blood Urea Nitrogen 03/31/2025 Creatinine 03/31/2025 Lipid Panel 08/11/2024 Lipid Panel 01/22/2022 Lipid Panel 09/06/2024 Lipid Panel 09/05/2023 Lipid Panel 01/24/2025 Lipid Panel 04/13/2024 Lipid Panel 11/13/2021 Lipid Panel 06/20/2023 Lipid Panel 01/05/2024 ECG 12 lead EKG 08/17/2024 US abdomen complete 10/05/2024 XR chest 2V 09/23/2024 ECG 7 day holter monitor 08/17/2024 Next Appt Details Provider Name:Wilfrid Dirk Lin , 04/15/2025 03:00:00 PM, [address] [place] [address] , [address], [facility], [address], Insurance Providers Payer Name Payer Address Payer Phone Subscriber Number Group Number Insured Name Patient Relationship to Insured Coverage Start Date Coverage End Date MEDICARE NGS [address] [place] [phone] [id number] Mat Cates Self - patient is the insured [address] [place] [phone] [id number] Monikajohnnie coughlin Mat Self - patient is the [...] of abdominal aortic aneurysm 01/24 20 Colonoscopy, [facility], Dr. Weems, 2 sigmoid tubular adenomatous 09/2021 left carotid endarterectomy 12/2019 Right inguinal herniorrhaphy 07/2019 colonoscopy, [facility], Dr. Kirkpatrick, 2 hyperplastic polyps 06/2005 repair left inguinal hernia 2013 complete dental extractions arthroscopic surgey left knee 2002 bilateral rotator cuff surgery, Dr. Rima Madsen 2016 Hospitalization History Reason Date(Month/Year) No history left carotid endarterectomy 12/2019 arthroscopic left knee surgery shoulder surgery 2016
== END 2025-03-31 14:01 | disposition home or self-care (01) ==
LOC: HO.HMGCLDS 14:00
PROVIDERS: PCP Internal Medicine Medical Oncology; Visit Provider Surgery Vascular Surgery
DX: I71.43 Infrarenal abdominal aortic aneurysm, without rupture (principal)
CPT/HCPCS: 36415; 82565; 84520

== ENCOUNTER 2025-04-08 14:46 | Outpatient (REF) | payer MEDICARE, OTHER, SELFPAY ==
--- OUTSIDE RECORDS SUMMARY | 2025-01-24 11:00 | XMS_ITS ---
Author Organization Wilfrid Lin III, MD Address [address] [place] [address] Care Team Providers Care Accounts Payable Administrator Name Role Phone Dr. Wilfrid Lin III Primary Care Provider [phone] Allergies Allergen (clinical drug ingredient) Drug/Non Drug [...] Date Provider Diagnosis Wilfrid Lin III, MD [address] [place] [address] [address] [place], [place] [address] 01/24/2025 Wilfrid Lin Mixed hyperlipidemia E78.2 ; [...] mass index is now 26. We reviewed [facility] diet and nutrition. We made a [...] Provider Name:Wilfrid Lin , 04/15/2025 03:00:00 PM, [address] [place] [address] [address], [place], [address], Progress Notes * Mat OSPINA SrDOB: (80 yo M)Acc No.[id number]:01/24/2025 Progress Notes Patient: Mat RAMIREZ Sr Provider: Jemma Lin MD :1945 A ge:80 Y S ex:Male Date:01/24/2025 [address] [address] [facility] Subjective: * Chief Complaints: * V ertigoHyperlipidemiaEmphysemaHearing [...] dental extractions repair left inguinal hernia 2013colonoscopy, [facility], Dr. Kirkpatrick, 2 hyperplastic polyps 06/2005Right inguinal herniorrhaphy 07/2019left carotid endarterectomy 12/2019Colonoscopy, [facility], Dr. Weems, 2 sigmoid tubular adenomatous [...] x-cigarette smoker Cristiana gracia was born in [place]. 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 He has 2 sons, Tao Rivero, who lives in [place]. He has 4 grandchildren and 3 great-grandchildren. [...] mass index is now 26. We reviewed [facility] diet and nutrition.? We made a [...] 0 01/24/2025 Generated for Carol hurst/Yaa/Thomasitting on: 02:50 PM EDT History and Physical Notes * [...]
--- OUTSIDE RECORDS SUMMARY | 2025-01-26 09:36 | XMS_ITS ---
Author Organization Wilfrid Lin III, MD Address [address] [place] [address] [place] [address] Care Team Providers Care Furnace Repairer Helper Name Role Phone Dr. Wilfrid Lin III Primary Care Provider REASON FOR VISIT told patient to call Social History Sex Assigned At : Social History Observation Description Sex Assigned At Male Encounters Encounter Location Date Provider Diagnosis Wilfrid Lin III, MD [address] [place] [address] [address] [facility] [facility] [place] [address] 01/26/2025 Wilfrid Lin Plan Of Treatment Next Appt Details Provider Name:Wilfrid Lin , 04/15/2025 03:00:00 PM, [address] [place] [address] [address] [place], [address], Progress Notes * Mat OSPINA SrDOB: (80 yo M)Acc No.[id number]:01/26/2025 Patient: Mora BARRAGANMat MEEHAN Sr :1945 A ge:80 Y S ex:Male Address:[address] [place], [address] * true * Date: Generated for Printi ng/Faxing/eTransmitting on: 02:51 PM EDT
--- OUTSIDE RECORDS SUMMARY | 2025-01-27 10:56 | XMS_ITS ---
Author Organization Wilfrid Lin III, MD Address [address] [place] [address] [place] [address] Care Team Providers Care Carbonation Equipment Tender Name Role Phone Dr. Wilfrid Lin III Primary Care Provider Medications Medication SIG (Take, Route, Fr equency, Duration) Notes Start Date End Date Status Meclizine HCl 25 MG 1 tablet as needed O rally every 12 hrs for 14 days 01/27/2025 Active Social History Sex Assigned At : Social History Observation Description Sex Assigned At Male Encounters Encounter Location Date Provider Diagnosis Wilfrid Lin III, MD [address] [place] [address] [address] [facility] [facility] [place] [address] 01/27/2025 Wilfrid Lin Plan Of Treatment Medication Medication Name Sig Start Date Stop Date Notes Meclizine HCl 25 MG 1 tablet as needed O rally every 12 hrs for 14 days 01/27/2025 Next Appt Details Provider Name:Wilfrid Lin , 04/15/2025 03:00:00 PM, [address] [place] [address] [place], [address], Progress Notes * Mat OSPINA SrDOB: (80 yo M)Acc No.[id number]:01/27/2025 Patient: Mora Mat HERNANDEZ Sr :1945 A ge:80 Y S ex:Male Address:[address] [place], [address] * Refills Start Meclizine HCl Tablet, 25 MG, Orally, 28 Tablet, 1 tablet as needed, every 12 hrs, 14 days, Refills=1 * true * Date: Generated for Carol hurst/Yaa/Brenda on: 1 02:51 PM EDT
--- OUTSIDE RECORDS SUMMARY | 2025-02-07 06:28 | XMS_ITS ---
Author Organization Wilfrid Lin III, MD Address [address] [place] [address] [place] [address] Care Team Providers Care Buttermilk Drier Operator Name Role Phone Dr. Wilfrid Lin III Primary Care Provider REASON FOR VISIT Concerns about patient Hep B Social History Sex Assigned At : Social History Observation Description Sex Assigned At Male Encounters Encounter Location Date Provider Diagnosis Wilfrid Lin III, MD [address] [place] [address] [address] [facility] [place] [address] 02/07/2025 Wilfrid Lin Plan Of Treatment Next Appt Details Provider Name:Wilfrid Lin , 04/15/2025 03:00:00 PM, [address] [place] [address] [place], [address], Progress Notes * Mat OSPINA SrDOB: (80 yo M)Acc No.[id number]:02/07/2025 Patient: Mora BARRAGANMat MEEHAN Sr :1945 A ge:80 Y S ex:Male Address[address] [place], [address] * true * Date: Generated for Printi ng/Faxing/eTransmitting on: 02:50 PM EDT
--- OUTSIDE RECORDS SUMMARY | 2025-02-07 06:40 | XMS_ITS ---
Author Organization Wilfrid Lin III, MD Address [address] [place] [address] [place] [address] Care Team Providers Care Inspector Integrated Circuits Name Role Phone Dr. Wilfrid Lin III Primary Care Provider [phone] REASON FOR VISIT Needs call back from Social History Sex Assigned At : Social History Observation Description Sex Assigned At Male Encounters Encounter Location Date Provider Diagnosis Wilfrid Lin III, MD [address] [place] [address] [place] [address] 02/07/2025 Wilfrid Lin Plan Of Treatment Next Appt Details Provider Name:Wilfrid Lin , 04/15/2025 03:00:00 PM, [address] [place] [address] [place], [address], Progress Notes * Mat OSPINA SrDOB: (80 yo M)Acc No.[id number]:02/07/2025 Patient: Mora BARRAGANMat MEEHAN Sr :1945 A ge:80 Y S ex:Male Address[address] [place], [address] * true * Date: Generated for Printi ng/Faxing/eTransmitting on: 02:51 PM EDT
--- NOTE | ~2025-04-08 | CT_ITS ---
EXAMINATION: CT ANGIOGRAM ABDOMEN AND PELVIS CLINICAL INFORMATION: COMPARISON: None available. TECHNIQUE: Multiple axial images were obtained through the abdomen and pelvis following the administration of 100 mL of Omnipaque 350 intravenous contrast. Images were reviewed on a dedicated 3-D workstation. This CT examination was performed using dose optimization techniques as appropriate, variously including the following: *Automated exposure control *Adjustment of mA and/or kV according to patient size (this includes techniques or standardized protocols for targeted exams where dose is matched to indication/reason for exam; i.e. extremities or head) *Use of iterative reconstruction technique FINDINGS: EXAMINATION: CT ANGIOGRAM PELVIS CLINICAL INFORMATION: COMPARISON: None available. TECHNIQUE: Multiple axial images were obtained through the pelvis using a [address] scanner after the administration of 100 mL of Omnipaque 350 intravenous contrast. Images were reviewed on a dedicated 3-D workstation to perform 3-D reformations. This CT examination was performed using dose optimization techniques as appropriate, variously including the following: *Automated exposure control *Adjustment of mA and/or kV according to patient size (this includes techniques or standardized protocols for targeted exams where dose is matched to indication/reason for exam; i.e. extremities or head) *Use of iterative reconstruction technique FINDINGS: Stable changes post aortobicommon iliac stent graft. The stent graft is patent. There is a fusiform aneurysm of the lower abdominal aorta. This measures 4 x 4.2 cm in AP and transverse dimension not appreciably changed. 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 There is thrombus is seen inside the stent grafts slightly increased from previous exam. The right common iliac artery is patent. There is a small aneurysm of the left common iliac artery measuring 2.5 cm not appreciably changed. No endoleak is seen. There is embolization material seen in the right proximal internal iliac artery. The left internal iliac artery is patent. Bilateral external iliac, common femoral arteries and femoral bifurcations are patent and normal in caliber. The celiac axis and SMA are patent. There are single patent bilateral renal arteries. There is dilatation of the lower thoracic aorta measuring up to 3.6 cm with tortuosity and some intraluminal thrombus unchanged. LUNG BASES: Emphysematous changes at the lung bases. LIVER, GALLBLADDER, AND BILIARY TREE: The liver is normal in size, shape, and attenuation. No focal hepatic lesion or biliary ductal dilatation is present. The gallbladder is unremarkable with no evidence of radiopaque gallstones, gallbladder wall thickening, or obvious pericholecystic inflammatory changes. PANCREAS: Unremarkable. SPLEEN: Unremarkable. ADRENAL GLANDS: Unremarkable. KIDNEYS AND URETERS: The kidneys are normal in size, shape, and attenuation. Multiple bilateral renal cysts not appreciably changed. No hydronephrosis, hydroureter, or calculi seen. No perinephric stranding. BLADDER: Unremarkable. GASTROINTESTINAL TRACT: Diverticulosis of the colon. The small and large bowel are otherwise unremarkable. The appendix is unremarkable. Underdistended stomach. Difficult to exclude mild diffuse wall thickening of the proximal stomach. ABDOMINAL WALL: No significant hernia is appreciated. LYMPH NODES: Normal. VASCULAR: See above. PELVIC VISCERA: Slightly enlarged prostate gland. OSSEOUS STRUCTURES: Degenerative changes of the spine. CT/CT angio abdomen pelvis IMPRESSION: Stable appearance of the abdominal aortic aneurysm post aorto by iliac stent graft. No endoleak. 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 There is increasing intraluminal thrombus seen compared to previous exam. Stable dilatation or smaller aneurysm of the left common iliac artery. Fleischner guidelines were followed. Electronically signed by: Joanie Lazo MD 04/08/2025 04:39 PM EDT
--- OUTSIDE RECORDS SUMMARY | 2025-04-08 14:51 | XMS_ITS | Patient Health Record ---
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 Wilfrid Lin III Primary Care Provider [phone] Allergies Allergen (clinical drug ingredient) Drug/Non Drug [...] date:09/03/2024 10:40:27 AM Interpretation: Performing Lab: Notes/Report: US arterial duplex BI w/ VIJAY Reviewed date:04/13/2024 03:44:43 PM Interpretation: Performing Lab: Notes/Report: [address] [address] Ultrasound Report Signed Patient: Mat Ospina MR#: [id number] : 1945 Acct:[id number] Age/Sex: 79 / M ADM Date: 04/08/24 Loc: HO.US Attending Dr: Jonathan Schroeder MD Ordering Physician: Jonathan Schroeder MD Date of Service: 04/08/24 Procedure(s): US arterial duplex BI w/ VIJAY Accession Number(s): [id number] cc: Wilfrid Lin MD; Jonathan Schroeder MD [...] 04/11/24 1115 DD/ 1524 TD/TT: 04/08/24 1612 Delivery Director: MARY [place] [address] Ultrasound Report Signed Patient: Mat Ospina MR#: [id number] : 1945 Acct:[id number] Age/Sex: 79 / M ADM Date: 04/08/24 Loc: .US Attending Dr: Jonathan Schroeder MD Ordering Physician: Jonathan Schroeder MD Date of Service: 04/08/24 Procedure(s): US arterial duplex BI w/ VIJAY Accession Number(s): [id number] cc: Wilfrid Lin MD; Jonathan Schroeder MD [...] 04/11/24 1115 DD/ 1524 TD/TT: 04/08/24 1612 Delivery Director: MARY Complete Blood Count Auto Di ff Reviewed date:08/08/2024 08:52:43 AM Interpretation: Performing Lab:[facility], [address] [place] [phone] Notes/Report: White Blood Count 10.2 4.8-10.8 X10*3/uL [...] NRBC Abs Auto 0.000 0.0-0.012 X10*3/uL Comprehensive [place]. Panel Fa Reviewed date:08/08/2024 08:52:43 AM Interpretation: Performing Lab:[facility], [address] [place] [phone] Notes/Report: Sodium 138 135-145 mmol/L Potassium 4.1 [...] Panel Reviewed date:08/08/2024 08:52:43 AM Interpretation: Performing Lab:[facility], [address] [place] [phone] Notes/Report: Triglycerides 165 <150 mg/dL Desirable Triglyceride: [...] Thyroxine) Reviewed date:08/08/2024 08:52:43 AM Interpretation: Performing Lab:[facility], [address] [place] [phone] Notes/Report: Free T4 (Free Thyroxine) 1.06 0.71-1.85 ng/dL Thyroid Stimulating Hormone Reviewed date:08/08/2024 08:52:43 AM Interpretation: Performing Lab:[facility], [address] [place] [phone] Notes/Report: Thyroid Stimulating Hormone 0.61 0.32-4.0 uIU/mL TSH 3rd Generation ([facility]) Immunoglobulin E Reviewed date:08/08/2024 08:52:43 AM Interpretation: Performing Lab:[facility], [address] [place] [phone] Notes/Report: Immunoglobulin E 587 <FY=305 kU/L THIS TEST WAS PERFORMED AT: [facility] [address] [address] EDUARDO FLYNN MD Hepatitis B Surface Antibody Reviewed date:08/08/2024 08:52:43 AM Interpretation: Performing Lab:[facility], [address] [place] [phone] Notes/Report: Hepatitis B Surface Antibody NONREACTIVE Nonreactive Nonreactive: < 8.00 mIU/mL Hepatitis B Core Antibody Reviewed date:08/08/2024 08:52:43 AM Interpretation: Performing Lab:[facility], [address] [place] [phone] Notes/Report: Hepatitis B Core Antibody Nonreactive Nonreactive HIV Ab/Ag Reviewed date:08/08/2024 08:52:43 AM Interpretation: Performing Lab:[facility], [address] [place] [phone] Notes/Report: HIV AB/AG Nonreactive Nonreactive HIV-1 p24 [...] limit of detection of this assay. The [employer] HIV Ag/Ab Combo assay result and supplemental assay results should be interpreted in conjunction with the patient's clinical presentation, history and other laboratory results. If the results are inconsistent with clinical evidence, additional testing is suggested to confirm the result. Hepatitis C Antibody Reviewed date:08/08/2024 08:52:43 AM Interpretation: Performing Lab:[address] [phone] Notes/Report: Hepatitis C Antibody Reactive Nonreactive Presump tive evidence of antibodies to HCV. Hepatitis B Surface Antigen Reviewed date:08/08/2024 08:52:43 AM Interpretation: Performing Lab:[address] [address] Notes/Report: Hepatitis B Surface Antigen Negative Negative XR chest 2V Reviewed date:08/08/2024 08:52:43 AM Interpretation: Performing Lab: Notes/Report: [address] [address] XRay Report Signed Patient: Mat Ospina MR#: [id number] : 1945 Acct:[id number] Age/Sex: 79 / M ADM Date: 08/04/24 Loc: HO.HMGCLDS Attending Dr: Sixto Galvez PA-C Ordering Physician: Sixto Galvez PA-C Date of Service: 08/04/24 Procedure(s): XR chest 2V Accession Number(s): [id number] cc: Wilfrid Lin MD; Sixto Galvez PA-C [...] 08/05/24 0708 DD/ 0838 TD/TT: 08/04/24 0845 Delivery Director: [address] [address] XRay Report Signed Patient: Mat Ospina MR#: [id number] : 1945 Acct:[id number] Age/Sex: 79 / M ADM Date: 08/04/24 Loc: HO.HMGCLDS Attending Dr: Sixto Galvez PA-C Ordering Physician: Sixto Galvez PA-C Date of Service: 08/04/24 Procedure(s): XR melyssa st 2V Accession Number(s): [id number] cc: Wilfrid Lin MD; Sixto Galvez PA-C [...] 08/05/24 0708 DD/ 0838 TD/TT: 08/04/24 0845 Delivery Director: HCV RNA QN PROG TO GENOTYPE Reviewed date:09/19/2024 10:13:53 AM Interpretation: Performing Lab:[facility], [address] [place] [phone] Notes/Report: HCV RNA PCR Qn <15 NOT DETECTED NOT DETECTED IU/mL HCV RNA PCR Qn <1.18 NOT DETECTED NOT DETECTED Log IU/mL HCV RNA Comment SEE NOTE For additional information, please refer to http://[email or web address]/ faq/AQW73r4 (This link is being provided for informational/ Educational purposes only.) THIS TEST WAS PERFORMED AT: [facility] [address] [place] [phone] EDUARDO FLYNN MD HCV Genotype LiPA TNP Test not i ndicated. Hepatitis A IgG Reviewed date:09/19/2024 10:13:53 AM Interpretation: Performing Lab:[facility], [address] [place] [phone] Notes/Report: Hepatitis A Antibody IgG REACTIVE Nonreactive The presence of IgG anti-HAV implies past HAV infection (recent or distant) or vaccination against HAV. XR chest 2V Reviewed date:04/02/2025 07:45:44 PM Interpretation: Performing Lab: Notes/Report: [address] [address] XRay Report Signed Patient: Mat Ospina MR#: [id number] : 1945 Acct:[id number] Age/Sex: 79 / M ADM Date: 09/23/24 Loc: HO.XRAY Attending Dr: Wilfrid Lin MD Ordering Physician: Wilfrid Lin MD Date of Service: 09/23/24 Procedure(s): XR chest 2V Accession Number(s): [id number] cc: Wilfrid iLn MD EXAMINATION: XR CHEST 2 VIEWS HISTORY: [...] 09/23/24 1006 DD/ 0933 TD/TT: 09/23/24 0940 Delivery Director: [address] [address] XRay Report Signed Patient: Mat Ospina MR#: [id number] : 1945 Acct:[id number] Age/Sex: 79 / M ADM Date: 09/23/24 Loc: HO.JACEY Attending Dr: Wilfrid Lin MD Ordering Physician: Wilfrid Lin MD Date of Service: 09/23/24 Procedure(s): XR melyssa st 2V Accession Number(s): [id number] cc: Wilfrid Lin MD EXAMINATION: XR CHES [...] Yañez MD in OV> 09/23/24 1006 DD/ TD/TT: 09/23/24 0940 Delivery Director: US abdomen complete Reviewed date:04/02/2025 07:45:44 PM Interpretation: Performing Lab: Notes/Report: [facility] [place] [address] Ultrasound Report Signed Patient: Mat Ospina MR#: [id number] : 1945 Acct:[id number] Age/Sex: 79 / M ADM Date: 10/05/24 Loc: [facility] Ordering Physician: Diana Simmons Date of Service: 10/05/24 Procedure(s): US abdomen complete Accession Number(s): [id number] cc: Wilfrid Lin MD; Diana Simmons [facility] H[facility]: B19.20 - Unspecified viral hepatitis [...] Kelley MD in OV> 10/05/24 1630 DD/ 162 TD/TT: 10/05/24 1629 Delivery Director: [facility] [address] [place] [address] [place] [address] Ultrasound Report Signed Patient: Mat Ospina MR#: [id number] : 1945 Acct:[id number] Age/Sex: 79 / M ADM Date: 10/05/24 Loc: .HMGCX Attending Dr: Diana Simmons [facility]- Ordering Physician: Diana Simmons Date of Service: 10/05/24 Procedure(s): US abdomen complete Accession Number(s): [id number] cc: Wilfrid Lin MD; Diana Simmons [facility]: B19.20 - Unspecified viral hepatitis [...] 10/05/24 1630 DD/ 1629 TD/TT: 10/05/24 1629 Delivery Director: Blood Urea Nitrogen Reviewed date:04/02/2025 07:45:44 PM Interpretation: Performing Lab:[address] [address] Notes/Report: Blood Urea Nitrogen 13 9-16 mg/dL Creatinine Reviewed date:04/02/2025 07:45:44 PM Interpretation: Performing Lab:[address] [address] Notes/Report: Creatinine 1.12 0.5-1.4 mg/dL Estimated Glomerular [...] Problem Status W/U Status Risk Notes Problem 9776127 Former smoker (Z87.891) Active confirmed He recently stopped smoking and has a prescription for Chantix. Problem 724695485 Overweight (BMI 25.0-29.9) (E66.3) Active confirmed He has lost weight and his body mass index is now 26. We reviewed [facility] diet and nutrition. We made a plan to continue weight loss. Problem 670681442 Mixed hyperlipidemia (E78.2) Active confirmed Comprehensive blood work with a fasting lipid profile will be done prior to his next visit. No change in his regimen was made today. Problem 288729266 Dermatitis (L30.9) Active confirmed On his last visit the right holiness was pruritic. He says it is now over the entire scalp. A dermatology referral was made. He was urged to continue the clobetasol twice a day. Problem Erectile dysfunction (disorder) (795773858) Erectile dysfunction, unspecified erectile dysfunction type (N52.9) Active confirmed This problem shanks s been treated with medications. Problem 214018303 Pulmonary nodule (R91.1) Active confirmed The 6.5 cm pulmonary nodule in right middle lobe is stable. Is being observed carefully. Problem 930161511 Thyroid nodule (E04.1) Active confirmed In 2001. A 2 cm thyroid nodule is seen extending into the mediastinum on the study done to evaluate the arteries. It is not palpable today and has not caused symptoms. It will be reimaged periodically. Problem 089977139 Tubular adenoma of colon (D12.6) Active confirmed He underwent a colonoscopy September 26, 2021. This was done at [facility] by Dr. Enamorado. 2 tubular adenomas were found. A repeat study was planned in 5 years. Problem Aortic aneurysm (35281397) Aortic aneurysm (I71.9) Active confirmed He is under the care of vascular surgery. He has had no abdominal pain. There is no pulsatile mass on examination. Problem 545618820 Left inguinal hernia (K40.90) Active confirmed Bilateral herniorrhaphies have been done with no recurrence. He is free of any symptoms at this time. Problem 770818683 Microscopic hematuria (R31.29) Active confirmed He has had microscopic hematuria endeavor urinalysis since 2002 at [facility] database. Problem 56932714 Bilateral hearing loss, unspecified hearing loss type (H91.93) Active confirmed Problem 12255346 Reactive depression (F32.9) Active confirmed He was continue d on the Wellbutrin. His depression is mild. He is able to conduct all of the activities of daily life. He has no thoughts of self-harm. Problem 058427421 Chronic GERD (K21.9) Active confirmed He will continu e on omeprazole liquid antacid. Problem 016792591 Sensorineural hearing loss (SNHL) of both ears (H90.3) Active confirmed He does not think he needs hearing aids at this point. Examination of his ears showed no impaction of cerumen. Problem Left carotid artery stenosis (548512278515095 ) Left carotid artery stenosis (I65.22) Active confirmed He is followed by vascular surgery. The left carotid is palpable. He has had no TIA symptoms. Problem 545877465355143 Primary osteoarthritis of left knee (M17.12) Active confirmed He has had arthroscopic surgery on his left knee which improved the function significantly. He still has mild pain. Problem 80217639 Hepatitis C virus infection without hepatic coma, unspecified chronicity (B19.20) Active confirmed Problem 12050832 Paraseptal emphysema (J43.8) Active confirmed He is no longer smoking. He is comfortable with mild activity. He does not require oxygen. 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 He will limit his coffee [...] Provider Diagnosis Wilfrid Lin III, MD [address] [place] [address] [place] [phone] 04/13/2024 Wilfrid Lin Mixed hyperlipidemia E78.2 ; [...] Former smoker Z87.891 Wilfrid Lin III, MD [address] [place] [address] [place] [address] 07/15/2024 Wilfrid Lin Mixed hyperlipidemia E78.2 ; Acute adenitis L04.9 ; Paraseptal emphysema J43.8 ; Overweight (BMI 25.0-29.9) E66.3 ; Sensorineural hearing loss (SNHL) of both ears H90.3 ; Aortic aneurysm I71.9 and Left carotid artery stenosis I65.22 Wilfrid Lin III, MD [address] [place] [address] [place] [address] 08/11/2024 Wilfrid Lin Mixed hyperlipidemia E78.2 ; Acute adenitis L04.9 ; Overweight (BMI 25.0-29.9) E66.3 ; Hepatitis C antibody positive R76.8 ; Sensorineural hearing loss (SNHL) of both ears H90.3 ; Paraseptal emphysema J43.8 ; Tobacco dependence F17.200 ; Left carotid artery stenosis I65.22 and Primary osteoarthritis of left knee M17.12 Wilfrid Lin III, MD [address] [place] [address] [place] [address] 08/17/2024 Wilfrid Lin Premature atrial contractions I49.1 ; Mixed hyperlipidemia E78.2 ; Paraseptal emphysema J43.8 ; Overweight (BMI 25.0-29.9) E66.3 ; Sensorineural hearing loss (SNHL) of both ears H90.3 ; Reactive depression F32.9 ; Primary osteoarthritis of left knee M17.12 and Former smoker Z87.891 Wilfrid Lin III, MD [address] [place] [address] [place] [address] 09/23/2024 Wilfrid Lin Mixed hyperlipidemia E78.2 ; Paraseptal emphysema J43.8 ; Overweight (BMI 25.0-29.9) E66.3 ; Sensorineural hearing loss (SNHL) of both ears H90.3 ; Left inguinal hernia K40.90 ; Primary osteoarthritis of left knee M17.12 ; Reactive depression F32.9 ; Left carotid artery stenosis I65.22 and Aortic aneurysm I71.9 Wilfrid Lin III, MD [address] [place] [address] [place] [address] 10/11/2024 Wilfrdi Lin Insect bite (nonvenomous) of left front wall of thorax, initial encounter S20.362A ; Overweight (BMI 25.0-29.9) E66.3 ; Primary osteoarthritis of left knee M17.12 ; Left inguinal hernia K40.90 and Former smoker Z87.891 Wilfrid Lin III, MD [address] [place] [address] [place] [address] 10/25/2024 Wilfrid Lin Insect bite (nonvenomous) of abdominal wall, subsequent encounter S30.861D ; Paraseptal emphysema J43.8 ; Mixed hyperlipidemia E78.2 ; Overweight (BMI 25.0-29.9) E66.3 ; Sensorineural hearing loss (SNHL) of both ears H90.3 and Former smoker Z87.891 Wilfrid Lin III, MD [address] [place] [address] [place] [address] 01/24/2025 Wilfrid Lin Mixed hyperlipidemia E78.2 ; Paraseptal emphysema J43.8 ; Overweight (BMI 25.0-29.9) E66.3 ; Sensorineural hearing loss (SNHL) of both ears H90.3 and Reactive depression F32.9 Wilfrid Lin III, MD [address] [place] [address] [place] [phone] 04/30/2024 Wilfrid Lin III, MD [address] [place] [address] [place] [address] 08/18/2024 Wilfrid Lin III, MD [address] [place] [address] [place] [address] 09/06/2024 Wilfrid Lin Mixed hyperlipidemia E78.2 ; Overweight (BMI 25.0-29.9) E66.3 and Hepatitis C virus infection without hepatic coma, unspecified chronicity B19.20 Wilfrid Lin III, MD [address] [place] [address] [place] [address] 09/15/2024 Wilfrid Lin III, MD [address] [place] [address] [place] [address] 01/26/2025 Wilfrid Lin III, MD [address] [place] [address] [place] [address] 01/27/2025 Wilfrid Lin III, MD [address] [place] [address] [place] [address] 02/07/2025 Wilfrid Lin III, MD [address] [place] [address] [place] [address] 02/07/2025 Wilfrid Lin Assessments Encounter Date Diagnosis [...] I49.1) 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 He will limit his coffee [...] mass index is now 26. We reviewed [facility] diet and nutrition. We made a plan [...] under the care of vascular surgery at [facility]. He is going to have an [...] appointment for a bilateral carotid ultrasound with [facility] in the near future. 08/11/2024 Tobacco dependence [...] appointment for a bilateral carotid ultrasound with [facility] in the near future. 08/17/2024 Former smoker [...] under the care of vascular surgery at [facility]. He is going to have an [...] Panel 01/05/2024 ECG 12 lead EKG 08/17/2024 ECG 7 day holter monitor 08/17/2024 Next Appt Details Provider Name:Wilfrid Lin , 04/15/2025 03:00:00 PM, [address] [place] [address] DR, [address], [place], [address], Insurance Providers Payer Name Payer Address Payer Phone Subscriber Number Group Number Insured Name Patient Relationship to Insured Coverage Start Date Coverage End Date MEDICARE NGS [address] [facility] [place] [address] [phone] [id number] Mat Cates Self - patient is the insured [address] [place] [address] [id number] Mat Cates Self - patient is the [...] of abdominal aortic aneurysm 01/24 20 Colonoscopy, [facility], Dr. Weems, 2 sigmoid tubular adenomatous 09/2021 left carotid endarterectomy 12/2019 Right inguinal herniorrhaphy 07/2019 colonoscopy, [facility], Dr. Kirkpatrick, 2 hyperplastic polyps 06/2005 repair left inguinal hernia 2014 complete dental extractions arthroscopic surgey left knee 2002 bilateral rotator cuff surgery, Dr. Rima Madsen 2016 Hospitalization History Reason Date(Month/Year) No history left carotid endarterectomy 12/2019 arthroscopic left knee surgery shoulder surgery 2017
[2025-04-08] MEDS: iohexoL 350 MG/ML 100 ML INFUS..BTL IV (16:14)
== END 2025-04-08 14:47 | disposition home or self-care (01) ==
LOC: HO.CT 14:46
PROVIDERS: PCP Internal Medicine Medical Oncology; Visit Provider Surgery Vascular Surgery
DX: I71.43 Infrarenal abdominal aortic aneurysm, without rupture (principal)
CPT/HCPCS: 74174; Q9967

== ENCOUNTER → 2025-04-08 14:53 | Outpatient (BNV) | payer MEDICARE, OTHER, SELFPAY | PROVIDERS: PCP Internal Medicine Medical Oncology; Visit Provider Radiology Diagnostic Radiology | DX: I72.3 Aneurysm of iliac artery (principal); I71.43 Infrarenal abdominal aortic aneurysm, without rupture; Z95.828 Presence of other vascular implants and grafts | CPT/HCPCS: 74174 ==

== ENCOUNTER 2025-04-22 13:46 | Outpatient (AMB) | payer MEDICARE, SELFPAY ==
--- OUTSIDE RECORDS SUMMARY | 2024-09-23 05:00 | XMS_ITS ---
Author Organization Wilfrid Lin III, MD Address [address] [place] [address] Care Team Providers Care Intermediate Project Manager Name Role Phone Dr. Wilfrid Lin III Primary Care Provider [phone] Allergies Allergen (clinical drug ingredient) Drug/Non Drug Allergy documented on EMR Reaction Allergy Type Onset Date Status No Known Drug Allergy Unknown Drug Allergy Active REASON FOR VISIT Hepatitis C, Emphysema, Hearing loss, Arthritis left knee, Depression, Peripheral arterial disease Medications Medication SIG (Take, Route, Frequency, Duration) Notes Start Date End Date Status Triamcinolone Acetonide 0.1 % 1 application Externally Twice a day 01/24/2023 Active Clobetasol Propionate 0.05 % 1 applicati on Externally Twice a day 02/06/2024 Active Mupirocin 2 % 1 application District Administrative Assistant ally Twice a day 06/20/2023 Active Hydrocortisone 1 % 1 application District Administrative Assistant ally Twice a day 01/24/2023 Active Varenicline Tartrate 1 MG as directed Or ally Twice a day 01/24/2023 Active Meclizine HCl 25 MG 1 tablet as needed Orally every 8 hrs 07/22/2022 Active buPROPion HCl ER (Smoking Det) 150 MG 1 tablet in the morning Orally Once a day 06/14/2022 Active APO-Varenicline 1 MG as directed Orally Once a day 08/01/2021 Active traZODone HCl 150 MG 1 tablet at bedtime Orally Once a day 06/28/2021 Active Clopidogrel Bisulfate 75 MG TAKE 1 TABLE T BY MOUTH EVERY DAY Active Atorvastatin Calcium 80 MG TAKE 1 TABLET BY MOUTH EVERY NIGHT AT BEDTIME. Active Tamsulosin HCl 0.4 MG 1 capsule Orally O nce a day Active Aspirin Low Dose 81 MG CHEW AND SWALLOW 1 TABLET BY MOUTH DAILY Active Social History Tobacco Use: Social History [...] smoker Vital Signs Temperature 97.3 degrees Fahrenheit 09/24/19 25 Blood pressure systolic 133 mm Hg 09/24/19 25 Blood pressure diastolic 76 mm Hg 025 Heart Rate 76 /min 09/23/2024 Height 67 in 09/23/2024 Weight 175 lbs 09/23/2024 BMI 27.41 kg/m2 09/23/2024 Encounters Encounter Location Date Provider Diagnosis Wilfrid Lin III, MD [address] [place] [address] [place] [address] 09/23/2024 Wilfrid Lin Mixed hyperlipidemia E78.2 ; Paraseptal emphysema J43.8 ; Overweight (BMI 25.0-29.9) E66.3 ; Sensorineural hearing loss (SNHL) of both ears H90.3 ; Left inguinal hernia K40.90 ; Primary osteoarthritis of left knee M17.12 ; Reactive depression F32.9 ; Left carotid artery stenosis I65.22 and Aortic aneurysm I71.9 Assessments Encounter Date Diagnosis (ICD Code) Assessment Notes Treat ment Notes Treatment Clinical Notes 09/23/2024 Mixed hyperlipidemia (ICD-10 - E78.2) The cholesterol values are currently stable. Current therapy was continued 09/23/2024 Paraseptal emphysema (ICD-10 - J43.8) He is no longer smoking. He is comfortable with mild activity. He does not require oxygen. 09/23/2024 Overweight (BMI 25.0-29.9) (ICD-10 - E66.3) His body mass index is 27 and his weight is stable. We discussed his diet and nutrition today. I recommended weight loss at a rate of one half of a pound per week. 09/23/2024 Sensorineural hearing loss (SNHL) of both ears (ICD-10 - H90.3) He does not think he needs hearing aids at this point. Examination of his ears showed no impaction of cerumen. 09/23/2024 Left inguinal hernia (ICD-10 - K40.90) Bilateral herniorrhaphies have been done with no recurrence. He is free of any symptoms at this time. 09/23/2024 Primary osteoarthritis of left knee (ICD-10 - M17.12) He has had arthroscopic surgery on his left knee which improved the function significantly. He still has mild pain. 09/23/2024 Reactive depression (ICD-10 - F32.9) He was continued on the Wellbutrin. His depression is mild. He is able to conduct all of the activities of daily life. He has no thoughts of self-harm. 09/23/2024 Left carotid artery stenosis (ICD-10 - I65.22) He is followed by vascular surgery. The left carotid is palpable. He has had no TIA symptoms. 09/23/2024 Aortic aneurysm (ICD-10 - I71.9) He is under the care of vascular surgery. He has had no abdominal pain. There is no pulsatile mass on examination. Plan Of Treatment Medication Medication Name Sig Start Date Stop Date Notes Triamcinolone Acetonide 0.1 % 1 applicat ion Externally Twice a day 01/24/2023 Clobetasol Propionate 0.05 % 1 applicati on Externally Twice a day 02/06/2024 Mupirocin 2 % 1 application District Administrative Assistant ally Twice a day 06/20/2023 Hydrocortisone 1 % 1 application District Administrative Assistant ally Twice a day 01/24/2023 Varenicline Tartrate 1 MG as directed Or ally Twice a day 01/24/2023 Meclizine HCl 25 MG 1 tablet as needed O rally every 8 hrs 07/22/2022 buPROPion HCl ER (Smoking De t) 150 MG 1 tablet in the morning Orally Once a day 06/14/2022 APO-Varenicline 1 MG as directed Orally Once a day 08/01/2021 traZODone HCl 150 MG 1 tablet at bedtime Orally Once a day 06/28/2021 Clopidogrel Bisulfate 75 MG TAKE 1 TABLE T BY MOUTH EVERY DAY Atorvastatin Calcium 80 MG TAKE 1 TABLET BY MOUTH EVERY NIGHT AT BEDTIME. Tamsulosin HCl 0.4 MG 1 capsule Orally Once a day Aspirin Low Dose 81 MG CHEW AND SWALLOW 1 TABLET BY MOUTH DAILY Pending Test Test Name Order Date XR CHEST 2 VIEW PA & LAT 09/23/2024 Next Appt Details Follow Up: As Scheduled, Denice son: OV Provider Name:Wilfrid Lin , 08/19/2025 03:30:00 PM, [address] [place] [address] [address], [place], [address], Provider Name:Wilfrid Lin , 04/19/2026 03:00:00 PM, [address] [place] [address] [address], [place], [address], Progress Notes * ILYA Mat Gutierrez SrDOB: (79 yo M)Acc No.[id number]:09/23/2024 Progress Notes Patient: Mora SHETHSID Mat Gutierrez Sr Provider: Jemma Lin MD :1945 A ge:79 Y S ex:Male Date:09/23/2024 [facility] [place], [id number] Subjective: * Chief Complaints: * H epatitis CEmphysemaHearing lossArthritis left kneeDepressionPeripheral arterial disease * HPI: C OVID-19 Screening: He returns to the office for ongoing evaluation of several medical issues. He has an appointment with gastroenterology at [facility] because of the finding of antibodies in his blood agaainst hepatitis C. His depression is stable and his hearing loss is unchanged. His chronic GERD is unchanged. He continues to be short of breath with prolonged exertion. He has no longer smoking. He denies any new problems. Questions H ave you had any new onset fever, chills, cough, congestion, sore throat, shortness of breath, muscle aches? N o * ROS: G eneral/Constitutional: pain L eft shoulder, otherwise only normal aches and pains.?Chills d enies. F atigue a dmits. F ever d enies. E NT: Decreased hearing d enies. R espiratory: Cough d enies. C ardiovascular: Chest pain with exertion d enies. D yspnea on exertion?denies. S hortness of breath d enies. G astrointestinal: Constipation o ccasional. D ecreased appetite d enies. D iarrhea d enies. H eartburn d enies. N ausea d enies. R ectal bleeding d enies. V omiting d enies. H ematology: bruising d enies. p etechiae d enies. S wollen glands n one have been noted. G enitourinary: Frequent urination t wice a night. M usculoskeletal: Muscle aches d enies. P ainful joints L eft shoulder. S ciatica d enies. W eakness d enies. S kin: Itching d enies. R nacho d enies. S kin lesion(s)?denies. N eurologic: Difficulty speaking d enies. D izziness d enies.?Headache d enies. L ow back pain d enies. P sychiatric: Depressed mood w hich is mild. * Medical History: * Surgical History: b ilateral rotator cuff surgery, Dr. Juanito Madsen 2017arthroscopic surgey left knee 2003complete dental extractions repair left inguinal hernia 2013colonoscopy, [facility], Dr. Kirkpatrick, 2 hyperplastic polyps 06/2005Right inguinal herniorrhaphy 07/2019left carotid endarterectomy 12/2019Colonoscopy, [facility], Dr. Weems, 2 sigmoid tubular adenomatous 2Repair of abdominal aortic aneurysm 01/2020No history * Hospitalization/Major Diagno stic Procedure: [facility] 2017arthroscopic left knee surgery left carotid endarterectomy 12/2019No history * Family History: F ather: 61 yrs, suicide, mental illness. M other: 59 yrs, murder, cancer, arthritis. 6 brother(s) , 6 sister(s) - healthy. 2 son(s) - healthy. . He is not aware of any inherited cancer susceptibility. Cancer. * Social History: T obacco Use: T obacco Use/Smoking P atient is a f ormer smoker H ow long has it been since you last smoked??< 1 month A dditional Findings: Tobacco Non-User E x-cigarette smoker H e was born in [place]. 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 His of many years 6 years ago of lung cancer. He has 2 sons, Tao Rivero, who lives in [place]. He has 4 grandchildren and 3 great-grandchildren. He was 27 when his parents . He says he has never learned to read or write. * Medications: T akingTamsulosin HCl 0.4 MG Capsule 1 capsule Orally Once a day Atorvastatin Calcium 80 MG Tablet TAKE 1 TABLET BY MOUTH EVERY NIGHT AT BEDTIME. Meclizine HCl 25 MG Tablet 1 tablet [...] Cream 1 application Externally Twice a day Aspirin Low Dose 81 MG Tablet Chewable CHEW AND SWALLOW 1 TABLET BY MOUTH DAILY Medication List reviewed and reconciled with the patientTaking Tamsulosin HCl 0.4 MG Capsule 1 capsule Orally Once a day Taking Atorvastatin Calcium 80 MG Tablet TAKE 1 TABLET BY MOUTH EVERY NIGHT AT BEDTIME. Taking Meclizine HCl 25 MG Tablet 1 [...] 1 application Externally Twice a day Taking Aspirin Low Dose 81 MG Tablet Chewable CHEW AND SWALLOW 1 TABLET BY MOUTH DAILY Medication List reviewed and reconciled with the patient * Allergies: N o Known Drug Allergyno[Allergies Verified] Objective: * Vitals: H t: 67, Wt:175, BMI:27.41, BP:133/76, HR:76, Temp:97.3, Wt-k.38. * P ast Orders: L ab:Hepatitis A IgG (Order Date - 09/08/2024) (Collection Date & Time - 09/08/2024 12:03 PM) Value Reference Range Hepatitis A Antibody IgG REACTIVE Nonreactive - L ab:HCV RNA QN PROG TO GENOTYPE (Order Date - 09/08/2024) (Collection Date & Time - 09/08/2024 12:03 PM) Value Reference Range HCV RNA PCR Qn <15 NOT DETECTED NOT DETECTED - IU/mL HCV RNA PCR Qn <1.18 NOT DETECTED NOT DETECTED - Log IU/mL HCV Genotype LiPA TNP - HCV RNA Comment SEE NOTE - Lab:PROFILE, FASTING (COMPRE HENSIVE METABOLIC) * Collection Date 09/03/2024 06/26/2018 Collection Time 07:14 AM Order Date 08/11/2024 06/25/2018 NA NR 139 (Ref Range: 135-145 MMOL/L) K NR 5.1 (Ref Range: 3.3-5.1 MMOL/L) CL NR 105 (Ref Range: 96-108 MMOL/L) CO2 NR 24 (Ref Range: 22-29 MMOL/L) ANION GAP NR 15 (Ref Range: 12-20) FASTING BLOOD SUGAR NR 97 (Ref Range: 60-99 MG/DL) BUN NR 10 (Ref Range: 9-16 MG/DL) CREATININE NR 1.05 (Ref Range: 0.5-1.4 MG/DL) ESTIMATED GFR NR > 60 PROTEIN, TOTAL NR 6.8 (Ref Range: 6.5-8.0 G/DL) ALBUMIN NR 4.3 (Ref Range: 3.5-5.0 G/DL) BILIRUBIN, TOTAL NR 0.5 (Ref Range: 0.0-1.0 MG/DL) CALCIUM NR 9.4 (Ref Range: 8.4-10.2 MG/DL) ALK. PHOS. NR 75 (Ref Range: 39-117 U/L) GOT NR 12 (Ref Range: 5-37 U/L) GPT NR 15 (Ref Range: 0-40 U/L) Clinical Info: Please fast for 12-1 4 hours prior to having this labwork done. You may have black coffee or tea with no milk or sugar. May have water,Please have this testing 1 week prior to your next appointment,PLEASE FAX COMPLETED RESULTS TO [phone] ???Lab:Hepatitis B Surface Antigen (Order Date - 08/04/2024) (Collection Date & Time - 08/04/2024 06:23 AM)?ValueReference Range?Hepatitis B Surface AntigenNegativeNegative - ???Lab:Immunoglobulin E (Order Date - 08/04/2024) (Collection Date & Time - 08/04/2024 06:23 AM)?ValueReference Range?Immunoglobulin E587A <DG=354 - kU/L ???Lab:Hepatitis B Surface Antibody (Order Date - 08/04/2024) (Collection Date & Time - 506:23 AM)?ValueReference Range?Hepatitis B Surface AntibodyNONREACTIVENonreactive - ???Lab:Hepatitis B Core Antibody (Order Date - 08/04/2024) (Collection Date & Time - 08/04/2024 06:23 AM)?ValueReference Range?Hepatitis B Core AntibodyNonreactiveNonreactive - ???Lab:HIV Ab/Ag (Order Date - 08/04/2024) (Collection Date & Time - 08/04/2024 06:23 AM)?ValueReference Range?HIV AB/AGNonreactiveNonreactive - ???Lab:Free T4 (Free Thyroxine) (Order Date - 08/04/2024) (Collection Date & Time - 08/04/2024 06:23 AM)?ValueReference Range?Free T4 (Free Thyroxine)1.060.71-1.85 - ng/dL ???Lab:Hepatitis C Antibody (Order Date - 08/04/2024) (Collection Date & Time - 08/04/2024 06:23 AM)?ValueReference Range? Hepatitis C Antibody ReactiveANonreactive - ???Lab:Thyroid Stimulating Hormone (Order Date - 08/04/2024) (Collection Date & Time - 08/04/2024 06:23 AM)?ValueReference Range?Thyroid Stimulating Hormone0.610.32-4.0 - uIU/mL * Lab:Complete Blood Count Aut o Diff [...] (Ref Range: 2-11 %) Eosinophils Percent Auto 6.7 H (Ref Range: 0-4 %) 10.6 H (Ref Range: 0-4 %) 3.4 (Ref Range: [...] (Ref Range: 0.1-1.2 X10*3/uL) Eosinophils Absolute Auto 0.7 H (Ref Range: 0.0-0.4 X10*3/uL) 1.0 H (Ref Range: 0.0-0.4 X10*3/uL) 0.3 (Ref Range: 0.0-0.4 X10*3/uL) Basophils Absolute Auto 0.0 (Ref Range: 0.0-0.2 X10*3/uL) 0.1 (Ref Range: 0.0-0.2 X10*3/uL) 0.1 (Ref Range: 0.0-0.2 X10*3/uL) NRBC Abs Auto 0.000 (Ref Range: 0.0-0.012 X10*3/uL) 0.000 (Ref Range: 0.0-0.012 X10*3/uL) 0.000 (Ref Range: 0.0-0.012 X10*3/uL) * Lab:Henrietta Taylor [facility] Fast * Collection Date 08/03/2024 04/07/2024 [...] mmol/L) 4.0 (Ref Range: 3.3-5.1 mmol/L) Chloride 109 H (Ref Range: 96-108 mmol/L) 108 (Ref Range: 96-108 mmol/L) 109 H (Ref Range: 96-108 mmol/L) Carbon Dioxide 24 (Ref Range: 22-29 mmol/L) 25 (Ref Range: 22-29 mmol/L) 28 (Ref Range: 22-29 mmol/L) Anion Gap 9 L (Ref Range: 12-20) 11 L (Ref Range: 12-20) 11 L (Ref Range: 12-20) Blood Urea Nitrogen 17 H (Ref Range: 9-16 mg/dL) 14 (Ref Range: 9-16 mg/dL) 15 (Ref Range: 9-16 mg/dL) Creatinine 0.88 (Ref Range: 0.5-1.4 mg/dL) 0.86 (Ref Range: 0.5-1.4 mg/dL) 1.10 (Ref Range: 0.5-1.4 mg/dL) Estimated Glomerular Filt Rate > 60 > 60 > 60 Glucose Fasting 106 H (Ref Range: 60-99 mg/dL) 108 H (Ref Range: 60-99 mg/dL) 102 H (Ref Range: 60-99 mg/dL) Calcium 8.6 (Ref Range: 8.4-10.2 mg/dL) 9.4 (Ref Range: 8.4-10.2 mg/dL) 9.1 (Ref Range: 8.4-10.2 mg/dL) * Lab:Lipid Panel * Collection Date 08/03/2024 04/07/2024 12/31/2023 Collection Time 06:15 AM 06:32 AM 02:13 PM Order Date 08/03/2024 04/07/2024 12/31/2023 Triglycerides 165 H (Ref Range: <150 mg/dL) 122 (Ref Range: <150 mg/dL) 146 (Ref Range: <150 mg/dL) Cholesterol 167 (Ref Range: <200 mg/dL) 183 (Ref Range: <200 mg/dL) 161 (Ref Range: <200 mg/dL) LDL Cholesterol Calculated 95 (Ref Range: <100 mg/dL) 116 H (Ref Range: <100 mg/dL) 95 (Ref Range: <100 mg/dL) HDL Cholesterol 39 L (Ref Range: >40 mg/dL) 43 (Ref Range: >40 mg/dL) 37 L (Ref Range: >40 mg/dL) ???Imaging:XR chest 2V (Order Date - 08/04/2024) (Performed Date - 08/04/2024) * Examination: G eneral Examination: GENERAL APPEARANCE: p celeste, well nourished, well developed, in no acute distress, calm and relaxed, overweight, man. HEAD: a traumatic, normocephalic. EYES: e mauricio, perrla, anicteric, conjugate. EARS: n ormal. NOSE: s eptum intact. ORAL CAVITY: n ormal, unremarkable. NECK/THYROID: n o jugular venous distention, no carotid bruit, thyroid normal. LYMPH NODES: n o enlarged lymph nodes,spleen normal. SKIN: n o suspicious lesions, anicteric. HEART: n o clicks, gallops, murmurs, or rubs, regular rhythm, S1, S2 normal, no s3, or vascular bruits. LUNGS: c lear to auscultation . BREASTS: no masses palpable bilaterally. ABDOMEN: b owel sounds normal, no ascites, no organomegaly, no mass, overweight, Without a pulsatile mass, Old left inguinal herniorraphy. RECTAL EXAM: n ot examined. MUSCULOSKELETAL: e xtremities unremarkable, no clubbing, cyanosis or edema, Mild crepitus right knee. PERIPHERAL PULSES: D iminished in the lower extremities, carotids palpable, Old left carotid endarterectomy scar. NEUROLOGIC: a lert and oriented, cranial nerves 2-12 grossly intact, deep tendon reflexes 2+ symmetrical, motor strength normal upper and lower extremities, sensory exam intact. PSYCH: a lert, oriented. Assessment: * Assessment: 1. M ixed hyperlipidemia - E78.2 (Primary) N otes :The cholesterol values are currently stable. Current therapy was continued 2 . P araseptal emphysema - J43.8 N otes :He is no longer smoking. He is comfortable with mild activity. He does not require oxygen. 3 . O verweight (BMI 25.0-29.9) - E66.3 N otes :His body mass index is 27 and his weight is stable. We discussed his diet and nutrition today. I recommended weight loss at a rate of one half of a pound per week. 4 . S ensorineural hearing loss (SNHL) of both ears - H90.3 N otes :He does not think he needs hearing aids at this point. Examination of his ears showed no impaction of cerumen. 5 . L eft inguinal hernia - K40.90 N otes :Bilateral herniorrhaphies have been done with no recurrence. He is free of any symptoms at this time. 6 . P rimary osteoarthritis of left knee - M17.12 N otes :He has had arthroscopic surgery on his left knee which improved the function significantly. He still has mild pain. 7 . R eactive depression - F32.9 N otes :He was continued on the Wellbutrin. His depression is mild. He is able to conduct all of the activities of daily life. He has no thoughts of self-harm. 8 . L eft carotid artery stenosis - I65.22 N otes :He is followed by vascular surgery. The left carotid is palpable. He has had no TIA symptoms. 9 . A ortic aneurysm - I71.9 N otes :He is under the care of vascular surgery. He has had no abdominal pain. There is no pulsatile mass on examination. Plan: * Treatment: * Imaging: * I maging: XR CHEST 2 VIEW PA & LAT * Procedure Codes: * Preventive Medicine: Counseling: C are goal follow-up plan: Counseling for abnormal BMI given Y es Above Normal BMI Follow-up D ietary management education, guidance, and counseling S moking/Tobacco Use Patient counseled on the dangers of tobacco use and urged to quit. 0 09/23/2024 * Follow Up: A s Scheduled (Reason: OV) * Images: * Sign off status: Completed true * Provider: Jemma Lin MD Date: 0 09/23/2024 Generated for Carol hurst/Yaa/Thomasitting on: 1 04:12 PM EDT History and Physical Notes * HPI (History [...] normal, no ascites, no organomegaly, no mass, overweight, Without a pulsatile mass, Old left inguinal herniorraphy NEUROLOGIC: alert and oriented, cranial nerves 2-12 grossly intact, deep tendon reflexes 2+ symmetrical, motor strength normal upper and lower extremities, sensory exam intact SKIN: no suspicious lesion s, anicteric PERIPHERAL PULSES: Diminished in the lo wer extremities, carotids palpable, Old left carotid endarterectomy scar BREASTS: no masses palpable b ilaterally MUSCULOSKELETAL: extremities unremark able, no clubbing, cyanosis or edema, Mild crepitus right knee LYMPH NODES: no enlarged lymph no david,spleen normal RECTAL EXAM: not examined PSYCH: alert, oriented ORAL CAVITY: normal, unremarkable
--- OUTSIDE RECORDS SUMMARY | 2024-10-11 09:45 | XMS_ITS ---
Author Organization Wilfrid Lin III, MD Address [address] [place] [address] Care Team Providers Care Mixer Operator Vacuum Pan Salt Name Role Phone Dr. Wilfrid Lin III Primary Care Provider [phone] Allergies Allergen (clinical drug ingredient) Drug/Non Drug Allergy documented on EMR Reaction Allergy Type Onset Date Status No Known Drug Allergy Unknown Drug Allergy Active REASON FOR VISIT Tick bitewithin 48 hours, Bull's-eye skin lesion Medications Medication SIG (Take, Route, Frequency, Duration) Notes Start Date End Date Status Doxycycline Hyclate 100 MG 1 capsule Ora lly twice a day for 14 days 10/11/2024 10/25/2024 Active Clobetasol Propionate 0.05 % 1 application Externally Twice a day 02/06/2024 Active Hydrocortisone 1 % 1 application Externally Twice a day 01/24/2023 Active Mupirocin 2 % 1 application Externally Twice a day 06/20/2023 Active Triamcinolone Acetonide 0.1 % 1 application Externally Twice a day 01/24/2023 Active buPROPion HCl ER (Smoking Det) 150 MG 1 tablet in the morning Orally Once a day 06/14/2022 Active Varenicline Tartrate 1 MG as directed Or ally Twice a day 01/24/2023 Active traZODone HCl 150 MG 1 tablet at bedtime Orally Once a day 06/28/2021 Active APO-Varenicline 1 MG as directed Orally Once a day 08/01/2021 Active Clopidogrel Bisulfate 75 MG TAKE 1 TABLE T BY MOUTH EVERY DAY Active Aspirin Low Dose 81 MG CHEW AND SWALLOW 1 TABLET BY MOUTH DAILY Active Tamsulosin HCl 0.4 MG 1 capsule Orally O nce a day Active Meclizine HCl 25 MG 1 tablet [...] Tobacco Non-User Ex-cigaret te smoker Vital Signs Height 67 in 10/11/2024 Weight 175 lbs 10/11/2024 BMI 27.41 kg/m2 10/11/2024 Encounters Encounter Location Date Provider Diagnosis Wilfrid Lin III, MD [address] [place] [address] [place] [address] 10/11/2024 Wilfrid Lin Insect bite (nonvenomous) of left front wall of thorax, initial encounter S20.362A ; Overweight (BMI 25.0-29.9) E66.3 ; Primary osteoarthritis of left knee M17.12 ; Left inguinal hernia K40.90 and Former smoker Z87.891 Assessments Encounter Date Diagnosis (ICD Code) Assessment Notes Treat ment Notes Treatment Clinical Notes 10/11/2024 Insect bite (nonvenomous) of left front wall of thorax, initial encounter (ICD-10 - S20.362A) He was given a prescription for doxycycline 100 mg twice a day for 14 days. A followup visit was arranged. 10/11/2024 Overweight (BMI 25.0-29.9) (ICD-10 - E66.3) His body mass index is 27 and his weight is stable. We discussed his diet and nutrition today. I recommended weight loss at a rate of one half of a pound per week. 10/11/2024 Primary osteoarthritis of left knee (ICD-10 - M17.12) He has had arthroscopic surgery on his left knee which improved the function significantly. He still has mild pain. 10/11/2024 Left inguinal hernia (ICD-10 - K40.90) Bilateral herniorrhaphies have been done with no recurrence. He is free of any symptoms at this time. 10/11/2024 Former smoker (ICD-10 - Z87.891) He recently stopped smoking and has a prescription for Chantix. Plan Of Treatment Medication Medication Name Sig Start Date Stop Date Notes Doxycycline Hyclate 100 MG 1 capsule Ora lly twice a day for 14 days 10/11/2024 10/25/2024 Next Appt Details Follow Up: 2 Weeks, Reason: oc recheck tick bite Provider Name:Wilfrid Dirk Riley , 08/19/2025 03:30:00 PM, [address] [place] [address] [address], [place], [address], Provider Name:Wilfrid Gracia Riley , 04/19/2026 03:00:00 PM, [address] [place] [address] [address], [place], [address], Progress Notes * Mat OSPINA SrDOB: (79 yo M)Acc No.[id number]:10/11/2024 Patient: Mora Mat HERNANDEZ Provider: Jemma Lin MD :1945 A ge:79 Y S ex:Male Date:10/11/2024 [address] [facility] [id number] Subjective: * Chief Complaints: * T ick bitewithin 48 hoursBull's-eye skin lesion * HPI: v : He comes to the office for a same day visit because 2 days ago he found to take on his upper abdomen skin and removed it. He now has a large red area of skin with a pale Center. No retained tic parts were noted. He was given a prescription for doxycycline 100 mg twice a day for 14 days with a followup visit. C OVID-19 Screening: Questions H ave you had any new onset fever, chills, cough, congestion, sore throat, shortness of breath, muscle aches? N o * ROS: G eneral/Constitutional: pain o nly normal aches and pains. C hills d enies.?Fatigue a dmits. F ever d enies. E NT: Decreased hearing i n both ears. R espiratory: Cough d enies. C ardiovascular: [...] Muscle aches d enies. P ainful joints d enies. S ciatica d enies. W eakness d enies. S kin: Itching d enies. R nacho d enies. S kin lesion(s)?Round reactive area with pale since her anterior chest wall approximately 4 Inches. N eurologic: Difficulty speaking d enies. D izziness d enies.?Headache d enies. L ow back pain d enies. P sychiatric: Depressed mood d enies. computers and. * Medical History: * Surgical History: b ilateral rotator cuff surgery, Dr. Juanito Madsen 2017arthroscopic surgey left knee 2003complete dental extractions repair left inguinal hernia 2013colonoscopy, [facility], Dr. Kirkpatrick, 2 hyperplastic polyps 06/2005Right inguinal herniorrhaphy 07/2019left carotid endarterectomy 12/2019Colonoscopy, [facility], Dr. Weems, 2 sigmoid tubular adenomatous [...] dditional Findings: Tobacco Non-User E x-cigarette smoker Cristiana gracia was born in [place]. 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 His of many years 6 years ago of lung cancer. He has 2 sons, Tao Rivero, who lives in [place]. He has 4 grandchildren and 3 great-grandchildren. He was 27 when his parents . He says he has never learned to read or write and capable of working at both. * Medications: T akingAspirin Low Dose 81 MG Tablet Chewable CHEW AND SWALLOW 1 TABLET BY MOUTH DAILY Tamsulosin HCl 0.4 MG Capsule 1 capsule [...] AND SWALLOW 1 TABLET BY MOUTH DAILY Taking Tamsulosin HCl 0.4 MG Capsule 1 [...] Cream 1 application Externally Twice a day * Allergies: N o Known Drug Allergy Objective: * Vitals: H t: 67, Wt:175, BMI:27.41, Wt-k.38. * Examination: G eneral Examination: GENERAL APPEARANCE: p leasant, well nourished, well developed, in no acute distress, calm and relaxed, overweight. HEAD: a traumatic, normocephalic. EYES: e mauricio, perrla, anicteric, conjugate. EARS: n ormal. NOSE: s eptum intact. ORAL CAVITY: n ormal, unremarkable. NECK/THYROID: n o jugular venous distention, no carotid bruit, thyroid normal. LYMPH NODES: n o enlarged lymph nodes,spleen normal. SKIN: S mall scaabbed area anterior chest over sternum,? 4 inches, red area around the right breast with pale center. HEART: n o clicks, gallops, murmurs, or rubs, regular rhythm, S1, S2 normal, no s3, or vascular bruits. LUNGS: c lear to auscultation . BREASTS: no masses palpable bilaterally. ABDOMEN: b owel sounds normal, no ascites, no organomegaly, no mass, overweight. RECTAL EXAM: n ot examined. MUSCULOSKELETAL: e xtremities unremarkable, no clubbing, cyanosis or edema, Pain left knee to range of motion. PERIPHERAL PULSES: n ormal. NEUROLOGIC: a lert and oriented, cranial nerves 2-12 grossly intact, deep tendon reflexes 2+ symmetrical, motor strength normal upper and lower extremities, sensory exam intact. PSYCH: a lert, oriented. Assessment: * Assessment: 1. I nsect bite (nonvenomous) of left front wall of thorax, initial encounter - S20.362A (Primary) N otes :He was given a prescription for doxycycline 100 mg twice a day for 14 days. A followup visit was arranged. 2 . O verweight (BMI 25.0-29.9) - E66.3 N otes :His body mass index is 27 and his weight is stable. We discussed his diet and nutrition today. I recommended weight loss at a rate of one half of a pound per week. 3 . P rimary osteoarthritis of left knee - M17.12 N otes :He has had arthroscopic surgery on his left knee which improved the function significantly. He still has mild pain. 4 . L eft inguinal hernia - K40.90 N otes :Bilateral herniorrhaphies have been done with no recurrence. He is free of any symptoms at this time. 5 . F ormer smoker - Z87.891 N otes :He recently stopped smoking and has a prescription for Chantix. Plan: * Treatment: * Procedure Codes: * Preventive Medicine: Counseling: C are goal follow-up plan: Counseling for abnormal BMI given Y es Above Normal BMI Follow-up D ietary management education, guidance, and counseling, Dietary needs education S moking/Tobacco Use Patient counseled on the dangers of tobacco use and urged to quit. 0 10/11/2024 * Follow Up: 2 Weeks (Reason: oc recheck tick bite) * Images: * Sign off status: Completed true * Provider: Jemma Lin MD Date: 0 10/11/2024 Generated for Lucretiai natali/Yaa/eTransmitting on: 1 04:12 PM EDT History and Physical Notes * HPI (History of Present Illness) Category Sub-Category Detail Notes COVID-19 Screening Questions Have you had any new onset fever, chills, cough, congestion, sore throat, shortness of breath, muscle aches?: No Examination Category Sub-Category Detail Notes General Examination GENERAL APPEARANCE: pleasant , well nourished, well developed, in no acute distress, calm and relaxed, overweight HEAD: atraumatic, normocep halic EYES: eomi, perrla, [...] and lower extremities, sensory exam intact SKIN: Small scaabbed area anterior chest over sternum, 4 inches, red area around the right breast with pale center PERIPHERAL PULSES: normal BREASTS: no masses palpable b ilaterally MUSCULOSKELETAL: extremities unremark able, no clubbing, cyanosis or edema, Pain left knee to range of motion LYMPH NODES: no enlarged lymph no david,spleen normal RECTAL EXAM: not examined PSYCH: alert, oriented ORAL CAVITY: normal, unremarkable
--- OUTSIDE RECORDS SUMMARY | 2024-10-25 11:00 | XMS_ITS ---
Author Organization Wilfrid Lin III, MD Address [address] [facility] [place] [address] Care Team Providers Care Remelt Operator Name Role Phone Dr. Wilfrid Lin III Primary Care Provider [phone] Allergies Allergen (clinical drug ingredient) Drug/Non Drug Allergy documented on EMR Reaction Allergy Type Onset Date Status No Known Drug Allergy Unknown Drug Allergy Active REASON FOR VISIT Tick bite with bull's-eye rash, Emphysema, Hearing loss, Arthritis left knee, Impression, GERD Medications Medication SIG (Take, Route, Frequency, Duration) Notes Start Date End Date Status Omeprazole 20 MG 1 capsule 1/2 to 1 h our before morning meal Orally Once a day Active Clopidogrel Bisulfate 75 MG TAKE 1 [...] Non-User Ex-cigaret te smoker Vital Signs Temperature 97.6 degrees Fahrenheit 10/26/19 25 Blood pressure systolic 124 mm Hg 10/26/19 25 Blood pressure diastolic 86 mm Hg 025 Heart Rate 80 /min 10/25/2024 Height 67 in 10/25/2024 Weight 175 lbs 10/25/2024 BMI 27.41 kg/m2 10/25/2024 Encounters Encounter Location Date Provider Diagnosis Wilfrid Lin III, MD [address] [place] [address] [place], [place] [address] 10/25/2024 Wilfrid Lin Insect bite (nonvenomous) of abdominal wall, subsequent encounter S30.861D ; Paraseptal emphysema J43.8 ; Mixed hyperlipidemia E78.2 ; Overweight (BMI 25.0-29.9) E66.3 ; Sensorineural hearing loss (SNHL) of both ears H90.3 and Former smoker Z87.891 Assessments Encounter Date Diagnosis (ICD Code) Assessment Notes Treat ment Notes Treatment Clinical Notes 10/25/2024 Insect bite (nonvenomous) of abdominal wall, subsequent encounter (ICD-10 - S30.861D) He has finished the doxycycline. The area is healing and there is no sign of Lyme disease. 10/25/2024 Paraseptal emphysema (ICD-10 - J43.8) He is no longer smoking. He is comfortable with mild activity. He does not require oxygen. 10/25/2024 Mixed hyperlipidemia (ICD-10 - E78.2) The cholesterol values are currently stable. Current therapy was continued 10/25/2024 Overweight (BMI 25.0-29.9) (ICD-10 - E66.3) His body mass index is 27 and his weight is stable. We discussed his diet and nutrition today. I recommended weight loss at a rate of one half of a pound per week. 10/25/2024 Sensorineural hearin g loss (SNHL) of both ears (ICD-10 - H90.3) He does not think he needs hearing aids at this point. Examination of his ears showed no impaction of cerumen. 10/25/2024 Former smoker (ICD-1 0 - Z87.891) He recently stopped smoking and has a prescription for Chantix. Plan Of Treatment Medication Medication Name Sig Start Date Stop Date Notes Omeprazole 20 MG 1 capsule 1/2 to 1 h our before morning meal Orally Once a day Clopidogrel Bisulfate 75 MG TAKE 1 TABLE T BY MOUTH EVERY DAY Atorvastatin Calcium 80 MG TAKE 1 TABLET BY MOUTH EVERY NIGHT AT BEDTIME. Aspirin Low Dose 81 MG CHEW AND SWALLOW 1 TABLET BY MOUTH DAILY Next Appt Details Follow Up: 3 Months, Reason: OV Provider Name:Wilfrid Lin 08/19/2025 03:30:00 PM, [address] [facility] [address], [place], [phone], Provider Name:Wilfrid Lin , 04/19/2026 03:00:00 PM, [address] [facility] [address], [place], [address], Progress Notes * Mat OSPINA SrDOB: (79 yo M)Acc No.[id number]:10/25/2024 Progress Notes Patient: Mat RAMIREZ Sr Provider: Jemma Lin MD :1945 A ge:79 Y S ex:Male Date:10/25/2024 Address:[address] [place], [place] [address] [phone] Subjective: * Chief Complaints: * T ick bite with bull's-eye rashEmphysemaHearing lossArthritis left kneeImpressionGERD * HPI: C OVID-19 Screening: The round rash area was a pale center has resolved. There is a scab where the tick bite was which is healing. He is asymptomatic at this time and has completed his course of doxycycline. There is no sign of Lyme disease. His hearing loss is unchanged and moderate to severe. He does not appear to be depressed. He is not smoking. His vital signs were stable. Follow-up visit was arranged. Questions H ave you had any new [...] yspnea on exertion?denies. S hortness of breath w ith exertion. G astrointestinal: Constipation o ccasional. D ecreased appetite d enies. D iarrhea d enies. H eartburn d enies. N ausea d enies. R ectal bleeding d enies. V omiting d enies. H ematology: bruising d enies. p etechiae d enies. S wollen glands n one have been noted. G enitourinary: Frequent urination o nce a night. M usculoskeletal: Muscle aches d [...] ilateral rotator cuff surgery, Dr. Juanito Madsen 2016arthroscopic surgey left knee 2002complete dental extractions repair left inguinal hernia 2013colonoscopy, [facility], Dr. Kirkpatrick, 2 hyperplastic polyps 06/2005Right inguinal herniorrhaphy 07/2019left carotid endarterectomy 12/2019Colonoscopy, [facility], Dr. Weems, 2 sigmoid tubular adenomatous 2Repair of abdominal aortic aneurysm 01/2020No history * Hospitalization/Major Diagno stic [facility] surgery left carotid endarterectomy 12/2019No [...] x-cigarette smoker Cristiana gracia was born in [place]. 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 His of many years 6 years ago of lung cancer. He has 2 sons, Tao Rivero, who lives in [place]. He has 4 grandchildren and 3 great-grandchildren. He was 27 when his parents . He says he has never learned to read or write and capable of working at both. * Medications: T akingOmeprazole 20 MG Capsule Delayed Release 1 capsule 1/2 to 1 hour before morning meal Orally Once a day Aspirin Low Dose 81 MG Tablet Chewable CHEW AND SWALLOW 1 TABLET BY MOUTH DAILY Atorvastatin Calcium 80 MG Tablet TAKE 1 TABLET BY MOUTH EVERY NIGHT AT BEDTIME. Clopidogrel Bisulfate 75 MG Tablet TAKE 1 TABLET BY MOUTH EVERY DAY Taking Omeprazole 20 MG Capsule Delayed Release 1 capsule 1/2 to 1 hour before morning meal Orally Once a day Taking Aspirin Low Dose 81 MG Tablet Chewable CHEW AND SWALLOW 1 TABLET BY MOUTH DAILY Taking Atorvastatin Calcium 80 MG Tablet TAKE 1 TABLET BY MOUTH EVERY NIGHT AT BEDTIME. Taking Clopidogrel Bisulfate 75 MG Tablet TAKE 1 TABLET BY MOUTH EVERY DAY DiscontinuedTamsulosin HCl 0.4 MG Capsule 1 capsule Orally Once a day Meclizine HCl 25 MG Tablet 1 tablet as needed Orally every 8 hrs traZODone HCl 150 MG Tablet 1 tablet at bedtime Orally Once a day APO- Varenicline 1 MG Tablet as directed Orally Once [...] Cream 1 application Externally Twice a day Doxycycline Hyclate 100 MG Capsule 1 capsule Orally twice a day , stop date 10/25/2024Medication List reviewed and reconciled with the patientDiscontinued Tamsulosin HCl 0.4 MG Capsule 1 capsule Orally Once a day Discontinued Meclizine HCl 25 MG Tablet 1 tablet as needed Orally every 8 hrs Discontinued traZODone HCl 150 MG Tablet 1 tablet at bedtime Orally Once a day Discontinued APO-Varenicline 1 MG Tablet as directed Orally Once a day Discontinued buPROPion HCl ER (Smoking Det) 150 MG Tablet Extended Release 12 Hour 1 tablet in the morning Orally Once a day Discontinued Varenicline Tartrate 1 MG Tablet as directed Orally Twice a day Discontinued Hydrocortisone 1 % Cream 1 application Externally Twice a day Discontinued Mupirocin 2 % Ointment 1 application Externally Twice a day Discontinued Clobetasol Propionate 0.05 % Cream 1 application Externally Twice a day Discontinued Triamcinolone Acetonide 0.1 % Cream 1 application Externally Twice a day Discontinued Doxycycline Hyclate 100 MG Capsule 1 capsule Orally twice a day , stop date 10/25/2024Medication List reviewed and reconciled with the patient * Allergies: N o Known Drug Allergyno[Allergies Verified] Objective: * Vitals: H t: 67, Wt:175, BMI:27.41, BP:124/86, HR:80, Temp:97.6, Wt-k.38. * Examination: G eneral Examination: GENERAL APPEARANCE: p leasant, well nourished, well developed, in no acute distress, calm and relaxed, overweight, elderly man. HEAD: a traumatic, normocephalic. EYES: e mauricio, perrla, anicteric, conjugate. EARS: n ormal. NOSE: s eptum intact. ORAL CAVITY: n ormal, unremarkable. NECK/THYROID: n o jugular venous distention, no carotid bruit, thyroid normal. LYMPH NODES: n o enlarged lymph nodes,spleen normal. SKIN: n o suspicious lesions, anicteric, Healing wound with scab midway between umbilicus and xiphoid process anterior abdomen.. HEART: n o clicks, gallops, murmurs, or rubs, regular rhythm, S1, S2 normal, no s3, or vascular bruits. LUNGS: , diminished breath sounds throughout, good air movement. BREASTS: no masses palpable bilaterally. ABDOMEN: b owel sounds normal, no ascites, no organomegaly, no mass, overweight. RECTAL EXAM: n ot examined. MUSCULOSKELETAL: e xtremities unremarkable, no clubbing, cyanosis or edema. PERIPHERAL PULSES: n ormal. NEUROLOGIC: a lert and oriented, cranial nerves 2-12 grossly intact, deep tendon reflexes 2+ symmetrical, motor strength normal upper and lower extremities, sensory exam intact. PSYCH: a lert, oriented. Assessment: * Assessment: 1. I nsect bite (nonvenomous) of abdominal wall, subsequent encounter - S30.791D (Primary) N otes :He has finished the doxycycline. The area is healing and there is no sign of Lyme disease. 2 . P araseptal emphysema - J43.8 N otes :He is no longer smoking. He is comfortable with mild activity. He does not require oxygen. 3 . M ixed hyperlipidemia - E78.2 N otes :The cholesterol values are currently stable. Current therapy was continued 4 . O verweight (BMI 25.0-29.9) - E66.3 N otes :His body mass index is 27 and his weight is stable. We discussed his diet and nutrition today. I recommended weight loss at a rate of one half of a pound per week. 5 . S ensorineural hearing loss (SNHL) of both ears - H90.3 N otes :He does not think he needs hearing aids at this point. Examination of his ears showed no impaction of cerumen. 6 . F ormer smoker - Z87.891 N [...] tobacco use and urged to quit. 0 10/25/2024 * Follow Up: 3 Months (Reason: OV) * Images: * Sign off status: Completed true * Provider: Jemma Lin MD Date: 0 10/25/2024 Generated for Carol hurst/Yaa/eTransmitting on: 1 04:11 PM EDT History and Physical Notes * [...] bruits LUNGS: , diminished breath sounds throughout, good air movement ABDOMEN: bowel sounds normal, no ascites, no organomegaly, no mass, overweight NEUROLOGIC: alert and oriented, cranial nerves 2-12 grossly intact, deep tendon reflexes 2+ symmetrical, motor strength normal upper and lower extremities, sensory exam intact SKIN: no suspicious lesion s, anicteric, Healing wound with scab midway between umbilicus and xiphoid process anterior abdomen. PERIPHERAL PULSES: normal BREASTS: no masses palpable b ilaterally MUSCULOSKELETAL: extremities unremark able, no clubbing, cyanosis or edema LYMPH NODES: no enlarged lymph no david,spleen normal RECTAL EXAM: not examined PSYCH: alert, oriented ORAL CAVITY: normal, unremarkable
--- OUTSIDE RECORDS SUMMARY | 2024-11-08 15:00 | XMS_ITS ---
Author Organization Wilfrid Lin III, MD Address [address] [place] [address] Care Team Providers Care Dormitory Keeper Name Role Phone Dr. Wilfrid Lin III Primary Care Provider REASON FOR VISIT follow up Social History Sex Assigned At : Social History Observation Description Sex Assigned At Male Encounters Encounter Location Date Provider Diagnosis Wilfrid Lin III, MD [address] [place] [address] [place] [address] 11/08/2024 Wilfrid Lin Plan Of Treatment Next Appt Details Provider Name:Wilfrid Lin , 08/19/2025 03:30:00 PM, [address] [place] [address] [place], [address], Provider Name:Wilfrid Lin , 04/19/2026 03:00:00 PM, [address] [place] [address] [place], [address], Progress Notes * Mat OSPINA SrDOB: (80 yo M)Acc No.[id number]:11/08/2024 Progress Notes Patient: Mora BARRAGANMat MEEHAN Sr Provider: Jemma Lin MD :1945 A ge:79 Y S ex:Male Date:11/08/2024 Address:[address] [id number] Subjective: * Chief Complaints: * 1 . Follow up. * Medical History: Objective: * Vitals: Assessment: Plan: * Treatment: * Images: * The named appointment provid er may or may not be the originator of this progress note, and it is not deemed complete until electronically signed by the appointment provider. Sign off status: Pending * Provider: Jemma Lin MD Date: 0 11/08/2024 Generated for Carol hurst/Yaa/Brenda on: 1 04:11 PM EDT
--- OUTSIDE RECORDS SUMMARY | 2025-01-24 11:00 | XMS_ITS ---
Author Organization Wilfrid Lin III, MD Address [address] [place] [address] Care Team Providers Care Press Tender Name Role Phone Dr. Wilfrid Lin III Primary Care Provider [phone] Allergies Allergen (clinical drug ingredient) Drug/Non Drug [...] Provider Diagnosis Wilfrid Lin III, MD [address] [place] [address] [address] [place], [place] [address] 01/24/2025 Wilfrid Lin Mixed hyperlipidemia E78.2 ; [...] mass index is now 26. We reviewed [facility] diet and nutrition. We made a plan [...] son: Annual Exam Provider Name:Wilfrid Lin , 08/19/2025 03:30:00 PM, [address] [facility] [address], [place], [address], Provider Name:Wilfrid Lin , 04/19/2026 03:00:00 PM, [address] [facility] [address], [place], [address], Progress Notes * Mat OSPINA SrDOB: (80 yo M)Acc No.[id number]:01/24/2025 Progress Notes Patient: Mat RAMIREZ Sr Provider: Jemma Lin MD :1945 A ge:80 Y S ex:Male Date:01/24/2025 Address:[address] [place], [place] [address] Subjective: * Chief Complaints: * V ertigoHyperlipidemiaEmphysemaHearing [...] dental extractions repair left inguinal hernia 2013colonoscopy, [facility], Dr. Kirkpatrick, 2 hyperplastic polyps 06/2005Right inguinal herniorrhaphy 07/2019left carotid endarterectomy 12/2019Colonoscopy, [facility], Dr. Weems, 2 sigmoid tubular adenomatous [...] x-cigarette smoker Cristiana gracia was born in [place]. 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 His of many years 6 years ago of lung cancer. He has 2 sons, Tao Rivero, who lives in [place]. He has 4 grandchildren and 3 great-grandchildren. [...] mass index is now 26. We reviewed [facility] diet and nutrition.? We made a plan [...] Lin MD Date: 0 01/24/2025 Generated for Printi ng/Faconyg/eTransmitting on: 1 04:11 PM EDT History and [...]
--- OUTSIDE RECORDS SUMMARY | 2025-01-26 09:36 | XMS_ITS ---
Author Organization Wilfrid Lin III, MD Address [address] [place] [address] Care Team Providers Care Power Generation Turbine Room Operator Name Role Phone Dr. Wilfrid Lin III Primary Care Provider [phone] REASON FOR VISIT told patient to call Social History Sex Assigned At : Social History Observation Description Sex Assigned At Male Encounters Encounter Location Date Provider Diagnosis Wilfrid Lin III, MD [address] [place] [address] [place] [address] 01/26/2025 Wilfrid Lin Plan Of Treatment Next Appt Details Provider Name:Wilfrid Lin , 08/19/2025 03:30:00 PM, [address] [place] [address] [place], [address], Provider Name:Wilfrid Lin , 04/19/2026 03:00:00 PM, [address] [place] [address] [place], [address], Progress Notes * Mat OSPINA SrDOB: (80 yo M)Acc No.[id number]:01/26/2025 Patient: Mora BARRAGANMat MEEHAN Sr :1945 A ge:80 Y S ex:Male Address:[address] [place], [address] * true * Date: Generated for Printi ng/Faxing/eTransmitting on: 1 04:12 PM EDT
--- OUTSIDE RECORDS SUMMARY | 2025-01-27 10:56 | XMS_ITS ---
Author Organization Wilfrid Lin III, MD Address [address] [place] [address] Care Team Providers Care Acid Bleacher Name Role Phone Dr. Wilfrid Lin III Primary Care Provider [phone] Medications Medication SIG (Take, Route, Fr equency, Duration) Notes Start Date End Date Status Meclizine HCl 25 MG 1 tablet as needed O rally every 12 hrs for 14 days 01/27/2025 Active Social History Sex Assigned At : Social History Observation Description Sex Assigned At Male Encounters Encounter Location Date Provider Diagnosis Wilfrid Lin III, MD [address] [place] [address] [place] [address] 01/27/2025 Wilfrid Lin Plan Of Treatment Medication Medication Name Sig Start Date Stop Date Notes Meclizine HCl 25 MG 1 tablet as needed O rally every 12 hrs for 14 days 01/27/2025 Next Appt Details Provider Name:Wilfrid Lin , 08/19/2025 03:30:00 PM, [address] [place] [address] [place], [address], Provider Name:Wilfrid Lin , 04/19/2026 03:00:00 PM, [address] [place] [address] [place], [address], Progress Notes * Mat OSPINA SrDOB: (80 yo M)Acc No.[id number]:01/27/2025 Patient: Mat RAMIREZ Sr :1945 A ge:80 Y S ex:Male Address:[address] [place], [place] [address]ON PETERDirkUN[facility], [address] * Refills Start Meclizine HCl Tablet, 25 MG, Orally, 28 Tablet, 1 tablet as needed, every 12 hrs, 14 days, Refills=1 * true * Date: Generated for Carol hurst/Yaa/Thomasitting on: 04:13 PM EDT
--- OUTSIDE RECORDS SUMMARY | 2025-02-07 06:28 | XMS_ITS ---
Author Organization Wilfrid Lin III, MD Address [address] [facility] [address] Care Team Providers Care Net Wpf Developer Name Role Phone Dr. Wilfrid Lin III Primary Care Provider REASON FOR VISIT Concerns about patient Hep B Social History Sex Assigned At : Social History Observation Description Sex Assigned At Male Encounters Encounter Location Date Provider Diagnosis Wilfrid Lin III, MD [address] [place] [address] [place] [address] 02/07/2025 Wilfrid Lin Plan Of Treatment Next Appt Details Provider Name:Wilfrid Lin , 08/19/2025 03:30:00 PM, [address] [place] [address] [place], [address], Provider Name:Wilfrid Lin , 04/19/2026 03:00:00 PM, [address] [place] [address] [place], [address], Progress Notes * Mat OSPINA SrDOB: (80 yo M)Acc No.[id number]:02/07/2025 Patient: Mora BARRAGANMat MEEHAN Sr :1945 A ge:80 Y S ex:Male Address:[address] [place], [address] * true * Date: Generated for Printi ng/Faxing/eTransmitting on: 1 04:11 PM EDT
--- OUTSIDE RECORDS SUMMARY | 2025-02-07 06:40 | XMS_ITS ---
Author Organization Wilfrid Lin III, MD Address [address] [facility] [place] [address] Care Team Providers Care Timber Mill Worker Name Role Phone Dr. Wilfrid Lin III Primary Care Provider [phone] REASON FOR VISIT Needs call back from Social History Sex Assigned At : Social History Observation Description Sex Assigned At Male Encounters Encounter Location Date Provider Diagnosis Wilfrid Lin III, MD [address] [place] [address] [place] [address] 02/07/2025 Wilfrdi Lin Plan Of Treatment Next Appt Details Provider Name:Wilfrid Lin , 08/19/2025 03:30:00 PM, [address] [place] [address] [place], [address], Provider Name:Wilfrid Lin , 04/19/2026 03:00:00 PM, [address] [place] [address] [place], [address], Progress Notes * Mat OSPINA SrDOB: (80 yo M)Acc No.[id number]:02/07/2025 Patient: Mora BARRAGANMat MEEHAN Sr :1945 A ge:80 Y S ex:Male Address:[address] [place], [address] * true * Date: Generated for Printi ng/Faxing/eTransmitting on: 1 04:12 PM EDT
--- OUTSIDE RECORDS SUMMARY | 2025-04-15 11:00 | XMS_ITS ---
Author Organization Wilfrid Lin III, MD Address [address] [place] [address] Care Team Providers Care Security And Compliance Analyst Name Role Phone Dr. Wilfrid Lin III Primary Care Provider [phone] Allergies Allergen (clinical drug ingredient) Drug/Non Drug Allergy documented on EMR Reaction Allergy Type Onset Date Status No Known Drug Allergy Unknown Drug Allergy Active No Known Food Allergy Unknown Drug Allergy Active REASON FOR VISIT Annual Exam Medications Medication SIG (Take, Route, Frequency, Duration) Notes Start Date End Date Status Atorvastatin Calcium 80 MG TAKE 1 TABLET BY MOUTH AT BEDTIME Active Meclizine HCl 25 MG 1 tablet as needed O rally every 12 hrs 01/27/2025 Active Omeprazole 20 MG 1 capsule 1/2 to 1 h our before morning meal Orally Once a day Active Clopidogrel Bisulfate 75 MG TAKE 1 TABLE T BY MOUTH EVERY DAY Active Aspirin Low Dose 81 MG CHEW AND SWALLOW 1 TABLET BY MOUTH DAILY Active Social History Tobacco Use: Social History Observation Description Date Details (start date - stop date) Current Smoker NA - NA Sex Assigned At : Social History Observation Description Sex Assigned At Male Tobacco Control (Standard) Question Answer Notes Tobacco use: Current smoker How often do you smoke cigarettes? Every day How many cigarettes a day do you smoke? 11-20 How soon after you wake up d o you smoke your first cigarette? After 60 minutes Are you interested in quitting? Thinking about q uitting Additional Findings: Tobacco user Modera te cigarette smoker (10-19 cigs/day) AUDIT-C (Standard) Question Answer Notes Did you have a drink containing alcohol in the p ast year? No Points 0 Interpretation Negative Problems Problem Type SNOMED Code ICD Code Onset Dates Problem Status W/U Status Risk Notes Problem [id number] Tobacco dependence (F17.200) Active confirmed He continues to smoke a package of cigarettes per day. He was counseled about the health risks in doing so. He has early emphysema. We discussed various strategies for smoking cessation. This nicotine patches were not beneficial. Vital Signs Temperature 97.9 degrees Fahrenheit 04/15/20 25 Blood pressure systolic 121 mm Hg 04/15/20 25 Blood pressure diastolic 65 mm Hg 025 Heart Rate 79 /min 04/15/2025 Height 67 in 04/15/2025 Weight 172 lbs 04/15/2025 BMI 26.94 kg/m2 04/15/2025 Encounters Encounter Location Date Provider Diagnosis Wilfrid Lin III, MD [address] [place] [address] [place] [address] 04/15/2025 Wilfrid Lin Overweight (BMI 25.0-29.9) E66.3 ; Paraseptal emphysema J43.8 ; Tobacco dependence F17.200 ; Mixed hyperlipidemia E78.2 ; Sensorineural hearing loss (SNHL) of both ears H90.3 ; Aortic aneurysm I71.9 ; Left carotid artery stenosis I65.22 and Bilateral hearing loss, unspecified hearing loss type H91.93 Assessments Encounter Date Diagnosis (ICD Code) Assessment Notes Treat ment Notes Treatment Clinical Notes 04/15/2025 Overweight (BMI 25.0-29.9) (ICD-10 - E66.3) His weight has been stable. We discussed his diet and nutrition at length today. Comprehensive blood work is pending. 04/15/2025 Paraseptal emphysema (ICD-10 - J43.8) He is no longer smoking. He is comfortable with mild activity. He does not require oxygen. 04/15/2025 Tobacco dependence (ICD-10 - F17.200) He continues to smoke a package of cigarettes per day. He was counseled about the health risks in doing so. He has early emphysema. We discussed various strategies for smoking cessation. This nicotine patches were not beneficial. 04/15/2025 Mixed hyperlipidemia (ICD-10 - E78.2) Comprehensive blood work with a fasting lipid profile will be done next week. No change in his regimen was made today. 04/15/2025 Sensorineural hearin g loss (SNHL) of both ears (ICD-10 - H90.3) He does not think he needs hearing aids at this point. Examination of his ears showed no impaction of cerumen. 04/15/2025 Aortic aneurysm (ICD-10 - I71.9) He is under the care of vascular surgery. He has had no abdominal pain. There is no pulsatile mass on examination. 04/15/2025 Left carotid artery stenosis (ICD-10 - I65.22) He is followed by vascular surgery. The left carotid is palpable. He has had no TIA symptoms. 04/15/2025 Bilateral hearing loss, unspecified hearing loss type (ICD-10 - H91.93) Plan Of Treatment Medication Medication Name Sig Start Date Stop Date Notes Atorvastatin Calcium 80 MG TAKE 1 TABLET BY MOUTH AT BEDTIME Meclizine HCl 25 MG 1 tablet as needed O rally every 12 hrs 01/27/2025 Omeprazole 20 MG 1 capsule 1/2 to 1 h our before morning meal Orally Once a day Clopidogrel Bisulfate 75 MG TAKE 1 TABLE T BY MOUTH EVERY DAY Aspirin Low Dose 81 MG CHEW AND SWALLOW 1 TABLET BY MOUTH DAILY Pending Test Test Name Order Date PROFILE, FASTING (COMPREHENSIVE METABOLI C) 04/15/2025 PSA, TOTAL 04/15/2025 CBC w DIFF 04/15/2025 Lipid Panel 04/15/2025 Next Appt Details Follow Up: 4 Months, Reason: OV Provider Name:Wilfrid Lin , 08/19/2025 03:30:00 PM, [address] [place] [address] [address] [place], [id number], Provider Name:Wilfrid Lin , 04/19/2026 03:00:00 PM, [address] [place] [address] [address] [place], [id number], Progress Notes * Mat OSPINA SrDOB: (80 yo M)Acc No.[id number]:04/15/2025 Progress Notes Patient: Mora Mat MEEHAN Provider: Jemma Lin MD :1945 A ge:80 Y S ex:Male Date:04/15/2025 Address:[address] [id number] Subjective: * Chief Complaints: * A nnual Exam * HPI: D epression Screening: Cristiana gracia returns to the age of 80 for his annual visit. He recently had a CT angiogram of the abdomen to evaluate his aortic repair. 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 He is going to see his vascular surgeon, Dr. Schroeder, on April 22, 2025.? He feels happy and healthy and well and is working full-time.Liu colorectal screening today.He has not had a chance to have his blood work done. Comprehensive blood work will be done later this week or next week and we will discuss the results by telephone. PHQ-9 L ittle interest or pleasure in doing things?Several days F eeling down, depressed, or hopeless N ot at all T rouble falling or staying asleep, or sleeping too much N ot at all F eeling tired or having little energy N ot at all P oor appetite or overeating N ot at all F eeling bad about yourself or that you are a failure, or have let yourself or your family down N ot at all T rouble concentrating on things, such as reading the newspaper or watching television N ot at all M oving or speaking so slowly that other people could have noticed; or the opposite, being so fidgety or restless that you have been moving around a lot more than usual N ot at all T houghts that you would be better off or of hurting yourself in some way N ot at all T otal Score 1 I nterpretation M inimal Depression Interpretation and Intervention D epression Screening Findings N egative C OVID-19 Screening: Questions H ave you had any new onset fever, chills, cough, congestion, sore throat, shortness of breath, muscle aches? N o F all Risk Screening: Fall History H ave you had any falls with injury in the past year? N o H ave you had two or more falls in the past year? N o F all Risk Assessment: N o falls in the past year S KEVAN Questions: SDOH Questions I n the past year have you been worried about losing your housing? N o I n the past year have you or any family members you live with been unable to get any of the following when it was really needed? Check all that apply: N one * ROS: G eneral/Constitutional: pain K nees. C hills d enies. F atigue a dmits. F [...] enies. P sychiatric: Depressed mood d enies. * Medical History: * Surgical History: b [...] Social History: T obacco Use: T obacco Control (Standard) T obacco use: C urrent smoker H ow often do you smoke cigarettes? E very day H ow many cigarettes a day do you smoke? 1 1-20 H ow soon after you wake up do you smoke your first cigarette? A fter 60 minutes A re you interested in quitting? T hinking about quitting A dditional Findings: Tobacco user M oderate cigarette smoker (10-19 cigs/day) D rugs/Alcohol: D rugs H ave you used drugs other than those for medical reasons in the past 12 months? N o D rug/Alcohol: A PRISCILLA-C (Standard) D id you have a drink containing alcohol in the past year? N o P oints 0 I nterpretation N egative H samia was born in [place]. 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 His of many years 6 years ago of lung cancer. He has 2 sons, Tao Rivero, who lives in [place]. He has 4 grandchildren and 3 great-grandchildren. He was 27 when his parents . He says he has never learned to read or write and capable of working at both. * Medications: T akingAtorvastatin Calcium 80 MG Tablet TAKE 1 TABLET BY MOUTH AT BEDTIME Aspirin Low Dose 81 MG Tablet Chewable CHEW AND SWALLOW 1 TABLET BY MOUTH DAILY Clopidogrel Bisulfate 75 MG Tablet TAKE 1 TABLET BY MOUTH EVERY DAY Omeprazole 20 MG Capsule Delayed Release 1 capsule 1/2 to 1 hour before morning meal Orally Once a day Meclizine HCl 25 MG Tablet 1 tablet as needed Orally every 12 hrs Medication List reviewed and reconciled with the patientTaking Atorvastatin Calcium 80 MG Tablet TAKE 1 TABLET BY MOUTH AT BEDTIME Taking Aspirin Low Dose 81 MG Tablet Chewable CHEW AND SWALLOW 1 TABLET BY MOUTH DAILY Taking Clopidogrel Bisulfate 75 MG Tablet TAKE 1 TABLET BY MOUTH EVERY DAY Taking Omeprazole 20 MG Capsule Delayed Release 1 capsule 1/2 to 1 hour before morning meal Orally Once a day Taking Meclizine HCl 25 MG Tablet 1 tablet as needed Orally every 12 hrs Medication List reviewed and reconciled with the patient * Allergies: N o Known Drug AllergyNo Known Food Allergyno[Allergies Verified] Objective: * Vitals: H t: 67, Wt:172, BMI:26.94, BP:121/65, HR:79, Temp:97.9, Wt-k.02. * P ast Orders: Lab:Blood Urea Nitrogen * Collection Date 03/31/2025 03/14/2023 03/19/2022 Collection Time 02:10 PM 10:59 AM 09:56 AM Order Date 03/31/2025 03/14/2023 03/19/2022 Blood Urea Nitrogen 13 (Ref Range: 9-16 mg/dL) 15 (Ref Range: 9-16 mg/dL) 17 H (Ref Range: 9-16 mg/dL) * Lab:Creatinine * Collection Date 03/31/2025 03/19/2022 04/11/2021 Collection Time 02:10 PM 09:56 AM 01:50 PM Order Date 03/31/2025 03/19/2022 04/11/2021 Creatinine 1.12 (Ref Range: 0.5-1.4 mg/dL) 0.82 (Ref Range: 0.5-1.4 mg/dL) 0.82 (Ref Range: 0.5-1.4 mg/dL) Estimated Glomerular Filt Rate > 60 > 60 > 60 * Imaging:CT angio abdomen pel vis * Performed Date 04/08/2025 03/25/2024 03/20/2023 03:55 PM 03:22 PM 04:14 PM Order Date 04/08/2025 03/25/2024 03/20/2023 * Examination: G eneral Examination: GENERAL APPEARANCE: p leasant, well nourished, well developed, in no acute distress, calm and relaxed: overweight: man. HEAD: a traumatic, normocephalic. EYES: e mauricio, perrla, anicteric, conjugate. EARS: : Normal anatomy with bilateral hearing loss. NOSE: s eptum intact. ORAL CAVITY: n ormal, unremarkable. NECK/THYROID: n o jugular venous distention, no carotid bruit, thyroid normal. LYMPH NODES: n o enlarged lymph nodes,spleen normal. SKIN: n o suspicious lesions, anicteric. HEART: n o clicks, gallops, murmurs, or rubs, regular rhythm, S1, S2 normal, no s3, or vascular bruits. LUNGS: : diminished breath sounds throughout: no wheezes, rales, rhonchi: good air movement. BREASTS: no masses palpable bilaterally. ABDOMEN: b owel sounds normal, no ascites, no organomegaly, no mass. RECTAL EXAM: n ot examined. MUSCULOSKELETAL: e xtremities unremarkable, no clubbing, cyanosis or edema, Mild crepitus knees. PERIPHERAL PULSES: n ormal. NEUROLOGIC: a lert and oriented, cranial nerves 2-12 grossly intact, deep tendon reflexes 2+ symmetrical, motor strength normal upper and lower extremities, sensory exam intact. PSYCH: a lert, oriented. Assessment: * Assessment: 1. P araseptal emphysema - J43.8 (Primary) N otes :He is no longer smoking. He is comfortable with mild activity. He does not require oxygen. 2 . O verweight (BMI 25.0-29.9) - E66.3 N otes :His weight has been stable. We discussed his diet and nutrition at length today. Comprehensive blood work is pending. 3 . T obacco dependence - F17.200 N otes :He continues to smoke a package of cigarettes per day. He was counseled about the health risks in doing so. He has early emphysema. We discussed various strategies for smoking cessation. This nicotine patches were not beneficial. 4 . M ixed hyperlipidemia - E78.2 N otes :Comprehensive blood work with a fasting lipid profile will be done next week. N o change in his regimen was made today. 5 . S ensorineural hearing loss (SNHL) of both ears - H90.3 N otes :He does not think he needs hearing aids at this point. Examination of his ears showed no impaction of cerumen. 6 . A ortic aneurysm - I71.9 N otes :He is under the care of vascular surgery. He has had no abdominal pain. There is no pulsatile mass on examination. 7 . L eft carotid artery stenosis - I65.22 N otes :He is followed by vascular surgery. The left carotid is palpable. He has had no TIA symptoms. 8 . B ilateral hearing loss, unspecified hearing loss type - H91.93 Plan: * Treatment: * Labs: * L ab: PROFILE, FASTING (COMPREHENSIVE METABOLIC) L ab: PSA, TOTAL L ab: CBC w DIFF L ab: Lipid Panel * Procedure Codes: * Preventive Medicine: Counseling: C are goal follow-up plan: Counseling for abnormal BMI given Y es Above Normal BMI Follow-up D ietary management education, guidance, and counseling S moking/Tobacco Use Patient counseled on the dangers of tobacco use and urged to quit. 1 Patient Lifestyle Goals P atient wants to quit Treatment Goals S et a quit date, Cut down by 1 cigarette a week Barriers S tress, Social smoker Self-Management Plan M brunilda a plan to cut down number of cigarettes over time and set a date to work towards quitting * Follow Up: 4 Months (Reason: OV) * Images: * Sign off status: Completed true * Provider: Jemma Lin MD Date: 1 Generated for Printi ng/Faconyg/eTransmitting on: 1 04:12 PM EDT History and Physical Notes * HPI (History of Present Illness) Category Sub-Category Detail Notes Depression Screening PHQ-9 Little inte rest or pleasure in doing things: Several days Feeling down, depressed, or hopeless: No t at all Trouble falling or staying asleep, or sl [...] all Total Score: 1 Interpretation: Minimal Depression Interpretation and Intervention Depression Juanito red Findings: Negative Fall Risk Screening Fall History Have you had any falls with injury in the past year?: No Have you had two or more falls in the year?: No Fall Risk Assessment:: No falls in the year COVID-19 Screening Questions Have you had any new onset fever, chills, cough, congestion, sore throat, shortness of breath, muscle aches?: No SDOH Questions SDOH Questions In the past year have you been worried about losing your housing?: No In the past year have you or any family members you live with been unable to get any of the following when it was really needed? Check all that apply:: None Examination Category Sub-Category Detail Notes General Examination GENERAL APPEARANCE: pleasant , well nourished, well developed, in no acute distress, calm and relaxed: overweight: man HEAD: atraumatic, normocep halic EYES: eomi, perrla, anicte chris, conjugate EARS: : Normal anatomy wit h bilateral hearing loss NOSE: septum intact NECK/THYROID: no jugular venous di stention, no carotid bruit, thyroid normal HEART: no clicks, gallops, murmurs, or rubs, regular rhythm, S1, S2 normal, no s3, or vascular bruits LUNGS: : diminished breath sounds throughout: no wheezes, rales, rhonchi: good air movement ABDOMEN: bowel sounds normal, no ascites, no organomegaly, no mass NEUROLOGIC: alert and oriented, cranial nerves 2-12 grossly intact, deep tendon reflexes 2+ symmetrical, motor strength normal upper and lower extremities, sensory exam intact SKIN: no suspicious lesion s, anicteric PERIPHERAL PULSES: normal BREASTS: no masses palpable b ilaterally MUSCULOSKELETAL: extremities unremark able, no clubbing, cyanosis or edema, Mild crepitus knees LYMPH NODES: no enlarged lymph no david,spleen normal RECTAL EXAM: not examined PSYCH: alert, oriented ORAL CAVITY: normal, unremarkable
--- NOTE | 2025-04-22 14:00 | AM.OFFVISNUR ---
Intake Visit Reasons: Hep B #3 Intake Note: Patient presents for collection of?H Pylori?breath test. Patient has been fasting for 1 hour (nothing to eat, drink, no chewing gum or smoking) has not taken any antacid medication for at least 2 weeks and has no allergies to artificial sweeteners.?? Allergies No Known Allergies (No Known Allergies*) Allergy (Verified 10/11/24 12:17) Assessment & Plan Assessment & Plan (1) Diverticulosis: Code(s): K57.90 - Diverticulosis of intestine, part unspecified, without perforation or abscess without bleeding Category: Medical Plan Patient presents for collection of?H Pylori?breath test. Patient has been fasting for 1 hour (nothing to eat, drink, no chewing gum or smoking) has not taken any antacid medication for at least 2 weeks and has no allergies to artificial sweeteners.???This test checks for an overgrowth of bacteria in your stomach. We all have bacteria but some may have more than others. It is treatable. if the test comes back negative there is nothing else to do. If the test result is positive we will treat you with 2 antibiotics and a medication to decrease the acid in your stomach (PPI) for 2 weeks. Two weeks after you have completed the treatment we will retest you to make sure the overgrowth has resolved. Patient Instructions: Process for specimen collection and reason for testing was explained to the patient. Specimen collection. Patient instructed to take a deep breath and then exhale into the blue bag, filling it up as much as possible. Patient instructed to drink a mixture of water and the artificial sweetener with a straw. A 15 minute wait period was observed. Patient instructed to take a deep breath and then exhale into the pink bag, filling it up as much as possible.?? Coding Level of Care Code Est Pt Level 1 (61206) Diagnoses Diverticulosis K57.90
--- OUTSIDE RECORDS SUMMARY | 2025-04-22 16:12 | XMS_ITS | Patient Health Record ---
Author Organization Wilfrid Lin III, MD Address [address] [place] [address] Care Team Providers Care Door To Door Fundraising Collector Name Role Phone Dr. Wilfrid Lin III Primary Care Provider [phone] Allergies Allergen (clinical drug ingredient) Drug/Non Drug Allergy documented on EMR Reaction Allergy Type Onset Date Status No Known Drug Allergy Unknown Drug Allergy Active No Known Food Allergy Unknown Drug Allergy Active Results Component Value Reference Range Notes PROFILE, FASTING (COMPREHENS SERAFIN METABOLIC) Reviewed date:09/03/2024 10:40:27 AM Interpretation: Performing Lab: Notes/Report: Complete Blood Count Auto Di ff Reviewed date:08/08/2024 08:52:43 AM Interpretation: Performing Lab:[facility], [address] [place] [phone] Notes/Report: White Blood Count 10.2 4.8-10.8 X10*3/uL [...] NRBC Abs Auto 0.000 0.0-0.012 X10*3/uL Comprehensive [place]. Panel Fa st Reviewed date:08/08/2024 08:52:43 AM Interpretation: Performing Lab:[facility], [address] [place] [phone] Notes/Report: Sodium 138 135-145 mmol/L Potassium 4.1 [...] Panel Reviewed date:08/08/2024 08:52:43 AM Interpretation: Performing Lab:[facility], [address] [place] [phone] Notes/Report: Triglycerides 165 <150 mg/dL Desirable Triglyceride: [...] Thyroxine) Reviewed date:08/08/2024 08:52:43 AM Interpretation: Performing Lab:[facility], [address] [place] [phone] Notes/Report: Free T4 (Free Thyroxine) 1.06 0.71-1.85 ng/dL Thyroid Stimulating Hormone Reviewed date:08/08/2024 08:52:43 AM Interpretation: Performing Lab:[facility], [address] [place] [phone] Notes/Report: Thyroid Stimulating Hormone 0.61 0.32-4.0 uIU/mL TSH 3rd Generation ([facility]) Immunoglobulin E Reviewed date:08/08/2024 08:52:43 AM Interpretation: Performing Lab:[facility], [address] [place] [phone] Notes/Report: Immunoglobulin E 587 <UV=107 kU/L THIS TEST WAS PERFORMED AT: [facility] [address] [place] [phone] EDUARDO FLYNN MD Hepatitis B Surface Antibody Reviewed date:08/08/2024 08:52:43 AM Interpretation: Performing Lab:[facility], [address] [place] [phone] Notes/Report: Hepatitis B Surface Antibody NONREACTIVE Nonreactive Nonreactive: < 8.00 mIU/mL Hepatitis B Core Antibody Reviewed date:08/08/2024 08:52:43 AM Interpretation: Performing Lab:[facility], [address] [place] [phone] Notes/Report: Hepatitis B Core Antibody Nonreactive Nonreactive HIV Ab/Ag Reviewed date:08/08/2024 08:52:43 AM Interpretation: Performing Lab:[facility], [address] [place] [phone] Notes/Report: HIV AB/AG Nonreactive Nonreactive HIV-1 p24 [...] limit of detection of this assay. The [employer] HIV Ag/Ab Combo assay result and supplemental assay results should be interpreted in conjunction with the patient's clinical presentation, history and other laboratory results. If the results are inconsistent with clinical evidence, additional testing is suggested to confirm the result. Hepatitis C Antibody Reviewed date:08/08/2024 08:52:43 AM Interpretation: Performing Lab:[facility], [address] [place] [phone] Notes/Report: Hepatitis C Antibody Reactive Nonreactive Presump tive evidence of antibodies to HCV. Hepatitis B Surface Antigen Reviewed date:08/08/2024 08:52:43 AM Interpretation: Performing Lab:[facility], [address] [place] [phone] Notes/Report: Hepatitis B Surface Antigen Negative Negative XR chest 2V Reviewed date:08/08/2024 08:52:43 AM Interpretation: Performing Lab: Notes/Report: [address] [place] [address] XRay Report Signed Patient: Mat Ospina MR#: [id number] : 1945 Acct:[id number] Age/Sex: 79 / M ADM Date: 08/04/24 Loc: ROBB Attending Dr: Sixto Galvez PA-C Ordering Physician: Sixto Galvez PA-C Date of Service: 08/04/24 Procedure(s): XR chest 2V Accession Number(s): [id number] cc: Wilfrid Lin MD; Sixto Galvez PA-C [...] 08/05/24 0708 DD/ 0838 TD/TT: 08/04/24 0845 Hothouse Worker: [address] [address] XRay Report Signed Patient: Mat Ospina MR#: [id number] : 1945 Acct:[id number] Age/Sex: 79 / M ADM Date: 08/04/24 Loc: HMGRADHA Attending Dr: Sixto Galvez PA-C Ordering Physician: Sixto Galvez PA-C Date of Service: 08/04/24 Procedure(s): XR melyssa st 2V Accession Number(s): [id number] cc: Wilfrid Lin MD; Sixto Galvez PA-C [...] Yañez MD in OV> 08/05/24 0708 DD/ TD/TT: 08/04/24 0845 Hothouse Worker: HCV RNA QN PROG TO GENOTYPE Reviewed date:09/19/2024 10:13:53 AM Interpretation: Performing Lab:[facility], [address] [place] [phone] Notes/Report: HCV RNA PCR Qn <15 NOT DETECTED NOT DETECTED IU/mL HCV RNA PCR Qn <1.18 NOT DETECTED NOT DETECTED Log IU/mL HCV RNA Comment SEE NOTE For additional information, please refer to http://education.[employer]/ faq/XPZ33v3 (This link is being provided for informational/ Educational purposes only.) THIS TEST WAS PERFORMED AT: [facility] [address] [place] [phone] EDUARDO FLYNN MD HCV Genotype LiPA TNP Test not i ndicated. Hepatitis A IgG Reviewed date:09/19/2024 10:13:53 AM Interpretation: Performing Lab:[facility], [address] [place] [phone] Notes/Report: Hepatitis A Antibody IgG REACTIVE Nonreactive The presence of IgG anti-HAV implies past HAV infection (recent or distant) or vaccination against HAV. XR chest 2V Reviewed date:04/02/2025 07:45:44 PM Interpretation: Performing Lab: Notes/Report: [address] [place] [address] XRay Report Signed Patient: Mat Ospina MR#: [id number] : 1945 Acct:[id number] Age/Sex: 79 / M ADM Date: 09/23/24 Loc: [facility] Attending Dr: Wilfrid Lin MD Ordering Physician: Wilfrid Lin MD Date of Service: 09/23/24 Procedure(s): XR chest 2V Accession Number(s): [id number] cc: Wilfrid Lin MD EXAMINATION: XR CHEST [...] MD 09/23/2024 10:06 AM EDT Dictated By: Wlifrid Yañez MD Signed By: <Electronically signed by Wilfrid Yañez MD in OV> 09/23/24 1006 DD/ 0933 TD/TT: 09/23/24 0940 Hothouse Worker: [address] [address] XRay Report Signed Patient: Mat Ospina MR#: [id number] : 1945 Acct:[id number] Age/Sex: 79 / M ADM Date: 09/23/24 Loc: [facility]ENTE Attending Dr: Wilfrid Lin MD Ordering Physician: Wilfrid Lin MD Date of Service: 09/23/24 Procedure(s): XR melsysa st 2V Accession Number(s): [id number] cc: Wilfrid Lin MD EXAMINATION: XR CHES [...] 09/23/24 1006 DD/ 0933 TD/TT: 09/23/24 0940 Hothouse Worker: US abdomen complete Reviewed date:04/02/2025 07:45:44 PM Interpretation: Performing Lab: Notes/Report: [facility] [address] [place] [address] [place] [address] Ultrasound Report Signed Patient: Mat Ospina MR#: [id number] : 1945 Acct:[id number] Age/Sex: 79 / M ADM Date: 10/05/24 Loc: HO.HMGCX Attending Dr: Diana ROACH Ordering Physician: Diana Simmons Date of Service: 10/05/24 Procedure(s): US abdomen complete Accession Number(s): [id number] cc: Wilfrid Lin MD; Diana Simmons [employer] REVIEWER[employer]EL CLINICAL HISTORY: B19.20 - Unspecified viral hepatitis [...] in OV> 10/05/24 1630 DD/ 162 TD/TT: 10/05/241628 Hothouse Worker: [facility] [address] [place] [address] [place] [address] Ultrasound Report Signed Patient: Mat Ospina MR#: [id number] : 1945 Acct:[id number] Age/Sex: 79 / M ADM Date: 10/05/24 [facility]: Diana Simmons [facility] Ordering Physician: [facility] Date of Service: 10/05/24 Procedure(s): US abd omen complete Accession Number(s): [id number] cc: Wilfrid Lin MD; Diana Simmons [facility] CLINICAL HISTORY: B1 9.20 - Unspecified viral [...] 10/05/24 1630 DD/ 1629 TD/TT: 10/05/24 1629 Hothouse Worker: Blood Urea Nitrogen Reviewed date:04/02/2025 07:45:44 PM Interpretation: Performing Lab:[facility], [address] [place] [phone] Notes/Report: Blood Urea Nitrogen 13 9-16 mg/dL Creatinine Reviewed date:04/02/2025 07:45:44 PM Interpretation: Performing Lab:[facility], [address] [place] [phone] Notes/Report: Creatinine 1.12 0.5-1.4 mg/dL Estimated Glomerular Filt Rate > 60 Chronic Kidney Disease: Estimated GFR < 60 mL/min/1.73m2 Severe Kidney Disease: Estimated GFR < 15 mL/min/1.73m2 CT angio abdomen pelvis Reviewed date:04/16/2025 06:23:23 AM Interpretation: Performing Lab: Notes/Report: [address] [place] [address] CT Scan Report Signed Patient: Mat Ospina MR#: [id number] : 1945 Acct:[id number] Age/Sex: 80 / M ADM Date: 04/08/25 Loc: HO.CT Attending Dr: Jonathan Schroeder MD Ordering Physician: Jonathan Schroeder MD Date of Service: 04/08/25 Procedure(s): CT angio abdomen pelvis Accession Number(s): [id number] cc: Wilfrid Lin MD; Jonathan Schroeder MD Report Number: [id number]: Total DLP = 405.00 mGy-cm Reason for Exam: I71.43 - Infrarenal abdominal aortic aneurysm, without rupture EXAMINATION: CT ANGIOGRAM ABDOMEN AND PELVIS CLINICAL INFORMATION: COMPARISON: None available. TECHNIQUE: Multiple axial images were obtained through the abdomen and pelvis following the administration of 100 mL of Omnipaque 350 intravenous contrast. Images were reviewed on a dedicated 3-D workstation. This CT examination was performed using dose optimization techniques as appropriate, variously including the following: *Automated exposure control *Adjustment of mA and/or kV according to patient size (this includes techniques or standardized protocols for targeted exams where dose is matched to indication/reason for exam; i.e. extremities or head) *Use of iterative reconstruction technique FINDINGS: EXAMINATION: CT ANGIOGRAM PELVIS CLINICAL INFORMATION: COMPARISON: None available. TECHNIQUE: Multiple axial images were obtained through the pelvis using a [address] scanner after the administration of 100 mL of Omnipaque 350 intravenous contrast. Images were reviewed on a dedicated 3-D workstation to perform 3-D reformations. This CT examination was performed using dose optimization techniques as appropriate, variously including the following: *Automated exposure control *Adjustment of mA and/or kV according to patient size (this includes techniques or standardized protocols for targeted exams where dose is matched to indication/reason for exam; i.e. extremities or head) *Use of iterative reconstruction technique FINDINGS: Stable changes post aortobicommon iliac stent graft. The stent graft is patent. There is a fusiform aneurysm of the lower abdominal aorta. This measures 4 x 4.2 cm in AP and transverse dimension not appreciably changed. 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 There is thrombus is seen inside the stent grafts slightly increased from previous exam. The right common iliac artery is patent. There is a small aneurysm of the left common iliac artery measuring 2.5 cm not appreciably changed. No endoleak is seen. There is embolization material seen in the right proximal internal iliac artery. The left internal iliac artery is patent. Bilateral external iliac, common femoral arteries and femoral bifurcations are patent and normal in caliber. The celiac axis and SMA are patent. There are single patent bilateral renal arteries. There is dilatation of the lower thoracic aorta measuring up to 3.6 cm with tortuosity and some intraluminal thrombus unchanged. LUNG BASES: Emphysematous changes at the lung bases. LIVER, GALLBLADDER, AND BILIARY TREE: The liver is normal in size, shape, and attenuation. No focal hepatic lesion or biliary ductal dilatation is present. The gallbladder is unremarkable with no evidence of radiopaque gallstones, gallbladder wall thickening, or obvious pericholecystic inflammatory changes. PANCREAS: Unremarkable. SPLEEN: Unremarkable. ADRENAL GLANDS: Unremarkable. KIDNEYS AND URETERS: The kidneys are normal in size, shape, and attenuation. Multiple bilateral renal cysts not appreciably changed. No hydronephrosis, hydroureter, or calculi seen. No perinephric stranding. BLADDER: Unremarkable. GASTROINTESTINAL TRACT: Diverticulosis of the colon. The small and large bowel are otherwise unremarkable. The appendix is unremarkable. Underdistended stomach. Difficult to exclude mild diffuse wall thickening of the proximal stomach. ABDOMINAL WALL: No significant hernia is appreciated. LYMPH NODES: Normal. VASCULAR: See above. PELVIC VISCERA: Slightly enlarged prostate gland. OSSEOUS STRUCTURES: Degenerative changes of the spine. CT/CT angio abdomen pelvis IMPRESSION: Stable appearance of the abdominal aortic aneurysm post aorto by iliac stent graft. No endoleak. 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 There is increasing intraluminal thrombus seen compared to previous exam. Stable dilatation or smaller aneurysm of the left common iliac artery. Fleischner guidelines were followed. Electronically signed by: Joanie Lazo MD 04/08/2025 04:39 PM EDT Dictated By: Joanie Lazo MD Signed By: <Electronically signed by Joanie Lazo MD in OV> 04/08/25 9099 DD/ 9046 TD/TT: 04/08/25 1615 Hothouse Worker: [address] [address] [address] Scan Report Signed Patient: Mat Ospina MR#: [id number] : 1945 Acct:[id number] Age/Sex: 80 / M ADM Date: 04/08/25 Loc: .CT Attending Dr: Jonathan Schroeder MD Ordering Physician: Jonathan Schroeder MD Date of Service: 04/08/25 Procedure(s): CT ang io abdomen pelvis Accession Number(s): [id number] cc: Wilfrid Lin MD; Jonathan Schroeder MD Report Number: [id number]: Total DLP = 405.00 mGy-cm Reason for Exam: I71 .43 - Infrarenal abdominal aortic aneurysm, without rupture EXAMINATION: CT ANGIOGRAM ABDOMEN AND PELVIS CLINICAL INFORMATION: COMPARISON: None available. TECHNIQUE: Multiple axial image s were obtained through the abdomen and pelvis following the administration of 100 mL of Omnipaque 350 intravenous contrast. Images wer e reviewed on a dedicated 3-D workstation. This CT examination was performed using dose optimization techniques as appropriate, various ly including the following: *Automated exposure control *Adjustment of mA an d/or kV according to patient size (this includes techniques or standardized protocols for targeted exams where dose is matched to indication/reason for exam; i.e. extremities or head) *Use of iterative reconstruction technique FINDINGS: EXAMINATION: CT ANGIOGRAM PELVIS CLINICAL INFORMATION: COMPARISON: None available. TECHNIQUE: Multiple axial image s were obtained through the pelvis using a [address] scanner after the administration of 100 mL of Omnipaque 350 intravenous contrast . Images were reviewed on a dedicated 3-D workstation to perfo rm 3-D reformations. This CT examination was performed using dose optimization techniques as appropriate, various ly including the following: *Automated exposure control *Adjustment of mA an d/or kV according to patient size (this includes techniques or standardized protocols for targeted exams where dose is matched to indication/reason for exam; i.e. extremities or head) *Use of iterative reconstruction technique FINDINGS: Stable changes post aortobicommon iliac stent graft. The stent graft is patent. There is a fusiform aneurysm of the lower abdominal aorta. This measures 4 x 4.2 cm in AP and transverse dimension not appreciably changed. 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 There is thrombus is seen inside the stent gra fts slightly increased from previous exam. The right common iliac artery is patent. There is a small aneurysm of the left common iliac ar kulwinder measuring 2.5 cm not appreciably changed. No endoleak is seen. Th ere is embolization material seen in the right proximal internal il iac artery. The left internal iliac artery is patent. Bilateral external iliac, common femoral arteries and femoral bifurcations are pat ent and normal in caliber. The celiac axis and SMA are patent. There are single patent bilateral renal arteries. Ther e is dilatation of the lower thoracic aorta measuring up to 3.6 cm with tortuosity and some intraluminal thrombus unchanged. LUNG BASES: Emphysematous changes at the lung bases. LIVER, GALLBLADDER, AND BILIARY TREE: The liver is normal in size, shape, and attenuati on. No focal hepatic lesion or biliary ductal dilatation is presen t. The gallbladder is unremarkable with no evidence of radiopaque gallstones, gallbladder wall thickening, or obvious pericholecystic inflammatory changes. PANCREAS: Unremarkable. SPLEEN: Unremarkable. ADRENAL GLANDS: Unremarkable. KIDNEYS AND URETERS: The kidneys are normal in size, shape, and attenuation. Multipl e bilateral renal cysts not appreciably changed. No hydronephrosis, hydroureter, or calculi seen. No perinephric stranding. BLADDER: Unremarkable. GASTROINTESTINAL TRA CT: Diverticulosis of the colon. The small and large bowel are otherwise unremarkable. The appendix is unremarkable. Underdistended stoma ch. Difficult to exclude mild diffuse wall thickening of the proximal stomach. ABDOMINAL WALL: No significant hernia is appreciated. LYMPH NODES: Normal. VASCULAR: See above. PELVIC VISCERA: Slig htly enlarged prostate gland. OSSEOUS STRUCTURES: Degenerative changes of the spine. C T/CT angio abdomen pelvis IMPRESSION: Stable appearance of the abdominal aortic aneurysm post aorto by iliac stent graft. No endoleak. 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 There is increasing intraluminal thrombus seen compared to previous exam. Stabl e dilatation or smaller aneurysm of the left common iliac artery. Fleischner guideline s were followed. Electronically jak d by: Joanie Lazo MD 04/08/2025 04:39 PM EDT Dictated By: Joanie Lazo MD Signed By: <Electronically signed by Joanie Lazo MD in OV> 04/08/25 1639 DD/ 1555 TD/TT: 04/08/25 1615 Hothouse Worker: CONSUELO Reason For Referral No Information Medications Medication [...] SWALLOW 1 TABLET BY MOUTH DAILY Active Immunizations Vaccine Route Administration Date Status Comme nts Influenza no Preserv 3 and > Unknown 02/21/2020 Administered Influenza, quad Unknown 05/06/2022 Administered COVID 19 Moderna Unknown 05/10/2021 Administered Influenza High Dose Quadrivalent Unknown 05/01/2022 Administered COVID PFIZER Unknown 10/14/2020 Administered Influenza High Dose Quadrivalent Unknown 03/16/2021 Administered COVID PFIZER Unknown 09/23/2020 Administered PCV13 Unknown 06/11/2018 Administered Influenza, quad Unknown 09/22/2019 Administered Influenza High Dose Quadrivalent Unknown 04/15/2023 Administered RSV Adjuvant Unknown 01/06/2024 Administered SHINGRIX Unknown 01/06/2024 Administered Influenza Vaccine Afluria IM Intramuscular 04/15/2025 Admi nistered Social History Tobacco Use: Social History Observation [...] Problem Status W/U Status Risk Notes Problem 3035317 Former smoker (Z87.891) Active confirmed He recently stopped smoking and has a prescription for Chantix. Problem 028457569 Overweight (BMI 25.0-29.9) (E66.3) Active confirmed His weight has been stable. We discussed his diet and nutrition at length today. Comprehensive blood work is pending. Problem 973385649 Mixed hyperlipidemia (E78.2) Active confirmed Comprehensive blood work with a fasting lipid profile will be done next week. No change in his regimen was made today. Problem 201426617 Dermatitis (L30.9) Active confirmed On his last visit the right mormonism was pruritic. He says it is now over the entire scalp. A dermatology referral was made. He was urged to continue the clobetasol twice a day. Problem Erectile dysfunction (disorder) (365254295) Erectile dysfunction, unspecified erectile dysfunction type (N52.9) Active confirmed This problem shanks s been treated with medications. Problem 98664035 Tobacco dependence (F17.200) Active confirmed He continues to smoke a package of cigarettes per day. He was counseled about the health risks in doing so. He has early emphysema. We discussed various strategies for smoking cessation. This nicotine patches were not beneficial. Problem 369922517 Pulmonary nodule (R91.1) Active confirmed The 6.5 cm pulmonary nodule in right middle lobe is stable. Is being observed carefully. Problem 042337521 Thyroid nodule (E04.1) Active confirmed In 2001. A 2 cm thyroid nodule is seen extending into the mediastinum on the study done to evaluate the arteries. It is not palpable today and has not caused symptoms. It will be reimaged periodically. Problem 927103437 Tubular adenoma of colon (D12.6) Active confirmed He underwent a colonoscopy September 26, 2021. This was done at [facility] by Dr. Enamorado. 2 tubular adenomas were found. A repeat study was planned in 5 years. Problem Aortic aneurysm (50423480) Aortic aneurysm (I71.9) Active confirmed He is under the care of vascular surgery. He has had no abdominal pain. There is no pulsatile mass on examination. Problem 008164162 Left inguinal hernia (K40.90) Active confirmed Bilateral herniorrhaphies have been done with no recurrence. He is free of any symptoms at this time. Problem 736883301 Microscopic hematuria (R31.29) Active confirmed He has had microscopic hematuria endeavor urinalysis since 2002 at [facility] database. Problem 27864274 Bilateral hearing loss, unspecified hearing loss type (H91.93) Active confirmed Problem 66686556 Reactive depression (F32.9) Active confirmed He was continue d on the Wellbutrin. His depression is mild. He is able to conduct all of the activities of daily life. He has no thoughts of self-harm. Problem 238016645 Chronic GERD (K21.9) Active confirmed He will continu e on omeprazole liquid antacid. 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 Examination of his ears showed no impaction of cerumen. Problem Left carotid artery stenosis (824940351322213 ) Left carotid artery stenosis (I65.22) Active confirmed He is followed by vascular surgery. The left carotid is palpable. He has had no TIA symptoms. Problem 483756959385528 Primary osteoarthritis of left knee (M17.12) Active confirmed He has had arthroscopic surgery on his left knee which improved the function significantly. He still has mild pain. Problem 85573818 Hepatitis C virus infection without hepatic coma, unspecified chronicity (B19.20) Active confirmed Problem 06663297 Paraseptal emphysema (J43.8) Active confirmed He is no longer smoking. He is comfortable with mild activity. He does not require oxygen. 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 He will limit his coffee drinking to 3 cups daily. A follow-up visit was arranged. Blood work for thyroid function tests was ordered. Vital Signs Heart Rate 79 /min 04/15/2025 Temperature 97.9 degrees Fahrenheit 04/15/2025 Blood pressure diastolic 65 mm Hg 04/15/2025 Height 67 in 04/15/2025 Blood pressure systolic 121 mm Hg 04/15/2025 Weight 172 lbs 04/15/2025 BMI 26.94 kg/m2 04/15/2025 Encounters Encounter Location Date Provider Diagnosis Wilfrid Lin III, MD [address] [place] [address] [place] [address] 07/15/2024 Wilfrid Lin Mixed hyperlipidemia E78.2 ; Acute adenitis L04.9 ; Paraseptal emphysema J43.8 ; Overweight (BMI 25.0-29.9) E66.3 ; Sensorineural hearing loss (SNHL) of both ears H90.3 ; Aortic aneurysm I71.9 and Left carotid artery stenosis I65.22 Wilfrid Lin III, MD [address] [place] [address] [place] [address] 08/11/2024 Wilfrid Lin Mixed hyperlipidemia E78.2 ; Acute adenitis L04.9 ; Overweight (BMI 25.0-29.9) E66.3 ; Hepatitis C antibody positive R76.8 ; Sensorineural hearing loss (SNHL) of both ears H90.3 ; Paraseptal emphysema J43.8 ; Tobacco dependence F17.200 ; Left carotid artery stenosis I65.22 and Primary osteoarthritis of left knee M17.12 Wilfrid Lin III, MD [address] [place] [address] [place] [phone] 08/17/2024 Wilfrid Lin Premature atrial contractions I49.1 ; Mixed hyperlipidemia E78.2 ; Paraseptal emphysema J43.8 ; Overweight (BMI 25.0-29.9) E66.3 ; Sensorineural hearing loss (SNHL) of both ears H90.3 ; Reactive depression F32.9 ; Primary osteoarthritis of left knee M17.12 and Former smoker Z87.891 Wilfrid Lin III, MD [address] [place] [address] [place] [phone] 09/23/2024 Wilfrid Lin Mixed hyperlipidemia E78.2 ; Paraseptal emphysema J43.8 ; Overweight (BMI 25.0-29.9) E66.3 ; Sensorineural hearing loss (SNHL) of both ears H90.3 ; Left inguinal hernia K40.90 ; Primary osteoarthritis of left knee M17.12 ; Reactive depression F32.9 ; Left carotid artery stenosis I65.22 and Aortic aneurysm I71.9 Wilfrid Lin III, MD [address] [place] [address] [place] [address] 10/11/2024 Wilfrid Lin Insect bite (nonvenomous) of left front wall of thorax, initial encounter S20.362A ; Overweight (BMI 25.0-29.9) E66.3 ; Primary osteoarthritis of left knee M17.12 ; Left inguinal hernia K40.90 and Former smoker Z87.891 Wilfrid Lin III, MD [address] [place] [address] [place] [address] 10/25/2024 Wilfrid Lin Insect bite (nonvenomous) of abdominal wall, subsequent encounter S30.861D ; Paraseptal emphysema J43.8 ; Mixed hyperlipidemia E78.2 ; Overweight (BMI 25.0-29.9) E66.3 ; Sensorineural hearing loss (SNHL) of both ears H90.3 and Former smoker Z87.891 Wilfrid Lin III, MD [address] [place] [address] [place] [phone] 01/24/2025 Wilfrid Lin Mixed hyperlipidemia E78.2 ; Paraseptal emphysema J43.8 ; Overweight (BMI 25.0-29.9) E66.3 ; Sensorineural hearing loss (SNHL) of both ears H90.3 and Reactive depression F32.9 Wiflrid Lin III, MD [address] [place] [address] [place] [address] 04/15/2025 Wilfrid Lin Overweight (BMI 25.0-29.9) E66.3 ; Paraseptal emphysema J43.8 ; Tobacco dependence F17.200 ; Mixed hyperlipidemia E78.2 ; Sensorineural hearing loss (SNHL) of both ears H90.3 ; Aortic aneurysm I71.9 ; Left carotid artery stenosis I65.22 and Bilateral hearing loss, unspecified hearing loss type H91.93 Wilfrid Lin III, MD [address] [place] [address] [place] [phone] 04/30/2024 Wilfrid Lin III, MD [address] [place] [address] [place] [phone] 08/18/2024 Wilfrid Lin III, MD [address] [place] [address] [place] [address] 09/06/2024 Wilfrid Lin Mixed hyperlipidemia E78.2 ; Overweight (BMI 25.0-29.9) E66.3 and Hepatitis C virus infection without hepatic coma, unspecified chronicity B19.20 Wilfrid Lin III, MD [address] [place] [address] [place] [address] 09/15/2024 Wilfrid Lin III, MD [address] [place] [address] [place] [address] 01/26/2025 Wilfrid Lin III, MD [address] [place] [address] [place] [address] 01/27/2025 Wilfrid Lin III, MD [address] [place] [address] [place] [address] 02/07/2025 Wilfrid Lin III, MD [address] [place] [address] [place] [address] 02/07/2025 Wilfrid Lin Assessments Encounter Date Diagnosis [...] activity. He does not require oxygen. 04/15/2025 Overweight (BMI 25.0-29.9) (ICD-10 - E66.3) His weight has been stable. We discussed his diet and nutrition at length today. Comprehensive blood work is pending. 04/15/2025 Paraseptal emphysema (ICD-10 - J43.8) He is no longer smoking. He is comfortable with mild activity. He does not require oxygen. 09/06/2024 Mixed hyperlipidemia (ICD-10 - E78.2) 07/15/2024 Paraseptal emphysema (ICD-10 - J43.8) He [...] mass index is now 26. We reviewed [facility] diet and nutrition. We made a plan to continue weight loss. 04/15/2025 Tobacco dependence (ICD-10 - F17.200) He continues to smoke a package of cigarettes per day. He was counseled about the health risks in doing so. He has early emphysema. We discussed various strategies for smoking cessation. This nicotine patches were not beneficial. 09/06/2024 Overweight (BMI 25.0-29.9) (ICD-10 - E66.3) 07/15/2024 Overweight (BMI 25.0-29.9) (ICD-10 - E66.3) [...] ears showed no impaction of cerumen. 04/15/2025 Mixed hyperlipidemia (ICD-10 - E78.2) Comprehensive blood work with a fasting lipid profile will be done next week. No change in his regimen was made today. 09/06/2024 Hepatitis C virus infection without hepatic coma, unspecified chronicity (ICD-10 - B19.20) 07/15/2024 Sensorineural hearing loss (SNHL) of both [...] life. He has no thoughts of self-harm. 04/15/2025 Sensorineural hearing loss (SNHL) of both ears (ICD-10 - H90.3) He does not think he needs hearing aids at this point. Examination of his ears showed no impaction of cerumen. 07/15/2024 Aortic aneurysm (ICD-10 - I71.9) He is under the care of vascular surgery at [facility]. He is going to have an [...] smoking and has a prescription for Chantix. 04/15/2025 Aortic aneurysm (ICD-10 - I71.9) He is under the care of vascular surgery. He has had no abdominal pain. There is no pulsatile mass on examination. 07/15/2024 Left carotid artery stenosis (ICD-10 - I65.22) He has an appointment for a bilateral carotid ultrasound with [facility] vascular in the near future. 08/11/2024 Tobacco [...] life. He has no thoughts of self-harm. 04/15/2025 Left carotid artery stenosis (ICD-10 - I65.22) He is followed by vascular surgery. The left carotid is palpable. He has had no TIA symptoms. 08/11/2024 Left carotid artery stenosis (ICD-10 - I65.22) He has an appointment for a bilateral carotid ultrasound with [facility] in the near future. 08/17/2024 Former smoker (ICD-10 - Z87.891) He recently stopped smoking and has a prescription for Chantix. 09/23/2024 Left carotid artery stenosis (ICD-10 - I65.22) He is followed by vascular surgery. The left carotid is palpable. He has had no TIA symptoms. 04/15/2025 Bilateral hearing loss, unspecified hearing loss type (ICD-10 - H91.93) 08/11/2024 Primary osteoarthritis of left knee (ICD-10 - M17.12) He has had arthroscopic surgery on his left knee which improved the function significantly. He still has mild pain. 09/23/2024 Aortic aneurysm (ICD-10 - I71.9) He is under the care of vascular surgery. He has had no abdominal pain. There is no pulsatile mass on examination. Plan Of Treatment Pending Test Test Name Order Date PREALBUMIN 04/03/2022 PROFILE, FASTING (COMPREHENSIVE METABOLI C) 04/13/2024 PROFILE, FASTING (COMPREHENSIVE METABOLI C) 05/09/2021 PROFILE, FASTING (COMPREHENSIVE METABOLI C) 08/23/2022 PROFILE, FASTING (COMPREHENSIVE METABOLI C) 06/16/2019 PROFILE, FASTING (COMPREHENSIVE METABOLI C) 11/13/2021 PROFILE, FASTING (COMPREHENSIVE METABOLI C) 06/14/2022 PROFILE, FASTING (COMPREHENSIVE METABOLI C) 03/06/2020 PROFILE, FASTING (COMPREHENSIVE METABOLI C) 09/06/2024 PROFILE, FASTING (COMPREHENSIVE METABOLI C) 01/05/2024 PROFILE, FASTING (COMPREHENSIVE METABOLI C) 04/15/2025 PROFILE, FASTING (COMPREHENSIVE METABOLI C) 03/22/2019 PROFILE, FASTING (COMPREHENSIVE METABOLI C) 05/21/2019 PROFILE, FASTING (COMPREHENSIVE METABOLI C) 01/24/2025 PROFILE, [...] TOTAL 06/20/2023 PSA, TOTAL 05/09/2021 PSA, TOTAL 04/15/2025 PSA, TOTAL 03/06/2020 PSA, TOTAL 08/23/2022 PSA, TOTAL 01/24/2025 PSA, TOTAL SCREEN 06/14/2022 CEA 04/03/2022 CBC w DIFF 01/22/2022 CBC w DIFF 08/23/2022 CBC w DIFF 05/21/2019 CBC w DIFF 01/24/2025 CBC w DIFF 09/16/2019 CBC w DIFF 04/13/2024 CBC w DIFF 11/13/2021 CBC w DIFF 06/20/2023 CBC w DIFF 06/16/2019 CBC w DIFF 05/09/2021 CBC w DIFF 09/06/2024 CBC w DIFF 06/14/2022 CBC w DIFF 04/15/2025 CBC w DIFF 04/03/2022 CBC w DIFF [...] DIFF 08/11/2024 Lipid Panel 08/11/2024 Lipid Panel 04/15/2025 Lipid Panel 01/22/2022 Lipid Panel 09/06/2024 Lipid Panel 09/05/2023 Lipid Panel 01/24/2025 Lipid Panel 04/13/2024 Lipid Panel 11/13/2021 Lipid Panel 06/20/2023 Lipid Panel 01/05/2024 ECG 12 lead EKG 08/17/2024 ECG 7 day holter monitor 08/17/2024 Next Appt Details Provider Name:Wilfrid Lin , 08/19/2025 03:30:00 PM, [address] [facility] [address], [place], [id number], Provider Name:Wilfrid Lin , 04/19/2026 03:00:00 PM, [address] [place] [address] [address], [place], [id number], Insurance Providers Payer Name Payer Address Payer Phone Subscriber Number Group Number Insured Name Patient Relationship to Insured Coverage Start Date Coverage End Date MEDICARE NGS [address] [place] [phone] [id number] Mat Cates Self - patient is the insured [facility] [address] [facility] [place] [phone] [id number] Mat Cates Self - patient is the [...] of abdominal aortic aneurysm 01/24 20 Colonoscopy, [facility], Dr. Weems, 2 sigmoid tubular adenomatous 09/2021 left carotid endarterectomy 12/2019 Right inguinal herniorrhaphy 07/2019 colonoscopy, [facility], Dr. Kirkpatrick, 2 hyperplastic polyps 06/2005 repair left inguinal hernia 2013 complete dental extractions arthroscopic surgey left knee 2002 bilateral rotator cuff surgery, Dr. Rima Madsen 2016 Hospitalization History Reason Date(Month/Year) No history left carotid endarterectomy 12/2019 arthroscopic left knee surgery shoulder surgery 2016
== END 2025-04-22 14:00 | disposition home or self-care (01) ==
PROVIDERS: PCP Internal Medicine Medical Oncology; Visit Provider Nurse Practitioner Family
DX: B19.20 Unspecified viral hepatitis C without hepatic coma (principal); K57.90 Diverticulosis of intestine, part unspecified, without perforation or abscess without bleeding

== ENCOUNTER 2025-04-22 15:01 | Outpatient (REF) | payer MEDICARE, SELFPAY ==
--- NOTE | ~2025-04-22 | US_ITS ---
CLINICAL HISTORY: bilateral CA stenosis US Bilateral Carotid Duplex Comparison: None provided Findings: Scattered soft and hard plaque formation within the carotid arteries bilaterally. Peak systolic velocities: Right CCA: 105 cm/s. Right ICA: 93 cm/s. ICA/CCA ratio: 0.76 Right ECA: Unremarkable Right vertebral artery flow antegrade Left CCA: 116 cm/s. Left ICA: 109 cm/s. ICA/CCA ratio: 0.77 Left ECA: Unremarkable Left vertebral artery flow antegrade IMPRESSION: Normal carotid velocities, no significant stenosis (0-49% stenosis). This document has been electronically signed by: Joseph Peterson MD on 04/25/2025 23:50:21
== END 2025-04-22 15:02 | disposition home or self-care (01) ==
LOC: HO.HMGCX 15:01
PROVIDERS: Nurse Practitioner Family; PCP Internal Medicine Medical Oncology; Visit Provider Surgery Vascular Surgery
DX: Z23 Encounter for immunization (principal); I65.23 Occlusion and stenosis of bilateral carotid arteries; A04.8 Other specified bacterial intestinal infections; B19.20 Unspecified viral hepatitis C without hepatic coma
CPT/HCPCS: 83013; 90471; 90746; 93880; 99211

== ENCOUNTER → 2025-04-22 15:03 | Outpatient (BNV) | payer MEDICARE, SELFPAY | PROVIDERS: PCP Internal Medicine Medical Oncology; Visit Provider Radiology Diagnostic Radiology | DX: I65.23 Occlusion and stenosis of bilateral carotid arteries (principal) | CPT/HCPCS: 93880 ==

== ENCOUNTER 2025-06-07 13:55 | Outpatient (AMB) | payer MEDICARE, SELFPAY ==
[2025-06-07 13:59] VITALS: BMI 26.0
--- NOTE | 2025-06-07 13:59 | A.OFFVIS_ITS ---
Vital Signs 06/07/25 13:59 Height 5 ft 8 in Weight 171 lb BMI 26.0 Intake Visit Reasons: 1 yr follow up CTA Abd & Carotid US Intake Note: 1 yr follow up CTA Abd/pelvis & carotid US w/ Hx of EVAR and Left CEA. No complaints Child And Family Therapist Required: No Accompanied by: Self / Same As Patient Allergies No Known Allergies (No Known Allergies*) Allergy (Verified 06/07/25 14:00) HPI HPI 1 yr follow up CTA Abd & Carotid US: Details: The patient is a 80 year old individual presenting for a routine follow-up visit for vascular surveillance. Past surgical history is significant for an aortic repair with coil placement in 2019, a left carotid artery procedure in 2019, and a left leg procedure with stenting in 2020. The patient reports one episode of a sensation in the right leg three to four weeks ago, described as a feeling of something being ripped out rather than a cramp. The patient denies any regular leg cramping or limitations with ambulation. The patient has been taking Clopidogrel and aspirin since the leg stenting. 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 The patient works seasonally from October to and maintains equipment during the winter. Continues to do well and now for routine surveillance follow-up. [facility] Medical History Hepatitis C Diverticulosis Tubular adenoma Nicotine dependence, cigarettes, uncomplicated CVA (cerebral vascular accident) Primary osteoarthritis of left knee Hepatitis A Erectile dysfunction Bursitis of left shoulder Hyperplastic colon polyp Surgical History S/P angioplasty with stent (09/06/20) History of left-sided carotid endarterectomy History of aortic aneurysm repair Left knee injury Status post total shoulder arthroplasty H/O left inguinal hernia repair Hx of rotator cuff surgery Encounter for full mouth dental rehabilitation Hx of colonoscopy H/O right inguinal hernia repair Family History Father No problems noted. Mother Cancer Arthritis Brother No problems noted. Brother No problems noted. Brother No problems noted. Brother No problems noted. Brother No problems noted. Brother Pancreatic cancer Sister No problems noted. Sister No problems noted. Sister No problems noted. Sister Pancreatic cancer, Onset Age: 69 Sister FH: ovarian cancer Sister Breast cancer Son No problems noted. Son No problems noted. 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 Review of Systems Const All systems reviewed & are unremarkable except as noted in HPI and below Reports no additional complaints ENT Reports Normal hearing present Card Denies chest pain, Denies chest pain at rest, Denies chest pain with activity and Denies pedal edema Resp Denies cough GI Denies abdominal pain Musc Denies abnormal gait, Denies muscle cramps and Denies radiating pain into limb Skin/Breast Denies skin ulcer and Denies wounds Neuro Reports Normal hearing present and Denies abnormal gait Psych Reports no additional complaints Physical Exam Vital Signs: BMI result Body Mass Index 26.0 Const General: cooperative, healthy appearing and comfortable Orientation/consciousness: oriented to person, oriented to place and oriented to time HEENT Head: Yes normal to inspection Neck Neck: Yes normal visual inspection Carotids: no bruits Chest Chest palpation & inspection: normal inspection of the chest Resp Effort & Inspection: normal respiratory effort and able to speak in complete sentences Auscultation: clear to auscultation bilaterally, no crackles, no rales, no rhonchi and no wheezes Cardio Rate: regular rate Rhythm: regular rhythm Heart sounds: S1 normal heart sound present and S2 normal heart sound present Bruits: no carotid bruits Peripheral pulses: Peripheral pulses 2+ throughout GI Inspection: Yes normal to inspection Skin Wounds: no wounds Hair: normal Neuro General: oriented to person, oriented to place and oriented to time Cranial nerves: Yes CN's II-XII intact bilaterally and Yes Normal hearing prese nt Cognition (Neuro): normal cognition Motor exam (neuro): 5/5 motor strength present throughout Extrem Other: venous exam: No significant superficial varicosities or spider telangiectasias, minimal edema General: No clubbing, No cyanosis and No edema Psych Appearance: grossly normal Mental Status: mental status grossly normal Speech and movement: Normal speech and movement present Results Reviewed Results Reviewed: CT angiogram dated 04/08/2025 demonstrates no evidence of endoleak. Carotid testing dated 04/22/2025 demonstrates bilateral 0-49% stenosis. Written report and images were reviewed. Assessment & Plan Assessment & Plan (1) AAA (abdominal aortic aneurysm) without rupture: Comment: 01/05/2020 - right internal iliac coiling 01/10/2020 - endovascular aortic aneurysm repair with Endologix AFX Code(s): I71.4 - Abdominal aortic aneurysm, without rupture Category: Medical Qualifiers: Abdominal aorta location: infrarenal aorta Qualified Code(s): I71.43 - Infrarenal abdominal aortic aneurysm, without rupture Plan: In short patient has radiologic evidence of a stable aortic endograft. We have discussed the pathophysiology of aortic aneurysms and the risk of ruptures. We have discussed rupture risk based on size. In addition we have discussed conservative measures and risk factor modification for prevention of increase in size of the aneurysm. the patient is scheduled for surveillance follow-up in approximately 1 year. Thank you for allowing us to participate in the care of this patient (2) Carotid stenosis, bilateral: Comment: 12/13/2019 - left carotid endarterectomy Code(s): I65.23 - Occlusion and stenosis of bilateral carotid arteries Category: Medical Plan: In short patient has asymptomatic carotid disease. We have reviewed signs and symptoms of a stroke. We also discussed risk factor modification inclusive a healthy diet low in cholesterol. The patient will follow up with us with surveillance ultrasound of the carotids 1 year. Should there be any changes or signs or symptoms of a stroke we will be happy to see them back sooner. Thank you for allowing us to participate in this patient's care. If there are any questions or concerns please do not hesitate to contact us. (3) PAD (peripheral artery disease): Comment: 09/06/2020- angioplasty and stent of left SFA Code(s): I73.9 - Peripheral vascular disease, unspecified Category: Medical Plan: Stable claudication. We will follow up in 1 year. Orders: Orders Blood Urea Nitrogen 1 Year I71.43 - Infrarenal abdominal aortic aneurysm, without rupture US carotid duplex BI 1 Year I65.23 - Occlusion and stenosis of bilateral carotid arteries Creatinine 1 Year I71.43 - Infrarenal abdominal aortic aneurysm, without rupture CT angio abdomen pelvis 1 Year I71.43 - Infrarenal abdominal aortic aneurysm, without rupture Coding Level of Care Code Complex visit Add On [id number] Diagnoses Infrarenal abdominal aortic aneurysm (AAA) without rupture I71.43 Abdominal aorta location: infrarenal aorta Carotid stenosis, bilateral I65.23 PAD (peripheral artery disease) I73.9
== END 2025-06-07 14:26 | disposition home or self-care (01) ==
LOC: HO.HVS 13:55
PROVIDERS: PCP Internal Medicine Medical Oncology; Visit Provider Surgery Vascular Surgery
DX: I71.43 Infrarenal abdominal aortic aneurysm, without rupture (principal); I65.23 Occlusion and stenosis of bilateral carotid arteries; I73.9 Peripheral vascular disease, unspecified
CPT/HCPCS: 99214; G2211

== ENCOUNTER → 2025-06-07 13:55 | Outpatient (BNVA) | payer MEDICARE, SELFPAY | PROVIDERS: PCP Internal Medicine Medical Oncology; Visit Provider Surgery Vascular Surgery | DX: I71.43 Infrarenal abdominal aortic aneurysm, without rupture (principal); I65.23 Occlusion and stenosis of bilateral carotid arteries; I73.9 Peripheral vascular disease, unspecified; Z95.5 Presence of coronary angioplasty implant and graft; F17.210 Nicotine dependence, cigarettes, uncomplicated | CPT/HCPCS: 99212 ==